=== PATIENT | male | born 1980 | race Caucasian/White ===

== ENCOUNTER 2017-08-17 10:43 | Emergency (ER) | payer MEDICARE, MEDICAID, SELFPAY ==
[2017-08-17 10:44] VITALS: BP 132/92; PULSE 76; RESP 17; TEMP 36.2; O2SAT 100; BMI 39.3
--- NOTE | 2017-08-17 13:35 | ED.VISSUMM ---
- ER Visit Summary Date of Service: 08/17/17 Chief Complaint: Facial laceration History of Present Illness: The patient is a 37 M who fell today at his house struck his head on the ground. Who his glasses cut his forehead. He notes laceration on the right side of his forehead. No loss of consciousness no vomiting. Injury happened approximately 5 hours prior to evaluation. His tetanus is not up-to-date Physical Examination: Afebrile vital signs are stable There is a 4 cm curvilinear laceration starting in the medial aspect of the right eyebrow extending cephalad. It is gaping. There is no active bleeding. Extraocular motions are intact. There is no palpable depression. Emergency Department Course and Treatment: Wound was locally anesthetized using 1% lidocaine. Is washed with Shur-Clens and explored. It was closed using a total of #8 5-0 double interrupted Ethilon sutures. Wound care discussed with patient. Stitches will need to be removed 5-7 days. Tetanus was updated with Adacel Impression: 1. 4 cm facial laceration with 2. Tetanus update This note was generated with [employer] dictation software. It may contain incorrect words, spelling, and punctuation that were not noted in review of the chart prior to signing ED Disposition - Plan for ED Patient: Disposition: Home or Assisted Living Chief Complaint: Fall Instructions: ED Laceration Facial Sutr Tape Referrals: Ezra Duggan MD [Primary Care Provider] - (in 5-7 days for suture removal)
[2017-08-17] MEDS: Diphth,Pertuss(Acell),Tet Vac 0.5 ML Vial IM (14:10)
[2017-08-17 14:30] VITALS: PULSE 70; RESP 16
== END 2017-08-17 14:32 | disposition home or self-care (01) ==
LOC: ED 13:45
PROVIDERS: Emergency Provider Emergency Medicine; Family Provider Family Medicine; PCP Family Medicine
DX: S01.81XA Laceration without foreign body of other part of head, initial encounter (principal); W18.00XA Striking against unspecified object with subsequent fall, initial encounter; Y93.9 Activity, unspecified; Y92.89 Other specified places as the place of occurrence of the external cause; Y99.9 Unspecified external cause status; Z23 Encounter for immunization; I10 Essential (primary) hypertension; E78.00 Pure hypercholesterolemia, unspecified; J45.909 Unspecified asthma, uncomplicated
CPT/HCPCS: 12013; 90715; 99283

== ENCOUNTER 2017-10-16 14:37 | Inpatient (IN) | payer MEDICARE, MEDICAID, SELFPAY ==
[2017-10-16 14:40] VITALS: BP 136/88; PULSE 101; RESP 18; TEMP 37.4; O2SAT 93; BMI 25.4
[2017-10-16 15:44] VITALS: BP 123/90
--- NOTE | 2017-10-16 15:50 | ED.VISSUMM ---
- ER Visit Summary Date of Service: 10/16/17 Chief Complaint: Left foot pain and swelling History of Present Illness: The patient is a 37 M who presents for 2 weeks of left foot swelling, now with 2 days of severe pain. Patient noted swelling to the left foot that began 2 weeks ago and is not significantly changed in the interval. However for the last 2 days he has been having pain with weightbearing, and today was unable to stand up due to severe pain in the foot. He required EMS to get him out of his chair and onto a stretcher. Patient sometimes uses a walker for assistance and has had surgery on both feet. He is also complaining of swelling in the left hand and wrist. He states he had similar swelling in the right hand but received a chiropractic adjustment in the right upper extremity from his father and had resolution of those symptoms. He states he has a history of arthritis. Denies fever, chest pain, shortness of breath, URI symptoms, abdominal pain, nausea or vomiting, or other complaints. He did notice abrasions to the left lower leg and does not know how they happened. Physical Examination: Vital signs: afebrile, hemodynamically stable, no hypoxia on room air General: well nourished, well developed, in no distress Skin: warm, dry, scabbed over excoriated papules on the left inner ankle proximal to the medial malleolus, no fluctuance or induration, dried blood noted, no pallor HEENT: normocephalic and atraumatic; PERRL, EOMI, moist mucous membranes Cardiovascular: regular rate and rhythm without murmurs, no peripheral edema, 2+ pulses all distal extremities Respiratory: No increased work of breathing, lungs are clear to auscultation bilaterally, no rales, rhonchi or wheezing Abdominal: Abdomen is soft, nontender with normoactive bowel sounds, no guarding or rebound, no masses MSK: Moves all extremities, mild pedal symmetric edema bilaterally, DP pulses are 2+ and symmetric, tenderness to diffuse palpation of the left foot, no obvious erythema or induration, left hand and wrist have nonpitting edema with erythema over the MCP and PIP joints, also ordered for the dorsum of the wrist, point tenderness to palpation of the joints Neuro: Awake and alert, oriented ?4. No facial droop, sensation and motor function intact and symmetric Test Results: Abnormal Lab Results 10/16/17 10/16/17 10/16/17 16:10 16:10 16:10 WBC 15.8 H RBC 3.96 L Hgb 10.8 L Hct 32.9 L MCV 83.1 MCH 27.3 MCHC 32.8 RDW 13.2 RDW Differential 39.3 Plt Count 382 MPV 9.1 Immature Gran % (Auto) 0.300 Neut % (Auto) 79.8 H Lymph % (Auto) 7.7 L Dickinson % (Auto) 11.8 H Eos % (Auto) 0.3 Baso % (Auto) 0.1 Absolute Neuts (auto) 12.6 H Absolute Lymphs (auto) 1.22 Total Counted Not Reportable Differential Comment SCANNED ESR 87 H PT 16.0 H INR 1.3 APTT 46.4 H Sodium 138 Potassium 4.0 Chloride 100 Carbon Dioxide 26.0 Anion Gap 12 BUN 16 Creatinine 1.17 Estim Creat Clear Calc 62.71 Est GFR (MDRD) Af Amer 89 Est GFR (MDRD) Non-Af 74 BUN/Creatinine Ratio 13.7 Glucose 120 H Lactic Acid Uric Acid Calcium 9.2 Total Bilirubin 1.80 H AST 14 L ALT 23 Alkaline Phosphatase 117 Total Creatine Kinase 40 C-React Prot Ext Range 319.00 H Total Protein 8.7 H Albumin 2.8 L Globulin 5.9 H Albumin/Globulin Ratio 0.5 L Rheumatoid Factor 10/16/17 10/16/17 10/16/17 16:10 16:10 18:55 WBC RBC Hgb Hct MCV MCH MCHC RDW RDW Differential Plt Count MPV Immature Gran % (Auto) Neut % (Auto) Lymph % (Auto) Dickinson % (Auto) Eos % (Auto) Baso % (Auto) Absolute Neuts (auto) Absolute Lymphs (auto) Total Counted Differential Comment ESR PT INR APTT Sodium Potassium Chloride Carbon Dioxide Anion Gap BUN Creatinine Estim Creat Clear Calc Est GFR (MDRD) Af Amer Est GFR (MDRD) Non-Af BUN/Creatinine Ratio Glucose Lactic Acid 1.1 Uric Acid 11.0 H Calcium Total Bilirubin AST ALT Alkaline Phosphatase Total Creatine Kinase C-React Prot Ext Range Total Protein Albumin Globulin Albumin/Globulin Ratio Rheumatoid Factor Clinical Impression(s) from Imaging Studies Foot X-Ray 10/16/17 15:49 IMPRESSION: 1. Diffuse soft tissue swelling. There is no visualized fracture or dislocation. 2. Diffuse degenerative changes of the foot. 3. Evidence of fusion of the ankle and hindfoot with internal fixation. Electronically Signed: Anderson Monterroso DO at 17:43 EDT Tel [phone], Service support , Hand X-Ray 10/16/17 15:49 IMPRESSION: 1. Soft tissue swelling without acute fracture or dislocation. 2. Degenerative changes of the wrist and hand. 3. 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 Electronically Signed: Anderson Monterroso DO at 17:46 EDT Tel [phone], Service support , Chest X-Ray 10/16/17 16:50 IMPRESSION: No acute cardiopulmonary disease. Electronically Signed: Anderson Monterroso DO at 17:44 EDT Tel [phone], Service support , Emergency Department Course and Treatment: Patient presents because of severe left foot pain, however the more concerning exam is of his left hand, which is edematous, tender and erythematous. Workup was performed showing a leukocytosis of 15.8 with a neutrophil predominance. ESR and CRP were both elevated. Patient states he has a history of osteoarthritis, but these lab findings are more concerning for an infectious or acute inflammatory process rather than osteoarthritis. Patient has no history of rheumatoid arthritis. No electrolyte or renal de rangements. Lactate normal. X-ray of the hand and foot showed chronic changes but no acute process other than soft tissue swelling. Patient has multiple joints involved in the hand, thus a septic joint is less likely although not impossible. Because of the concern for possible infectious source of patient's hand swelling, he was started on vancomycin and cefepime. On reevaluation he was febrile and tachycardic and stated he did not feel well. He was admitted for further workup of the underlying cause of his hand and foot swelling, with presumptive treatment of infectious etiology. Patient had no joints that were amenable to arthrocentesis in the emergency department given that it was finger joints or the wrist. Patient was discussed with Dr. Kotsonis for admission. Treatment Plan: [] Disposition: [] Impression: Sepsis, left hand cellulitis, left foot pain This note was generated with [employer] dictation software. It may contain incorrect words, spelling, and punctuation that were not noted in review of the chart prior to signing ED Disposition - Plan for ED Patient: Disposition: Acute Care Hospital [facility] Chief Complaint: Edema
--- NOTE | 2017-10-16 15:53 | ED.DCSUM_ITS ---
- ER Visit Summary Date of Service: 10/16/17 Chief Complaint: Left foot pain and swelling History of Present Illness: The patient is a 37 M who presents for 2 weeks of left foot swelling, now with 2 days of severe pain. Patient noted swelling to the left foot that began 2 weeks ago and is not significantly changed in the interval. However for the last 2 days he has been having pain with weightbearing, and today was unable to stand up due to severe pain in the foot. He required EMS to get him out of his chair and onto a stretcher. Patient sometimes uses a walker for assistance and has had surgery on both feet. He is also complaining of swelling in the left hand and wrist. He states he had similar swelling in the right hand but received a chiropractic adjustment in the right upper extremity from his father and had resolution of those symptoms. He states he has a history of arthritis. Denies fever, chest pain, shortness of breath, URI symptoms, abdominal pain, nausea or vomiting, or other complaints. He did notice abrasions to the left lower leg and does not know how they happened. Physical Examination: Vital signs: afebrile, hemodynamically stable, no hypoxia on room air General: well nourished, well developed, in no distress Skin: warm, dry, scabbed over excoriated papules on the left inner ankle proximal to the medial malleolus, no fluctuance or induration, dried blood noted , no pallor HEENT: normocephalic and atraumatic; PERRL, EOMI, moist mucous membranes Cardiovascular: regular rate and rhythm without murmurs, no peripheral edema, 2 + pulses all distal extremities Respiratory: No increased work of breathing, lungs are clear to auscultation bilaterally, no rales, rhonchi or wheezing Abdominal: Abdomen is soft, nontender with normoactive bowel sounds, no guarding or rebound, no masses MSK: Moves all extremities, mild pedal symmetric edema bilaterally, DP pulses are 2+ and symmetric, tenderness to diffuse palpation of the left foot, no obvious erythema or induration, left hand and wrist have nonpitting edema with erythema over the MCP and PIP joints, also ordered for the dorsum of the wrist, point tenderness to palpation of the joints Neuro: Awake and alert, oriented ?4. No facial droop, sensation and motor function intact and symmetric Test Results: Abnormal Lab Results 10/16/17 10/16/17 10/16/17 16:10 16:10 16:10 WBC 15.8 H RBC 3.96 L Hgb 10.8 L Hct 32.9 L MCV 83.1 MCH 27.3 MCHC 32.8 RDW 13.2 RDW Differential 39.3 Plt Count 382 MPV 9.1 Immature Gran % (Auto) 0.300 Neut % (Auto) 79.8 H Lymph % (Auto) 7.7 L Mathews % (Auto) 11.8 H Eos % (Auto) 0.3 Baso % (Auto) 0.1 Absolute Neuts (auto) 12.6 H Absolute Lymphs (auto) 1.22 Total Counted Not Reportable Differential Comment SCANNED ESR 87 H PT 16.0 H INR 1.3 APTT 46.4 H Sodium 138 Potassium 4.0 Chloride 100 Carbon Dioxide 26.0 Anion Gap 12 BUN 16 Creatinine 1.17 Estim Creat Clear Calc 62.71 Est GFR (MDRD) Af Amer 89 Est GFR (MDRD) Non-Af 74 BUN/Creatinine Ratio 13.7 Glucose 120 H Lactic Acid Uric Acid Calcium 9.2 Total Bilirubin 1.80 H AST 14 L ALT 23 Alkaline Phosphatase 117 Total Creatine Kinase 40 C-React Prot Ext Range 319.00 H Total Protein 8.7 H Albumin 2.8 L Globulin 5.9 H Albumin/Globulin Ratio 0.5 L Rheumatoid Factor 10/16/17 10/16/17 10/16/17 16:10 16:10 18:55 WBC RBC Hgb Hct MCV MCH MCHC RDW RDW Differential Plt Count MPV Immature Gran % (Auto) Neut % (Auto) Lymph % (Auto) Mathews % (Auto) Eos % (Auto) Baso % (Auto) Absolute Neuts (auto) Absolute Lymphs (auto) Total Counted Differential Comment ESR PT INR APTT Sodium Potassium Chloride Carbon Dioxide Anion Gap BUN Creatinine Estim Creat Clear Calc Est GFR (MDRD) Af Amer Est GFR (MDRD) Non-Af BUN/Creatinine Ratio Glucose Lactic Acid 1.1 Uric Acid 11.0 H Calcium Total Bilirubin AST ALT Alkaline Phosphatase Total Creatine Kinase C-React Prot Ext Range Total Protein Albumin Globulin Albumin/Globulin Ratio Rheumatoid Factor Clinical Impression(s) from Imaging Studies Foot X-Ray 10/16/17 15:49 IMPRESSION: 1. Diffuse soft tissue swelling. There is no visualized fracture or dislocation. 2. Diffuse degenerative changes of the foot. 3. Evidence of fusion of the ankle and hindfoot with internal fixation. Electronically Signed: Anderson Monterroso DO at 17:43 EDT Tel [phone], Service support , Hand X-Ray 10/16/17 15:49 IMPRESSION: 1. Soft tissue swelling without acute fracture or dislocation. 2. Degenerative changes of the wrist and hand. 3. 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 Electronically Signed: Anderson Monterroso DO at 17:46 EDT Tel [phone], Service support , Chest X-Ray 10/16/17 16:50 IMPRESSION: No acute cardiopulmonary disease. Electronically Signed: Anderson Monterroso DO at 17:44 EDT Tel [phone], Service support , Emergency Department Course and Treatment: Patient presents because of severe left foot pain, however the more concerning exam is of his left hand, which is edematous, tender and erythematous. Workup was performed showing a leukocytosis of 15.8 with a neutrophil predominance. ESR and CRP were both elevated. Patient states he has a history of osteoarthritis, but these lab findings are more concerning for an infectious or acute inflammatory process rather than osteoarthritis. Patient has no history of rheumatoid arthritis. No electrolyte or renal de rangements. Lactate normal. X-ray of the hand and foot showed chronic changes but no acute process other than soft tissue swelling. Patient has multiple joints involved in the hand, thus a septic joint is less likely although not impossible. Because of the concern for possible infectious source of patient's hand swelling, he was started on vancomycin and cefepime. On reevaluation he was febrile and tachycardic and stated he did not feel well. He was admitted for further workup of the underlying cause of his hand and foot swelling, with presumptive treatment of infectious etiology. Patient had no joints that were amenable to arthrocentesis in the emergency department given that it was finger joints or the wrist. Patient was discussed with Dr. Kotsonis for admission. Treatment Plan: [] Disposition: [] Impression: Sepsis, left hand cellulitis, left foot pain This note was generated with [employer] dictation software. It may contain incorrect words, spelling, and punctuation that were not noted in review of the chart prior to signing ED Disposition - Plan for ED Patient: Disposition: Acute Care Hospital [facility] Chief Complaint: Edema
[2017-10-16 16:28] LABS: Erythrocyte Sedimentation Rate 87 mm/hr (0-15)
[2017-10-16 16:32] LABS: Absolute Lymphocyte Count 1.22 X10^3/ul (0.83-4.51); Absolute Neutrophil Count 12.6 X10^3/uL (2.0-7.7); Basophil# 0.02 X10^3/uL; Basophil% 0.1 % (0-1); Eosinophil# 0.04 X10^3/uL; Eosinophils% 0.3 % (0-5); Hematocrit 32.9 % (40-54); Hemoglobin 10.8 g/dl (13.0-16.5); Lymphocyte # 1.22 X10^3/ul (4.0); Lymphocyte % 7.7 % (19-41); Mean Corp Hgb Conc 32.8 g/gl (32-36); Mean Corpuscular Hgb 27.3 pg (27.0-32.0); Mean Corpuscular Volume 83.1 fL (80-94); Mean Platelet Vol. 9.1 fl (6.2-12.0); Monocyte# 1.86 X10^3/uL; Monocyte% 11.8 % (0-10); Neutrophil # 12.58 X10^3/uL (2.7-7.7); Neutrophil % 79.8 % (47-70); Platelet Count 382 K/mm3 (150-450); RBC Distribution Width CV 13.2 % (11.6-14.6); RBC Distribution Width SD 39.3 fl (35.1-43.9); Red Blood Count 3.96 M/mm3 (4.6-6.2); White Blood Count 15.8 K/mm3 (4.4-11.0)
[2017-10-16] MEDS: Ketorolac 15 MG/ML Vial IV (16:32)
[2017-10-16] MEDS: 0.9% Normal Saline 1,000 ML 250 ML IV (16:32)
[2017-10-16 16:34] LABS: International Normalized Ratio 1.3
[2017-10-16 16:35] LABS: Partial Thromboplast Time 46.4 Seconds (24.1-36.2)
[2017-10-16 16:36] LABS: Differential Indicated SCAN CRITERIA MET; POSITIVE COUNT NO; POSITIVE DIFFERENTIAL YES; POSITIVE MORPHOLOGY YES
[2017-10-16 16:52] LABS: ALB/GLOB Ratio 0.5 RATIO (0.9-2.4); AST(SGOT) 14 U/L (15-37); Alanine Aminotransfer ALT/SGPT 23 U/L (16-61); Albumin, Serum 2.8 g/dL (3.2-5.0); Alkaline Phosphatase 117 U/L (45-117); Anion Gap 12 (5-15); BUN 16 mg/dL (7-18); BUN/Creat Ratio 13.7 RATIO (10-20); CPK Total, Creatine Kinase 40 U/L (39-308); Calcium,Total 9.2 mg/dL (8.5-10.1); Chloride 100 mmol/L (98-107); Creatinine, Serum 1.17 mg/dL (0.70-1.30); EST Glomerular Filtration Rate 74 mL/min (>60); Est Glom Filt Rate - Afr Amer 89 mL/min (>60); Estimated Creatinine Clearance 62.71 ml/min; Globulin 5.9 g/dL (2.2-4.2); Glucose 120 mg/dL (74-106); Lactic Acid 1.1 mmol/L (0.4-2.0); Protein, Total 8.7 g/dL (6.4-8.2); Sodium Level 138 mmol/L (136-145)
[2017-10-16 16:54] LABS: Differential Comment SCANNED
--- NOTE | 2017-10-16 16:55 | ED.RN ---
IV documented in error in left forearm. IV was placed successfully in right forearm.
[2017-10-16 17:30] VITALS: BP 127/76; PULSE 90; RESP 18; TEMP 38.4; O2SAT 95
--- NOTE | 2017-10-16 17:59 | PCM.HP.STD ---
<Zaira Carmona - Last Filed: 10/16/17 18:38> Problem List (1) HLD (hyperlipidemia) Status: Chronic (2) GERD (gastroesophageal reflux disease) Status: Chronic (3) Depression Status: Chronic History of Present Illness Date of Admission: 10/16/17 Chief Complaint: Left foot pain, swelling, erythema The patient is a 37 year old M who presents to the emergency room due to left foot pain, swelling and erythema which began approximately 2 weeks ago. Patient states he came to the emergency room today due to significant pain and unable to ambulate on left lower extremity. He also has significant swelling, erythema and pain in the left hand. He denies fever, chills. Denies injury to left lower or left upper extremity. Denies history of this occurring. Denies history of gout or rheumatoid arthritis. He has a past medical history of hypertension, hyperlipidemia, depression, GERD, genetic syndrome, chronic iron deficiency anemia. Past Medical History Past Medical History (Chronic Problems): Chronic Problems HLD (hyperlipidemia) (Chronic) GERD (gastroesophageal reflux disease) (Chronic) Depression (Chronic) Allergies codeine Allergy (Verified 10/16/17 14:40) Other lisinopril Allergy (Verified 10/16/17 14:40) Rash Home Medications: Ambulatory Orders Medication Instructions Recorded Sertraline HCl [Zoloft] 50 mg PO DAILY 02/22/14 Atorvastatin Calcium 20 mg PO DAILY 07/10/16 Amlodipine [Norvasc] 10 mg PO DAILY 10/16/17 Ferrous Sulfate 324 mg PO BID 10/16/17 Omeprazole [Omeprazole] 40 mg PO DAILY 10/16/17 Surgical History: tonsillectomy, - - 16 ear surgeries, bilateral ankle surgery, IVC filter placement, laminectomy Lives: Spouse/ Significant Other Smoking Status: Never smoker Alcohol: None Drugs: None - *Family History Paternal History Items: Diabetes Maternal History Items: Cancer - Ovarian Review of Systems Constitutional: Denies: Chills, Fever, Weight Change HEENT: Denies: Head Aches, Sinus Congestion, Sinus Drainage Cardiovascular: Denies: Chest Pain, Palpitations Respiratory: Denies: Cough, Shortness of breath at rest, Sputum production Gastrointestinal: Denies: Abdominal Pain, Nausea, Vomiting Genitourinary: Denies: Dysuria Musculoskeletal: Reports: Joint Pain - Left foot, Left hand Skin: Reports: - - Left hand and foot erythema. No open wounds or abscess. Neurological: Denies: Numbness, Tingling, Focal weakness Psychiatric: Reports: Depression. Denies: Anxiety, Homicidal Ideations, Suicidal Ideations Hematologic/ Lymphatic: Denies: Easy Bruising, Easy Bleeding VTE Information - Inpt Only VTE Present on Admission: No VTE Mechan Device Prophylaxis: None VTE Pharm Prophylaxis ordered?: Yes - Physical Exam General: Alert, Oriented x3, Cooperative, No apparent distress HEENT: Atraumatic, PERRLA, EOMI, Normocephalic Neck: Supple, No JVD, Negative Carotid Bruits Lungs: Clear to auscultation, Normal air movement Cardiovascular: Regular rate, Regular Rhythm, Normal S1, Normal S2, No murmurs Abdomen: Bowel Sounds Present, Soft, Non Tender, Non-Distended, Obese Extremities: Edema - Left foot, left hand Skin: - - Left foot and hand erythema, no open wound or abscess. Musculoskeletal: Tenderness - Left foot and hand. Neurological: Cranial nerves II-XII grossly intact Psych/Mental Status: Normal Affect, Appropriate Vital Signs Temp Pulse Resp BP Pulse Ox 101.1 F H 90 18 127/76 H 95 10/16/17 17:30 10/16/17 17:30 10/16/17 17:30 10/16/17 17:30 10/16/17 17:30 Oxygen Delivery Method Room Air Weight: 135 lb Body Mass Index (BMI) 25.4 Laboratory Tests Past 24 Hrs 10/16/17 10/16/17 10/16/17 16:10 16:10 16:10 WBC 15.8 H RBC 3.96 L Hgb 10.8 L Hct 32.9 L MCV 83.1 MCH 27.3 MCHC 32.8 RDW 13.2 RDW Differential 39.3 Plt Count 382 MPV 9.1 Immature Gran % (Auto) 0.300 Neut % (Auto) 79.8 H Lymph % (Auto) 7.7 L [place] % (Auto) 11.8 H Eos % (Auto) 0.3 Baso % (Auto) 0.1 Absolute Neuts (auto) 12.6 H Absolute Lymphs (auto) 1.22 Total Counted Not Reportable Differential Comment SCANNED ESR 87 H PT 16.0 H INR 1.3 APTT 46.4 H Sodium 138 Potassium 4.0 Chloride 100 Carbon Dioxide 26.0 Anion Gap 12 BUN 16 Creatinine 1.17 Estim Creat Clear Calc 62.71 Est GFR (MDRD) Af Amer 89 Est GFR (MDRD) Non-Af 74 BUN/Creatinine Ratio 13.7 Glucose 120 H Lactic Acid Calcium 9.2 Total Bilirubin 1.80 H AST 14 L ALT 23 Alkaline Phosphatase 117 Total Creatine Kinase 40 C-React Prot Ext Range 319.00 H Total Protein 8.7 H Albumin 2.8 L Globulin 5.9 H Albumin/Globulin Ratio 0.5 L 10/16/17 16:10 WBC RBC Hgb Hct MCV MCH MCHC RDW RDW Differential Plt Count MPV Immature Gran % (Auto) Neut % (Auto) Lymph % (Auto) [place] % (Auto) Eos % (Auto) Baso % (Auto) Absolute Neuts (auto) Absolute Lymphs (auto) Total Counted Differential Comment ESR PT INR APTT Sodium Potassium Chloride Carbon Dioxide Anion Gap BUN Creatinine Estim Creat Clear Calc Est GFR (MDRD) Af Amer Est GFR (MDRD) Non-Af BUN/Creatinine Ratio Glucose Lactic Acid 1.1 Calcium Total Bilirubin AST ALT Alkaline Phosphatase Total Creatine Kinase C-React Prot Ext Range Total Protein Albumin Globulin Albumin/Globulin Ratio Assessment/Plan 1. Left foot/hand swelling and erythema- Cellulitis vs inflammatory process. Left foot x-ray shows soft tissue swelling, no fracture or dislocation. Diffuse degenerative changes. Evidence of fusion of the ankle and hindfoot with internal fixation. Left hand x-ray with soft tissue swelling, no acute fracture or dislocation. Degenerative changes of the wrist and hands. 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 WBC 15.8. ESR and CRP elevated. Patient started on cefepime and vancomycin in ER, continue. PRN pain regimen. If no improvement with antibiotics, consider trial of steroids. HAROLDO, RF, CCP ordered. 2. Hyperlipidemia-continue statin. 3. Hypertension-previously on amlodipine. Unclear if patient is still taking. Continue to monitor. 4. Obesity-encourage diet and lifestyle modifications. Nutrition consult. 5. Genetic syndrome (undiagnosed)- refused outpatient referral to supervisor type photography. 6. 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 7. Chronic iron deficiency anemia-hemoglobin stable. 8. GERD-continue PPI. 9. Depression-continue home sertraline regimen. DVT prophylaxis-Lovenox subcu. This patient was seen by LALITO Joe under the supervision of Dr. Cardozo. <Avery Cardozo F - Last Filed: 10/16/17 19:09> History of Present Illness The patient is a 37 year old M [] Past Medical History Allergies codeine Allergy (Verified 10/16/17 14:40) Other lisinopril Allergy (Verified 10/16/17 14:40) Rash - Physical Exam Vital Signs Temp Pulse Resp BP Pulse Ox 101.1 F H 90 18 127/76 H 95 10/16/17 18:04 18 18:04 10/16/17 18:04 10/16/17 18:04 10/16/17 18:04 Weight: 195 lb 5.273 oz Body Mass Index (BMI) 36.8 Assessment/Plan Addendum: Dr. Cardozo I personally examined the patient and reviewed the chart. I agree with the above. 37-year-old male with a past medical history including hyperlipidemia, hypertension, and a history of DVT who presents with a couple week history of left foot and left hand swelling. He presented because he says that it has not improved over the last 2 weeks. It has not worsened. He was told in the [facility] that he should follow-up with a supervisor type photography given his multiple bony abnormalities however he never did. General: Alert, Oriented x3, Cooperative, No apparent distress HEENT: Atraumatic, = EOMI, Normocephalic Oral: Moist Mucosa Neck: Supple, No JVD Lungs: Clear to auscultation, Normal air movement, No rhonchi, No wheeze, No rales Cardiovascular: Regular rate, Regular Rhythm, Normal S1, Normal S2, No murmurs Abdomen: Soft, Non Tender, Non-Distended, No Hepato-splenomegaly Extremities: No edema, Capillary Refill Less than 3 Seconds, genu valgum in both knee, incisions in both ankles from fusion Skin: areas of redness and warmth on the left hand and left foot Musculoskeletal: No Tenderness to Palpation of Joints or Extremities Psych/Mental Status: Normal Affect, Appropriate 1. 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
[2017-10-16 18:04] VITALS: BP 127/76; PULSE 90; RESP 18; TEMP 38.4; O2SAT 95
[2017-10-16 18:43] VITALS: BMI 36.8
[2017-10-16 18:52] VITALS: BP 125/95; PULSE 89; RESP 16; TEMP 36.3; O2SAT 95
[2017-10-16 19:34] LABS: Rheumatoid Factor < 10.0 IU/mL (<15)
[2017-10-16 20:31] VITALS: BP 123/77; PULSE 58; RESP 16; TEMP 37; O2SAT 94
[2017-10-17 01:27] LABS: Bacteria 0 SEEN /hpf (None Seen); Red Blood Cells-Urine 0 SEEN /hpf (0-5)
[2017-10-17 01:32] LABS: Color, Urine Amber (Yellow); Glucose, Dipstick Normal (Normal); Ketone-Dipstick 5 mg/dl (Negative); Leukocyte Esterase-Dipstick 25 /ul (Negative); Nitrite-Dipstick Negative (Negative); Occult Blood-Urine Negative /ul (Negative); Protein-Dipstick 30 mg/dl (Negative); Urine Clarity Sl. Cloudy (Clear); Urine Urobilinogen 1 mg/dl (Normal)
[2017-10-17 01:38] LABS: Urine Bilirubin Dipstick 1 mg/dL (Negative)
[2017-10-17 01:42] LABS: Hyaline Cast 25-50 SEEN /lpf (0-5); Mucous, Urine 1+ /hpf (<or=2+); Squamous Epithelial Cells - UA 0-5 SEEN /hpf (0-5); White Blood Cells 0-5 SEEN /hpf (0-5)
[2017-10-17 03:51] VITALS: BP 142/81; PULSE 81; RESP 16; TEMP 37.2; O2SAT 94
[2017-10-17] MEDS: Ketorolac 15 MG/ML Vial IV ×2 (04:26→20:30)
[2017-10-17] MEDS: 0.9% NaCl Peripheral Flush Adult/Peds IV ×2 (04:27→13:56)
[2017-10-17 06:53] LABS: Absolute Lymphocyte Count 1.31 X10^3/ul (0.83-4.51); Absolute Neutrophil Count 8.7 X10^3/uL (2.0-7.7); Basophil# 0.02 X10^3/uL; Basophil% 0.2 % (0-1); Eosinophil# 0.17 X10^3/uL; Eosinophils% 1.5 % (0-5); Hematocrit 29.5 % (40-54); Hemoglobin 9.5 g/dl (13.0-16.5); Lymphocyte # 1.31 X10^3/ul (4.0); Lymphocyte % 11.6 % (19-41); Mean Corp Hgb Conc 32.2 g/gl (32-36); Mean Corpuscular Hgb 27.3 pg (27.0-32.0); Mean Corpuscular Volume 84.8 fL (80-94); Mean Platelet Vol. 9.3 fl (6.2-12.0); Monocyte# 1.05 X10^3/uL; Monocyte% 9.3 % (0-10); Neutrophil # 8.71 X10^3/uL (2.7-7.7); Platelet Count 320 K/mm3 (150-450); RBC Distribution Width CV 13.3 % (11.6-14.6); Red Blood Count 3.48 M/mm3 (4.6-6.2); White Blood Count 11.3 K/mm3 (4.4-11.0)
[2017-10-17 07:03] LABS: POSITIVE COUNT NO; POSITIVE DIFFERENTIAL NO; POSITIVE MORPHOLOGY NO
[2017-10-17 07:13] LABS: Anion Gap 10 (5-15); BUN 17 mg/dL (7-18); BUN/Creat Ratio 17.4 RATIO (10-20); Calcium,Total 8.8 mg/dL (8.5-10.1); Chloride 105 mmol/L (98-107); Creatinine, Serum 0.98 mg/dL (0.70-1.30); EST Glomerular Filtration Rate 91 mL/min (>60); Est Glom Filt Rate - Afr Amer 110 mL/min (>60); Estimated Creatinine Clearance 74.86 ml/min; Glucose 100 mg/dL (74-106); Potassium 3.9 mmol/L (3.5-5.1); Sodium Level 140 mmol/L (136-145)
[2017-10-17 09:51] VITALS: BP 125/81; PULSE 86; RESP 16; TEMP 37.3; O2SAT 97
[2017-10-17] MEDS: Pantoprazole Sodium 40 MG Tablet PO (11:11)
[2017-10-17] MEDS: Sertraline 50 MG Tablet PO (11:11)
[2017-10-17] MEDS: Atorvastatin Calcium 20 MG Tablet PO (11:11)
[2017-10-17] MEDS: Enoxaparin 40 MG/0.4 ML Syringe SC (11:11)
--- NOTE | 2017-10-17 13:10 | PCM.PROGNOTE ---
<Zaira Carmona - Last Filed: 10/17/17 13:15> Subjective: Patient seen and examined. Notes improvement in left foot and left wrist redness and swelling. Continues to have pain in the left foot, although improved. Denies fever, chills. Has not yet bear weight on left lower extremity. - Physical Exam General: Alert, Oriented x3, Cooperative, No apparent distress HEENT: Atraumatic, PERRLA, EOMI, Normocephalic Neck: Supple, No JVD, Negative Carotid Bruits Lungs: Clear to auscultation, Normal air movement Cardiovascular: Regular rate, Regular Rhythm, Normal S1, Normal S2, No murmurs Abdomen: Bowel Sounds Present, Soft, Non Tender, Non-Distended Extremities: No clubbing, No cyanosis, Edema - Left foot and left hand swelling improved. Skin: No rashes, No breakdown, - - Left foot and hand erythema and swelling improved, no open wound or abscess. Musculoskeletal: Tenderness - Left foot Neurological: Cranial nerves II-XII grossly intact, Neuro grossly intact Psych/Mental Status: Normal Affect, Appropriate Vital Signs Temp Pulse Resp BP Pulse Ox 99.1 F 86 16 125/81 H 97 10/17/17 09:51 10/17/17 09:51 10/17/17 09:51 10/17/17 09:51 10/17/17 09:51 Oxygen Delivery Method Room Air Weight: 195 lb 5.273 oz Body Mass Index (BMI) 36.8 Intake and Output for Last 24 Hours 10/15/17 10/16/17 10/17/17 23:59 23:59 23:59 Intake Total 885 / 885 Output Total 200 / 200 Balance 685 / 685 Laboratory Tests Past 24 Hrs 10/16/17 10/16/17 10/16/17 18:55 18:55 18:55 WBC RBC Hgb Hct MCV MCH MCHC RDW RDW Differential Plt Count MPV Immature Gran % (Auto) Neut % (Auto) Lymph % (Auto) Bent % (Auto) Eos % (Auto) Baso % (Auto) Absolute Neuts (auto) Absolute Lymphs (auto) Total Counted Sodium Potassium Chloride Carbon Dioxide Anion Gap BUN Creatinine Estim Creat Clear Calc Est GFR (MDRD) Af Amer Est GFR (MDRD) Non-Af BUN/Creatinine Ratio Glucose Calcium Urine Color Urine Clarity Urine pH Ur Specific [place] Urine Protein Urine Glucose (UA) Urine Ketones Urine Occult Blood Urine Nitrite Urine Bilirubin Urine Urobilinogen Ur Leukocyte Esterase Urine RBC Urine WBC Ur Squamous Epith Cells Urine Bacteria Hyaline Casts Urine Mucus Rheumatoid Factor < 10.0 Cycl Citrul Peptide IgG Pending HAROLDO Screen Pending MICHELLE-1 Antibody Pending SS-A/Ro IgG Antibody Pending SS-B/La IgG Antibody Pending Sm (Berry) Antibody Pending STORES DESPATCH HAND Antibody Pending Scl-70 Scleroderma Ab Pending Double Strand DNA Ab Pending Centromere B Antibody Pending 10/17/17 10/17/17 10/17/17 01:20 06:00 06:00 WBC 11.3 H RBC 3.48 L Hgb 9.5 L Hct 29.5 L MCV 84.8 MCH 27.3 MCHC 32.2 RDW 13.3 RDW Differential 40.0 Plt Count 320 MPV 9.3 Immature Gran % (Auto) 0.400 Neut % (Auto) 77.0 H Lymph % (Auto) 11.6 L Bent % (Auto) 9.3 Eos % (Auto) 1.5 Baso % (Auto) 0.2 Absolute Neuts (auto) 8.7 H Absolute Lymphs (auto) 1.31 Total Counted Not Reportable Sodium 140 Potassium 3.9 Chloride 105 Carbon Dioxide 25.0 Anion Gap 10 BUN 17 Creatinine 0.98 Estim Creat Clear Calc 74.86 Est GFR (MDRD) Af Amer 110 Est GFR (MDRD) Non-Af 91 BUN/Creatinine Ratio 17.4 Glucose 100 Calcium 8.8 Urine Color Mona Urine Clarity Sl. Cloudy Urine pH 6.0 Ur Specific [place] 1.020 Urine Protein 30 H Urine Glucose (UA) Normal Urine Ketones 5 H Urine Occult Blood Negative Urine Nitrite Negative Urine Bilirubin 1 H Urine Urobilinogen 1 H Ur Leukocyte Esterase 25 H Urine RBC 0 SEEN Urine WBC 0-5 SEEN Ur Squamous Epith Cells 0-5 SEEN Urine Bacteria 0 SEEN Hyaline Casts 25-50 SEEN Urine Mucus 1+ Rheumatoid Factor Cycl Citrul Peptide IgG HAROLDO Screen MICHELLE-1 Antibody SS-A/Ro IgG Antibody SS-B/La IgG Antibody Sm (Berry) Antibody STORES DESPATCH HAND Antibody Scl-70 Scleroderma Ab Double Strand DNA Ab Centromere B Antibody Medical Necessity - Tobacco Use Smoking Status: Never smoker Assessment/Plan 1. Left foot/hand swelling and erythema- Cellulitis vs inflammatory process. Left foot x-ray shows soft tissue swelling, no fracture or dislocation. Diffuse degenerative changes. Evidence of fusion of the ankle and hindfoot with internal fixation. Left hand x-ray with soft tissue swelling, no acute fracture or dislocation. Degenerative changes of the wrist and hands. 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 WBC 15.8 on admission. ESR and CRP elevated. Continue cefepime and vancomycin. PRN pain regimen. HAROLDO, RF, CCP pending. Left lower extremity MRI ordered to rule out osteomyelitis, pending. 2. Hyperlipidemia-continue statin. 3. Hypertension-continue home amlodipine regimen. 4. Obesity-encourage diet and lifestyle modifications. Nutrition consult. 5. Genetic syndrome (undiagnosed)- refused outpatient referral to network consultant. 6. 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 7. Chronic iron deficiency anemia-hemoglobin stable. Continue iron supplementation. 8. GERD-continue PPI. 9. Depression-continue home sertraline regimen. DVT prophylaxis-Lovenox subcu. This patient was seen by LALITO Joe under the supervision of Dr. Del Valle. <David Del Valle E - Last Filed: 10/17/17 13:22> - Physical Exam Vital Signs Temp Pulse Resp BP Pulse Ox 99.1 F 86 16 125/81 H 97 10/17/17 09:51 10/17/17 09:51 10/17/17 09:51 10/17/17 09:51 10/17/17 09:51 Oxygen Delivery Method Room Air Weight: 195 lb 5.273 oz Body Mass Index (BMI) 36.8 Intake and Output for Last 24 Hours 10/15/17 10/16/17 10/17/17 23:59 23:59 23:59 Intake Total 885 / 885 Output Total 200 / 200 Balance 685 / 685 Laboratory Tests Past 24 Hrs 10/16/17 10/16/17 10/16/17 18:55 18:55 18:55 WBC RBC Hgb Hct MCV MCH MCHC RDW RDW Differential Plt Count MPV Immature Gran % (Auto) Neut % (Auto) Lymph % (Auto) Bent % (Auto) Eos % (Auto) Baso % (Auto) Absolute Neuts (auto) Absolute Lymphs (auto) Total Counted Sodium Potassium Chloride Carbon Dioxide Anion Gap BUN Creatinine Estim Creat Clear Calc Est GFR (MDRD) Af Amer Est GFR (MDRD) Non-Af BUN/Creatinine Ratio Glucose Calcium Urine Color Urine Clarity Urine pH Ur Specific [place] Urine Protein Urine Glucose (UA) Urine Ketones Urine Occult Blood Urine Nitrite Urine Bilirubin Urine Urobilinogen Ur Leukocyte Esterase Urine RBC Urine WBC Ur Squamous Epith Cells Urine Bacteria Hyaline Casts Urine Mucus Rheumatoid Factor < 10.0 Cycl Citrul Peptide IgG Pending HAROLDO Screen Pending MICHELLE-1 Antibody Pending SS-A/Ro IgG Antibody Pending SS-B/La IgG Antibody Pending Sm (Berry) Antibody Pending STORES DESPATCH HAND Antibody Pending Scl-70 Scleroderma Ab Pending Double Strand DNA Ab Pending Centromere B Antibody Pending 10/17/17 10/17/17 10/17/17 01:20 06:00 06:00 WBC 11.3 H RBC 3.48 L Hgb 9.5 L Hct 29.5 L MCV 84.8 MCH 27.3 MCHC 32.2 RDW 13.3 RDW Differential 40.0 Plt Count 320 MPV 9.3 Immature Gran % (Auto) 0.400 Neut % (Auto) 77.0 H Lymph % (Auto) 11.6 L Bent % (Auto) 9.3 Eos % (Auto) 1.5 Baso % (Auto) 0.2 Absolute Neuts (auto) 8.7 H Absolute Lymphs (auto) 1.31 Total Counted Not Reportable Sodium 140 Potassium 3.9 Chloride 105 Carbon Dioxide 25.0 Anion Gap 10 BUN 17 Creatinine 0.98 Estim Creat Clear Calc 74.86 Est GFR (MDRD) Af Amer 110 Est GFR (MDRD) Non-Af 91 BUN/Creatinine Ratio 17.4 Glucose 100 Calcium 8.8 Urine Color Mona Urine Clarity Sl. Cloudy Urine pH 6.0 Ur Specific [place] 1.020 Urine Protein 30 H Urine Glucose (UA) Normal Urine Ketones 5 H Urine Occult Blood Negative Urine Nitrite Negative Urine Bilirubin 1 H Urine Urobilinogen 1 H Ur Leukocyte Esterase 25 H Urine RBC 0 SEEN Urine WBC 0-5 SEEN Ur Squamous Epith Cells 0-5 SEEN Urine Bacteria 0 SEEN Hyaline Casts 25-50 SEEN Urine Mucus 1+ Rheumatoid Factor Cycl Citrul Peptide IgG HAROLDO Screen MICHELLE-1 Antibody SS-A/Ro IgG Antibody SS-B/La IgG Antibody Sm (Berry) Antibody STORES DESPATCH HAND Antibody Scl-70 Scleroderma Ab Double Strand DNA Ab Centromere B Antibody Assessment/Plan Hospitalist note: I am seeing this patient in conjunction with Zaira Carmona. I independently seen and examined the patient. Progress note above, laboratory data and imaging studies reviewed and I concur with the above treatment plan. Patient was admitted for left foot pain and swelling as well as left hand foot and swelling. He was found to have findings consistent with sepsis based on fever and leukocytosis. Today, he mentioned that the swelling and redness of both left foot and left hand significantly improved. He has been afebrile overnight. His ESR and C-reactive protein was highly elevated. His blood pressure stable, heart rate stable, pulse ox is maintained on room air. - Physical Exam General: Alert, Oriented x3, Cooperative, No apparent distress. HEENT: Atraumatic, PERRLA, EOMI. Neck: Supple, No JVD, Negative Carotid Bruits, Trachea Midline, Thyroid Normal. Lungs: Diminished breath sounds bilateral, otherwise clear, No rhonchi, No wheeze, No rales. Cardiovascular: Regular rate, Regular Rhythm, Normal S1, Normal S2, PMI Normal. Abdomen: Bowel Sounds Present, Soft, Non Tender, Non-Distended, No Hepato-splenomegaly. Extremities: No clubbing, No cyanosis, No edema Skin: No rashes, No breakdown. Swelling and erythema of the left foot and left hand improved Neurological: Neuro grossly intact Vital Signs are stable. Assessment and plan: #1 sepsis/left foot and left hand probable cellulitis: Patient does have evidence of infection, has been febrile, has leukocytosis and significantly improved. His lactic acid was normal. ESR and C-reactive protein are highly elevated. Left foot x-ray revealed soft tissue swelling, no fractures. Left hand x-ray also revealed soft tissue swelling. The patient had multiple surgeries for congenital anomalies for both feet. He is on IV cefepime and vancomycin. His vital signs are stable. Blood and urine cultures are pending. Plan to potassium treatment, MRI left foot. #2 other chronic medical problems: Stable, continue current medications as above. This note was generated with Entrecation software. It may contain incorrect words, spelling, and punctuation that were not noted in checking the note before signing. Code Visit Inpatient E&M: 74640 Subs Hosp L2
--- NOTE | 2017-10-17 13:39 | CASEMGMT ---
RN CM assessment complete. See Link. -Intro role of CM to patient and his girlfriend. Pt was being taken to MRI-awaiting results to r/o osteomylitis -Pt uses DME @ home but is independent in ADL's. Difficulty ambulating now due to pain. -PT/OT results reviewed: PT recommending home, OT recommended further therapy. Will need to discuss w/pt prior to dc. Robert SMITHN RN ACM
[2017-10-17] MEDS: Cefazolin 2 GM in 0.9% Normal Saline 100 ML IV ×2 (13:56→21:27)
[2017-10-17 15:51] VITALS: BP 130/80; PULSE 84; RESP 16; TEMP 37.1; O2SAT 96
[2017-10-17] MEDS: Ferrous Sulfate 325 MG Tablet PO (16:54)
[2017-10-17 21:45] VITALS: BP 148/83; PULSE 81; RESP 16; TEMP 37.4; O2SAT 98
[2017-10-18] MEDS: Cefazolin 2 GM in 0.9% Normal Saline 100 ML IV ×3 (05:53→21:49)
[2017-10-18 05:57] VITALS: BP 157/91; PULSE 77; RESP 16; TEMP 37.2; O2SAT 97
[2017-10-18] MEDS: Ketorolac 15 MG/ML Vial IV ×3 (06:06→21:49)
[2017-10-18 07:11] LABS: Hematocrit 29.2 % (40-54); Hemoglobin 9.2 g/dl (13.0-16.5); Mean Corp Hgb Conc 31.5 g/gl (32-36); Mean Corpuscular Hgb 26.4 pg (27.0-32.0); Mean Corpuscular Volume 83.9 fL (80-94); Platelet Count 311 K/mm3 (150-450); RBC Distribution Width CV 13.3 % (11.6-14.6); RBC Distribution Width SD 40.8 fl (35.1-43.9); Red Blood Count 3.48 M/mm3 (4.6-6.2); Scan Indicated on CBC? Y/N NO; White Blood Count 9.5 K/mm3 (4.4-11.0)
[2017-10-18] MEDS: Enoxaparin 40 MG/0.4 ML Syringe SC (08:35)
[2017-10-18] MEDS: Ferrous Sulfate 325 MG Tablet PO ×2 (08:35→14:45)
[2017-10-18] MEDS: Atorvastatin Calcium 20 MG Tablet PO (08:35)
[2017-10-18] MEDS: Pantoprazole Sodium 40 MG Tablet PO (08:36)
[2017-10-18] MEDS: amLODIPine 10 MG Tablet PO (08:36)
[2017-10-18] MEDS: Sertraline 50 MG Tablet PO (08:36)
[2017-10-18 08:57] VITALS: PULSE 80
[2017-10-18 09:54] VITALS: BP 144/80; PULSE 71; RESP 18; TEMP 37.1; O2SAT 97
--- NOTE | 2017-10-18 10:32 | PCM.PN.HOSP ---
Subjective: Patient seen and examined. He complains of inability to flex his fingers and make a fist. Denies fever or chills. His cellulitis is getting better. Objective: Physical Exam General: Alert, Oriented x3, Cooperative, No apparent distress HEENT: Atraumatic, PERRLA, EOMI, Normocephalic Neck: Supple, No JVD, Negative Carotid Bruits Lungs: Clear to auscultation, Normal air movement Cardiovascular: Regular rate, Regular Rhythm, Normal S1, Normal S2, No murmurs Abdomen: Bowel Sounds Present, Soft, Non Tender, Non-Distended Extremities: No clubbing, No cyanosis, Edema - Left foot and left hand swelling persists. His Left interphalangeal joint is swollen as well as left ankle. Skin: No rashes, No breakdown, - - Left foot and hand erythema and swelling improved, no open wound or abscess. No cellulitis seen except at left interphalangeal joints. Musculoskeletal: Tenderness - Left foot Neurological: Cranial nerves II-XII grossly intact, Neuro grossly intact Psych/Mental Status: Normal Affect, Appropriate Vitals/I&O's: Vital Signs Temp Pulse Resp BP Pulse Ox 98.7 F 71 18 144/80 H 97 10/18/17 09:54 10/18/17 09:54 10/18/17 09:54 10/18/17 09:54 10/18/17 09:54 Oxygen Delivery Method Room Air Intake and Output for Last 24 Hours 10/16/17 10/17/17 10/18/17 23:59 23:59 23:59 Intake Total 200 / 200 Output Total 450 / 450 Balance -250 / -250 Laboratory Results 10/18/17 06:28: WBC 9.5, RBC 3.48 L, Hgb 9.2 L, Hct 29.2 L, MCV 83.9, MCH 26.4 L, MCHC 31.5 L, RDW 13.3, RDW Differential 40.8, Plt Count 311, MPV 9.0 Current Medications Amlodipine Besylate (Norvasc) 10 mg PO DAILY [facility] Last Admin: 10/18/17 08:36 Dose: 10 mg Atorvastatin Calcium (Lipitor) 20 mg PO DAILY [facility] Last Admin: 10/18/17 08:35 Dose: 20 mg Enoxaparin Sodium (Lovenox) 40 mg SC DAILY@1000 [facility] Last Admin: 10/18/17 08:35 Dose: 40 mg Ferrous Sulfate (Ferrous Sulfate) 325 mg PO BIDCM [facility] Last Admin: 10/18/17 08:35 Dose: 325 mg Cefazolin Sodium 2 gm/ Sodium (Chloride) 110 mls @ 150 mls/hr IV Q8 [facility] Last Admin: 10/18/17 05:53 Dose: 150 mls/hr Ketorolac Tromethamine (Toradol) 15 mg IV Q6H PRN PRN PRN Reason: PAIN Stop: 10/22/17 20:12 Last Admin: 10/18/17 06:06 Dose: 15 mg Magnesium Hydroxide (Milk Of Magnesia) 30 ml PO DAILY PRN PRN PRN Reason: Constipation Pantoprazole Sodium (Protonix) 40 mg PO DAILY [facility] Last Admin: 10/18/17 08:36 Dose: 40 mg Sertraline HCl (Zoloft) 50 mg PO DAILY [facility] Last Admin: 10/18/17 08:36 Dose: 50 mg Sodium Chloride () 5 - 30 ml IV UD PRN PRN Reason: SALINE FLUSH Last Admin: 10/17/17 13:56 Dose: 10 ml Medical Necessity - Tobacco Use Smoking Status: Never smoker Assessment/Plan 37-year-old male with past medical history of GERD, hyperlipidemia, depression, with 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 1. Left foot and hand cellulitis, improved, on cefazolin IV, will continue for today and switch to Keflex tomorrow to complete 7 day total antibiotic course. 2. Left hand/interphalangeal joint swelling secondary to acute gout, started on prednisone and allopurinol. 3. Hyperlipidemia, on statin. 4. Hypertension, on home blood pressure regimen. 5. Obesity, diet and exercise is recommended. 6. History of DVT status post IVC filter and removal. 7. Iron deficiency anemia, chronic, on chronic iron supplementation. 8. GERD, on PPI 9. Depression on home sertraline regimen 10. Suspected genetic syndrome, needs to follow-up with cupola operator. 11. DVT Prophylaxis with Lovenox subcu 12. Disposition: Possible discharge to [facility]p facility as patient is unable to perform his Basic and IADLs on account of swelling of the hand. Would need to be reevaluated again tomorrow by physical and Occupational Therapy. Code Visit Inpatient E&M: 02605 Subs Hosp L2
[2017-10-18 11:29] LABS: Uric Acid 9.3 mg/dL (3.5-7.2)
[2017-10-18] MEDS: predniSONE 20 MG Tablet 40 MG PO (14:44)
[2017-10-18] MEDS: Allopurinol 100 MG Tablet PO (14:45)
--- NOTE | 2017-10-18 14:45 | CASEMGMT ---
IESHA PONCE in to discuss discharge plans with patient. Patient states that he does not feel comfortable going home and feels he needs to go to SNF for additional therapy. Patient states that he would like [facility] IESHA PONCE updated KALPESH Davis regarding SNF referral.
[2017-10-18 15:00] VITALS: PULSE 88
[2017-10-18 15:10] LABS: ANTINUCLEAR ANTIBODIES DIRECT Negative (Negative)
[2017-10-18 15:25] VITALS: BP 136/89; PULSE 88; RESP 16; TEMP 36.7; O2SAT 98
--- NOTE | 2017-10-18 16:22 | CASEMGMT ---
Social Work Note RN ROSARIO Mcdermott updated this worker that pt feels he is unable to go home at this time and would like placement at [facility] or [facility]. SW reviewed pt's insurance ([place] [employer]) and [facility] aren't in network with pt's insurance. KALPESH faxed referral to Maryellen at [facility]. Plan: [facility] pending acceptance and pre-cert Sarah Davis CAUSTIC MIXER, BROWNELL OPERATOR
[2017-10-18 20:39] VITALS: BP 148/88; PULSE 76; RESP 18; TEMP 37.4; O2SAT 96
[2017-10-19 02:40] VITALS: BP 139/82; PULSE 52; RESP 16; TEMP 36.8; O2SAT 97
[2017-10-19] MEDS: Cefazolin 2 GM in 0.9% Normal Saline 100 ML IV ×2 (05:27→13:06)
[2017-10-19 08:05] VITALS: BP 133/83; PULSE 63; RESP 18; TEMP 36.9; O2SAT 96
[2017-10-19] MEDS: Ferrous Sulfate 325 MG Tablet PO ×2 (08:08→17:02)
[2017-10-19] MEDS: amLODIPine 10 MG Tablet PO (08:08)
[2017-10-19] MEDS: Enoxaparin 40 MG/0.4 ML Syringe SC (08:09)
[2017-10-19] MEDS: predniSONE 20 MG Tablet 40 MG PO (08:09)
[2017-10-19] MEDS: Atorvastatin Calcium 20 MG Tablet PO (08:09)
[2017-10-19] MEDS: Sertraline 50 MG Tablet PO (08:10)
[2017-10-19] MEDS: Pantoprazole Sodium 40 MG Tablet PO (08:10)
[2017-10-19] MEDS: Ketorolac 15 MG/ML Vial IV ×3 (08:14→22:17)
[2017-10-19 11:50] LABS: CCP IgG Antibodies 12 units (0-19)
[2017-10-19 14:29] VITALS: BP 121/74; PULSE 72; RESP 18; TEMP 36.6; O2SAT 98
--- NOTE | 2017-10-19 15:43 | PCM.PN.HOSP ---
Subjective: Patient was seen and examined. The swelling on his left interphalangeal joints is much better. Still remains swollen, but movement with flexion of the hand and wrist is better. Denies any fever or chills. Plan is for discharge to senior care facility, waiting on insurance precertification. Objective: Physical Exam General: Alert, Oriented x3, Cooperative, No apparent distress HEENT: Atraumatic, PERRLA, EOMI, Normocephalic Neck: Supple, No JVD, Negative Carotid Bruits Lungs: Clear to auscultation, Normal air movement Cardiovascular: Regular rate, Regular Rhythm, Normal S1, Normal S2, No murmurs Abdomen: Bowel Sounds Present, Soft, Non Tender, Non-Distended Extremities: No clubbing, No cyanosis, Edema - Left foot and left hand swelling persists. His Left interphalangeal joint is swollen as well as left ankle. Skin: No rashes, No breakdown, - - Left foot and hand erythema and swelling improved, no open wound or abscess. No cellulitis seen except at left interphalangeal joints. Musculoskeletal: Tenderness - Left foot Neurological: Cranial nerves II-XII grossly intact, Neuro grossly intact Psych/Mental Status: Normal Affect, Appropriate Vitals/I&O's: Vital Signs Temp Pulse Resp BP Pulse Ox 97.8 F 72 18 121/74 H 98 10/19/17 14:29 10/19/17 14:29 10/19/17 14:29 10/19/17 14:29 10/19/17 14:29 Oxygen Delivery Method Room Air Intake and Output for Last 24 Hours 10/17/17 10/18/17 10/19/17 23:59 23:59 23:59 Intake Total 1000 / 1000 548 / 548 Output Total 950 / 950 400 / 400 Balance 50 / 50 148 / 148 Current [facility] Last Admin: 10/18/17 14:45 Dose: 100 mg Amlodipine Besylate (Norvasc) 10 mg PO DAILY [facility] Last Admin: 10/19/17 08:08 Dose: 10 mg Atorvastatin Calcium (Lipitor) 20 mg PO DAILY [facility] Last Admin: 10/19/17 08:09 Dose: 20 mg Enoxaparin Sodium (Lovenox) 40 mg SC DAILY@1000 [facility] Last Admin: 10/19/17 08:09 Dose: 40 mg Ferrous Sulfate (Ferrous Sulfate) 325 mg PO BIDCM [facility] Last Admin: 10/19/17 08:08 Dose: 325 mg Cefazolin Sodium 2 gm/ Sodium (Chloride) 110 mls @ 150 mls/hr IV Q8 [facility] Last Admin: 10/19/17 13:06 Dose: 150 mls/hr Ketorolac Tromethamine (Toradol) 15 mg IV Q6H PRN PRN PRN Reason: PAIN Stop: 10/22/17 20:12 Last Admin: 10/19/17 14:24 Dose: 15 mg Magnesium Hydroxide (Milk Of Magnesia) 30 ml PO DAILY PRN PRN PRN Reason: Constipation Pantoprazole Sodium (Protonix) 40 mg PO DAILY [facility] Last Admin: 10/19/17 08:10 Dose: 40 mg Prednisone () 40 mg PO DAILY@0800 [facility] Last Admin: 10/19/17 08:09 Dose: 40 mg Sertraline HCl (Zoloft) 50 mg PO DAILY [facility] Last Admin: 10/19/17 08:10 Dose: 50 mg Sodium Chloride () 5 - 30 ml IV UD PRN PRN Reason: SALINE FLUSH Last Admin: 10/17/17 13:56 Dose: 10 ml Medical Necessity - Tobacco Use Smoking Status: Never smoker Assessment/Plan 37-year-old male with past medical history of GERD, hyperlipidemia, depression, with 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 1. Left foot and hand cellulitis, improved, on cefazolin IV, switched to Keflex to complete 7 days of antibiotics 2. Left hand/interphalangeal joint swelling secondary to acute gout, improving, started on prednisone and allopurinol. 3. Hyperlipidemia, on statin. 4. Hypertension, on home blood pressure regimen. 5. Obesity, diet and exercise is recommended. 6. History of DVT status post IVC filter and removal. 7. Iron deficiency anemia, chronic, on chronic iron supplementation. 8. GERD, on PPI 9. Depression on home sertraline regimen 10. Suspected genetic syndrome, needs to follow-up with pricing supervisor. 11. DVT Prophylaxis with Lovenox subcu 12. Disposition: Pending insurance precertification to senior care facility as patient is unable to perform his Basic and IADLs on account of swelling of the hand. Code Visit Inpatient E&M: 11983 Subs Hosp L2
--- NOTE | 2017-10-19 16:41 | CASEMGMT ---
Social Work Note SW received message from Maryellen at [facility] stating that their minimum age for pt's is 50 years old so she is unable to accept pt. Dr. Woo informed this worker that she thinks pt could be a good fit for [facility]. SW explained that pt has to have a diagnosis that meets criteria for [facility] and that this worker will make [facility] referral. KALPESH placed a call to Elizabeth with [facility] with referral. Elizabeth states that she has review pt and she is unable to accept pt as their is no diagnosis meeting criteria for [facility]. SW in to update pt of this. Pt states that he would like [facility], [facility], [facility], or [facility]. SW explained that [facility] is closest to [place] and that this worker will make referral to [facility] and then can determine the next closest facility. Pt asked about [facility] [place]. SW explained that they aren't in network with his insurance and that this worker can have [facility] [place] check out of network benefits for pt's insurance. KALPESH placed a call to Trish at [facility] [place]. Trish checked pt's insurance and pt doesn't have out of network benefits. Pt could go under his Medicaid but pt would not get therapy and that is what pt needs. KALPESH faxed referral to admissions at [facility]. Plan: [facility] pending acceptance and pre-cert Sarah Davis CRISIS MENTAL HEALTH THERAPIST, DIRECTOR NURSING SERVICE
[2017-10-19] MEDS: Cephalexin 500 MG Capsule PO ×2 (17:02→23:08)
[2017-10-19 22:17] VITALS: BP 153/98; PULSE 68; RESP 16; TEMP 36.8; O2SAT 94
[2017-10-19] MEDS: 0.9% NaCl Peripheral Flush Adult/Peds IV (22:17)
[2017-10-20 03:25] VITALS: BP 137/78; PULSE 66; RESP 18; TEMP 36.5; O2SAT 97
[2017-10-20] MEDS: 0.9% NaCl Peripheral Flush Adult/Peds IV (05:36)
[2017-10-20] MEDS: Cephalexin 500 MG Capsule PO ×4 (05:37→23:29)
[2017-10-20] MEDS: Ketorolac 15 MG/ML Vial IV (05:37)
[2017-10-20 09:25] VITALS: BP 131/77; PULSE 61; RESP 16; TEMP 36.3; O2SAT 97
[2017-10-20] MEDS: predniSONE 20 MG Tablet 40 MG PO (10:14)
[2017-10-20] MEDS: Ferrous Sulfate 325 MG Tablet PO ×2 (10:14→17:44)
[2017-10-20] MEDS: Allopurinol 100 MG Tablet PO (10:14)
[2017-10-20] MEDS: Sertraline 50 MG Tablet PO (10:15)
[2017-10-20] MEDS: Pantoprazole Sodium 40 MG Tablet PO (10:15)
[2017-10-20] MEDS: Atorvastatin Calcium 20 MG Tablet PO (10:15)
[2017-10-20] MEDS: Enoxaparin 40 MG/0.4 ML Syringe SC (10:15)
[2017-10-20] MEDS: amLODIPine 10 MG Tablet PO (10:15)
[2017-10-20 13:30] VITALS: BP 127/78; PULSE 61; RESP 16; TEMP 36.4; O2SAT 97
--- NOTE | 2017-10-20 15:24 | CASEMGMT ---
Social Work Note SW has not heard back yet from [facility]. Elsa ENRIQUE called PT and PT is stating that pt should be fine to go home with home health therapy. SW in to update pt of this. Pt states that he wishes to discharge still to SNF. SW explained that this worker hasn't heard back yet from [facility] and that pt will need accepting facility before pre-cert with insurance can be submitted. SW informed pt that he did well with PT/OT today and if he continues to get better then his insurance may deny him. Pt states understanding and wishes to still have this worker send referrals. Pt states that he was at [facility] before and asked why he can't go there again. SW explained that pt has to have qualifying criteria for [facility] and at this time pt doesn't meet criteria for [facility]. SW explained [facility] but that this worker will have to check on bed availability. Pt states understanding. SW placed a call to referral line and per Lori she won't have a bed till next week. Elsa ENRIQUE updated this worker that she called [facility] and they no longer accept pt's insurance and that pt would like a referral sent to [facility]. KALPESH faxed referral to [facility]. SW received message from Courtney POSEY at [facility] that she is able to accept pt and will submit for pre-cert. Plan: [facility] pending pre-cert Sarah Davis MANAGER OF LOSS PREVENTION OPERATIONS, HIDES AND SKINS COLORER
[2017-10-20 16:55] VITALS: BP 127/80; PULSE 61; RESP 18; TEMP 36.2; O2SAT 98
--- NOTE | 2017-10-20 16:59 | PCM.PN.HOSP ---
Subjective: Patient was seen and examined. Denies any chest pain, or dizziness or SOB. Feels improved. Objective: Physical Exam General: Alert, Oriented x3, Cooperative, No apparent distress HEENT: Atraumatic, PERRLA, EOMI, Normocephalic Neck: Supple, No JVD, Negative Carotid Bruits Lungs: Clear to auscultation, Normal air movement Cardiovascular: Regular rate, Regular Rhythm, Normal S1, Normal S2, No murmurs Abdomen: Bowel Sounds Present, Soft, Non Tender, Non-Distended Extremities: No clubbing, No cyanosis, Edema - Left foot and left hand swelling persists. His Left interphalangeal joint is swollen as well as left ankle. Skin: No rashes, No breakdown, - - Left foot and hand erythema and swelling improved, no open wound or abscess. No cellulitis seen except at left interphalangeal joints. Musculoskeletal: Tenderness - Left foot Neurological: Cranial nerves II-XII grossly intact, Neuro grossly intact Psych/Mental Status: Normal Affect, Appropriate Vitals/I&O's: Vital Signs Temp Pulse Resp BP Pulse Ox 97.2 F L 61 18 127/80 H 98 10/20/17 16:55 10/20/17 16:55 10/20/17 16:55 10/20/17 16:55 10/20/17 16:55 Oxygen Delivery Method Room Air Intake and Output for Last 24 Hours 10/18/17 10/19/17 10/20/17 23:59 23:59 23:59 Intake Total 1000 / 1000 1084 / 1084 1230 / 1230 Output Total 950 / 950 400 / 400 600 / 600 Balance 50 / 50 684 / 684 630 / 630 [facility] Admin[facility] 10/20/17 10:14 Dose: 100 mg Amlodipine Besylate (Norvasc) 10 mg PO DAILY [facility] Last Admin: 10/20/17 10:15 Dose: 10 mg Atorvastatin Calcium (Lipitor) 20 mg PO DAILY [facility] Last Admin: 10/20/17 10:15 Dose: 20 mg Cephalexin (Keflex) 500 mg PO Q6 [facility] Stop: 10/23/17 12:01 Last Admin: 10/20/17 12:31 Dose: 500 mg Enoxaparin Sodium (Lovenox) 40 mg SC DAILY@1000 [facility] Last Admin: 10/20/17 10:15 Dose: 40 mg Ferrous Sulfate (Ferrous Sulfate) 325 mg PO BIDCM [facility] Last Admin: 10/20/17 10:14 Dose: 325 mg Ketorolac Tromethamine (Toradol) 15 mg IV Q6H PRN PRN PRN Reason: PAIN Stop: 10/22/17 20:12 Last Admin: 10/20/17 05:37 Dose: 15 mg Magnesium Hydroxide (Milk Of Magnesia) 30 ml PO DAILY PRN PRN PRN Reason: Constipation Pantoprazole Sodium (Protonix) 40 mg PO DAILY [facility] Last Admin: 10/20/17 10:15 Dose: 40 mg Prednisone () 40 mg PO DAILY@0800 [facility] Last Admin: 10/20/17 10:14 Dose: 40 mg Sertraline HCl (Zoloft) 50 mg PO DAILY [facility] Last Admin: 10/20/17 10:15 Dose: 50 mg Sodium Chloride () 5 - 30 ml IV UD PRN PRN Reason: SALINE FLUSH Last Admin: 10/20/17 05:36 Dose: 10 ml Medical Necessity - Tobacco Use Smoking Status: Never smoker Assessment/Plan 37-year-old male with past medical history of GERD, hyperlipidemia, depression, with 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 1. Left foot and hand cellulitis, improved,on Keflex, will aim to complete 7 days of antibiotics 2. Left hand/interphalangeal joint swelling secondary to acute gout, improving, started on prednisone and allopurinol. 3. Hyperlipidemia, on statin. 4. Hypertension, on home blood pressure regimen. 5. Obesity, diet and exercise is recommended. 6. History of DVT status post IVC filter and removal. 7. Iron deficiency anemia, chronic, on chronic iron supplementation. 8. GERD, on PPI 9. Depression on home sertraline regimen 10. 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 11. DVT Prophylaxis with Lovenox subcu 12. Disposition: Pending [facility] precertification to [facility] facility as patient is unable to perform his Basic and IADLs on account of swelling of the hand. Code Visit Inpatient E&M: 86500 Subs Hosp L2
[2017-10-20 21:53] VITALS: BP 128/83; PULSE 55; RESP 18; TEMP 36.9; O2SAT 98
[2017-10-20] MEDS: Acetaminophen 325 MG Tablet 650 MG PO (23:29)
[2017-10-21] MEDS: Acetaminophen 325 MG Tablet 650 MG PO ×3 (05:45→23:37)
[2017-10-21] MEDS: Cephalexin 500 MG Capsule PO ×4 (05:45→23:37)
[2017-10-21 05:47] VITALS: BP 153/92; PULSE 62; RESP 18; TEMP 36.6; O2SAT 99
[2017-10-21 09:13] VITALS: BP 137/89; PULSE 57; RESP 18; TEMP 36.5; O2SAT 97
[2017-10-21] MEDS: Ferrous Sulfate 325 MG Tablet PO ×2 (09:20→17:29)
[2017-10-21] MEDS: Pantoprazole Sodium 40 MG Tablet PO (09:20)
[2017-10-21] MEDS: predniSONE 20 MG Tablet 40 MG PO (09:20)
[2017-10-21] MEDS: Atorvastatin Calcium 20 MG Tablet PO (09:20)
[2017-10-21] MEDS: Sertraline 50 MG Tablet PO (09:20)
[2017-10-21] MEDS: amLODIPine 10 MG Tablet PO (09:20)
[2017-10-21] MEDS: Enoxaparin 40 MG/0.4 ML Syringe SC (09:20)
[2017-10-21] MEDS: Allopurinol 100 MG Tablet PO (09:20)
--- NOTE | 2017-10-21 13:14 | NURSING ---
CIRCLE CUTTING SAW OPERATOR reports to RN that pt had large BM and after BM, water was red and large amount red wiped from buttocks. Undersigned talked to pt, pt denies this ever happening before. No sign of outer damage to rectum per visual exam. Pt states he has been worked up for anemia before with colonoscopy with no abnormalities. Pt denies complaints or discomfort at this time.
[2017-10-21 13:45] VITALS: BP 122/90; BP 124/74; BP 145/94; PULSE 66; PULSE 71; PULSE 87
[2017-10-21 14:00] VITALS: BP 122/90; PULSE 71; RESP 18; TEMP 36.7; O2SAT 99
--- NOTE | 2017-10-21 14:38 | PCM.PN.HOSP ---
Subjective: Patient was seen and examined. He had an episode of large bowel movement, followed by bloody stools. Denies any abdominal cramps or dizziness or chest pain or shortness of breath. History of GI bleeds, last colonoscopy was 3 months ago reportedly normal. Admits to constipation Otherwise waiting on insurance precertification for discharge to nursing home facility Objective: Physical Exam General: Alert, Oriented x3, Cooperative, No apparent distress HEENT: Atraumatic, PERRLA, EOMI, Normocephalic Neck: Supple, No JVD, Negative Carotid Bruits Lungs: Clear to auscultation, Normal air movement Cardiovascular: Regular rate, Regular Rhythm, Normal S1, Normal S2, No murmurs Abdomen: Bowel Sounds Present, Soft, Non Tender, Non-Distended Extremities: No clubbing, No cyanosis, Edema - Left foot and left hand swelling persists. His Left interphalangeal joint is swollen as well as left ankle. Skin: No rashes, No breakdown, - - Left foot and hand erythema and swelling improved, no open wound or abscess. No cellulitis seen except at left interphalangeal joints. Musculoskeletal: Tenderness - Left foot Neurological: Cranial nerves II-XII grossly intact, Neuro grossly intact Psych/Mental Status: Normal Affect, Appropriate Vitals/I&O's: Vital Signs Temp Pulse Resp BP Pulse Ox 97.7 F L 57 L 18 137/89 H 97 10/21/17 09:13 10/21/17 09:13 10/21/17 09:13 10/21/17 09:13 10/21/17 09:13 Oxygen Delivery Method Room Air Intake and Output for Last 24 Hours 10/19/17 10/20/17 10/21/17 23:59 23:59 23:59 Intake Total 1084 / 1084 2030 / 2030 540 / 540 Output Total 400 / 400 1275 / 1275 1700 / 1700 Balance 684 / 684 755 / 755 -1160 / -1160 Current Medications Acetaminophen (Tylenol) 650 mg PO Q6H PRN PRN PRN Reason: PAIN Last Admin: 10/21/17 05:45 Dose: 650 mg [facility] Admin: 10/21/17 09:20 Dose: 100 mg Amlodipine Besylate (Norvasc) 10 mg PO DAILY [facility] Last Admin: 10/21/17 09:20 Dose: 10 mg Atorvastatin Calcium (Lipitor) 20 mg PO DAILY [facility] Last Admin: 10/21/17 09:20 Dose: 20 mg Bisacodyl (Dulcolax) 5 mg PO DAILY [facility] Cephalexin (Keflex) 500 mg PO Q6 [facility] Stop: 10/23/17 12:01 Last Admin: 10/21/17 11:20 Dose: 500 mg Docusate Sodium (Colace) 100 mg PO BID PRN PRN PRN Reason: Constipation Enoxaparin Sodium (Lovenox) 40 mg SC DAILY@1000 [facility] Last Admin: 10/21/17 09:20 Dose: 40 mg Ferrous Sulfate ([facility] Sulfate) [facility] Last Admin: 10/21/17 09:20 Dose: 325 mg Ketorolac Tromethamine (Toradol) 15 mg IV Q6H PRN PRN PRN Reason: PAIN Stop: 10/22/17 20:12 Last Admin: 10/20/17 05:37 Dose: 15 mg Magnesium Hydroxide (Milk Of Magnesia) 30 ml PO DAILY PRN PRN PRN Reason: Constipation Pantoprazole Sodium (Protonix) 40 mg PO DAILY [facility] Last Admin: 10/21/17 09:20 Dose: 40 mg Prednisone () 40 mg PO DAILY@0800 [facility] Last Admin: 10/21/17 09:20 Dose: 40 mg Sertraline HCl (Zoloft) 50 mg PO DAILY [facility] Last Admin: 10/21/17 09:20 Dose: 50 mg Sodium Chloride () 5 - 30 ml IV UD PRN PRN Reason: SALINE FLUSH Last Admin: 10/20/17 05:36 Dose: 10 ml Medical Necessity - Tobacco Use Smoking Status: Never smoker Assessment/Plan 37-year-old male with past medical history of GERD, hyperlipidemia, depression, with 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 1. Episode of GI bleed, likely hemorrhoidal with constipation, will start on stool softeners, monitor H&H ?2, labs in the morning 2. Left foot and hand cellulitis, resolved, on Keflex day 6, would aim for 7 days total 3. Left hand/interphalangeal joint swelling secondary to acute gout, improving, started on prednisone and allopurinol. 4. Hyperlipidemia, on statin. 5. Hypertension, on home blood pressure regimen. 6. Obesity, diet and exercise is recommended. 7. History of DVT status post IVC filter and removal. 8. Iron deficiency anemia, chronic, on chronic iron supplementation. 9. GERD, on PPI 10. Depression on home sertraline regimen 11. 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 12. DVT Prophylaxis with Lovenox subcu 13. Disposition: Pending insurance precertification to nursing home facility as patient is unable to perform his Basic and IADLs on account of swelling of the hand. Code Visit Inpatient E&M: 68747 Subs Hosp L2
[2017-10-21 15:07] LABS: Hematocrit 33.5 % (40-54); Hemoglobin 10.6 g/dl (13.0-16.5)
[2017-10-21] MEDS: Docusate Sodium 100 MG Capsule PO (17:30)
[2017-10-21 20:30] VITALS: BP 136/91; PULSE 66; RESP 16; TEMP 36.6; O2SAT 98
[2017-10-21 21:47] LABS: Hematocrit 33.4 % (40-54); Hemoglobin 10.5 g/dl (13.0-16.5)
[2017-10-22 01:16] VITALS: BP 163/87; PULSE 49; RESP 14; TEMP 36.6; O2SAT 98
[2017-10-22] MEDS: Cephalexin 500 MG Capsule PO ×3 (05:50→18:36)
[2017-10-22] MEDS: Ketorolac 15 MG/ML Vial IV ×2 (05:50→13:14)
[2017-10-22 08:44] VITALS: BP 132/82; PULSE 68; RESP 16; TEMP 36.8; O2SAT 99
[2017-10-22 09:58] LABS: Absolute Neutrophil Count 6.6 X10^3/uL (2.0-7.7); Basophil% 0.2 % (0-1); Differential Indicated SCAN CRITERIA MET; Eosinophils% 1.6 % (0-5); Hematocrit 34.8 % (40-54); Hemoglobin 11.1 g/dl (13.0-16.5); Lymphocyte # 3.91 X10^3/ul (4.0); Lymphocyte % 33.7 % (19-41); Mean Corp Hgb Conc 31.9 g/gl (32-36); Mean Corpuscular Hgb 26.6 pg (27.0-32.0); Mean Corpuscular Volume 83.3 fL (80-94); Mean Platelet Vol. 8.9 fl (6.2-12.0); Monocyte% 6.6 % (0-10); POSITIVE COUNT NO; POSITIVE DIFFERENTIAL NO; POSITIVE MORPHOLOGY YES; Platelet Count 375 K/mm3 (150-450); RBC Distribution Width SD 39.6 fl (35.1-43.9); Red Blood Count 4.18 M/mm3 (4.6-6.2); White Blood Count 11.6 K/mm3 (4.4-11.0)
[2017-10-22 09:59] LABS: Absolute Lymphocyte Count 3.91 X10^3/ul (0.83-4.51); Basophil# 0.02 X10^3/uL; Eosinophil# 0.18 X10^3/uL; Monocyte# 0.77 X10^3/uL
[2017-10-22 10:05] LABS: Anion Gap 10 (5-15); BUN 18 mg/dL (7-18); Calcium,Total 8.7 mg/dL (8.5-10.1); Chloride 104 mmol/L (98-107); Creatinine, Serum 0.86 mg/dL (0.70-1.30); EST Glomerular Filtration Rate 105 mL/min (>60); Est Glom Filt Rate - Afr Amer 127 mL/min (>60); Estimated Creatinine Clearance 85.31 ml/min; Glucose 108 mg/dL (74-106); Potassium 4.2 mmol/L (3.5-5.1); Sodium Level 145 mmol/L (136-145)
[2017-10-22] MEDS: amLODIPine 10 MG Tablet PO (10:23)
[2017-10-22] MEDS: Atorvastatin Calcium 20 MG Tablet PO (10:23)
[2017-10-22] MEDS: Sertraline 50 MG Tablet PO (10:23)
[2017-10-22] MEDS: Pantoprazole Sodium 40 MG Tablet PO (10:23)
[2017-10-22] MEDS: Allopurinol 100 MG Tablet PO (10:23)
[2017-10-22] MEDS: predniSONE 10 MG Tablet 30 MG PO (10:24)
[2017-10-22] MEDS: Ferrous Sulfate 325 MG Tablet PO ×2 (10:24→18:36)
[2017-10-22] MEDS: Enoxaparin 40 MG/0.4 ML Syringe SC (10:25)
[2017-10-22] MEDS: Bisacodyl 5 MG Tablet PO (10:25)
[2017-10-22] MEDS: Acetaminophen 325 MG Tablet 650 MG PO ×2 (10:30→22:03)
[2017-10-22 10:39] LABS: Atypical Lymphocyte 1+ %
[2017-10-22] MEDS: 0.9% NaCl Peripheral Flush Adult/Peds IV (13:14)
[2017-10-22 14:45] VITALS: BP 116/73; PULSE 51; RESP 16; TEMP 36.3; O2SAT 97
--- NOTE | 2017-10-22 15:50 | PCM.PN.HOSP ---
Subjective: Patient seen and examined. No new complains. No more bleeding per rectum. Denies chest pain, dizziness or palpitations. Objective: Physical Exam General: Alert, Oriented x3, Cooperative, No apparent distress HEENT: Atraumatic, PERRLA, EOMI, Normocephalic Neck: Supple, No JVD, Negative Carotid Bruits Lungs: Clear to auscultation, Normal air movement Cardiovascular: Regular rate, Regular Rhythm, Normal S1, Normal S2, No murmurs Abdomen: Bowel Sounds Present, Soft, Non Tender, Non-Distended Extremities: No clubbing, No cyanosis, Edema - Left foot and left hand swelling persists. His Left interphalangeal joint is swollen as well as left ankle. Skin: No rashes, No breakdown, - - Left foot and hand erythema and swelling improved, no open wound or abscess. No cellulitis seen except at left interphalangeal joints. Musculoskeletal: Tenderness - Left foot Neurological: Cranial nerves II-XII grossly intact, Neuro grossly intact Psych/Mental Status: Normal Affect, Appropriate Vitals/I&O's: Vital Signs Temp Pulse Resp BP Pulse Ox 97.4 F L 51 L 16 116/73 97 10/22/17 14:45 10/22/17 14:45 10/22/17 14:45 10/22/17 14:45 10/22/17 14:45 Oxygen Delivery Method Room Air Orthostatic Vital Signs Start: 10/21/17 14:43 Freq: Status: Active Protocol: Activity Type Activity Date Activity User E-Sign Co-Sign Detail Recorded Client Recorded Date Recorded By Document 10/21/17 13:45 AA [id number] 10/21/17 14:44 AA 10/21/17 13:45 Orthostatic Vitals Standing -Blood Pressure (90/60-120/80) 145/94 H -Extremity Use Right Arm -Pulse Rate (60-100) 87 Sitting -Blood Pressure (90/60-120/80) 122/90 H -Extremity Use Right Arm -Pulse Rate (60-100) 71 Lying -Blood Pressure (90/60-120/80) 124/74 H -Extremity Use Right Arm -Pulse Rate (60-100) 66 Intake and Output for Last 24 Hours 10/20/17 10/21/17 10/22/17 23:59 23:59 23:59 Intake Total 2029 2029 840 / 840 1500 / 1500 Output Total 1275 / 1275 2049 770 / 770 Balance 755 / 755 -1210 / -1210 730 / 730 Laboratory Results 10/21/17 20:52: Hgb 10.5 L, Hct 33.4 L 10/22/17 09:42: WBC 11.6 H, RBC 4.18 L, Hgb 11.1 L, Hct 34.8 L, MCV 83.3, MCH 26.6 L, MCHC 31.9 L, RDW 13.0, RDW Differential 39.6, Plt Count 375, MPV 8.9, Immature Gran % (Auto) 0.900, Neut % (Auto) 57.0, Lymph % (Auto) 33.7, Young % (Auto) 6.6, Eos % (Auto) 1.6, Baso % (Auto) 0.2, Absolute Neuts (auto) 6.6, Absolute Lymphs (auto) 3.91, Total Counted Not Reportable, Atypical Lymphocytes 1+ 10/22/17 09:42: Sodium 145, Potassium 4.2, Chloride 104, Carbon Dioxide 31.0, Anion Gap 10, BUN 18, Creatinine 0.86, Estim Creat Clear Calc 85.31, Est GFR (MDRD) Af Amer 127, Est GFR (MDRD) Non-Af 105, BUN/Creatinine Ratio 21.0 H, Glucose 108 H, Calcium 8.7 Current Medications Acetaminophen (Tylenol) 650 mg PO Q6H PRN PRN PRN Reason: PAIN Last Admin: 10/22/17 10:30 Dose: 650 mg [facility] Last Admin: 10/22/17 10:23 Dose: 100 mg Amlodipine Besylate (Norvasc) 10 mg PO DAILY [facility] Last Admin: 10/22/17 10:23 Dose: 10 mg Atorvastatin Calcium (Lipitor) 20 mg PO DAILY [facility] Last Admin: 10/22/17 10:23 Dose: 20 mg Bisacodyl (Dulcolax) 5 mg PO DAILY [facility] Last Admin: 10/22/17 10:25 Dose: 5 mg Cephalexin (Keflex) 500 mg PO Q6 [facility] Stop: 10/23/17 12:01 Last Admin: 10/22/17 13:11 Dose: 500 mg Docusate Sodium (Colace) 100 mg PO BID PRN PRN PRN Reason: Constipation Last Admin: 10/21/17 17:30 Dose: 100 mg Enoxaparin Sodium (Lovenox) 40 mg SC DAILY@1000 [facility] Last Admin: 10/22/17 10:25 Dose: 40 mg Ferrous Sulfate (Ferrous Sulfate) 325 mg PO BIDCM [facility] Last Admin: 10/22/17 10:24 Dose: 325 mg Ketorolac Tromethamine (Toradol) 15 mg IV Q6H PRN PRN PRN Reason: PAIN Stop: 10/22/17 20:12 Last Admin: 10/22/17 13:14 Dose: 15 mg Magnesium Hydroxide (Milk Of Magnesia) 30 ml PO DAILY PRN PRN PRN Reason: Constipation Pantoprazole Sodium (Protonix) 40 mg PO DAILY [facility] Last Admin: 10/22/17 10:23 Dose: 40 mg Prednisone () 30 mg PO DAILY@0800 [facility] PRN Reason: Taper Stop: 10/31/17 07:59 Last Admin: 10/22/17 10:24 Dose: 30 mg Sertraline HCl (Zoloft) 50 mg PO DAILY [facility] Last Admin: 10/22/17 10:23 Dose: 50 mg Sodium Chloride () 5 - 30 ml IV UD PRN PRN Reason: SALINE FLUSH Last Admin: 10/22/17 13:14 Dose: 10 ml Medical Necessity - Tobacco Use Smoking Status: Never smoker Assessment/Plan 37-year-old male with past medical history of GERD, hyperlipidemia, depression, with 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 1. Episode of GI bleed, likely hemorrhoidal with constipation, resolved, started on stool softeners, HH has been stable 2. Left foot and hand cellulitis, resolved, on Keflex day 7, would stop after today. 3. Left hand/interphalangeal joint swelling secondary to acute gout, improving, on allopurinol, will start prednisone taper. 4. Hyperlipidemia, on statin. 5. Hypertension, on home blood pressure regimen. 6. Obesity - diet and exercise recommended. 7. History of DVT status post IVC filter and removal. 8. Iron deficiency anemia, chronic, on chronic iron supplementation. 9. GERD, on PPI 10. Depression on home sertraline regimen 11. 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 12. DVT Prophylaxis with Lovenox subcu 13. Disposition: Pending insurance precertification to retirement facility as patient is unable to perform his Basic and IADLs on account of swelling of the hand. Code Visit Inpatient E&M: 63795 Subs Hosp L2
--- NOTE | 2017-10-22 15:57 | PN_ITS ---
Subjective: Patient seen and examined. No new complains. No more bleeding per rectum. Denies chest pain, dizziness or palpitations. Objective: Physical Exam General: Alert, Oriented x3, Cooperative, No apparent distress HEENT: Atraumatic, PERRLA, EOMI, Normocephalic Neck: Supple, No JVD, Negative Carotid Bruits Lungs: Clear to auscultation, Normal air movement Cardiovascular: Regular rate, Regular Rhythm, Normal S1, Normal S2, No murmurs Abdomen: Bowel Sounds Present, Soft, Non Tender, Non-Distended Extremities: No clubbing, No cyanosis, Edema - Left foot and left hand swelling persists. His Left interphalangeal joint is swollen as well as left ankle. Skin: No rashes, No breakdown, - - Left foot and hand erythema and swelling improved, no open wound or abscess. No cellulitis seen except at left interphalangeal joints. Musculoskeletal: Tenderness - Left foot Neurological: Cranial nerves II-XII grossly intact, Neuro grossly intact Psych/Mental Status: Normal Affect, Appropriate Vitals/I&O's: Vital Signs Temp Pulse Resp BP Pulse Ox 97.4 F L 51 L 16 116/73 97 10/22/17 14:45 10/22/17 14:45 10/22/17 14:45 10/22/17 14:45 10/22/17 14:45 Oxygen Delivery Method Room Air Orthostatic Vital Signs Start: 10/21/17 14:43 Freq: Status: Active Protocol: Activity Type Activity Date Activity User E-Sign Co-Sign Detail Recorded Client Recorded Date Recorded By Document 10/21/17 13:45 AA [id number] 10/21/17 14:44 AA 10/21/17 13:45 Orthostatic Vitals Standing -Blood Pressure (90/60-120/80) 145/94 H -Extremity Use Right Arm -Pulse Rate (60-100) 87 Sitting -Blood Pressure (90/60-120/80) 122/90 H -Extremity Use Right Arm -Pulse Rate (60-100) 71 Lying -Blood Pressure (90/60-120/80) 124/74 H -Extremity Use Right Arm -Pulse Rate (60-100) 66 Intake and Output for Last 24 Hours 10/20/17 10/21/17 10/22/17 23:59 23:59 23:59 Intake Total 2029 2029 840 / 840 1500 / 1500 Output Total 1275 / 1275 2049 770 / 770 Balance 755 / 755 -1210 / -1210 730 / 730 Laboratory Results 10/21/17 20:52: Hgb 10.5 L, Hct 33.4 L 10/22/17 09:42: WBC 11.6 H, RBC 4.18 L, Hgb 11.1 L, Hct 34.8 L, MCV 83.3, MCH 26.6 L, MCHC 31.9 L, RDW 13.0, RDW Differential 39.6, Plt Count 375, MPV 8.9, Immature Gran % (Auto) 0.900, Neut % (Auto) 57.0, Lymph % (Auto) 33.7, [place] % ( Auto) 6.6, Eos % (Auto) 1.6, Baso % (Auto) 0.2, Absolute Neuts (auto) 6.6, Absolute Lymphs (auto) 3.91, Total Counted Not Reportable, Atypical Lymphocytes 1+ 10/22/17 09:42: Sodium 145, Potassium 4.2, Chloride 104, Carbon Dioxide 31.0, Anion Gap 10, BUN 18, Creatinine 0.86, Estim Creat Clear Calc 85.31, Est GFR ( MDRD) Af Amer 127, Est GFR (MDRD) Non-Af 105, BUN/Creatinine Ratio 21.0 H, Glucose 108 H, Calcium 8.7 Current Medications Acetaminophen (Tylenol) 650 mg PO Q6H PRN PRN PRN Reason: PAIN Last Admin: 10/22/17 10:30 Dose: 650 mg [facility] Last Admin: 10/22/17 10:23 Dose: 100 mg Amlodipine Besylate (Norvasc) 10 mg PO DAILY [facility] Last Admin: 10/22/17 10:23 Dose: 10 mg Atorvastatin Calcium (Lipitor) 20 mg PO DAILY [facility] Last Admin: 10/22/17 10:23 Dose: 20 mg Bisacodyl (Dulcolax) 5 mg PO DAILY [facility] Last Admin: 10/22/17 10:25 Dose: 5 mg Cephalexin (Keflex) 500 mg PO Q6 [facility] Stop: 10/23/17 12:01 Last Admin: 10/22/17 13:11 Dose: 500 mg Docusate Sodium (Colace) 100 mg PO BID PRN PRN PRN Reason: Constipation Last Admin: 10/21/17 17:30 Dose: 100 mg Enoxaparin Sodium (Lovenox) 40 mg SC DAILY@1000 [facility] Last Admin: 10/22/17 10:25 Dose: 40 mg Ferrous Sulfate (Ferrous Sulfate) 325 mg PO BIDCM [facility] Last Admin: 10/22/17 10:24 Dose: 325 mg Ketorolac Tromethamine (Toradol) 15 mg IV Q6H PRN PRN PRN Reason: PAIN Stop: 10/22/17 20:12 Last Admin: 10/22/17 13:14 Dose: 15 mg Magnesium Hydroxide (Milk Of Magnesia) 30 ml PO DAILY PRN PRN PRN Reason: Constipation Pantoprazole Sodium (Protonix) 40 mg PO DAILY [facility] Last Admin: 10/22/17 10:23 Dose: 40 mg Prednisone () 30 mg PO DAILY@0800 [facility] PRN Reason: Taper Stop: 10/31/17 07:59 Last Admin: 10/22/17 10:24 Dose: 30 mg Sertraline HCl (Zoloft) 50 mg PO DAILY [facility] Last Admin: 10/22/17 10:23 Dose: 50 mg Sodium Chloride () 5 - 30 ml IV UD PRN PRN Reason: SALINE FLUSH Last Admin: 10/22/17 13:14 Dose: 10 ml Medical Necessity - Tobacco Use Smoking Status: Never smoker Assessment/Plan 37-year-old male with past medical history of GERD, hyperlipidemia, depression, with 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 1. Episode of GI bleed, likely hemorrhoidal with constipation, resolved, started on stool softeners, HH has been stable 2. Left foot and hand cellulitis, resolved, on Keflex day 7, would stop after today. 3. Left hand/interphalangeal joint swelling secondary to acute gout, improving , on allopurinol, will start prednisone taper. 4. Hyperlipidemia, on statin. 5. Hypertension, on home blood pressure regimen. 6. Obesity - diet and exercise recommended. 7. History of DVT status post IVC filter and removal. 8. Iron deficiency anemia, chronic, on chronic iron supplementation. 9. GERD, on PPI 10. Depression on home sertraline regimen 11. Suspected genetic syndrome, needs to follow-up with pyrotechnist. 12. DVT Prophylaxis with Lovenox subcu 13. Disposition: Pending insurance precertification to assisted facility as patient is unable to perform his Basic and IADLs on account of swelling of the hand. Code Visit Inpatient E&M: 60674 Subs Hosp L2
[2017-10-22 21:52] VITALS: BP 132/84; PULSE 55; RESP 15; TEMP 36.9; O2SAT 97
[2017-10-22 22:00] VITALS: RESP 15; O2SAT 97
[2017-10-23] MEDS: Cephalexin 500 MG Capsule PO ×3 (01:25→12:50)
[2017-10-23 04:20] VITALS: BP 139/72; PULSE 56; RESP 15; TEMP 36.6; O2SAT 98
[2017-10-23] MEDS: Acetaminophen 325 MG Tablet 650 MG PO (04:22)
[2017-10-23 07:47] VITALS: BP 142/86; PULSE 63; RESP 16; TEMP 36.6; O2SAT 100
[2017-10-23] MEDS: Allopurinol 100 MG Tablet PO (08:04)
[2017-10-23] MEDS: predniSONE 10 MG Tablet 30 MG PO (08:04)
[2017-10-23] MEDS: Ferrous Sulfate 325 MG Tablet PO (08:04)
--- NOTE | 2017-10-23 09:28 | CASEMGMT ---
Social Work Note SW received message from Courtney POSEY at [facility] stating that they are able to accept pt and will submit for pre-cert. Plan: [facility] - is now [facility] pending pre-cert Sarah Davis MSW, COIN DEALER
--- NOTE | 2017-10-23 09:47 | CASEMGMT ---
Social Work Note SW faxed updated clinicals to Bridget at [facility]. Plan: [facility] pending pre-cert Sarah Davis WIRE STOCKKEEPER, PSYCHIATRIST
[2017-10-23] MEDS: Atorvastatin Calcium 20 MG Tablet PO (10:03)
[2017-10-23] MEDS: amLODIPine 10 MG Tablet PO (10:03)
[2017-10-23] MEDS: Sertraline 50 MG Tablet PO (10:03)
[2017-10-23] MEDS: Pantoprazole Sodium 40 MG Tablet PO (10:03)
[2017-10-23] MEDS: Enoxaparin 40 MG/0.4 ML Syringe SC (10:03)
[2017-10-23] MEDS: Bisacodyl 5 MG Tablet PO (10:04)
--- NOTE | 2017-10-23 11:27 | PCM.DC ---
- Discharge Diagnoses Current Active Problems: Current Active and Chronic Problems HLD (hyperlipidemia) (Chronic) GERD (gastroesophageal reflux disease) (Chronic) Depression (Chronic) You will use the following diet at home:: Clear liquid Your food should be the consistency of: Regular Your liquids should be the consistency of: Regular/Thin Discharge Activity: Return to Normal Activity Instructions: Eating to Prevent Gout Allergies/Adverse Reactions: Allergies codeine Allergy (Verified 10/16/17 14:40) Other lisinopril Allergy (Verified 10/16/17 14:40) Rash Medications to take at Discharge Sertraline HCl [Zoloft] 50 mg PO DAILY 02/22/14 Atorvastatin Calcium 20 mg PO DAILY 07/10/16 Amlodipine [Norvasc] 10 mg PO DAILY 10/16/17 Ferrous Sulfate 324 mg PO BID 10/16/17 Omeprazole 40 mg PO DAILY 10/16/17 Acetaminophen [Tylenol Tablet] 650 mg PO Q6H PRN PRN tablet 10/23/17 Allopurinol [Zyloprim] 100 mg PO DAILYCM #28 tab 10/23/17 Bisacodyl [Dulcolax] 5 mg PO DAILY #30 tab 10/23/17 Magnesium Hydroxide [Milk Of Magnesia] 30 ml PO DAILY PRN PRN #1 bottle 10/23/17 Prednisone 10 mg PO UD #12 tab 10/23/17 The following prescriptions were given: Allopurinol [Zyloprim] 100 mg PO DAILYCM #28 tab Bisacodyl [Dulcolax] 5 mg PO DAILY #30 tab Magnesium Hydroxide [Milk Of Magnesia] 30 ml PO DAILY PRN PRN #1 bottle PRN Reason: Constipation Prednisone 10 mg PO UD #12 tab Primary Care Physician: Ezra Duggan MD [Primary Care Provider] - Please follow up with your Primary Care Physician in: 1-2 weeks Test Results: Test results from this visit will be discussed in further detail at your follow-up appointment, if applicable. Please Follow Up With: Simulation Analyst When: Keep prior appointment Proposed Discharge Date: 10/23/17
--- NOTE | 2017-10-23 11:29 | CASEMGMT ---
Addendum entered by Sarah Davis 10/23/17 12:18: SW placed a call to Bridget at [facility] and left her a message informing her that pt has decided to go home with HHC. Original Note: Social Work Note SW spent much time with pt discussing with pt that he walked 115ft contact guard with PT and there is the possibility that insurance may deny pt. SW explained to pt that medically the doctor is ready to discharge pt. SW educated pt to other options including home with HHC vs. Home with outpatient therapy. Pt states that he wishes to discharge home with HHC and asked this worker about hospital bed as he has unable to get his head high enough with the bed he has now. SW explained that this worker will update RN ROSARIO who can talk to pt about HHC and Hospital Bed. Pt states understanding. Pt states that he will have to call his grandmother to come get him. SW updated RN ROSARIO Mcdermott on referral for HHC and Hospital Bed. SW updated Dr. Salgado of this. Plan: Pt to discharge home with HHC. Sarah Davis INFORMATION DEVELOPER, SALES MARKET LEADER
[2017-10-23 14:43] VITALS: BP 124/81; PULSE 71; RESP 16; TEMP 36.7; O2SAT 98
--- NOTE | 2017-10-23 15:23 | PCM.DC.SUM ---
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 - Secondary Discharge Diagnosis Chronic Problems HLD (hyperlipidemia) (Chronic) GERD (gastroesophageal reflux disease) (Chronic) Depression (Chronic) Hospital Course and Treatment Imaging Results: RAD/Foot min 3 Views IMPRESSION: 1. Diffuse soft tissue swelling. There is no visualized fracture or dislocation. 2. Diffuse degenerative changes of the foot. 3. Evidence of fusion of the ankle and hindfoot with internal fixation. RAD/Hand Min 3 Views IMPRESSION: 1. Soft tissue swelling without acute fracture or dislocation. 2. Degenerative changes of the wrist and hand. 3. 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 RAD/Chest PA and Lateral IMPRESSION: No acute cardiopulmonary disease. MRI/Lower Ext Joint Only (Routine) IMPRESSION: Osseous fusion of the tibiotalar and posterior subtalar articulations as well as the distal tibia and fibula without demonstrated osteomyelitis. Lateral dislocation of the peroneal tendons. Atrophy of the abductor digiti minimi muscle. MRI/Lower Ext/No Jt/w/o IMPRESSION: Arthrosis of the midfoot, Lisfranc articulation and first metatarsophalangeal joint. Atrophy of the abductor digiti minimi muscle. No demonstrated osteomyelitis. RAD/Knee 1 or 2 Views IMPRESSION: Tricompartmental arthrosis as described. Consultations 10/21/17 14:42 Consult: Onc/Wound/medical technologist hematology Routine Comment: Reason for Consult:: pressure injury left buttocks Operations: None Procedures: None Summary of Care Provided: Physical exam on day of discharge: General: Resting comfortably NAD Psych: A/Ox3 normal affect HEENT: PEARRLA AT NC Neck: Supple NT CV: RRR no m/t/r/g/h Resp: CTA Abd: [id number] Soft NT no guarding or rigidity, obesity Ext: DP2+= no edema, left hand 3rd PIP erythema, swelling, tenderness Skin: W/D normal turgor Lymph/Heme: No active bleeding or adenopathy Neuro: CN2-12 intact Hospital course: The patient is a 37 year old M with a history of upper lipidemia, GERD, depression, iron deficiency anemia, unspecified genetic syndrome, prior DVT s/p IVC placement and removal, who presented to the emergency room with swelling and pain of the left foot. He was having difficulty ambulation secondary to his pain, erythema,. He was also found to have some swelling, erythema, pain in his left hand as well. He was felt to have cellulitis of the foot and hand. He did not appear septic at the time of admission. White blood cell count, ESR, CRP were elevated. He is placed on Cefipime and Vanco in the ER. The hand appeared suspicious consistent with gout of the third PIP joint. Uric acid was elevated. He was placed on prednisone and allopurinol. Antibiotics were transitioned to Keflex. His inflammatory and infectious processes appeared to resolve. Antibiotics were discontinued as he completed 7 days here. He will continue allopurinol and prednisone taper. He did initially have some difficulty with ADLs and ambulation however he did well with PT and OT. Home health was recommended. He was discharged home with home health in stable condition. Is advised follow-up with PCP and photovoltaic fabrication technician. This patient was seen by Calvin Han PA-C under the supervision of Doctor Naomi. [] Discharge Diet: - - gout diet Discharge Activity: Return to Normal Activity Home Medications: Medications to take at Discharge Sertraline HCl [Zoloft] 50 mg PO DAILY 02/22/14 Atorvastatin Calcium 20 mg PO DAILY 07/10/16 Amlodipine [Norvasc] 10 mg PO DAILY 10/16/17 Ferrous Sulfate 324 mg PO BID 10/16/17 Omeprazole 40 mg PO DAILY 10/16/17 Acetaminophen [Tylenol Tablet] 650 mg PO Q6H PRN PRN tablet 10/23/17 Allopurinol [Zyloprim] 100 mg PO DAILYCM #28 tab 10/23/17 Bisacodyl [Dulcolax] 5 mg PO DAILY #30 tab 10/23/17 Magnesium Hydroxide [Milk Of Magnesia] 30 ml PO DAILY PRN PRN #1 bottle 10/23/17 Prednisone 10 mg PO UD #12 tab 10/23/17 Following Prescrptions Were Given to Patient: Allopurinol [Zyloprim] 100 mg PO DAILYCM #28 tab Bisacodyl [Dulcolax] 5 mg PO DAILY #30 tab Magnesium Hydroxide [Milk Of Magnesia] 30 ml PO DAILY PRN PRN #1 bottle PRN Reason: Constipation Prednisone 10 mg PO UD #12 tab Primary Care Physician: Ezra Duggan MD [Primary Care Provider] - Please follow up with your Primary Care Physician in: 1-2 weeks Please Follow Up With: Obgyn Hospitalist Physician When: Keep prior appointment Patient Instructions: Eating to Prevent Gout Disposition: Home with Home Health Minutes spent on discharge:: 35 Patient Condition:: Stable Medical Necessity - Tobacco Use Smoking Status: Never smoker Meaningful Use Info Meaningful Use Diagnoses (Choose all that apply): None applicable <Rosalind Salgado - Last Filed: 10/23/17 15:58> Discharge Date and Diagnosis - Secondary Discharge Diagnosis Chronic Problems HLD (hyperlipidemia) (Chronic) GERD (gastroesophageal reflux disease) (Chronic) Depression (Chronic) Hospital Course and Treatment Consultations 10/21/17 14:42 Consult: Onc/Wound/medical technologist hematology Routine Comment: Reason for Consult:: pressure injury left buttocks Summary of Care Provided: Patient seen by Calvin Han PA-C under my supervision. The patient is a 37 year old M with history of hyperlipidemia, GERD and depression. He was admitted by the ED with a complaint of left foot pain and swelling as well as erythema which started 2 weeks prior to presentation. He also had significant swelling, erythema and pain in his left hand and denied any fever or chills or trauma. He denied any history of gout or rheumatoid arthritis. White cell count was elevated at 15.8 and ESR and CRP was also elevated. He was started on IV cefepime and vancomycin in the ED for cellulitis. Per Admitting note, patient was noted to have a possible bony genetic abnormality and he had been told to follow-up with the photovoltaic fabrication technician at [facility] but had deferred. He was counseled to follow-up. He was managed for sepsis due to left foot and hand cellulitis which resolved with antibiotics and he was switched from IV vancomycin and cefepime to p.o. Keflex which he completed a 7 day course. Was ordered so noted to have left third proximal interphalangeal joint swelling which was thought to be due to gout and he was started on allopurinol and prednisone taper. Patient remained stable and was discharged home with home physical therapy on 10/23/2017. He is to follow-up with his primary care doctor and with the photovoltaic fabrication technician is recommended at [facility]. Patient seen and examined prior to discharge, he complained of mild left knee pain and said was rated at 3 out of 10. He denied any fever or chills, any cough or chest pain, any shortness of breath, abdominal pain, any diarrhea vomiting. 12 point review of systems was otherwise negative. Labs and vitals reviewed. o/e: Vital Signs Height 5 ft 1 in Weight: 195 lb 5.273 oz Weight in Pounds 195.3 lbs Pulse Ox 98 Temperature 98.0 F Pulse Rate [Standing] 87 Pulse Rate [Sitting] 71 Pulse Rate [Lying] 66 Pulse Rate 71 Respiratory Rate 16 Blood Pressure [Standing] 145/94 Blood Pressure [Sitting] 122/90 Blood Pressure [Lying] 124/74 Blood Pressure 124/81 Blood Pressure Position Sitting []General: Alert, Oriented x3, Cooperative, No apparent distress HEENT: Atraumatic, PERRLA, EOMI, Normocephalic Neck: Supple, No JVD, Negative Carotid Bruits Lungs: Clear to auscultation, Normal air movement Cardiovascular: Regular rate, Regular Rhythm, Normal S1, Normal S2, No murmurs Abdomen: Bowel Sounds Present, Soft, Non Tender, Non-Distended Extremities: No clubbing, No cyanosis, Edema - mild swelling of left third PIP joint; not tender or erythematous; able to flex and extend joint. has no left knee pain on palpation, but had mild pain with flexion and extension of left knee. Skin: No rashes, No breakdown, Musculoskeletal: Tenderness - Left foot Neurological: Cranial nerves II-XII grossly intact, Neuro grossly intact Psych/Mental Status: Normal Affect, Appropriate Plan as stated above. Xrays done of the knee showed moderate arthrosis of the medial, lateral and patellofemoral compartments with superior patellar spur. He is to follow up with his PCP and photovoltaic fabrication technician at [facility]. He is to have home physical and occupational therapy. Agree with rest of Calvin Carbajal note, assessment and plan. Weight Bearing Status: Weight bearing as tolerated Call your doctor if you observe: Fever of 101 or Higher, Uncontrolled pain Code Visit Inpatient E&M: 95551 Disch Hosp
--- NOTE | 2017-10-23 15:28 | DS.PCM_ITS ---
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 - Secondary Discharge Diagnosis Chronic Problems HLD (hyperlipidemia) (Chronic) GERD (gastroesophageal reflux disease) (Chronic) Depression (Chronic) Hospital Course and Treatment Imaging Results: RAD/Foot min 3 Views IMPRESSION: 1. Diffuse soft tissue swelling. There is no visualized fracture or dislocation. 2. Diffuse degenerative changes of the foot. 3. Evidence of fusion of the ankle and hindfoot with internal fixation. RAD/Hand Min 3 Views IMPRESSION: 1. Soft tissue swelling without acute fracture or dislocation. 2. Degenerative changes of the wrist and hand. 3. 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 RAD/Chest PA and Lateral IMPRESSION: No acute cardiopulmonary disease. MRI/Lower Ext Joint Only (Routine) IMPRESSION: Osseous fusion of the tibiotalar and posterior subtalar articulations as well as the distal tibia and fibula without demonstrated osteomyelitis. Lateral dislocation of the peroneal tendons. Atrophy of the abductor digiti minimi muscle. MRI/Lower Ext/No Jt/w/o IMPRESSION: Arthrosis of the midfoot, Lisfranc articulation and first metatarsophalangeal joint. Atrophy of the abductor digiti minimi muscle. No demonstrated osteomyelitis. RAD/Knee 1 or 2 Views IMPRESSION: Tricompartmental arthrosis as described. Consultations 10/21/17 14:42 Consult: Onc/Wound/aluminizer Routine Comment: Reason for Consult:: pressure injury left buttocks Operations: None Procedures: None Summary of Care Provided: Physical exam on day of discharge: General: Resting comfortably NAD Psych: A/Ox3 normal affect HEENT: PEARRLA AT NC Neck: Supple NT CV: RRR no m/t/r/g/h Resp: CTA Abd: [id number] Soft NT no guarding or rigidity, obesity Ext: DP2+= no edema, left hand 3rd PIP erythema, swelling, tenderness Skin: W/D normal turgor Lymph/Heme: No active bleeding or adenopathy Neuro: CN2-12 intact Hospital course: The patient is a 37 year old M with a history of upper lipidemia, GERD, depression, iron deficiency anemia, unspecified genetic syndrome, prior DVT s/p IVC placement and removal, who presented to the emergency room with swelling and pain of the left foot. He was having difficulty ambulation secondary to his pain, erythema,. He was also found to have some swelling, erythema, pain in his left hand as well. He was felt to have cellulitis of the foot and hand. He did not appear septic at the time of admission. White blood cell count, ESR, CRP were elevated. He is placed on Cefipime and Vanco in the ER. The hand appeared suspicious consistent with gout of the third PIP joint. Uric acid was elevated. He was placed on prednisone and allopurinol. Antibiotics were transitioned to Keflex. His inflammatory and infectious processes appeared to resolve. Antibiotics were discontinued as he completed 7 days here. He will continue allopurinol and prednisone taper. He did initially have some difficulty with ADLs and ambulation however he did well with PT and OT. Home health was recommended. He was discharged home with home health in stable condition. Is advised follow-up with PCP and field sales agent. This patient was seen by Calvin Han PA-C under the supervision of Doctor Naomi. [] Discharge Diet: - - gout diet Discharge Activity: Return to Normal Activity Home Medications: Medications to take at Discharge Sertraline HCl [Zoloft] 50 mg PO DAILY 02/22/14 Atorvastatin Calcium 20 mg PO DAILY 07/10/16 Amlodipine [Norvasc] 10 mg PO DAILY 10/16/17 Ferrous Sulfate 324 mg PO BID 10/16/17 Omeprazole 40 mg PO DAILY 10/16/17 Acetaminophen [Tylenol Tablet] 650 mg PO Q6H PRN PRN tablet 10/23/17 Allopurinol [Zyloprim] 100 mg PO DAILYCM #28 tab 10/23/17 Bisacodyl [Dulcolax] 5 mg PO DAILY #30 tab 10/23/17 Magnesium Hydroxide [Milk Of Magnesia] 30 ml PO DAILY PRN PRN #1 bottle Prednisone 10 mg PO UD #12 tab 10/23/17 Following Prescrptions Were Given to Patient: Allopurinol [Zyloprim] 100 mg PO DAILYCM #28 tab Bisacodyl [Dulcolax] 5 mg PO DAILY #30 tab Magnesium Hydroxide [Milk Of Magnesia] 30 ml PO DAILY PRN PRN #1 bottle PRN Reason: Constipation Prednisone 10 mg PO UD #12 tab Primary Care Physician: Ezra Duggan MD [Primary Care Provider] - Please follow up with your Primary Care Physician in: 1-2 weeks Please Follow Up With: Certified Ski Patroller When: Keep prior appointment Patient Instructions: Eating to Prevent Gout Disposition: Home with Home Health Minutes spent on discharge:: 35 Patient Condition:: Stable Medical Necessity - Tobacco Use Smoking Status: Never smoker Meaningful Use Info Meaningful Use Diagnoses (Choose all that apply): None applicable <Rosalind Salgado - Last Filed: 10/23/17 15:58> Discharge Date and Diagnosis - Secondary Discharge Diagnosis Chronic Problems HLD (hyperlipidemia) (Chronic) GERD (gastroesophageal reflux disease) (Chronic) Depression (Chronic) Hospital Course and Treatment Consultations 10/21/17 14:42 Consult: Onc/Wound/aluminizer Routine Comment: Reason for Consult:: pressure injury left buttocks Summary of Care Provided: Patient seen by Calvin Han PA-C under my supervision. The patient is a 37 year old M with history of hyperlipidemia, GERD and depression. He was admitted by the ED with a complaint of left foot pain and swelling as well as erythema which started 2 weeks prior to presentation. He also had significant swelling, erythema and pain in his left hand and denied any fever or chills or trauma. He denied any history of gout or rheumatoid arthritis. White cell count was elevated at 15.8 and ESR and CRP was also elevated. He was started on IV cefepime and vancomycin in the ED for cellulitis. Per Admitting note, patient was noted to have a possible bony genetic abnormality and he had been told to follow-up with the field sales agent at [facility] but had deferred. He was counseled to follow-up. He was managed for sepsis due to left foot and hand cellulitis which resolved with antibiotics and he was switched from IV vancomycin and cefepime to p.o. Keflex which he completed a 7 day course. Was ordered so noted to have left third proximal interphalangeal joint swelling which was thought to be due to gout and he was started on allopurinol and prednisone taper. Patient remained stable and was discharged home with home physical therapy on 10/23/2017. He is to follow-up with his primary care doctor and with the field sales agent is recommended at [facility]. Patient seen and examined prior to discharge, he complained of mild left knee pain and said was rated at 3 out of 10. He denied any fever or chills, any cough or chest pain, any shortness of breath, abdominal pain, any diarrhea vomiting. 12 point review of systems was otherwise negative. Labs and vitals reviewed. o/e: Vital Signs Height 5 ft 1 in Weight: 195 lb 5.273 oz Weight in Pounds 195.3 lbs Pulse Ox 98 Temperature 98.0 F Pulse Rate [Standing] 87 Pulse Rate [Sitting] 71 Pulse Rate [Lying] 66 Pulse Rate 71 Respiratory Rate 16 Blood Pressure [Standing] 145/94 Blood Pressure [Sitting] 122/90 Blood Pressure [Lying] 124/74 Blood Pressure 124/81 Blood Pressure Position Sitting []General: Alert, Oriented x3, Cooperative, No apparent distress HEENT: Atraumatic, PERRLA, EOMI, Normocephalic Neck: Supple, No JVD, Negative Carotid Bruits Lungs: Clear to auscultation, Normal air movement Cardiovascular: Regular rate, Regular Rhythm, Normal S1, Normal S2, No murmurs Abdomen: Bowel Sounds Present, Soft, Non Tender, Non-Distended Extremities: No clubbing, No cyanosis, Edema - mild swelling of left third PIP joint; not tender or erythematous; able to flex and extend joint. has no left knee pain on palpation, but had mild pain with flexion and extension of left knee. Skin: No rashes, No breakdown, Musculoskeletal: Tenderness - Left foot Neurological: Cranial nerves II-XII grossly intact, Neuro grossly intact Psych/Mental Status: Normal Affect, Appropriate Plan as stated above. Xrays done of the knee showed moderate arthrosis of the medial, lateral and patellofemoral compartments with superior patellar spur. He is to follow up with his PCP and field sales agent at [facility]. He is to have home physical and occupational therapy. Agree with rest of Calvin Carbajal note, assessment and plan. Weight Bearing Status: Weight bearing as tolerated Call your doctor if you observe: Fever of 101 or Higher, Uncontrolled pain Code Visit Inpatient E&M: [id number] Disch Hosp
--- NOTE | 2017-10-24 16:14 | CASEMGMT ---
IESHA PONCE Discharge Follow-up Phone Call: RIDDHI: Mahesh Strata: 3 Call Date: 10/24/17 Discharge Date: 10/23/17 Time of Call: 1610 Duration: 5 min Admitting Diagnosis: Cellulitis IESHA PONCE completed follow-up phone call after recent hospitalization. Patient states that he is in some pain and was going to take some Tylenol. Patient had no questions regarding discharge instructions. Patient states that he was able to fill all prescriptions without any issues. Patient states that [facility] has not been in touch with patient. RN CM providing patient with [facility] number if he does not hear from them. RN ROSARIO provided direct number should patient have any more concerns or issues with [facility].
== END 2017-10-23 15:07 | disposition home or self-care (01) | DRG 603 ==
LOC: ED 16:11 → MS3 18:32
PROVIDERS: Internal Medicine; Nurse Practitioner Family; Admitting Provider Family Medicine; Emergency Provider Emergency Medicine; Family Provider Family Medicine; PCP Family Medicine; Visit Provider Student in an Organized Health Care Education/Training Program
DX: L03.116 Cellulitis of left lower limb (principal); L03.114 Cellulitis of left upper limb; E66.9 Obesity, unspecified; B95.5 Unspecified streptococcus as the cause of diseases classified elsewhere; F32.9 Major depressive disorder, single episode, unspecified; D50.9 Iron deficiency anemia, unspecified; I10 Essential (primary) hypertension; E78.5 Hyperlipidemia, unspecified; Z68.36 Body mass index [BMI] 36.0-36.9, adult; M10.9 Gout, unspecified; Z86.718 Personal history of other venous thrombosis and embolism; K21.9 Gastro-esophageal reflux disease without esophagitis; Q74.0 Other congenital malformations of upper limb(s), including shoulder girdle
CPT/HCPCS: 36415; 71046; 73130; 73560; 73630; 73718; 73721; 80048; 80053; 81001; 82550; 83605; 84550; 85014; 85018; 85025; 85027; 85610; 85652; 85730; 86038; 86140; 86200; 86225; 86235; 86431; 87040; 87086; 97110; 97116; 97162; 97166; 97530; 97535; 97802; 99285; J7030; J7050; A4216

== ENCOUNTER 2017-10-31 15:13 | Inpatient (IN) | payer MEDICARE, MEDICAID, SELFPAY ==
[2017-10-31 15:15] VITALS: BP 128/94; PULSE 110; RESP 18; TEMP 37.7; O2SAT 95; BMI 35.3
[2017-10-31] MEDS: Morphine 4 MG/ML Syringe IV (16:19)
[2017-10-31] MEDS: Ondansetron 4 MG/2 ML Vial IV (16:19)
[2017-10-31 16:20] VITALS: BP 140/103; PULSE 99; RESP 18; O2SAT 95
[2017-10-31] MEDS: 0.9% Normal Saline 1,000 ML 150 ML IV (16:20)
[2017-10-31] MEDS: Ketorolac 30 MG/ML Syringe IV (16:20)
[2017-10-31 16:36] VITALS: TEMP 38.8
--- NOTE | 2017-10-31 16:46 | ED.VISSUMM ---
- ER Visit Summary Date of Service: 10/31/17 Chief Complaint: [Left knee pain] History of Present Illness: The patient is a 37 M [presents the emergency department complaint of pain in his left knee that he has had for several days. Patient denies any trauma. Patient states that he was admitted a couple weeks ago for pain and infection in his left leg. Patient was diagnosed apparently with gout. Patient denies any fevers at home. He denies any sweats. Patient believes all the pain is originating from his knee in a 7 hard time bending it secondary to pain.] Patient presents via EMS as he was unable to get out of bed or ambulate. Physical Examination: [HEENT-PERRLA, EOMI. Cranial nerves II through XII grossly intact. TMs clear. Mucous membranes moist. No adenopathy. Cardiovascular-regular rate and rhythm without murmur or ectopy Lungs-clear to auscultation, chest wall stable without crepitus or subcu emphysema Abdomen-normoactive bowel sounds, soft, nontender, no rebound or rigidity, no peritoneal signs. Extremities-intact ?4, normal range of motion, normal pulses, atraumatic]. Left knee-patient has small joint effusion noted. Slightly warm to the touch but no erythema. Patient has severe pain with attempted flexion of the knee. Neurovascularly intact distally with normal pulses and normal sensation. No cellulitis noted. Test Results: [CBC with differential and chemistries pending. Sed rate pending. CRP pending and blood cultures pending.] Emergency Department Course and Treatment: [Patient was started on normal saline was medicated with morphine and Zofran as well as Toradol.] Treatment Plan: [Care of patient turned over to evening physician awaiting lab results. Plan will be to admit patient and I did discuss with hospitalist. At this point etiology of his knee pain is unclear in the differential would be gout versus septic joint.] Disposition: [Admit] Impression: [Left knee pain-etiology uncertain] This note was generated with [employer] dictation software. It may contain incorrect words, spelling, and punctuation that were not noted in review of the chart prior to signing ED Disposition - Plan for ED Patient: Chief Complaint: Lower Extremity Injury Referrals: Ezra Duggan MD [Primary Care Provider] -
[2017-10-31 16:58] LABS: Absolute Lymphocyte Count 1.52 X10^3/ul (0.83-4.51); Absolute Neutrophil Count 18.2 X10^3/uL (2.0-7.7); Basophil# 0.04 X10^3/uL; Basophil% 0.2 % (0-1); Eosinophil# 0.03 X10^3/uL; Eosinophils% 0.1 % (0-5); Hematocrit 39.1 % (40-54); Hemoglobin 12.8 g/dl (13.0-16.5); Lymphocyte # 1.52 X10^3/ul (4.0); Lymphocyte % 6.8 % (19-41); Mean Corp Hgb Conc 32.7 g/gl (32-36); Mean Corpuscular Hgb 26.9 pg (27.0-32.0); Mean Corpuscular Volume 82.3 fL (80-94); Mean Platelet Vol. 9.7 fl (6.2-12.0); Monocyte# 2.57 X10^3/uL; Monocyte% 11.5 % (0-10); Neutrophil # 18.17 X10^3/uL (2.7-7.7); Neutrophil % 80.9 % (47-70); Platelet Count 470 K/mm3 (150-450); RBC Distribution Width CV 13.5 % (11.6-14.6); Red Blood Count 4.75 M/mm3 (4.6-6.2); White Blood Count 22.4 K/mm3 (4.4-11.0)
[2017-10-31 17:00] LABS: Differential Indicated SCAN CRITERIA MET; POSITIVE COUNT NO; POSITIVE DIFFERENTIAL YES; POSITIVE MORPHOLOGY YES
[2017-10-31 17:05] LABS: Anion Gap 12 (5-15); BUN 20 mg/dL (7-18); BUN/Creat Ratio 14.5 RATIO (10-20); Calcium,Total 9.7 mg/dL (8.5-10.1); Chloride 93 mmol/L (98-107); Creatinine, Serum 1.38 mg/dL (0.70-1.30); EST Glomerular Filtration Rate 61 mL/min (>60); Est Glom Filt Rate - Afr Amer 74 mL/min (>60); Estimated Creatinine Clearance 53.16 ml/min; Glucose 146 mg/dL (74-106); Potassium 4.9 mmol/L (3.5-5.1); Sodium Level 131 mmol/L (136-145)
--- NOTE | 2017-10-31 17:37 | NURSING ---
DR SUSANA LANCASTER
--- NOTE | 2017-10-31 17:53 | NURSING ---
MED SURG LT KNEE PAIN SUSANA
[2017-10-31 17:54] VITALS: BMI 35.3
--- NOTE | 2017-10-31 18:04 | HP.PCM_ITS ---
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 Patient states a few nights ago he was sitting in chair watching TV when he had a spasm of the left leg in which he states his leg contracted for short period of time. Patient states he has had increased pain since that time. Patient states his pain has become so severe that he is now unable to bear weight on the left lower extremity and has intractable pain with any movement. Pain fairly well controlled at rest. Patient had recent admission 10/16 through 10/23/17 where he was treated for presumed left hand and foot cellulitis and acute gout of the left hand joints. He was discharged on allopurinol and prednisone at that time. Patient states he did not have further pain following discharge until this new episode of left knee pain. He denies fever, chills. Denies injury to left knee. Patient notes minimal swelling of the left knee compared to right. Patient's past medical history includes hyperlipidemia, GERD, depression, iron deficiency anemia, recent diagnosis of gout, obesity, suspected genetic syndrome, history of DVT status post placement and removal IVC filter. 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 Hx of deep venous thrombosis (Chronic) S/P placement and removal IVC filter Allergies codeine Allergy (Verified 10/31/17 15:19) Other lisinopril Allergy (Verified 10/31/17 15:19) Rash Home Medications: Ambulatory Orders Medication Instructions Recorded Sertraline HCl [Zoloft] 50 mg PO DAILY 02/22/14 Atorvastatin Calcium 20 mg PO QHS 07/10/16 Amlodipine [Norvasc] 10 mg PO DAILY 10/16/17 Ferrous Sulfate 324 mg PO BID 10/16/17 Omeprazole 40 mg PO DAILY 10/16/17 Acetaminophen [Tylenol Tablet] 650 mg PO Q6H PRN PRN tablet 10/23/17 Magnesium Hydroxide [Milk Of 30 ml PO DAILY PRN PRN #1 bottle 10/23/17 Magnesia] Allopurinol [Zyloprim] 100 mg PO DAILYCM 10/31/17 Bisacodyl [Dulcolax] 5 mg PO DAILY PRN PRN 10/31/17 Surgical History: tonsillectomy, - - 16 ear surgeries, bilateral ankle surgery, IVC filter placement, laminectomy Psychiatric History: Depression Lives: Spouse/ Significant Other Smoking Status: Never smoker Alcohol: None Drugs: None - *Family History Paternal History Items: Diabetes Maternal History Items: Cancer - Ovarian Review of Systems Constitutional: Denies: Chills, Fever, Weight Change HEENT: Denies: Head Aches, Sinus Congestion, Sinus Drainage Cardiovascular: Denies: Chest Pain, Palpitations Respiratory: Denies: Cough, Shortness of breath at rest, Sputum production Gastrointestinal: Denies: Abdominal Pain, Nausea, Vomiting Genitourinary: Denies: Dysuria Musculoskeletal: Reports: Joint Pain - Left Knee Skin: Denies: Rash, Wounds Neurological: Denies: Numbness, Tingling, Focal weakness Psychiatric: Reports: Depression Hematologic/ Lymphatic: Denies: Easy Bruising, Easy Bleeding VTE Information - Inpt Only VTE Present on Admission: No VTE Mechan Device Prophylaxis: None VTE Pharm Prophylaxis ordered?: Yes - Physical Exam General: Alert, Oriented x3, Cooperative, No apparent distress HEENT: Atraumatic, PERRLA, EOMI, Normocephalic Neck: Supple, No JVD, Negative Carotid Bruits Lungs: Clear to auscultation, Normal air movement Cardiovascular: Regular rate, Regular Rhythm, Normal S1, Normal S2, No murmurs Abdomen: Bowel Sounds Present, Soft, Non Tender, Non-Distended, Obese Extremities: No clubbing, No cyanosis, No edema Skin: No rashes, No breakdown Musculoskeletal: Tenderness - Left knee, - - Mild increase in size left knee joint compared to right. No erythema. Neurological: Cranial nerves II-XII grossly intact, Neuro grossly intact Psych/Mental Status: Normal Affect, Appropriate Vital Signs Temp Pulse Resp BP Pulse Ox 101.8 F H 99 18 140/103 H 95 10/31/17 16:36 10/31/17 16:20 10/31/17 16:20 10/31/17 16:20 10/31/17 16:20 Oxygen Delivery Method Room Air Weight: 186 lb 15.232 oz Body Mass Index (BMI) 35.3 Laboratory Tests Past 24 Hrs 10/31/17 10/31/17 16:20 16:20 WBC 22.4 H RBC 4.75 Hgb 12.8 L Hct 39.1 L MCV 82.3 MCH 26.9 L MCHC 32.7 RDW 13.5 RDW Differential 40.0 Plt Count 470 H MPV 9.7 Immature Gran % (Auto) 0.500 Neut % (Auto) 80.9 H Lymph % (Auto) 6.8 L Dukes % (Auto) 11.5 H Eos % (Auto) 0.1 Baso % (Auto) 0.2 Absolute Neuts (auto) 18.2 H Absolute Lymphs (auto) 1.52 Total Counted Pending ESR Pending Sodium 131 L Potassium 4.9 Chloride 93 L Carbon Dioxide 26.0 Anion Gap 12 BUN 20 H Creatinine 1.38 H Estim Creat Clear Calc 53.16 Est GFR (MDRD) Af Amer 74 Est GFR (MDRD) Non-Af 61 BUN/Creatinine Ratio 14.5 Glucose 146 H Calcium 9.7 C-React Prot Ext Range 251.00 H Assessment/Plan 1. Intractable left knee pain with associated debility-Etiology unclear. Gout VS osteoarthritis? Elevated inflammatory marker, CRP 251 which is lower than recent admission. ESR >130. Recent admission with diagnosis gout involving left hand and foot. Suspect elevated WBC secondary to inflammatory process. Patient denies fever, chills. Attempted aspiration of left knee joint ?2 in ER with no return. Left knee x-ray 9017 showed moderate arthrosis of the medial, lateral and patellofemoral compartments. Superior patellar spur. Soft tissue structures unremarkable. Continue home allopurinol regimen. Begin prednisone 40 mg daily. Obtain ultrasound left lower extremity given history of DVT. Consult orthopedics. As needed Toradol for pain. Patient started on IV Zosyn and vancomycin in ER. Hold off on further antibiotics at this time. Blood cultures drawn in ER. PT/OT. CM consult. Patient discharged home with home health last admission. He states he wishes to go to detention facility which was attempted last admission but reported that insurance did not approve. 2. Acute kidney injury-suspect secondary to mild dehydration. IV fluids. Trend BMP. 3. Elevated glucose-check hemoglobin A1c. 4. Hyperlipidemia-continue statin. 5. Hypertension-stable, continue home amlodipine regimen. 6. Genetic syndrome (undiagnosed)-refused outpatient referral to specialty molder. 7. History of DVT status post IVC filter placement and removal 8. Chronic iron deficiency anemia-stable. 9. Depression-continue home sertraline regimen. 10. GERD-continue PPI. 11. Obesity-encourage diet and lifestyle modifications. Nutrition consult. DVT prophylaxis-Lovenox subcu. This patient was seen by LALITO Joe under the supervision of Dr. Gibbons. <Ameya Gibbons - Last Filed: 10/31/17 19:45> History of Present Illness Seen and examined. Patient was admitted on 10/16/2017 for left foot and hand cellulitis presumed Streptococcus along with acute gouty exacerbation of left hand third PIP joint. Patient is short in stature and has bilateral ankle joint fusion in the past. This time, He came with severe bilateral knee joint pain but worse in left knee. Patient is not able to stand up on his legs. It seems he might have some congenital orthopedic/bone disease. [] Past Medical History Allergies codeine Allergy (Verified 10/31/17 15:19) Other lisinopril Allergy (Verified 10/31/17 15:19) Rash - Physical Exam General: Alert, Oriented x3, Cooperative HEENT: Atraumatic, PERRLA, EOMI, Normocephalic Neck: Supple, No JVD, Negative Carotid Bruits Lungs: Clear to auscultation, Normal air movement Cardiovascular: Regular rate, No murmurs Abdomen: Bowel Sounds Present, Soft, Non Tender, Obese Extremities: No edema, Capillary Refill Less than 3 Seconds Skin: No rashes, No breakdown Musculoskeletal: Tenderness - Left knee. Severe tenderness of left knee along with joint swelling. Patient did not allow even to touch and range of motion is not possible due to pain Neurological: Cranial nerves II-XII grossly intact, Neuro grossly intact Psych/Mental Status: Normal Affect, Appropriate Vital Signs Temp Pulse Resp BP Pulse Ox 98.7 F 101 H 16 127/93 H 93 10/31/17 18:24 10/31/17 18:24 10/31/17 18:24 10/31/17 18:24 10/31/17 18:24 Oxygen Delivery Method Room Air Weight: 183 lb Body Mass Index (BMI) 34.5 Assessment/Plan This patient was seen in conjunction with Zaira CUEOT. I have independently interviewed and examined the patient and reviewed pertinent history, examination findings, laboratory and plan of management. I have reviewed the note and agree with the documented findings with the few additional points. In brief, patient is admitted for bilateral knee joint pain, worse on left knee. X-ray of knee joints reviewed on 10/22/2017 and suggestive of left knee tricompartmental arthritis. ER physician Dr. Haji attempted left knee arthrocentesis twice but was unsuccessful. Orthopedic surgeon Dr. Napier consulted and he wants Solu-Medrol and does not want antibiotic. Prednisone discontinued. Antibiotic was given by ER physician. We did not give any antibiotic and I agree that patient does not need antibiotic. His pain is most likely secondary to severe osteoarthritis. I have discussed my assessment with Zaira CUETO and orders have been reviewed. Code Visit Inpatient E&M: 32045 Init Hosp L2
[2017-10-31 18:05] LABS: Differential Comment SCANNED; Erythrocyte Sedimentation Rate > 130 mm/hr (0-15)
[2017-10-31 18:23] VITALS: BMI 34.5
[2017-10-31 18:24] VITALS: BP 127/93; PULSE 101; RESP 16; TEMP 37.1; O2SAT 93
--- NOTE | 2017-10-31 18:55 | RAD_ITS ---
STUDY: X-RAY - LEFT KNEE REASON FOR EXAM: Male, 37 years old. Pain. TECHNIQUE: 2 view(s) of the knee. COMPARISON: None. FINDINGS: There is a small degenerative spur of the anterior aspect of the distal femur. There is prominence of the anterior tibial tuberosity. There is mild demineralization of the osseous structures. Normal proximal tibiofibular articulation. There is no demonstrated fracture. There is mild degenerative arthrosis of the medial femorotibial compartment. There is mild degenerative arthrosis of the lateral femorotibial compartment. There is moderate degenerative arthrosis of the patellofemoral articulation. There is no demonstrated joint effusion. The soft tissue structures are unremarkable. RAD/Knee 1 or 2 Views IMPRESSION: Degenerative arthrosis. No demonstrated acute osseous injury. Electronically Signed: Ramón Strauss MD at 1:27 EDT Tel , Service support ,
[2017-10-31 19:51] LABS: Hemoglobin A1c 6.7 % (4.2-6.3)
--- NOTE | 2017-10-31 20:02 | PCM.CONS.GEN ---
Reason for Consult Date of Consultation: 10/31/17 Reason for Consultation: left knee pain. requested by dr sotomayor History of Present Illness: The patient is a 37 year old M With history of unknown skeletal dysplasia. Patient demonstrates short fourth digits bilaterally, hearing loss and short stature. Patient presents with acute increase in left knee pain. He does report chronic left knee pain in the past. However he states that 3 days ago he had sudden increase in pain and was noted to have difficulty with range of motion. Today he states he cannot move his knee at all. He is unable to do a straight leg raise secondary to the pain. Patient states that he has had some chronic pain in that knee. He was recently admitted to the hospital and treated for cellulitis and gout. Patient received 7 days of antibiotics but was really discharged on allopurinol and a prednisone dose taper. Patient states that overall he was doing well until the last 3 days when his knee pain increased. Denies any fevers chills or night sweats. He denies any significant swelling of the knee. Denies any redness of the knee. Patient denies any IV drugs of abuse. 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 Hx of deep venous thrombosis (Chronic) S/P placement and removal IVC filter Allergies codeine Allergy (Verified 10/31/17 15:19) Other lisinopril Allergy (Verified 10/31/17 15:19) Rash Home Medications: Ambulatory Orders Medication Instructions Recorded Sertraline HCl [Zoloft] 50 mg PO DAILY 02/22/14 Atorvastatin Calcium 20 mg PO QHS 07/10/16 Amlodipine [Norvasc] 10 mg PO DAILY 10/16/17 Ferrous Sulfate 324 mg PO BID 10/16/17 Omeprazole 40 mg PO DAILY 10/16/17 Acetaminophen [Tylenol Tablet] 650 mg PO Q6H PRN PRN tablet 10/23/17 Magnesium Hydroxide [Milk Of 30 ml PO DAILY PRN PRN #1 bottle 10/23/17 Magnesia] Allopurinol [Zyloprim] 100 mg PO DAILYCM 10/31/17 Bisacodyl [Dulcolax] 5 mg PO DAILY PRN PRN 10/31/17 Surgical History: tonsillectomy, - - 16 ear surgeries, bilateral ankle surgery, IVC filter placement, laminectomy Psychiatric History: Depression Lives: Spouse/ Significant Other Smoking Status: Never smoker Tobacco Use: Non-smoker Alcohol: None Drugs: None - *Family History Paternal History Items: Diabetes Maternal History Items: Cancer - Ovarian Review of Systems Constitutional: Denies: Chills, Fever, Weight Change HEENT: Denies: Head Aches, Sinus Congestion, Sinus Drainage Cardiovascular: Denies: Chest Pain, Palpitations Respiratory: Denies: Cough, Shortness of breath at rest, Sputum production Gastrointestinal: Denies: Abdominal Pain, Nausea, Vomiting Genitourinary: Denies: Dysuria Musculoskeletal: Reports: Joint Pain - See HPI Skin: Denies: Rash, Wounds Neurological: Denies: Numbness, Tingling, Focal weakness Psychiatric: Denies: Anxiety, Depression, Homicidal Ideations, Suicidal Ideations Hematologic/ Lymphatic: Denies: Easy Bruising, Easy Bleeding Objective: X-rays of the left knee show severe osteoarthritis with bony erosions in the medial lateral compartments. He has some patella baja with patellofemoral arthrosis noted on the lateral view. - Physical Exam General: Alert, Oriented x3, Cooperative Extremities: - - Left knee shows mild effusion. No significant redness is appreciated. Sensations intact light touch saphenous, sural, superficial peroneal, deep peroneal, tibial nerve distributions. Motor is intact R/[place] plantar flexion. Patient has difficulty with straight leg raise secondary to knee pain. Patient did not tolerate short arc range of motion. Crepitus with knee motion. Vital Signs Temp Pulse Resp BP Pulse Ox 98.7 F 101 H 16 127/93 H 93 10/31/17 18:24 10/31/17 18:24 10/31/17 18:24 10/31/17 18:24 10/31/17 18:24 Oxygen Delivery Method Room Air Weight: 183 lb Body Mass Index (BMI) 34.5 Assessment/Plan Severe left knee pain with acute increase. At this time patient has an elevated ESR and CRP. Patient's ESR is elevated significantly from his discharge from 87 to over 130. His CRP is improved since his previous stay from 319-251. X-rays show severe arthrosis of the knee joint. Physical examination overall is minimal concern for infection however patient does not tolerate short arc range of motion. He does have a history of gout with elevated uric acid and did respond corticosteroids last time. At this time I recommended an aspiration of the knee. 4 cc of cloudy fluid with crystal appearing flecks were aspirated. Based on the nature of this fluid will make the patient n.p.o. overnight and follow the results. We will also follow cultures. Based on the patient's overall knee health and osteoarthritis of the knee I did not think it benefits the patient to acutely proceed to the operating room in the middle the night. We will monitor his results overnight if he does need an acute irrigation debridement of the knee will do a tomorrow. Currently I recommended Solu-Medrol to help with the likely gout. Patient is also on Toradol. Obviously we should be mindful of any acute kidney injury. Procedure: The lateral suprapatellar pouch was palpated. An 18-gauge needle and 30 cc syringe were selected. Chlorhexidine and Betadine were used to sterilize the area. After the area was sterilized 18-gauge needle was advanced in the knee joint and 4 cc of cloudy fluid with crystalline flex was aspirated from the joint. These were placed in red and purple top tubes and sent down for culture and cell count as well as crystal examination. [facility] Office:
[2017-10-31] MEDS: 0.9% Normal Saline 1,000 ML 100 ML IV (20:17)
[2017-10-31 22:02] LABS: Pathologist Comment May follow
[2017-10-31 22:04] LABS: RBC /Synovial Fluid 0.184 10^6/uL (0); Synovial Fld Mononuclear WBC % 14.4 %; Synovial Fld Polynuclear WBC # 15.561 10^3/ul; Synovial Fld Polynuclear WBC % 85.6 %
[2017-10-31] MEDS: Ketorolac 15 MG/ML Vial IV (22:56)
[2017-10-31] MEDS: Heparin Injection (Vial) 5,000 UNIT/ML VIAL 5000 UNIT SC (22:58)
[2017-10-31] MEDS: Atorvastatin Calcium 20 MG Tablet PO (22:58)
[2017-10-31 23:10] LABS: AUTO B FLUID DILUENT BKGD CT WBC <0.1 RBC <0.01 (W<.1,R<.01); Appearance /Synovial Fluid Cloudy (CLEAR); Body Fluid QC Type(s) BF1Q,BF2Q; Color / Synovial Fluid Red (Pale Yellow); Source / Synovial Fluid LEFT KNEE; Source- Body Fluid SYNOVIAL; Synovial Fld Mononuclear WBC # 2.626 10^3/ul
[2017-10-31 23:23] LABS: Monocyte /Synovial Fluid 2 %; Neutrophil 98 % (0-25)
[2017-11-01 00:20] VITALS: BP 117/78; PULSE 80; RESP 16; TEMP 36.4; O2SAT 94
[2017-11-01] MEDS: 0.9% Normal Saline 1,000 ML 100 ML IV ×3 (03:23→22:55)
[2017-11-01 06:30] VITALS: BP 113/75; PULSE 72; RESP 16; TEMP 36.4; O2SAT 95
[2017-11-01 06:51] LABS: Absolute Lymphocyte Count 0.98 X10^3/ul (0.83-4.51); Absolute Neutrophil Count 12.1 X10^3/uL (2.0-7.7); Basophil# 0.01 X10^3/uL; Basophil% 0.1 % (0-1); Eosinophil# 0.01 X10^3/uL; Eosinophils% 0.1 % (0-5); Hematocrit 34.1 % (40-54); Hemoglobin 11.3 g/dl (13.0-16.5); Lymphocyte # 0.98 X10^3/ul (4.0); Lymphocyte % 7.1 % (19-41); Mean Corp Hgb Conc 33.1 g/gl (32-36); Mean Corpuscular Hgb 27.6 pg (27.0-32.0); Mean Corpuscular Volume 83.2 fL (80-94); Mean Platelet Vol. 9.7 fl (6.2-12.0); Monocyte# 0.61 X10^3/uL; Monocyte% 4.4 % (0-10); Neutrophil # 12.12 X10^3/uL (2.7-7.7); Neutrophil % 88.1 % (47-70); Platelet Count 370 K/mm3 (150-450); RBC Distribution Width CV 13.1 % (11.6-14.6); RBC Distribution Width SD 39.2 fl (35.1-43.9); White Blood Count 13.8 K/mm3 (4.4-11.0)
[2017-11-01 07:09] LABS: POSITIVE COUNT NO; POSITIVE DIFFERENTIAL NO; POSITIVE MORPHOLOGY NO
[2017-11-01 07:14] LABS: Anion Gap 11 (5-15); BUN 30 mg/dL (7-18); BUN/Creat Ratio 18.3 RATIO (10-20); Calcium,Total 9.3 mg/dL (8.5-10.1); Chloride 96 mmol/L (98-107); Creatinine, Serum 1.64 mg/dL (0.70-1.30); EST Glomerular Filtration Rate 50 mL/min (>60); Est Glom Filt Rate - Afr Amer 60 mL/min (>60); Estimated Creatinine Clearance 44.73 ml/min; Glucose 178 mg/dL (74-106); Potassium 4.8 mmol/L (3.5-5.1); Sodium Level 136 mmol/L (136-145)
--- NOTE | 2017-11-01 08:09 | VDLE_ITS ---
Reason For Study: Pain Procedure LEFT Exam performed portable in patient room. GSV is normal. A preliminary report was called and/or faxed CFV is compressible, spontaneous, phasic, to MS3. competent, and demonstrates normal augmentation. FV is compressible, spontaneous, phasic, competent and demonstrates normal augmentation. POP V is compressible, spontaneous, phasic, competent and demonstrates normal augmentation. T/P Trunk is compressible. PTV is compressible. LT PerV is compressible. GSV was not well visualized at diastal. Technically difficult exam. Interpretation Summary Deep veins of the left lower extremity are patent and compressible segmentally. There is no evidence of left lower extremity deep vein thrombosis. Valvular competence appears intact within the proximal deep venous system on the left . The left greater saphenous vein appears patent and compressible segmentally. The left greater saphenous vein was not well visualized distally. Ordering Physician: LALITO Joe Referring Physician: Ezra Duggan Performed By: Marcella MORSE, Katlin OCHOA and Student
[2017-11-01 08:56] VITALS: BP 108/83; PULSE 76; RESP 18; TEMP 36.5; O2SAT 93
--- NOTE | 2017-11-01 09:25 | CASEMGMT ---
Addendum entered by Sarah Davis 11/01/17 10:39: SW provided pt with letter of insurance approval on pt's table. Original Note: Social Work Note SW in to meet with pt to discuss discharge planning. SW received letter from Charge Nurse Ann from pt that he received in the mail from his insurance stating that they approved for him to go to [facility] the last time pt was admitted into [facility]. SW explained that at that time, the physician felt pt was well enough to return home and the referral to [facility] was cancelled. Pt states understanding. Pt states that he would like to go to SNF again. Pt states that he would like [facility] first and then [facility]. SW explained again that this worker will check on bed availability with TCU and if not beds are available a referral will be made to [facility]. Pt states understanding. KALPESH placed a call to referral line and spoke with Lori who states she has beds available and will review pt. Plan: SNF pending acceptance and pre-cert Sarah Davis SUBSTATION WIREMAN, KID CLUB ATTENDANT
--- NOTE | 2017-11-01 10:04 | PN_ITS ---
Subjective: Patient seen and examined. Notes mild improvement in left knee pain. Denies fever, chills. Denies new complaints. - Physical Exam General: Alert, Oriented x3, Cooperative HEENT: Atraumatic, PERRLA, EOMI, Normocephalic Neck: Supple, No JVD, Negative Carotid Bruits Lungs: Clear to auscultation, Normal air movement Cardiovascular: Regular rate, Regular Rhythm, Normal S1, Normal S2, No murmurs Abdomen: Bowel Sounds Present, Soft, Non Tender, Non-Distended, Obese Extremities: No clubbing, No cyanosis, No edema, Capillary Refill Less than 3 Seconds Skin: No rashes, No breakdown Musculoskeletal: Tenderness - Left knee Neurological: Cranial nerves II-XII grossly intact, Neuro grossly intact Psych/Mental Status: Normal Affect, Appropriate Vital Signs Temp Pulse Resp BP Pulse Ox 97.7 F L 76 18 108/83 H 93 11/01/17 08:56 11/01/17 08:56 11/01/17 08:56 11/01/17 08:56 11/01/17 08:56 Oxygen Delivery Method Room Air Weight: 183 lb Body Mass Index (BMI) 34.5 Intake and Output for Last 24 Hours 10/30/17 10/31/17 11/01/17 23:59 23:59 23:59 Intake Total 1276 / 1276 Balance 1276 / 1276 Microbiology Past 72 Hours 10/31/17 19:55 Gram Stain - Preliminary Fluid - Synovial (joint) Laboratory Tests Past 24 Hrs 10/31/17 11/01/17 11/01/17 19:55 05:45 05:45 WBC 13.8 H RBC 4.10 L Hgb 11.3 L Hct 34.1 L MCV 83.2 MCH 27.6 MCHC 33.1 RDW 13.1 RDW Differential 39.2 Plt Count 370 MPV 9.7 Immature Gran % (Auto) 0.200 Neut % (Auto) 88.1 H Lymph % (Auto) 7.1 L Runnels % (Auto) 4.4 Eos % (Auto) 0.1 Baso % (Auto) 0.1 Absolute Neuts (auto) 12.1 H Absolute Lymphs (auto) 0.98 Total Counted Not Reportable Sodium 136 Potassium 4.8 Chloride 96 L Carbon Dioxide 29.0 Anion Gap 11 BUN 30 H Creatinine 1.64 H Estim Creat Clear Calc 44.73 Est GFR (MDRD) Af Amer 60 Est GFR (MDRD) Non-Af 50 L BUN/Creatinine Ratio 18.3 Glucose 178 H Calcium 9.3 Fluid Crystals SEE PATH REV Fluid Crystal Source SYNOVIAL Fl Crystal Path Review Will follow Synovial Source LEFT KNEE Synovial Color Red Synovial Appearance Cloudy Synovial WBC 19.7310 H Synovial RBC 0.[address] H Synovial Tot Cell Ct 19.7340 H Synov Polynuclear WBCs 15.561 Synov Mononuclear WBCs 2.626 Synovial Neutrophils 98 H Synovial Monocytes 2 Synovial Polynuclear % 85.6 Synovial Mononuclear % 14.[address] Comment May follow Medical Necessity - Tobacco Use Smoking Status: Never smoker Tobacco Use: Non-smoker Assessment/Plan 1. Intractable left knee pain with associated debility-Etiology unclear. Gout VS osteoarthritis? Elevated inflammatory marker, CRP 251 which is lower than recent admission. ESR >130. Recent admission with diagnosis gout involving left hand and foot. Suspect elevated WBC secondary to inflammatory process. Patient denies fever, chills. Attempted aspiration of left knee joint ?2 in ER with no return. Left knee x-ray 10/22/17 showed moderate arthrosis of the medial, lateral and patellofemoral compartments. Superior patellar spur. Soft tissue structures unremarkable. Orthopedic on consult. Repeat x-ray of the left knee show degenerative arthrosis, no acute osseous injury. Dr. Napier aspirated left knee, cultured pending. Continue home allopurinol regimen. Patient started on IV Solu-Medrol per ortho. Obtain ultrasound left lower extremity given history of DVT. Patient started on IV Zosyn and vancomycin in ER. Hold off on further antibiotics at this time. Blood cultures drawn in ER. PT/OT. CM consult. Patient discharged home with home health last admission. He states he wishes to go to shelter facility which was attempted last admission but reported that insurance did not approve. 2. Acute kidney injury-suspect secondary to mild dehydration. IV fluids. DC Toradol. Trend BMP. 3. Elevated glucose-hemoglobin A1c 6.7%. 4. Hyperlipidemia-continue statin. 5. Hypertension-stable, continue home amlodipine regimen. 6. Genetic syndrome (undiagnosed)-refused outpatient referral to rubber compounder mixer. 7. History of DVT status post IVC filter placement and removal 8. Chronic iron deficiency anemia-stable. 9. Depression-continue home sertraline regimen. 10. GERD-continue PPI. 11. Obesity-encourage diet and lifestyle modifications. Nutrition consult. DVT prophylaxis-Heparin subcu. This patient was seen by LALITO Joe under the supervision of Dr. Mejia.
[2017-11-01] MEDS: Ferrous Sulfate 325 MG Tablet PO ×2 (10:31→17:54)
[2017-11-01] MEDS: amLODIPine 10 MG Tablet PO (10:32)
[2017-11-01] MEDS: Sertraline 50 MG Tablet PO (10:32)
[2017-11-01] MEDS: Pantoprazole Sodium 40 MG Tablet PO (10:32)
[2017-11-01] MEDS: Allopurinol 100 MG Tablet PO (10:32)
[2017-11-01 10:34] VITALS: BP 110/69; PULSE 68
[2017-11-01] MEDS: Acetaminophen 500 MG Tablet PO ×2 (10:44→14:40)
--- NOTE | 2017-11-01 12:05 | CASEMGMT ---
Social Work Note KALPESH received call from Lori in TCU stating that she is able to accept pt. KALPESH informed Lori that it is still unclear if pt will have surgery with Dr. Napier and this KALPESH will update Lori of this when it is known. Lori states understanding. Per Lori she will submit for pre-cert once it is known if pt will have surgery or not. Plan: TCU pending pre-cert Sarah Davis FAMILY [employer] REGISTRAR, HEALTH PROFESSIONAL
[2017-11-01 13:48] LABS: Pathologist Review Reviewed
[2017-11-01 13:49] LABS: Pathologist Review Reviewed
[2017-11-01] MEDS: Heparin Injection (Vial) 5,000 UNIT/ML VIAL 5000 UNIT SC ×2 (14:04→22:55)
[2017-11-01 14:43] VITALS: BP 117/71; PULSE 64; RESP 16; TEMP 36.6; O2SAT 93
[2017-11-01 16:15] LABS: Bedside Glucose 203 mg/dL (70-110)
--- NOTE | 2017-11-01 16:16 | PN.ORTHO_ITS ---
Subjective: Patient does feel improved today with the Toradol and IV steroids. Patient states that the pain is improved today. He still has limited range of motion of his knee however he can do a straight leg raise today and can also perform active short arc range of motion without severe pain. - Physical Exam General: Alert, Oriented x3, Cooperative Extremities: - - Right lower extremity: No erythema. Minimal effusion of the knee. Patient has active short arc range of motion. Does have limited range of motion of the knee. Crepitus with range of motion. Sensations intact light touch distally saphenous, sural, superior peroneal, deep peroneal and tibial nerve distributions. Motor is intact R/and EHL and plantar flexion. Patient able to perform straight leg raise today. Vital Signs Temp Pulse Resp BP Pulse Ox 97.8 F 64 16 117/71 93 11/01/17 14:43 11/01/17 14:43 11/01/17 14:43 11/01/17 14:43 11/01/17 14:43 Oxygen Delivery Method Room Air Weight: 182 lb 15.739 oz Body Mass Index (BMI) 34.5 Intake and Output for Last 24 Hours 10/30/17 10/31/17 11/01/17 23:59 23:59 23:59 Intake Total 2506 / 2506 Output Total 375 / 375 Balance 2131 / 2131 Microbiology Past 72 Hours 10/31/17 19:55 Gram Stain - Final Fluid - Synovial (joint) Body Fluid Culture - Preliminary No growth-Final to follow Laboratory Tests Past 24 Hrs 10/31/17 11/01/17 11/01/17 19:55 05:45 05:45 WBC 13.8 H RBC 4.10 L Hgb 11.3 L Hct 34.1 L MCV 83.2 MCH 27.6 MCHC 33.1 RDW 13.1 RDW Differential 39.2 Plt Count 370 MPV 9.7 Immature Gran % (Auto) 0.200 Neut % (Auto) 88.1 H Lymph % (Auto) 7.1 L [place] % (Auto) 4.4 Eos % (Auto) 0.1 Baso % (Auto) 0.1 Absolute Neuts (auto) 12.1 H Absolute Lymphs (auto) 0.98 Total Counted Not Reportable Sodium 136 Potassium 4.8 Chloride 96 L Carbon Dioxide 29.0 Anion Gap 11 BUN 30 H Creatinine 1.64 H Estim Creat Clear Calc 44.73 Est GFR (MDRD) Af Amer 60 Est GFR (MDRD) Non-Af 50 L BUN/Creatinine Ratio 18.3 Glucose 178 H Calcium 9.3 Fluid Crystals SEE PATH REV Fluid Crystal Source SYNOVIAL Fl Crystal Path Review Reviewed Synovial Source LEFT KNEE Synovial Color Red Synovial Appearance Cloudy Synovial WBC 19.7310 H Synovial RBC 0.184 H Synovial Tot Cell Ct 19.7340 H Synov Polynuclear WBCs 15.561 Synov Mononuclear WBCs 2.626 Synovial Neutrophils 98 H Synovial Monocytes 2 Synovial Polynuclear % 85.6 Synovial Mononuclear % 14.[address]ovial [address] Comment May follow Medical Necessity - Tobacco Use Smoking Status: Never smoker Tobacco Use: Non-smoker Assessment/Plan Severe left knee pain with acute increase. Cultures were not consistent with infection, aspiration was not consistent with infection. Patient demonstrates an acute inflammatory process in the knee gout versus arthritic flare. Overall patient can be activity as tolerated with range of motion as tolerated. He should continue to work with physical therapy. Upon discharge from the hospital patient should have follow-up for medical management of his gout. He should also come to the office in orthopedics for evaluation of long-term treatment of his knee pain. 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 [facility] Office:
[2017-11-01] MEDS: Insulin Lispro 100 UNIT/ML INSULN.PEN SC ×2 (17:51→22:55)
[2017-11-01] MEDS: oxyCODONE 5 MG Tablet PO ×2 (17:55→22:55)
[2017-11-01 22:30] VITALS: BP 111/68; PULSE 74; RESP 16; TEMP 36.6; O2SAT 95
[2017-11-01] MEDS: Atorvastatin Calcium 20 MG Tablet PO (22:56)
[2017-11-01 23:05] LABS: Bedside Glucose 249 mg/dL (70-110)
[2017-11-02 04:30] VITALS: BP 121/66; PULSE 54; RESP 16; TEMP 36.6; O2SAT 96
[2017-11-02] MEDS: Heparin Injection (Vial) 5,000 UNIT/ML VIAL 5000 UNIT SC ×2 (05:26→14:28)
[2017-11-02 06:26] LABS: Hematocrit 33.2 % (40-54); Hemoglobin 10.3 g/dl (13.0-16.5); Mean Corpuscular Hgb 26.6 pg (27.0-32.0); Mean Corpuscular Volume 85.8 fL (80-94); Mean Platelet Vol. 9.4 fl (6.2-12.0); Platelet Count 315 K/mm3 (150-450); RBC Distribution Width CV 13.5 % (11.6-14.6); RBC Distribution Width SD 42.2 fl (35.1-43.9); Red Blood Count 3.87 M/mm3 (4.6-6.2); White Blood Count 14.9 K/mm3 (4.4-11.0)
[2017-11-02 06:30] LABS: Scan Indicated on CBC? Y/N NO
[2017-11-02 06:46] LABS: Anion Gap 7 (5-15); BUN 24 mg/dL (7-18); BUN/Creat Ratio 22.9 RATIO (10-20); Chloride 107 mmol/L (98-107); Creatinine, Serum 1.05 mg/dL (0.70-1.30); EST Glomerular Filtration Rate 83 mL/min (>60); Est Glom Filt Rate - Afr Amer 101 mL/min (>60); Estimated Creatinine Clearance 69.87 ml/min; Glucose 211 mg/dL (74-106); Potassium 4.4 mmol/L (3.5-5.1); Sodium Level 139 mmol/L (136-145)
[2017-11-02] MEDS: Insulin Lispro 100 UNIT/ML INSULN.PEN SC ×2 (06:49→11:52)
[2017-11-02 06:56] LABS: Bedside Glucose 231 mg/dL (70-110)
[2017-11-02] MEDS: 0.9% Normal Saline 1,000 ML 100 ML IV (08:33)
[2017-11-02] MEDS: Ferrous Sulfate 325 MG Tablet PO (08:33)
[2017-11-02] MEDS: Allopurinol 100 MG Tablet PO (08:33)
--- NOTE | 2017-11-02 09:03 | CASEMGMT ---
Addendum entered by Sarah Davis 11/02/17 12:34: KALPESH updated pt on acceptance into TCU and needing pre-cert from insurance. Pt states understanding. Original Note: Social Work Note Per progress notes, pt is not having surgery with Dr. Napier. KALPESH placed a call to Lori in TCU to update her of this. Lori states that she will submit for pre-cert today. Plan: TCU pending pre-cert Sarah Davis VARNISH MAKER HELPER, CLOTH WEIGHER
[2017-11-02 09:50] VITALS: BP 117/72; PULSE 73; RESP 18; TEMP 36.6; O2SAT 100
[2017-11-02] MEDS: Acetaminophen 500 MG Tablet PO (09:58)
[2017-11-02] MEDS: Sertraline 50 MG Tablet PO (09:59)
[2017-11-02] MEDS: Pantoprazole Sodium 40 MG Tablet PO (10:00)
[2017-11-02] MEDS: amLODIPine 10 MG Tablet PO (10:00)
--- NOTE | 2017-11-02 11:41 | PCM.PROGNOTE ---
Subjective: Pt resting comfortably in chair at bedside. left knee pain present, but improved. No fever or chills. ROM improved slightly, still somewhat limited 2/2 pain especially with flexion. Pt ambulates with walker, only to bathroom. Desires SNF placement. - Physical Exam General: Alert, Oriented x3, Cooperative HEENT: Atraumatic, PERRLA, EOMI, Normocephalic Neck: Supple, No JVD, Negative Carotid Bruits Lungs: Clear to auscultation, Normal air movement Cardiovascular: Regular rate, No murmurs Abdomen: Bowel Sounds Present, Soft, Non Tender Extremities: No edema, Capillary Refill Less than 3 Seconds Skin: No rashes, No breakdown Musculoskeletal: No Tenderness to Palpation of Joints or Extremities, - - ROM limited 2/2 pain Neurological: Cranial nerves II-XII grossly intact Psych/Mental Status: Normal Affect, Appropriate, Alert and oriented to time, place, person, mood and affect Vital Signs Temp Pulse Resp BP Pulse Ox 97.8 F 73 18 117/72 100 11/02/17 09:50 11/02/17 09:50 11/02/17 09:50 11/02/17 09:50 11/02/17 09:50 Oxygen Delivery Method Room Air Weight: 182 lb 15.739 oz Body Mass Index (BMI) 34.5 Intake and Output for Last 24 Hours 10/31/17 11/01/17 11/02/17 23:59 23:59 23:59 Intake Total 3136 / 3136 1737 / 1737 Output Total 975 / 975 400 / 400 Balance 2161 / 2161 1337 / 1337 Microbiology Past 72 Hours 10/31/17 19:55 Gram Stain - Final Fluid - Synovial (joint) Body Fluid Culture - Preliminary Laboratory Tests Past 24 Hrs 10/31/17 11/02/17 11/02/17 19:55 05:30 05:30 WBC 14.9 H RBC 3.87 L Hgb 10.3 L Hct 33.2 L MCV 85.8 MCH 26.6 L MCHC 31.0 L RDW 13.5 RDW Differential 42.2 Plt Count 315 MPV 9.4 Sodium 139 Potassium 4.4 Chloride 107 Carbon Dioxide 25.0 Anion Gap 7 BUN 24 H Creatinine 1.05 Estim Creat Clear Calc 69.87 Est GFR (MDRD) Af Amer 101 Est GFR (MDRD) Non-Af 83 BUN/Creatinine Ratio 22.9 H Glucose 211 H Calcium 9.0 Fl Crystal Path Review Reviewed POC Glucose 11/02/17 11/01/17 11/01/17 06:48 22:54 16:12 POC Glucose 231 H 249 H 203 H Medical Necessity - Tobacco Use Smoking Status: Never smoker Tobacco Use: Non-smoker Assessment/Plan 1. Left knee pain - acute gout vs osteoarthritis. Tapped, unremarkable fluid. Karthikeyan following. outpatient follow. Pain improved. Steroid taper. PTOT, SNF placement. Ambulate with walker 2. SVETA - no nsaids. Resolved. 3. T2DM - a1c 6.7. start metformin as o/p. hold for recent sveta 4. HTN - stable 5. 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 DVT hx, prior IVC/removal 7. Iron deficiency anemia 8. GERD - ppt 9. Obesity - dietary evals DVT ppx: heparin DC planning: SNF if approved. denies last admission. This patient was seen by Calvin Han PA-C under the supervision of Doctor Mejia.
[2017-11-02 12:01] LABS: Bedside Glucose 206 mg/dL (70-110)
[2017-11-02 14:29] VITALS: BP 125/71; PULSE 69; RESP 18; TEMP 36.3; O2SAT 100
--- NOTE | 2017-11-02 15:19 | CHAPLAIN ---
Type of Pastoral Visit _x__ Initial Visit ___ Follow-up Visit ___ On-call Visit ___ General Patient Visit ___ Spiritual Assessment ___ Family Conference ___ Bereavement ___ Rapid Response ___ Code Blue ___ Other (describe below) Pastoral Care Referral From _x__ Patient ___ Family ___ Nurse ___ Physician ___ Manager Qa ___ Key Ringer ___ Other (describe below) Sacrament/Intervention _x__ Active listening ___ Anointing ___ Mormon ___ Bereavement ___ Communion _x__ Lara exploration ___ ___ Life review _x__ Prayer ___ Reconciliation ___ Sacrament of Sick _x__ Supportive presence ___ Wedding ___ Other (describe below) Pastoral Comments
--- NOTE | 2017-11-02 15:24 | TREXTCAR_ITS ---
- Diet 11/01/17 10:30 Diet: Diabetic 1800 christelle/day - Routine Orders/Code Status Suppository Type: Dulcolax 10mg Suppository Frequency: Daily PRN Routine Lab Work: BMP - 3 days Code Status: Full Code - Wound(s) Left Knee Wound Type: Puncture - Therapies Physical Therapy: Eval and Treat Occupational Therapy: Eval and Treat - Problem/Diagnosis (1) Gout Status: Acute Current Visit: Yes (2) Diabetes Status: Chronic Current Visit: Yes (3) HLD (hyperlipidemia) Status: Chronic Current Visit: No (4) GERD (gastroesophageal reflux disease) Status: Chronic Current Visit: No (5) Depression Status: Chronic Current Visit: No (6) Iron deficiency anemia Status: Chronic Current Visit: Yes (7) Obesity (BMI 30-39.9) Status: Chronic Current Visit: Yes (8) Genetic syndrome Status: Chronic Comment: Suspected, not formally diagnosed Current Visit: Yes (9) Hx of deep venous thrombosis Status: Chronic Comment: S/P placement and removal IVC filter Current Visit : Yes - Allergies/Procedures Done in Hospital Allergies/Adverse Reactions: Allergies codeine Allergy (Verified 10/31/17 15:19) Other lisinopril Allergy (Verified 10/31/17 15:19) Rash Procedures: - - arhthrocentesis - Type of Care/Length of Stay Estimated LOS: Convalescent Care Less Than 30 days Type of Care Needed: Skilled Rehab Potential: Fair Prognosis: Fair - Additional Orders/Day of Discharge Day of Discharge: 11/02/17 - Dietary and Speech Recommendations Dietitian Recommendations/Changes: Suggest diet change to 1800 calorie/cardiac. - Follow Up Care Primary Care Physician: Ezra Duggan MD [Primary Care Provider] - Please follow up with your Primary Care Physician in: 1-2 weeks Please Follow Up With: Bull Napier MD When: 1-2 weeks
--- NOTE | 2017-11-02 15:24 | PCM.DC.SUM ---
Discharge Date and Diagnosis - Problem List Patient Problems: Active and Suspected Problems Gout (Acute) Date of Admission: 10/31/17 Date of Discharge: 11/02/17 - Primary Discharge Diagnosis Active and Suspected Problems Gout (Acute) osteoarthritis SVETA 2/2 nsaids DMt2 new dx iron def anemia GERD obestiy HTN genetic syndrome unspecified obesity - Secondary Discharge Diagnosis Chronic Problems HLD (hyperlipidemia) (Chronic) GERD (gastroesophageal reflux disease) (Chronic) Depression (Chronic) Iron deficiency anemia (Chronic) Obesity (BMI 30-39.9) (Chronic) Genetic syndrome (Chronic) Suspected, not formally diagnosed Hx of deep venous thrombosis (Chronic) S/P placement and removal IVC filter Diabetes (Chronic) Hospital Course and Treatment Imaging Results: RAD/Knee 1 or 2 Views IMPRESSION: Degenerative arthrosis. No demonstrated acute osseous injury. Consults: Karthikeyan [place] Operations: None Procedures: - - arthrocentesis Summary of Care Provided: Physical exam on day of discharge: See daily progress note Hospital course: The patient is a 37 year old M with a history of gout, recent admission with gout, who presented to the emergency room with chief complaint of left knee pain and difficulty ambulating. X-ray of the knee demonstrated arthrosis. Orthopedics was consulted. Aspiration of the knee was performed with no organisms seen. Ortho felt that this was consistent with gout. He was placed on methylprednisolone. He was initially treated with NSAIDs however he had SVETA so NSAIDs were discontinued. He was also found to have elevated A1c at 6.7. He is placed on sliding scale insulin. He was seen by physical therapy and as he had ongoing debility and difficulty ambulating with desire for detention placement. Qualified for detention and he was accepted at the TCU. He was transitioned to a prednisone taper. He was advised to follow-up with Ortho in the office in 1-2 weeks as he also has significant osteoarthritis. He will need to continue PT OT. He was discharged to TCU in stable condition. As he is a new diagnosis of diabetes he will need to start metformin therapy. Advised to start metformin in 3 days with a BMP check in 3 days as he had recent acute kidney injury. Begin calorie controlled diet. This patient was seen by Calvin Han PA-C under the supervision of Doctor Mejia. [] Discharge Diet: 1800 Calorie Control Diet Discharge Activity: Return to Normal Activity Home Medications: Medications to take at Discharge Sertraline HCl [Zoloft] 50 mg PO DAILY 02/22/14 Atorvastatin Calcium 20 mg PO QHS 07/10/16 Amlodipine [Norvasc] 10 mg PO DAILY 10/16/17 Ferrous Sulfate 324 mg PO BID 10/16/17 Omeprazole 40 mg PO DAILY 10/16/17 Acetaminophen [Tylenol Tablet] 650 mg PO Q6H PRN PRN tablet 10/23/17 Magnesium Hydroxide [Milk Of Magnesia] 30 ml PO DAILY PRN PRN #1 bottle 10/23/17 Allopurinol [Zyloprim] 100 mg PO DAILYCM 10/31/17 Bisacodyl [Dulcolax] 5 mg PO DAILY PRN PRN 10/31/17 Acetaminophen [Tylenol] 500 mg PO Q4H PRN PRN tablet 11/02/17 Metformin HCl 500 mg PO BID #60 tablet 11/02/17 Oxycodone [Oxyir] 5 mg PO Q4H PRN PRN 2 Days #12 tab 11/02/17 Prednisone 10 mg PO UD #30 tablet 11/02/17 Following Prescrptions Were Given to Patient: Metformin HCl 500 mg PO BID #60 tablet Oxycodone [Oxyir] 5 mg PO Q4H PRN PRN 2 Days #12 tab PRN Reason: Severe Pain (-11/22) Prednisone 10 mg PO UD #30 tablet Primary Care Physician: Ezra Duggan MD [Primary Care Provider] - Please follow up with your Primary Care Physician in: 1-2 weeks Please Follow Up With: Bull Napier MD When: 1-2 weeks Disposition: [facility] facility Minutes spent on discharge:: 35 Patient Condition:: Stable Medical Necessity - Tobacco Use Smoking Status: Never smoker Tobacco Use: Non-smoker Meaningful Use Info Meaningful Use Diagnoses (Choose all that apply): None applicable
--- NOTE | 2017-11-02 15:24 | CASEMGMT ---
Social Work Note KALPESH received message from Lori in TCU stating that pre-cert has been obtained. SW updated Calvin MUIR. SW updated pt of this as well. KALPESH placed a call to Lori in TCU and updated her that pt will be discharged today. Plan: Discharge to TCU today Sarah Davis PONY RIDE OPERATOR, OPERATIONS ACCOUNTANT
== END 2017-11-02 16:59 | disposition skilled nursing facility (03) | DRG 554 ==
LOC: ED 16:11 → MS3 17:53
PROVIDERS: Nurse Practitioner Family; Specialist; Admitting Provider Internal Medicine; Emergency Provider Emergency Medicine; Family Provider Family Medicine; PCP Family Medicine; Visit Provider Internal Medicine
DX: M10.9 Gout, unspecified (principal); N17.9 Acute kidney failure, unspecified; E66.9 Obesity, unspecified; Z86.718 Personal history of other venous thrombosis and embolism; I10 Essential (primary) hypertension; E78.5 Hyperlipidemia, unspecified; D50.9 Iron deficiency anemia, unspecified; F32.9 Major depressive disorder, single episode, unspecified; K21.9 Gastro-esophageal reflux disease without esophagitis; Z68.34 Body mass index [BMI] 34.0-34.9, adult; E11.9 Type 2 diabetes mellitus without complications; M17.12 Unilateral primary osteoarthritis, left knee
CPT/HCPCS: 36415; 73560; 80048; 82962; 83036; 85025; 85027; 85652; 86140; 87040; 87070; 87075; 87205; 89050; 89051; 89060; 93971; 97162; 97166; 97530; 97802; 99284; J7030; J7050; A4216; J2405

== ENCOUNTER 2017-11-02 17:16 | Inpatient (IN) | payer MEDICARE, MEDICAID, SELFPAY ==
[2017-11-02 17:23] VITALS: BP 143/75; PULSE 70; RESP 18; TEMP 36.7; O2SAT 98
--- NOTE | 2017-11-02 17:25 | NURSING ---
ARRIVED FROM [facility]
[2017-11-02 17:30] LABS: Bedside Glucose 236 mg/dL (70-110)
--- NOTE | 2017-11-02 20:53 | PCM.HP.STD ---
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 The patient is a 37 year old Male with below past medical history presented to [facility] Emergency Department 10/31/2017 with left knee pain. 10/31/2017 X-ray left knee showed mild, moderate arthritis. Left knee pain x 5 days. Recent admission for cellulitis, gout. Unable to walk. Morphine, Zofran, Toradol, IV Fluids given. WBC 22.4, Hemoglobin 12.8, Platelets 470. Sodium 131, Chloride 93, BUN 20, Cr 1.38. Glucose 146, CRP 251. Arthrocentesis attempted, no fluid aspirated. Blood cultures sent, Zosyn, Vancomycin IV given. 10/31/2017 Admit to Hospital. Hold Zosyn, Vancomycin, does not appear to be septic knee. Prednisone, Toradol for possible gout. IV fluids for acute kidney injury. Dr. Napier recommended stopping prednisone. 10/31/2017 Dr. Napier aspirated 4cc cloudy fluid with crystalline flecks in it. 11/01/2017 Cultures not consistent with infection. Symptoms consistent with gout. New onset Diabetes Mellitus with HbA1c 6.7 treated with Metformin, sliding scale insulin. Admit to TCU with debility, here for rehabilitation, strengthening, prior to discharge home with significant other. 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, not formally diagnosed Hx of deep venous thrombosis (Chronic) S/P placement and removal IVC filter Diabetes (Chronic) Osteoarthritis of left knee (Chronic) DVT (deep venous thrombosis) (Chronic) HTN (hypertension) (Chronic) Allergies codeine Allergy (Verified 10/31/17 15:19) Other lisinopril Allergy (Verified 10/31/17 15:19) Rash Home Medications: Ambulatory Orders Medication Instructions Recorded Sertraline HCl [Zoloft] 50 mg PO DAILY 02/22/14 Atorvastatin Calcium 20 mg PO QHS 07/10/16 Amlodipine [Norvasc] 10 mg PO DAILY 10/16/17 Ferrous Sulfate 324 mg PO BID 10/16/17 Omeprazole 40 mg PO DAILY 10/16/17 Acetaminophen [Tylenol Tablet] 650 mg PO Q6H PRN PRN tablet 10/23/17 Magnesium Hydroxide [Milk Of 30 ml PO DAILY PRN PRN #1 bottle 10/23/17 Magnesia] Allopurinol [Zyloprim] 100 mg PO DAILYCM 10/31/17 Bisacodyl [Dulcolax] 5 mg PO DAILY PRN PRN 10/31/17 Metformin HCl 500 mg PO BID 11/02/17 Oxycodone [Oxyir] 5 mg PO Q4H PRN PRN 2 Days #12 tab 11/02/17 Prednisone See Taper PO UD 11/02/17 Surgical History: tonsillectomy, - - 16 ear surgeries, bilateral ankle surgery, IVC filter placement, laminectomy Psychiatric History: Depression Lives: Spouse/ Significant Other - Girlfriend. Smoking Status: Never smoker Tobacco Use: Non-smoker Alcohol: None Drugs: None - *Family History Paternal History Items: Diabetes Maternal History Items: Cancer - Ovarian Review of Systems Constitutional: Denies: Chills, Fever, Weight Change HEENT: Denies: Head Aches, Sinus Congestion, Sinus Drainage Cardiovascular: Denies: Chest Pain, Palpitations Respiratory: Denies: Cough, Shortness of breath at rest, Sputum production Gastrointestinal: Denies: Abdominal Pain, Nausea, Vomiting Genitourinary: Denies: Dysuria Musculoskeletal: Reports: Joint Pain - Left knee., Joint Tenderness - Left knee. Skin: Denies: Rash, Wounds Neurological: Denies: Numbness, Tingling, Focal weakness Psychiatric: Denies: Anxiety, Depression, Homicidal Ideations, Suicidal Ideations Hematologic/ Lymphatic: Denies: Easy Bruising, Easy Bleeding VTE Information - Inpt Only VTE Present on Admission: No VTE Mechan Device Prophylaxis: Knee High JIM Hose VTE Pharm Prophylaxis ordered?: Yes Patient Problems: Active and Suspected Problems Left knee pain (Acute) New onset type 2 diabetes mellitus (Acute) - Physical Exam General: Alert, Oriented x3, Cooperative HEENT: Atraumatic, PERRLA, EOMI, Normocephalic Neck: Supple, No JVD, Negative Carotid Bruits Lungs: Clear to auscultation, Normal air movement Cardiovascular: Regular rate, No murmurs Abdomen: Bowel Sounds Present, Soft, Non Tender Extremities: No edema, Capillary Refill Less than 3 Seconds Skin: No rashes, No breakdown Musculoskeletal: No Tenderness to Palpation of Joints or Extremities, Tenderness - Left lateral knee. Neurological: Cranial nerves II-XII grossly intact Psych/Mental Status: Normal Affect, Appropriate Vital Signs Temp Pulse Resp BP Pulse Ox 98.1 F 70 18 143/75 H 98 11/02/17 17:23 11/02/17 17:23 11/02/17 17:23 11/02/17 17:23 11/02/17 17:23 Oxygen Delivery Method Room Air Intake and Output for Last 24 Hours 10/31/17 11/01/17 11/02/17 23:59 23:59 23:59 Intake Total 180 / 180 Balance 180 / 180 POC Glucose 11/02/17 17:28 POC Glucose 236 H Assessment/Plan All Active Problems Gout (Acute) Left knee pain (Acute) New onset type 2 diabetes mellitus (Acute) 37 year old male with below past medical history hospitalized for intractable left knee pain, septic knee ruled out, treated for gout, complicated by acute kidney injury, new onset Type 2 Diabetes Mellitus II, admitted to TCU with debility, here for rehabilitation, strengthening, prior to discharge home with significant other. Debility - PT/OT. Pain - Tylenol 1000MG Q8H PRN mild pain, Oxycodone 5MG Q4H PRN severe pain. Bowel - Miralax 17GM daily, Senna/colace 2 tablets BID, Dulcolax 10MG OK daily PRN. Pneumonia vaccination - Administer Prevnar 13 and/or Pneumovax 23 as necessary. DVT prophylaxis - Lovenox 40MG SC daily. Gout - Allopurinol 300MG daily, Prednisone taper, Rx Diclofenac 50MG BID with food, Rx Colchicine 0.6MG daily. Hypertension - Amlodipine 10MG daily. Hyperlipidemia - Atorvastatin 20MG QHS. Iron Deficiency Anemia - Ferrex 150MG BID. Diabetes Mellitus II - Metformin 500MG BID. GERD - Pantoprazole 40MG daily. Depression - Sertraline 50MG daily.
--- NOTE | 2017-11-02 21:02 | HP.PCM_ITS ---
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 The patient is a 37 year old Male with below past medical history presented to [facility] Emergency Department 10/31/2017 with left knee pain. 10/31/2017 X-ray left knee showed mild, moderate arthritis. Left knee pain x 5 days. Recent admission for cellulitis, gout. Unable to walk. Morphine, Zofran, Toradol, IV Fluids given. WBC 22.4, Hemoglobin 12.8, Platelets 470. Sodium 131, Chloride 93, BUN 20, Cr 1.38. Glucose 146, CRP 251. Arthrocentesis attempted, no fluid aspirated. Blood cultures sent, Zosyn, Vancomycin IV given. 10/31/2017 Admit to Hospital. Hold Zosyn, Vancomycin, does not appear to be septic knee. Prednisone, Toradol for possible gout. IV fluids for acute kidney injury. Dr. Napier recommended stopping prednisone. 10/31/2017 Dr. Napier aspirated 4cc cloudy fluid with crystalline flecks in it. 11/01/2017 Cultures not consistent with infection. Symptoms consistent with gout. New onset Diabetes Mellitus with HbA1c 6.7 treated with Metformin, sliding scale insulin. Admit to TCU with debility, here for rehabilitation, strengthening, prior to discharge home with significant other. 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, not formally diagnosed Hx of deep venous thrombosis (Chronic) S/P placement and removal IVC filter Diabetes (Chronic) Osteoarthritis of left knee (Chronic) DVT (deep venous thrombosis) (Chronic) HTN (hypertension) (Chronic) Allergies codeine Allergy (Verified 10/31/17 15:19) Other lisinopril Allergy (Verified 10/31/17 15:19) Rash Home Medications: Ambulatory Orders Medication Instructions Recorded Sertraline HCl [Zoloft] 50 mg PO DAILY 02/22/14 Atorvastatin Calcium 20 mg PO QHS 07/10/16 Amlodipine [Norvasc] 10 mg PO DAILY 10/16/17 Ferrous Sulfate 324 mg PO BID 10/16/17 Omeprazole 40 mg PO DAILY 10/16/17 Acetaminophen [Tylenol Tablet] 650 mg PO Q6H PRN PRN tablet 10/23/17 Magnesium Hydroxide [Milk Of 30 ml PO DAILY PRN PRN #1 bottle 10/23/17 Magnesia] Allopurinol [Zyloprim] 100 mg PO DAILYCM 10/31/17 Bisacodyl [Dulcolax] 5 mg PO DAILY PRN PRN 10/31/17 Metformin HCl 500 mg PO BID 11/02/17 Oxycodone [Oxyir] 5 mg PO Q4H PRN PRN 2 Days #12 tab 11/02/17 Prednisone See Taper PO UD 11/02/17 Surgical History: tonsillectomy, - - 16 ear surgeries, bilateral ankle surgery, IVC filter placement, laminectomy Psychiatric History: Depression Lives: Spouse/ Significant Other - Girlfriend. Smoking Status: Never smoker Tobacco Use: Non-smoker Alcohol: None Drugs: None - *Family History Paternal History Items: Diabetes Maternal History Items: Cancer - Ovarian Review of Systems Constitutional: Denies: Chills, Fever, Weight Change HEENT: Denies: Head Aches, Sinus Congestion, Sinus Drainage Cardiovascular: Denies: Chest Pain, Palpitations Respiratory: Denies: Cough, Shortness of breath at rest, Sputum production Gastrointestinal: Denies: Abdominal Pain, Nausea, Vomiting Genitourinary: Denies: Dysuria Musculoskeletal: Reports: Joint Pain - Left knee., Joint Tenderness - Left knee. Skin: Denies: Rash, Wounds Neurological: Denies: Numbness, Tingling, Focal weakness Psychiatric: Denies: Anxiety, Depression, Homicidal Ideations, Suicidal Ideations Hematologic/ Lymphatic: Denies: Easy Bruising, Easy Bleeding VTE Information - Inpt Only VTE Present on Admission: No VTE Mechan Device Prophylaxis: Knee High JIM Hose VTE Pharm Prophylaxis ordered?: Yes Patient Problems: Active and Suspected Problems Left knee pain (Acute) New onset type 2 diabetes mellitus (Acute) - Physical Exam General: Alert, Oriented x3, Cooperative HEENT: Atraumatic, PERRLA, EOMI, Normocephalic Neck: Supple, No JVD, Negative Carotid Bruits Lungs: Clear to auscultation, Normal air movement Cardiovascular: Regular rate, No murmurs Abdomen: Bowel Sounds Present, Soft, Non Tender Extremities: No edema, Capillary Refill Less than 3 Seconds Skin: No rashes, No breakdown Musculoskeletal: No Tenderness to Palpation of Joints or Extremities, Tenderness - Left lateral knee. Neurological: Cranial nerves II-XII grossly intact Psych/Mental Status: Normal Affect, Appropriate Vital Signs Temp Pulse Resp BP Pulse Ox 98.1 F 70 18 143/75 H 98 11/02/17 17:23 11/02/17 17:23 11/02/17 17:23 11/02/17 17:23 11/02/17 17:23 Oxygen Delivery Method Room Air Intake and Output for Last 24 Hours 10/31/17 11/01/17 11/02/17 23:59 23:59 23:59 Intake Total 180 / 180 Balance 180 / 180 POC Glucose 11/02/17 17:28 POC Glucose 236 H Assessment/Plan All Active Problems Gout (Acute) Left knee pain (Acute) New onset type 2 diabetes mellitus (Acute) 37 year old male with below past medical history hospitalized for intractable left knee pain, septic knee ruled out, treated for gout, complicated by acute kidney injury, new onset Type 2 Diabetes Mellitus II, admitted to TCU with debility, here for rehabilitation, strengthening, prior to discharge home with significant other. * Debility - PT/OT. * Pain - Tylenol 1000MG Q8H PRN mild pain, Oxycodone 5MG Q4H PRN severe pain. * Bowel - Miralax 17GM daily, Senna/colace 2 tablets BID, Dulcolax 10MG ID daily PRN. * Pneumonia vaccination - Administer Prevnar 13 and/or Pneumovax 23 as necessary. * DVT prophylaxis - Lovenox 40MG SC daily. * Gout - Allopurinol 300MG daily, Prednisone taper, Rx Diclofenac 50MG BID with food, Rx Colchicine 0.6MG daily. * Hypertension - Amlodipine 10MG daily. * Hyperlipidemia - Atorvastatin 20MG QHS. * Iron Deficiency Anemia - Ferrex 150MG BID. * Diabetes Mellitus II - Metformin 500MG BID. * GERD - Pantoprazole 40MG daily. * Depression - Sertraline 50MG daily.
[2017-11-02 21:30] LABS: Bedside Glucose 236 mg/dL (70-110)
[2017-11-02] MEDS: Atorvastatin Calcium 20 MG Tablet PO (22:11)
[2017-11-02] MEDS: predniSONE 10 MG Tablet 20 MG PO (22:11)
[2017-11-02 22:12] VITALS: BMI 35.8
[2017-11-02 22:20] VITALS: BMI 35.8
[2017-11-03 05:45] LABS: Absolute Lymphocyte Count 1.28 X10^3/ul (0.83-4.51); Absolute Neutrophil Count 10.5 X10^3/uL (2.0-7.7); Hematocrit 29.7 % (40-54); Hemoglobin 9.3 g/dl (13.0-16.5); Lymphocyte # 1.28 X10^3/ul (4.0); Lymphocyte % 10.4 % (19-41); Mean Corp Hgb Conc 31.3 g/gl (32-36); Mean Corpuscular Volume 86.1 fL (80-94); Mean Platelet Vol. 9.8 fl (6.2-12.0); Monocyte# 0.43 X10^3/uL; Monocyte% 3.5 % (0-10); Neutrophil # 10.52 X10^3/uL (2.7-7.7); Neutrophil % 85.7 % (47-70); Platelet Count 344 K/mm3 (150-450); RBC Distribution Width CV 13.4 % (11.6-14.6); RBC Distribution Width SD 40.7 fl (35.1-43.9); Red Blood Count 3.45 M/mm3 (4.6-6.2); White Blood Count 12.3 K/mm3 (4.4-11.0)
[2017-11-03] MEDS: Sertraline 50 MG Tablet PO (05:50)
[2017-11-03] MEDS: amLODIPine 10 MG Tablet PO (05:50)
[2017-11-03] MEDS: Enoxaparin 40 MG/0.4 ML Syringe SC (05:50)
[2017-11-03] MEDS: Pantoprazole Sodium 40 MG Tablet PO (05:50)
[2017-11-03 05:52] LABS: Anion Gap 9 (5-15); BUN 24 mg/dL (7-18); BUN/Creat Ratio 27.2 RATIO (10-20); Calcium,Total 8.7 mg/dL (8.5-10.1); Chloride 108 mmol/L (98-107); Creatinine, Serum 0.88 mg/dL (0.70-1.30); EST Glomerular Filtration Rate 102 mL/min (>60); Est Glom Filt Rate - Afr Amer 123 mL/min (>60); Estimated Creatinine Clearance 83.37 ml/min; Glucose 199 mg/dL (74-106); Potassium 5.1 mmol/L (3.5-5.1); Sodium Level 143 mmol/L (136-145)
[2017-11-03 05:53] LABS: POSITIVE COUNT NO; POSITIVE DIFFERENTIAL NO; POSITIVE MORPHOLOGY NO
[2017-11-03 07:10] LABS: Bedside Glucose 196 mg/dL (70-110)
[2017-11-03] MEDS: Allopurinol 300 MG Tablet PO (09:21)
[2017-11-03] MEDS: predniSONE 10 MG Tablet 20 MG PO (09:21)
[2017-11-03] MEDS: Iron Polysaccharide Complex 150 MG CAPSULE PO ×2 (09:22→17:43)
[2017-11-03 11:55] LABS: Bedside Glucose 256 mg/dL (70-110)
[2017-11-03] MEDS: Tuberculin,Purif.prot.deriv. 50 TU/ML Vial 5 ML ID (14:34)
--- NOTE | 2017-11-03 14:58 | PCM.PN.RX ---
<Bebeto Waddellip D - Last Filed: 11/03/17 14:58> Progress Note - Pharmacy Subjective: TCU Admission Objective: Allergies codeine Allergy (Verified 10/31/17 15:19) Other lisinopril Allergy (Verified 10/31/17 15:19) Rash Current Medications Generic Name Dose Route Start Last Admin Trade Name Freq PRN Reason Stop Dose Admin Acetaminophen 1,000 mg 11/02/17 21:15 Tylenol PO Q8H PRN PRN MILD PAIN (1-3/10) Allopurinol 300 mg 11/03/17 08:00 11/03/17 09:21 Zyloprim PO 300 mg DAILYCM [facility] Administration Amlodipine Besylate 10 mg 11/03/17 06:00 11/03/17 05:50 Norvasc PO 10 mg DAILY [facility] Administration Atorvastatin Calcium 20 mg 11/02/17 22:00 11/02/17 22:11 Lipitor PO 20 mg QHS [facility] Administration Bisacodyl 10 mg 11/02/17 17:32 Dulcolax RECTAL DAILY PRN Constipation Colchicine 0.6 mg 11/03/17 06:00 11/03/17 05:50 Colchicine PO 0.6 mg DAILY [facility] Administration Diclofenac Sodium 50 mg 11/03/17 08:00 11/03/17 09:21 Voltaren PO 50 mg BIDCM [facility] Administration Emollient Ointment 1 applic 11/03/17 22:00 Eucerin Intensive Repair TOPICAL 2200 [facility] Protocol Enoxaparin Sodium 40 mg 11/03/17 06:00 11/03/17 05:50 Lovenox SC 40 mg DAILY@0600 [facility] Administration Metformin HCl 500 mg 11/05/17 08:00 Glucophage PO BIDCM [facility] Nystatin 1 applic 11/03/17 22:00 Mycostatin Powder TOPICAL 0600,2200 [facility] Protocol Oxycodone HCl 5 mg 11/02/17 17:29 Oxyir PO Q4H PRN PRN SEVERE PAIN (6-10/10) Pantoprazole Sodium 40 mg 11/03/17 06:00 11/03/17 05:50 Protonix PO 40 mg DAILY [facility] Administration Polyethylene Glycol 17 gm 11/03/17 06:00 11/03/17 05:50 Miralax PO Not Given DAILY [facility] Polysaccharide Iron Complex 150 mg 11/03/17 08:00 11/03/17 09:22 Ferrex 150 PO 150 mg BIDCM [facility] Administration Prednisone 40 mg 11/02/17 17:30 11/03/17 09:21 PO 11/14/17 17:29 40 mg DAILY@0800 [facility] Administration Taper Senna/Docusate Sodium 2 tablet 11/03/17 06:00 11/03/17 05:50 Senokot-S, [place]-Colace PO Not Given BID [facility] Sertraline HCl 50 mg 11/03/17 06:00 11/03/17 05:50 Zoloft PO 50 mg DAILY [facility] Administration Tuberculin PPD 5 tu 11/10/17 10:00 Tubersol, Aplisol, Ppd ID 11/10/17 10:01 X1 ONE Problem List Left knee pain (Acute) Osteoarthritis of left knee (Chronic) New onset type 2 diabetes mellitus (Acute) DVT (deep venous thrombosis) (Chronic) HTN (hypertension) (Chronic) Vital Signs Temp Pulse Resp BP Pulse Ox 98.1 F 70 18 143/75 H 98 11/02/17 17:23 11/02/17 17:23 11/02/17 17:23 11/02/17 17:23 11/02/17 17:23 Oxygen Delivery Method Room Air Weight: 85.984 kg Body Mass Index (BMI) 35.8 Sodium 143 mmol/L (136-145) 11/03/17 05:10 Potassium 5.1 mmol/L (3.5-5.1) 11/03/17 05:10 Chloride 108 mmol/L (98-107) H 11/03/17 05:10 Carbon Dioxide 26.0 mmol/L (21.0-32.0) 11/03/17 05:10 Anion Gap 9 (5-15) 11/03/17 05:10 BUN 24 mg/dL (7-18) H 11/03/17 05:10 Creatinine 0.88 mg/dL (0.70-1.30) 11/03/17 05:10 Est GFR (MDRD) Af Amer 123 mL/min (>60) 11/03/17 05:10 Est GFR (MDRD) Non-Af 102 mL/min (>60) 11/03/17 05:10 BUN/Creatinine Ratio 27.2 RATIO (10-20) H 11/03/17 05:10 Glucose 199 mg/dL (74-106) H 11/03/17 05:10 Assessment/Plan: 1) Pain APAP for mild pain, oxycodone for severe pain, diclofenac. Continue to monitor prn medication use, daily pain scores. 2) HTN Amlodipine daily. Continue to monitor BP/HR. 3) Gout Colchicine, allopurinol, prednisone taper. Continue to monitor s/s gout. 4) DM2 Metformin twice daily, atorvastatin. Continue to monitor BGT, renal function, lipids. 5) DVT PPx Enoxaparin daily. Continue to monitor s/s bleeding/clot. 6) GI Pantoprazole daily. Continue to monitor s/s GI distress. Psychotropic Medications: 7) Depression Sertraline daily. Continue to monitor s/s depression/anxiety. Unnecessary Medications: None Bowel Regimen: 8) Senna/s, PEG, prn bisacodyl. Continue to monitor prn medication use, daily pain scores. Date of Note:: 11/03/17 - Provider Comments Provider responsibility: Provider responsible to enter orders to implement recommendations <Tomas Daniels Chi - Last Filed: 11/03/17 16:07> Progress Note - Pharmacy Subjective: [] Objective: Allergies codeine Allergy (Verified 10/31/17 15:19) Other lisinopril Allergy (Verified 10/31/17 15:19) Rash Current Medications Generic Name Dose Route Start Last Admin Trade Name Freq PRN Reason Stop Dose Admin Acetaminophen 1,000 mg 11/02/17 21:15 Tylenol PO Q8H PRN PRN MILD PAIN (1-3/10) Allopurinol 300 mg 11/03/17 08:00 11/03/17 09:21 Zyloprim PO 300 mg DAILYCM [facility] Administration Amlodipine Besylate 10 mg 11/03/17 06:00 11/03/17 05:50 Norvasc PO 10 mg DAILY [facility] Administration Atorvastatin Calcium 20 mg 11/02/17 22:00 11/02/17 22:11 Lipitor PO 20 mg QHS [facility] Administration Bisacodyl 10 mg 11/02/17 17:32 Dulcolax RECTAL DAILY PRN Constipation Colchicine 0.6 mg 11/03/17 06:00 11/03/17 05:50 Colchicine PO 0.6 mg DAILY [facility] Administration Diclofenac Sodium 50 mg 11/03/17 08:00 11/03/17 09:21 Voltaren PO 50 mg BIDCM [facility] Administration Emollient Ointment 1 applic 11/03/17 22:00 Eucerin Intensive Repair TOPICAL 2199 [facility] Protocol Enoxaparin Sodium 40 mg 11/03/17 06:00 11/03/17 05:50 Lovenox SC 40 mg DAILY@0600 [facility] Administration Metformin HCl 500 mg 11/05/17 08:00 Glucophage PO BIDCM [facility] Nystatin 1 applic 11/03/17 22:00 Mycostatin Powder TOPICAL 0600,2199 [facility] Protocol Oxycodone HCl 5 mg 11/02/17 17:29 Oxyir PO Q4H PRN PRN SEVERE PAIN (6-11/22) Pantoprazole Sodium 40 mg 11/03/17 06:00 11/03/17 05:50 Protonix PO 40 mg DAILY [facility] Administration Polyethylene Glycol 17 gm 11/03/17 06:00 11/03/17 05:50 Miralax PO Not Given DAILY [facility] Polysaccharide Iron Complex 150 mg 11/03/17 08:00 11/03/17 09:22 Ferrex 150 PO 150 mg BIDCM [facility] Administration Prednisone 40 mg 11/02/17 17:30 11/03/17 09:21 PO 11/14/17 17:29 40 mg DAILY@0800 [facility] Administration Taper Senna/Docusate Sodium 2 tablet 11/03/17 06:00 11/03/17 05:50 Senokot-S, [place]-Colace PO Not Given BID [facility] Sertraline HCl 50 mg 11/03/17 06:00 11/03/17 05:50 Zoloft PO 50 mg DAILY [facility] Administration Tuberculin PPD 5 tu 11/10/17 10:00 Tubersol, Aplisol, Ppd ID 11/10/17 10:01 X1 ONE Problem List Left knee pain (Acute) Osteoarthritis of left knee (Chronic) New onset type 2 diabetes mellitus (Acute) DVT (deep venous thrombosis) (Chronic) HTN (hypertension) (Chronic) Vital Signs Temp Pulse Resp BP Pulse Ox 98.3 F 64 16 121/69 H 98 11/03/17 15:14 11/03/17 15:14 11/03/17 15:14 11/03/17 15:14 11/03/17 15:14 Oxygen Delivery Method Room Air Weight: 85.984 kg Body Mass Index (BMI) 35.8 Sodium 143 mmol/L (136-145) 11/03/17 05:10 Potassium 5.1 mmol/L (3.5-5.1) 11/03/17 05:10 Chloride 108 mmol/L (98-107) H 11/03/17 05:10 Carbon Dioxide 26.0 mmol/L (21.0-32.0) 11/03/17 05:10 Anion Gap 9 (5-15) 11/03/17 05:10 BUN 24 mg/dL (7-18) H 11/03/17 05:10 Creatinine 0.88 mg/dL (0.70-1.30) 11/03/17 05:10 Est GFR (MDRD) Af Amer 123 mL/min (>60) 11/03/17 05:10 Est GFR (MDRD) Non-Af 102 mL/min (>60) 11/03/17 05:10 BUN/Creatinine Ratio 27.2 RATIO (10-20) H 11/03/17 05:10 Glucose 199 mg/dL (74-106) H 11/03/17 05:10 Assessment/Plan: Psychotropic Medications: Unnecessary Medications: Bowel Regimen: - Provider Comments Provider responsibility: Provider responsible to enter orders to implement recommendations Provider Comments to Recommendations by Pharmacy: Agree
--- NOTE | 2017-11-03 15:03 | PHA.CONS_ITS ---
<Bebeto Waddellip D - Last Filed: 11/03/17 14:58> Progress Note - Pharmacy Subjective: TCU Admission Objective: Allergies codeine Allergy (Verified 10/31/17 15:19) Other lisinopril Allergy (Verified 10/31/17 15:19) Rash Current Medications Generic Name Dose Route Start Last Admin Trade Name Freq PRN Reason Stop Dose Admin Acetaminophen 1,000 mg 11/02/17 21:15 Tylenol PO Q8H PRN PRN MILD PAIN (1-3/10) Allopurinol 300 mg 11/03/17 08:00 11/03/17 09:21 Zyloprim PO 300 mg DAILYCM [facility] Administration Amlodipine Besylate 10 mg 11/03/17 06:00 11/03/17 05:50 Norvasc PO 10 mg DAILY [facility] Administration Atorvastatin Calcium 20 mg 11/02/17 22:00 11/02/17 22:11 Lipitor PO 20 mg QHS [facility] Administration Bisacodyl 10 mg 11/02/17 17:32 Dulcolax RECTAL DAILY PRN Constipation Colchicine 0.6 mg 11/03/17 06:00 11/03/17 05:50 Colchicine PO 0.6 mg DAILY [facility] Administration Diclofenac Sodium 50 mg 11/03/17 08:00 11/03/17 09:21 Voltaren PO 50 mg BIDCM [facility] Administration Emollient Ointment 1 applic 11/03/17 22:00 Eucerin Intensive Repair TOPICAL 2200 [facility] Protocol Enoxaparin Sodium 40 mg 11/03/17 06:00 11/03/17 05:50 Lovenox SC 40 mg DAILY@0600 [facility] Administration Metformin HCl 500 mg 11/05/17 08:00 Glucophage PO BIDCM [facility] Nystatin 1 applic 11/03/17 22:00 Mycostatin Powder TOPICAL 0600,2200 [facility] Protocol Oxycodone HCl 5 mg 11/02/17 17:29 Oxyir PO Q4H PRN PRN SEVERE PAIN (6-10/10) Pantoprazole Sodium 40 mg 11/03/17 06:00 11/03/17 05:50 Protonix PO 40 mg DAILY [facility] Administration Polyethylene Glycol 17 gm 11/03/17 06:00 11/03/17 05:50 Miralax PO Not Given DAILY [facility] Polysaccharide Iron Complex 150 mg 11/03/17 08:00 11/03/17 09:22 Ferrex 150 PO 150 mg BIDCM [facility] Administration Prednisone 40 mg 11/02/17 17:30 11/03/17 09:21 PO 11/14/17 17:29 40 mg DAILY@0800 [facility] Administration Taper Senna/Docusate Sodium 2 tablet 11/03/17 06:00 11/03/17 05:50 Senokot-S, [place]-Colace PO Not Given BID [facility] Sertraline HCl 50 mg 11/03/17 06:00 11/03/17 05:50 Zoloft PO 50 mg DAILY [facility] Administration Tuberculin PPD 5 tu 11/10/17 10:00 Tubersol, Aplisol, Ppd ID 11/10/17 10:01 X1 ONE Problem List Left knee pain (Acute) Osteoarthritis of left knee (Chronic) New onset type 2 diabetes mellitus (Acute) DVT (deep venous thrombosis) (Chronic) HTN (hypertension) (Chronic) Vital Signs Temp Pulse Resp BP Pulse Ox 98.1 F 70 18 143/75 H 98 11/02/17 17:23 11/02/17 17:23 11/02/17 17:23 11/02/17 17:23 11/02/17 17:23 Oxygen Delivery Method Room Air Weight: 85.984 kg Body Mass Index (BMI) 35.8 Sodium 143 mmol/L (136-145) 11/03/17 05:10 Potassium 5.1 mmol/L (3.5-5.1) 11/03/17 05:10 Chloride 108 mmol/L (98-107) H 11/03/17 05:10 Carbon Dioxide 26.0 mmol/L (21.0-32.0) 11/03/17 05:10 Anion Gap 9 (5-15) 11/03/17 05:10 BUN 24 mg/dL (7-18) H 11/03/17 05:10 Creatinine 0.88 mg/dL (0.70-1.30) 11/03/17 05:10 Est GFR (MDRD) Af Amer 123 mL/min (>60) 11/03/17 05:10 Est GFR (MDRD) Non-Af 102 mL/min (>60) 11/03/17 05:10 BUN/Creatinine Ratio 27.2 RATIO (10-20) H 11/03/17 05:10 Glucose 199 mg/dL (74-106) H 11/03/17 05:10 Assessment/Plan: 1) Pain APAP for mild pain, oxycodone for severe pain, diclofenac. Continue to monitor prn medication use, daily pain scores. 2) HTN Amlodipine daily. Continue to monitor BP/HR. 3) Gout Colchicine, allopurinol, prednisone taper. Continue to monitor s/s gout. 4) DM2 Metformin twice daily, atorvastatin. Continue to monitor BGT, renal function , lipids. 5) DVT PPx Enoxaparin daily. Continue to monitor s/s bleeding/clot. 6) GI Pantoprazole daily. Continue to monitor s/s GI distress. Psychotropic Medications: 7) Depression Sertraline daily. Continue to monitor s/s depression/anxiety. Unnecessary Medications: None Bowel Regimen: 8) Senna/s, PEG, prn bisacodyl. Continue to monitor prn medication use, daily pain scores. Date of Note:: 11/03/17 - Provider Comments Provider responsibility: Provider responsible to enter orders to implement recommendations <Tomas Daniels Chi - Last Filed: 11/03/17 16:07> Progress Note - Pharmacy Subjective: [] Objective: Allergies codeine Allergy (Verified 10/31/17 15:19) Other lisinopril Allergy (Verified 10/31/17 15:19) Rash Current Medications Generic Name Dose Route Start Last Admin Trade Name Freq PRN Reason Stop Dose Admin Acetaminophen 1,000 mg 11/02/17 21:15 Tylenol PO Q8H PRN PRN MILD PAIN (1-3/10) Allopurinol 300 mg 11/03/17 08:00 11/03/17 09:21 Zyloprim PO 300 mg DAILYCM [facility] Administration Amlodipine Besylate 10 mg 11/03/17 06:00 11/03/17 05:50 Norvasc PO 10 mg DAILY [facility] Administration Atorvastatin Calcium 20 mg 11/02/17 22:00 11/02/17 22:11 Lipitor PO 20 mg QHS [facility] Administration Bisacodyl 10 mg 11/02/17 17:32 Dulcolax RECTAL DAILY PRN Constipation Colchicine 0.6 mg 11/03/17 06:00 11/03/17 05:50 Colchicine PO 0.6 mg DAILY [facility] Administration Diclofenac Sodium 50 mg 11/03/17 08:00 11/03/17 09:21 Voltaren PO 50 mg BIDCM [facility] Administration Emollient Ointment 1 applic 11/03/17 22:00 Eucerin Intensive Repair TOPICAL 2199 [facility] Protocol Enoxaparin Sodium 40 mg 11/03/17 06:00 11/03/17 05:50 Lovenox SC 40 mg DAILY@0600 [facility] Administration Metformin HCl 500 mg 11/05/17 08:00 Glucophage PO BIDCM [facility] Nystatin 1 applic 11/03/17 22:00 Mycostatin Powder TOPICAL 0600,2199 [facility] Protocol Oxycodone HCl 5 mg 11/02/17 17:29 Oxyir PO Q4H PRN PRN SEVERE PAIN (6-11/22) Pantoprazole Sodium 40 mg 11/03/17 06:00 11/03/17 05:50 Protonix PO 40 mg DAILY [facility] Administration Polyethylene Glycol 17 gm 11/03/17 06:00 11/03/17 05:50 Miralax PO Not Given DAILY [facility] Polysaccharide Iron Complex 150 mg 11/03/17 08:00 11/03/17 09:22 Ferrex 150 PO 150 mg BIDCM [facility] Administration Prednisone 40 mg 11/02/17 17:30 11/03/17 09:21 PO 11/14/17 17:29 40 mg DAILY@0800 [facility] Administration Taper Senna/Docusate Sodium 2 tablet 11/03/17 06:00 11/03/17 05:50 Senokot-S, [place]-Colace PO Not Given BID [facility] Sertraline HCl 50 mg 11/03/17 06:00 11/03/17 05:50 Zoloft PO 50 mg DAILY [facility] Administration Tuberculin PPD 5 tu 11/10/17 10:00 Tubersol, Aplisol, Ppd ID 11/10/17 10:01 X1 ONE Problem List Left knee pain (Acute) Osteoarthritis of left knee (Chronic) New onset type 2 diabetes mellitus (Acute) DVT (deep venous thrombosis) (Chronic) HTN (hypertension) (Chronic) Vital Signs Temp Pulse Resp BP Pulse Ox 98.3 F 64 16 121/69 H 98 11/03/17 15:14 11/03/17 15:14 11/03/17 15:14 11/03/17 15:14 11/03/17 15:14 Oxygen Delivery Method Room Air Weight: 85.984 kg Body Mass Index (BMI) 35.8 Sodium 143 mmol/L (136-145) 11/03/17 05:10 Potassium 5.1 mmol/L (3.5-5.1) 11/03/17 05:10 Chloride 108 mmol/L (98-107) H 11/03/17 05:10 Carbon Dioxide 26.0 mmol/L (21.0-32.0) 11/03/17 05:10 Anion Gap 9 (5-15) 11/03/17 05:10 BUN 24 mg/dL (7-18) H 11/03/17 05:10 Creatinine 0.88 mg/dL (0.70-1.30) 11/03/17 05:10 Est GFR (MDRD) Af Amer 123 mL/min (>60) 11/03/17 05:10 Est GFR (MDRD) Non-Af 102 mL/min (>60) 11/03/17 05:10 BUN/Creatinine Ratio 27.2 RATIO (10-20) H 11/03/17 05:10 Glucose 199 mg/dL (74-106) H 11/03/17 05:10 Assessment/Plan: Psychotropic Medications: Unnecessary Medications: Bowel Regimen: - Provider Comments Provider responsibility: Provider responsible to enter orders to implement recommendations Provider Comments to Recommendations by Pharmacy: Agree
[2017-11-03 15:14] VITALS: BP 121/69; PULSE 64; RESP 16; TEMP 36.8; O2SAT 98
[2017-11-03 16:56] LABS: Bedside Glucose 209 mg/dL (70-110)
[2017-11-03] MEDS: Atorvastatin Calcium 20 MG Tablet PO (19:56)
[2017-11-03] MEDS: Nystatin Powder 15gm Bottle 1 APPLIC TOPICAL (19:57)
[2017-11-03 21:31] LABS: Bedside Glucose 177 mg/dL (70-110)
[2017-11-04] MEDS: Nystatin Powder 15gm Bottle 1 APPLIC TOPICAL ×2 (05:21→20:15)
[2017-11-04] MEDS: Enoxaparin 40 MG/0.4 ML Syringe SC (05:21)
[2017-11-04] MEDS: amLODIPine 10 MG Tablet PO (05:22)
[2017-11-04] MEDS: Sertraline 50 MG Tablet PO (05:22)
[2017-11-04] MEDS: Pantoprazole Sodium 40 MG Tablet PO (05:22)
[2017-11-04 06:46] LABS: Bedside Glucose 147 mg/dL (70-110)
[2017-11-04] MEDS: predniSONE 10 MG Tablet 20 MG PO (08:26)
[2017-11-04] MEDS: Iron Polysaccharide Complex 150 MG CAPSULE PO ×2 (08:26→16:46)
[2017-11-04] MEDS: Allopurinol 300 MG Tablet PO (08:27)
[2017-11-04 10:30] VITALS: PULSE 58; RESP 18; O2SAT 99
--- NOTE | 2017-11-04 10:31 | NURSING ---
PT REFUSED TEDHOSE, BUT AGREED TO SLOANE WRAPS. REPORTED TO IESHA HOUSTON
[2017-11-04 11:51] LABS: Bedside Glucose 195 mg/dL (70-110)
[2017-11-04 15:36] VITALS: BP 138/78; PULSE 59; RESP 22; TEMP 36.8; O2SAT 99
[2017-11-04 17:25] LABS: Bedside Glucose 207 mg/dL (70-110)
[2017-11-04] MEDS: Atorvastatin Calcium 20 MG Tablet PO (20:10)
[2017-11-04 21:30] LABS: Bedside Glucose 208 mg/dL (70-110)
[2017-11-05] MEDS: amLODIPine 10 MG Tablet PO (05:05)
[2017-11-05] MEDS: Pantoprazole Sodium 40 MG Tablet PO (05:05)
[2017-11-05] MEDS: Sertraline 50 MG Tablet PO (05:05)
[2017-11-05] MEDS: Enoxaparin 40 MG/0.4 ML Syringe SC (05:05)
[2017-11-05] MEDS: Nystatin Powder 15gm Bottle 1 APPLIC TOPICAL ×2 (05:07→20:33)
[2017-11-05 08:05] LABS: Bedside Glucose 96 mg/dL (70-110)
[2017-11-05] MEDS: predniSONE 10 MG Tablet 20 MG PO (08:08)
[2017-11-05] MEDS: Iron Polysaccharide Complex 150 MG CAPSULE PO ×2 (08:08→18:20)
[2017-11-05] MEDS: Allopurinol 300 MG Tablet PO (08:09)
[2017-11-05 11:42] LABS: Bedside Glucose 202 mg/dL (70-110)
[2017-11-05 15:33] VITALS: BP 120/72; PULSE 61; RESP 16; TEMP 36.7; O2SAT 97
[2017-11-05 17:11] LABS: Bedside Glucose 253 mg/dL (70-110)
[2017-11-05] MEDS: Atorvastatin Calcium 20 MG Tablet PO (20:33)
[2017-11-05 20:56] LABS: Bedside Glucose 237 mg/dL (70-110)
[2017-11-06] MEDS: Nystatin Powder 15gm Bottle 1 APPLIC TOPICAL ×2 (05:21→19:36)
[2017-11-06] MEDS: Enoxaparin 40 MG/0.4 ML Syringe SC (05:22)
[2017-11-06] MEDS: Pantoprazole Sodium 40 MG Tablet PO (05:23)
[2017-11-06] MEDS: amLODIPine 10 MG Tablet PO (05:23)
[2017-11-06] MEDS: Sertraline 50 MG Tablet PO (05:23)
[2017-11-06 06:26] LABS: Bedside Glucose 106 mg/dL (70-110)
[2017-11-06] MEDS: Allopurinol 300 MG Tablet PO (08:17)
[2017-11-06] MEDS: Iron Polysaccharide Complex 150 MG CAPSULE PO ×2 (08:18→17:03)
[2017-11-06] MEDS: predniSONE 10 MG Tablet 20 MG PO (08:18)
--- NOTE | 2017-11-06 10:46 | NURSING ---
pt refused AM care x2. Offered by this nurse multiple times with ill effect. Pt states he will call when he is ready.
[2017-11-06 11:40] LABS: Bedside Glucose 133 mg/dL (70-110)
[2017-11-06 15:37] VITALS: BP 134/62; PULSE 60; RESP 18; TEMP 36.5; O2SAT 95
--- NOTE | 2017-11-06 15:46 | NURSING ---
PT REFUSES TO WASH UP AND CHANGE CLOTHES. REPORTED TO IESHA BUCKLEY
[2017-11-06 15:47] VITALS: PULSE 66; RESP 18; O2SAT 96
[2017-11-06 17:11] LABS: Bedside Glucose 262 mg/dL (70-110)
[2017-11-06] MEDS: Atorvastatin Calcium 20 MG Tablet PO (19:30)
[2017-11-06 21:41] LABS: Bedside Glucose 108 mg/dL (70-110)
[2017-11-07] MEDS: Nystatin Powder 15gm Bottle 1 APPLIC TOPICAL ×2 (06:31→20:49)
[2017-11-07] MEDS: Enoxaparin 40 MG/0.4 ML Syringe SC (06:31)
[2017-11-07] MEDS: Sertraline 50 MG Tablet PO (06:31)
[2017-11-07] MEDS: amLODIPine 10 MG Tablet PO (06:31)
[2017-11-07] MEDS: Pantoprazole Sodium 40 MG Tablet PO (06:31)
[2017-11-07 07:05] LABS: Bedside Glucose 98 mg/dL (70-110)
[2017-11-07] MEDS: predniSONE 10 MG Tablet 20 MG PO (08:47)
[2017-11-07] MEDS: Iron Polysaccharide Complex 150 MG CAPSULE PO ×2 (08:47→17:07)
[2017-11-07] MEDS: Allopurinol 300 MG Tablet PO (08:47)
[2017-11-07 11:16] LABS: Bedside Glucose 140 mg/dL (70-110)
--- NOTE | 2017-11-07 11:57 | CASEMGMT ---
Insurance Clinical information sent, pending continued stay approval at this time. Auth#[id number] Gladys HODGE, POLICE MATRON
[2017-11-07 16:00] VITALS: BP 116/65; PULSE 77; RESP 20; TEMP 36.5; O2SAT 98
[2017-11-07 17:05] LABS: Bedside Glucose 172 mg/dL (70-110)
[2017-11-07] MEDS: Atorvastatin Calcium 20 MG Tablet PO (20:48)
[2017-11-07 21:16] LABS: Bedside Glucose 133 mg/dL (70-110)
[2017-11-08 06:55] LABS: Bedside Glucose 93 mg/dL (70-110)
[2017-11-08] MEDS: Sertraline 50 MG Tablet PO (07:08)
[2017-11-08] MEDS: amLODIPine 10 MG Tablet PO (07:08)
[2017-11-08] MEDS: Pantoprazole Sodium 40 MG Tablet PO (07:08)
[2017-11-08] MEDS: Enoxaparin 40 MG/0.4 ML Syringe SC (07:08)
[2017-11-08] MEDS: Nystatin Powder 15gm Bottle 1 APPLIC TOPICAL ×2 (07:10→20:02)
[2017-11-08] MEDS: Allopurinol 300 MG Tablet PO (08:25)
[2017-11-08] MEDS: predniSONE 10 MG Tablet 20 MG PO (08:25)
[2017-11-08] MEDS: Iron Polysaccharide Complex 150 MG CAPSULE PO ×2 (08:25→17:26)
[2017-11-08 11:35] LABS: Bedside Glucose 112 mg/dL (70-110)
--- NOTE | 2017-11-08 13:09 | NURSING ---
Per junior technical writer decrease calorie control diet to 1600, cardiac, carb control. Fluid restricted diet. Kaleb BID.
--- NOTE | 2017-11-08 13:14 | CASEMGMT ---
Plan of care meeting held. Resident present as well as resident family. No discharge date set at this time. Resident insurance currently pending continued stay approval at this time. Resident aware that continued stay approval by insurance is not guaranteed. Resident plans to discharge to home with girlfriend at time of discharge. Resident plans to continue with further care and treatment on the Transitional Care Unit at this time. Support given. Will continue to follow. Gladys HODGE, CHECKING CLERK
--- NOTE | 2017-11-08 14:16 | CASEMGMT ---
Insurance Continued stay denied with last cover day being 11/10/17 with resident to discharge or financial responsibility to begin on 11/11/17. Auth#[id number] Gladys HODGE, MEDIA LIAISON OFFICER
--- NOTE | 2017-11-08 15:55 | CASEMGMT ---
Brief interview for mental status (BIMS) and resident mood interview (PHQ-9) completed on this day. BIMS score 15/15. PHQ-9 score
[2017-11-08 16:00] VITALS: BP 117/72; PULSE 67; RESP 18; TEMP 36.1; O2SAT 95
--- NOTE | 2017-11-08 16:14 | CASEMGMT ---
Social Work Spoke with resident in room. This social science manager communicating that continued stay has been denied by insurance with a last cover day of 11/10/17 and resident to discharge or financial responsibility to begin on 11/11/17. Resident is requesting to discharge on 11/09/17, team is agreeable to discharge date. Resident plans to discharge to home with girlfriend. Resident to have outpatient physical therapy through [facility] per therapy recommendation and resident request. Resident aware that order will be faxed to [facility] and then [facility] will contact resident to set up appointment. Resident girlfriend plans to provide transportation home for resident at time of discharge. Resident reporting no further discharge needs at this time and to have all needed durable medical equipment already set up within the home. Support given. Will fax order to [facility] when obtained. Proposed discharge date: 11/09/17 PLAN: Discharge to home with girlfriend and outpatient physical therapy. Gladys HODGE, PROPRIETARY TRADER
[2017-11-08] MEDS: Atorvastatin Calcium 20 MG Tablet PO (20:06)
--- NOTE | 2017-11-08 20:56 | DCINST_ITS ---
- Discharge Diagnoses Current Active Problems: Current Active and Chronic Problems Left knee pain (Acute) Osteoarthritis of left knee (Chronic) New onset type 2 diabetes mellitus (Acute) DVT (deep venous thrombosis) (Chronic) HTN (hypertension) (Chronic) You will use the following diet at home:: No restrictions, Regular Your food should be the consistency of: Regular Your liquids should be the consistency of: Regular/Thin Discharge Activity: Return to Normal Activity, May Shower, Use Walker May resume sexual activity in: No Restrictions Weight Bearing Status: Weight bearing as tolerated Call your doctor if you observe: Fever of 101 or Higher, Inability to urinate, Inability to have a bowel movement, Shortness of breath, Chest pain, Uncontrolled pain Allergies/Adverse Reactions: Allergies codeine Allergy (Verified 10/31/17 15:19) Other lisinopril Allergy (Verified 10/31/17 15:19) Rash Medications to take at Discharge Sertraline HCl [Zoloft] 50 mg PO DAILY 02/22/14 Atorvastatin Calcium 20 mg PO QHS 07/10/16 Amlodipine [Norvasc] 10 mg PO DAILY 10/16/17 Omeprazole 40 mg PO DAILY 10/16/17 Acetaminophen [Tylenol] 1,000 mg PO Q8H PRN PRN tablet 11/08/17 Allopurinol [Zyloprim] 300 mg PO DAILYCM #30 tablet 11/08/17 Colchicine 0.6 mg PO DAILY #30 tablet 11/08/17 Diclofenac [Voltaren] 50 mg PO BIDCM #14 tablet 11/08/17 Iron Polysaccharide Complex [Ferrex 150] 150 mg PO BIDCM #30 capsule 11/08/17 Metformin HCl 500 mg PO BID #60 tablet 11/08/17 Nutritional Supplement [Kaleb - ORANGE FLAVOR] 1 packet PO BIDCM #60 packet 11/08/17 Nystatin Powder [Mycostatin Powder] 1 applic TOPICAL 0600,2200 bottle 11/08/17 The following prescriptions were given: Allopurinol [Zyloprim] 300 mg PO DAILYCM #30 tablet Colchicine 0.6 mg PO DAILY #30 tablet Diclofenac [Voltaren] 50 mg PO BIDCM #14 tablet Iron Polysaccharide Complex [Ferrex 150] 150 mg PO BIDCM #30 capsule Metformin HCl 500 mg PO BID #60 tablet Nutritional Supplement [Kaleb - ORANGE FLAVOR] 1 packet PO BIDCM #60 packet Primary Care Physician: Ezra Duggan MD [Primary Care Provider] - Please follow up with your Primary Care Physician in: 1 week. Test Results: Test results from this visit will be discussed in further detail at your follow- up appointment, if applicable. Please Follow Up With: Bull Napier MD When: 2 weeks. Proposed Discharge Date: 11/09/17
--- NOTE | 2017-11-08 20:56 | PCM.DC.SUM ---
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 Hx of deep venous thrombosis (Chronic) S/P placement and removal IVC filter Diabetes (Chronic) Osteoarthritis of left knee (Chronic) DVT (deep venous thrombosis) (Chronic) HTN (hypertension) (Chronic) Hospital Course and Treatment Imaging Results: 11/02/17 17:24 Diabetic [Diet: Calorie Controlled] Dietary Modifications:: Fluid Restricted Diet Is pt able to select menu?: Yes Diet Comments: cardiac, diabetic, PHUONG, 2000mL FR How many daily calories?: 1600 calorie Labs (Last 48 Hours) 11/06/17 11/07/17 11/07/17 21:30 06:38 11:12 POC Glucose 108 98 140 H 11/07/17 11/07/17 11/08/17 17:03 21:13 06:28 POC Glucose 172 H 133 H 93 11/08/17 11:29 POC Glucose 112 H Consultations 11/03/17 01:33 Consult: Onc/Wound/coroner technician Routine Comment: Reason for Consult:: Injury to bilateral buttocks Operations: None Procedures: None Summary of Care Provided: The patient is a 37 year old Male with below past medical history hospitalized for intractable left knee pain, septic knee ruled out, treated for gout, complicated by acute kidney injury, new onset Type 2 Diabetes Mellitus II, admitted to TCU with debility, here for rehabilitation, strengthening, prior to discharge home with significant other. Discharge home with girlfriend, and outpatient physical therapy. Discharge Diet: No Restrictions Discharge Activity: Return to Normal Activity, May Shower, Use Walker May resume sexual activity in: No Restrictions Weight Bearing Status: Weight bearing as tolerated Call your doctor if you observe: Fever of 101 or Higher, Inability to urinate, Inability to have a bowel movement, Shortness of breath, Chest pain, Uncontrolled pain Home Medications: Medications to take at Discharge Sertraline HCl [Zoloft] 50 mg PO DAILY 02/22/14 Atorvastatin Calcium 20 mg PO QHS 07/10/16 Amlodipine [Norvasc] 10 mg PO DAILY 10/16/17 Omeprazole 40 mg PO DAILY 10/16/17 Acetaminophen [Tylenol] 1,000 mg PO Q8H PRN PRN tablet 11/08/17 Allopurinol [Zyloprim] 300 mg PO DAILYCM #30 tablet 11/08/17 Colchicine 0.6 mg PO DAILY #30 tablet 11/08/17 Diclofenac [Voltaren] 50 mg PO BIDCM #14 tablet 11/08/17 Iron Polysaccharide Complex [Ferrex 150] 150 mg PO BIDCM #30 capsule 11/08/17 Metformin HCl 500 mg PO BID #60 tablet 11/08/17 Nutritional Supplement [Kaleb - ORANGE FLAVOR] 1 packet PO BIDCM #60 packet 11/08/17 Nystatin Powder [Mycostatin Powder] 1 applic TOPICAL 0600,2200 bottle 11/08/17 Following Prescrptions Were Given to Patient: Allopurinol [Zyloprim] 300 mg PO DAILYCM #30 tablet Colchicine 0.6 mg PO DAILY #30 tablet Diclofenac [Voltaren] 50 mg PO BIDCM #14 tablet Iron Polysaccharide Complex [Ferrex 150] 150 mg PO BIDCM #30 capsule Metformin HCl 500 mg PO BID #60 tablet Nutritional Supplement [Kaleb - ORANGE FLAVOR] 1 packet PO BIDCM #60 packet Primary Care Physician: Ezra Duggan MD [Primary Care Provider] - Please follow up with your Primary Care Physician in: 1 week. Please Follow Up With: Bull Napier MD When: 2 weeks. Disposition: Home Minutes spent on discharge:: 30 Patient Condition:: Good Medical Necessity - Tobacco Use Smoking Status: Never smoker Tobacco Use: Non-smoker Meaningful Use Info Meaningful Use Diagnoses (Choose all that apply): None applicable
[2017-11-09] MEDS: Pantoprazole Sodium 40 MG Tablet PO (06:45)
[2017-11-09] MEDS: Enoxaparin 40 MG/0.4 ML Syringe SC (06:45)
[2017-11-09] MEDS: Sertraline 50 MG Tablet PO (06:45)
[2017-11-09] MEDS: amLODIPine 10 MG Tablet PO (06:45)
[2017-11-09] MEDS: Nystatin Powder 15gm Bottle 1 APPLIC TOPICAL (06:46)
[2017-11-09 06:51] LABS: Bedside Glucose 99 mg/dL (70-110)
[2017-11-09] MEDS: Allopurinol 300 MG Tablet PO (09:19)
[2017-11-09] MEDS: Iron Polysaccharide Complex 150 MG CAPSULE PO ×2 (09:20→16:29)
[2017-11-09] MEDS: predniSONE 10 MG Tablet 20 MG PO (09:20)
--- NOTE | 2017-11-09 11:26 | CASEMGMT ---
Social Work Noted that resident does have a wound. An appointment is to be made for the wound care center to follow with resident. Proposed discharge date: 11/09/17 PLAN: Discharge to home with outpatient physical therapy and follow up with wound care center. Gladys HODGE, TONGUE TRIMMER
--- NOTE | 2017-11-09 15:19 | CASEMGMT ---
Reviewed and approved public health social worker student MDS documentation. Gladys HODGE, WAGON DRILLER
[2017-11-09 15:37] VITALS: BP 109/87; PULSE 79; RESP 16; TEMP 35.9; O2SAT 100
[2017-11-09 16:20] VITALS: BP 104/87; PULSE 79; RESP 18; TEMP 35.9; O2SAT 100
--- NOTE | 2017-11-10 16:33 | CASEMGMT ---
Insurance Notified insurance of resident discharge on 11/09/17 to home with significant other. Auth#[id number] Gladys HODGE, YOUTH PROGRAM DIRECTOR
== END 2017-11-09 04:40 | disposition home or self-care (01) | DRG 948 ==
PROVIDERS: Admitting Provider Family Medicine Geriatric Medicine; Family Provider Family Medicine; PCP Family Medicine; Visit Provider Family Medicine Geriatric Medicine
DX: R53.81 Other malaise (principal); E11.9 Type 2 diabetes mellitus without complications; K21.9 Gastro-esophageal reflux disease without esophagitis; F32.9 Major depressive disorder, single episode, unspecified; D50.9 Iron deficiency anemia, unspecified; E78.5 Hyperlipidemia, unspecified; I10 Essential (primary) hypertension; M10.9 Gout, unspecified; Z86.718 Personal history of other venous thrombosis and embolism; M17.12 Unilateral primary osteoarthritis, left knee
CPT/HCPCS: 36415; 80048; 82962; 85025; 97110; 97116; 97162; 97166; 97530; 97535; 97802; 90670; 90686

== ENCOUNTER 2017-11-23 10:00 | Outpatient (RCR) | payer MEDICARE, MEDICAID, SELFPAY ==
[2017-11-16 08:59] VITALS: BP 135/80; PULSE 83; RESP 16; TEMP 36.5; BMI 35.8
--- NOTE | 2017-11-16 10:23 | PCM.WC.HP ---
(1) Decubitus ulcer of left buttock, stage 1 Status: Chronic Current Visit: Yes Code(s): L89.321 - Pressure ulcer of left buttock, stage 1 (2) New onset type 2 diabetes mellitus Status: Acute Current Visit: No Code(s): E11.9 - Type 2 diabetes mellitus without complications History of Present Illness Chief Complaint: Left Buttock Ulcer. History of Wound: Mr. Vanegas is a 37yo who was referred to the wound center for management of his buttock wound which was discovered during his recent hospital stay. He denies any known precipitating factor. [facility]at the [facility], he had barrier dressing done daily. He typically sits in an electric chair and sleeps in a recliner due to chronic back pain. He does not have gel cushions. He feels well otherwise and denies chills, fever, nausea, vomitting or any change in his bowel habit. 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 Hx of deep venous thrombosis (Chronic) S/P placement and removal IVC filter Diabetes (Chronic) Osteoarthritis of left knee (Chronic) DVT (deep venous thrombosis) (Chronic) HTN (hypertension) (Chronic) Decubitus ulcer of left buttock, stage 1 (Chronic) Surgical History: tonsillectomy, - - 16 ear surgeries, bilateral ankle surgery, IVC filter placement, laminectomy Allergies/Adverse Reactions: Allergies codeine Allergy (Verified 10/31/17 15:19) Other lisinopril Allergy (Verified 10/31/17 15:19) Rash Home Medications: Ambulatory Orders Medication Instructions Recorded Sertraline HCl [Zoloft] 50 mg PO DAILY 02/22/14 Atorvastatin Calcium 20 mg PO QHS 07/10/16 Amlodipine [Norvasc] 10 mg PO DAILY 10/16/17 Omeprazole 40 mg PO DAILY 10/16/17 Acetaminophen [Tylenol] 1,000 mg PO Q8H PRN PRN tablet 11/08/17 Allopurinol [Zyloprim] 300 mg PO DAILYCM #30 tablet 11/08/17 Colchicine 0.6 mg PO DAILY #30 tablet 11/08/17 Diclofenac [Voltaren] 50 mg PO BIDCM #14 tablet 11/08/17 Iron Polysaccharide Complex 150 mg PO BIDCM #30 capsule 11/08/17 [Ferrex 150] Metformin HCl 500 mg PO BID #60 tablet 11/08/17 Nutritional Supplement [Kaleb - 1 packet PO BIDCM #60 packet 11/08/17 ORANGE FLAVOR] Nystatin Powder [Mycostatin Powder] 1 applic TOPICAL 0600,2200 bottle 11/08/17 - Family History Paternal Diabetes Maternal Cancer - Ovarian Smoking Status: Never smoker Review of Systems Constitutional: Denies: Anorexia, Chills, Fever Eyes: Denies: Pain, Redness HEENT: Denies: Difficulty Swallowing Cardiovascular: Denies: Chest Pain, Chest Tightness Respiratory: Denies: Hemoptysis Gastrointestinal: Denies: Abdominal Pain, Hematemesis, Vomiting Skin: Denies: Jaundice - Physical Exam Vital Signs Temp Pulse Resp BP 97.7 F L 83 16 135/80 H 11/16/17 08:59 11/16/17 08:59 11/16/17 08:59 11/16/17 08:59 General: Alert, Oriented x3, Cooperative, No apparent distress HEENT: Atraumatic Oral: Moist Mucosa Neck: Supple Lungs: Normal air movement Cardiovascular: Regular rate, Regular Rhythm Abdomen: Soft, Non Tender, Obese Extremities: No cyanosis Skin: Ulcer/ Wound Wound Measurements and Assessment WC - Nurse 1 - General Ulcer Measurement Start: 11/16/17 08:58 Freq: Status: Active Protocol: Activity Type Activity Date Activity User E-Sign Co-Sign Detail Recorded Client Recorded Date Recorded By Document 11/16/17 08:59 ME [id number] 11/16/17 09:19 ME 11/16/17 08:59 Wound Center Nurse 1 [Ulcer Assessment] #1 Left Buttock -Combined with other wound No -Current Size (cm) - Length 0.1 -Current Size (cm) - Width 0.1 -Current Size (cm) - Depth 0.1 -Total Square Cm 0.01 -Date of Last Picture (Recall this 11/16/17 field) -Photo Taken Yes -Epithelialization Large 67-100% -Tunneling No -Undermining/Tunneling No -Circular Undermining No -Exudate Amt Small (1-33%) -Exudate Type Serosanguineous -Wound Margin Flat & Intact -Granulation Amt Large (67-100%) -Granulation Quality Pale [place] Red -Slough/Fibrin No -Texture ([place]-wound Skin Appearance) Assessed -Moisture ([place]-wound Skin Appearance Assessed ) Maceration -Color ([place]-wound Skin Appearance) Assessed -Temperature ([place]-wound Skin No Abnormality Appearance) (Pt Warm) -Tenderness on Palpation ([place]-wound No Skin Appearance) -Ulcer Cleansing Wound Cleanser -Foul Odor after Cleansing No WC - Nurse 2 - General Ulcer CM Notes Start: 11/16/17 08:58 Freq: Status: Active Protocol: Activity Type Activity Date Activity User E-Sign Co-Sign Detail Recorded Client Recorded Date Recorded By Document 11/16/17 09:42 MW [id number] 11/16/17 09:46 MW 11/16/17 09:42 Wound Center Nurse 2 [Procedure/Treatment] -Time 09:43 -Correct Patient Yes -Correct Side, Site, Position Yes -Correct Procedure Yes -Procedure Performed No -Post Debridement Size (cm) - Length 0.1 -Post Debridement Size (cm) - Width 0.1 -Post Debridement Size (cm) - Depth 0.1 -Total Square Cm 0.01 -Wound/Ulcer Outcome Not Healed -Ulcer Cleansing Not Cleansed -Foul Odor after Cleansing No -Bioengineered Tissue No -Bleeding Controlled with NA -Treatment Response Procedure Tolerated Well [See Physician Procedure note for Specifics] Pain Scale: 0-10 Numeric [Pain] -Is Patient Pain Free? Yes Musculoskeletal: No Muscle Wasting Neurological: Cranial nerves II-XII grossly intact Psych/Mental Status: Normal Affect Debridement Note Post-Debridement Measurements/Treatment WC - Nurse 2 - General Ulcer CM Notes Start: 11/16/17 08:58 Freq: Status: Active Protocol: Activity Type Activity Date Activity User E-Sign Co-Sign Detail Recorded Client Recorded Date Recorded By Document 11/16/17 09:42 MW [id number] 11/16/17 09:46 MW 11/16/17 09:42 Wound Center Nurse 2 #1 Left Buttock -Time 09:43 -Correct Patient Yes -Correct Side, Site, Position Yes -Correct Procedure Yes -Procedure Performed No -Post Debridement Size (cm) - Length 0.1 -Post Debridement Size (cm) - Width 0.1 -Post Debridement Size (cm) - Depth 0.1 -Total Square Cm 0.01 -Wound/Ulcer Outcome Not Healed -Ulcer Cleansing Not Cleansed -Foul Odor after Cleansing No -Bioengineered Tissue No -Bleeding Controlled with NA -Treatment Response Procedure Tolerated Well Pain Scale: 0-10 Numeric Is Patient Pain Free? Yes No debridement was completed today Assessment/Plan Active Problems Decubitus ulcer of left buttock, stage 1 (Chronic) Assessment: Same as above. Plan: No debridement was done today. Stage 1 pressure ulcer. Zinc Oxide cream and Optifoam for barrier dressing. Gel Cushions for chair and recliner. Reposition often. Increased protein intake. Advised to call with any questions or concerns. Follow up in 1 week.
--- NOTE | 2017-11-16 10:31 | HP.PCM_ITS ---
(1) Decubitus ulcer of left buttock, stage 1 Status: Chronic Current Visit: Yes Code(s): L89.321 - Pressure ulcer of left buttock, stage 1 (2) New onset type 2 diabetes mellitus Status: Acute Current Visit: No Code(s): E11.9 - Type 2 diabetes mellitus without complications History of Present Illness Chief Complaint: Left Buttock Ulcer. History of Wound: Mr. Vanegas is a 37yo who was referred to the wound center for management of his buttock wound which was discovered during his recent hospital stay. He denies any known precipitating factor. While iat the [facility], he had barrier dressing done daily. He typically sits in an electric chair and sleeps in a recliner due to chronic back pain. He does not have gel cushions. He feels well otherwise and denies chills, fever, nausea, vomitting or any change in his bowel habit. 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 Hx of deep venous thrombosis (Chronic) S/P placement and removal IVC filter Diabetes (Chronic) Osteoarthritis of left knee (Chronic) DVT (deep venous thrombosis) (Chronic) HTN (hypertension) (Chronic) Decubitus ulcer of left buttock, stage 1 (Chronic) Surgical History: tonsillectomy, - - 16 ear surgeries, bilateral ankle surgery, IVC filter placement, laminectomy Allergies/Adverse Reactions: Allergies codeine Allergy (Verified 10/31/17 15:19) Other lisinopril Allergy (Verified 10/31/17 15:19) Rash Home Medications: Ambulatory Orders Medication Instructions Recorded Sertraline HCl [Zoloft] 50 mg PO DAILY 02/22/14 Atorvastatin Calcium 20 mg PO QHS 07/10/16 Amlodipine [Norvasc] 10 mg PO DAILY 10/16/17 Omeprazole 40 mg PO DAILY 10/16/17 Acetaminophen [Tylenol] 1,000 mg PO Q8H PRN PRN tablet 11/08/17 Allopurinol [Zyloprim] 300 mg PO DAILYCM #30 tablet 11/08/17 Colchicine 0.6 mg PO DAILY #30 tablet 11/08/17 Diclofenac [Voltaren] 50 mg PO BIDCM #14 tablet 11/08/17 Iron Polysaccharide Complex 150 mg PO BIDCM #30 capsule 11/08/17 [Ferrex 150] Metformin HCl 500 mg PO BID #60 tablet 11/08/17 Nutritional Supplement [Kaleb - 1 packet PO BIDCM #60 packet 11/08/17 ORANGE FLAVOR] Nystatin Powder [Mycostatin Powder] 1 applic TOPICAL 0600,2200 bottle 11/08/17 - Family History Paternal Diabetes Maternal Cancer - Ovarian Smoking Status: Never smoker Review of Systems Constitutional: Denies: Anorexia, Chills, Fever Eyes: Denies: Pain, Redness HEENT: Denies: Difficulty Swallowing Cardiovascular: Denies: Chest Pain, Chest Tightness Respiratory: Denies: Hemoptysis Gastrointestinal: Denies: Abdominal Pain, Hematemesis, Vomiting Skin: Denies: Jaundice - Physical Exam Vital Signs Temp Pulse Resp BP 97.7 F L 83 16 135/80 H 11/16/17 08:59 11/16/17 08:59 11/16/17 08:59 11/16/17 08:59 General: Alert, Oriented x3, Cooperative, No apparent distress HEENT: Atraumatic Oral: Moist Mucosa Neck: Supple Lungs: Normal air movement Cardiovascular: Regular rate, Regular Rhythm Abdomen: Soft, Non Tender, Obese Extremities: No cyanosis Skin: Ulcer/ Wound Wound Measurements and Assessment WC - Nurse 1 - General Ulcer Measurement Start: 11/16/17 08:58 Freq: Status: Active Protocol: Activity Type Activity Date Activity User E-Sign Co-Sign Detail Recorded Client Recorded Date Recorded By Document 11/16/17 08:59 PR [id number] 11/16/17 09:19 PR 11/16/17 08:59 Wound Center Nurse 1 [Ulcer Assessment] #1 Left Buttock -Combined with other wound No -Current Size (cm) - Length 0.1 -Current Size (cm) - Width 0.1 -Current Size (cm) - Depth 0.1 -Total Square Cm 0.01 -Date of Last Picture (Recall this 11/16/17 field) -Photo Taken Yes -Epithelialization Large 67-100% -Tunneling No -Undermining/Tunneling No -Circular Undermining No -Exudate Amt Small (1-33%) -Exudate Type Serosanguineous -Wound Margin Flat & Intact -Granulation Amt Large (67-100%) -Granulation Quality Pale [place] Red -Slough/Fibrin No -Texture ([place]-wound Skin Appearance) Assessed -Moisture ([place]-wound Skin Appearance Assessed ) Maceration -Color ([place]-wound Skin Appearance) Assessed -Temperature ([place]-wound Skin No Abnormality Appearance) (Pt Warm) -Tenderness on Palpation ([place]-wound No Skin Appearance) -Ulcer Cleansing Wound Cleanser -Foul Odor after Cleansing No WC - Nurse 2 - General Ulcer CM Notes Start: 11/16/17 08:58 Freq: Status: Active Protocol: Activity Type Activity Date Activity User E-Sign Co-Sign Detail Recorded Client Recorded Date Recorded By Document 11/16/17 09:42 MW [id number] 11/16/17 09:46 MW 11/16/17 09:42 Wound Center Nurse 2 [Procedure/Treatment] -Time 09:43 -Correct Patient Yes -Correct Side, Site, Position Yes -Correct Procedure Yes -Procedure Performed No -Post Debridement Size (cm) - Length 0.1 -Post Debridement Size (cm) - Width 0.1 -Post Debridement Size (cm) - Depth 0.1 -Total Square Cm 0.01 -Wound/Ulcer Outcome Not Healed -Ulcer Cleansing Not Cleansed -Foul Odor after Cleansing No -Bioengineered Tissue No -Bleeding Controlled with NA -Treatment Response Procedure Tolerated Well [See Physician Procedure note for Specifics] Pain Scale: 0-10 Numeric [Pain] -Is Patient Pain Free? Yes Musculoskeletal: No Muscle Wasting Neurological: Cranial nerves II-XII grossly intact Psych/Mental Status: Normal Affect Debridement Note Post-Debridement Measurements/Treatment WC - Nurse 2 - General Ulcer CM Notes Start: 11/16/17 08:58 Freq: Status: Active Protocol: Activity Type Activity Date Activity User E-Sign Co-Sign Detail Recorded Client Recorded Date Recorded By Document 11/16/17 09:42 MW [id number] 11/16/17 09:46 MW 11/16/17 09:42 Wound Center Nurse 2 #1 Left Buttock -Time 09:43 -Correct Patient Yes -Correct Side, Site, Position Yes -Correct Procedure Yes -Procedure Performed No -Post Debridement Size (cm) - Length 0.1 -Post Debridement Size (cm) - Width 0.1 -Post Debridement Size (cm) - Depth 0.1 -Total Square Cm 0.01 -Wound/Ulcer Outcome Not Healed -Ulcer Cleansing Not Cleansed -Foul Odor after Cleansing No -Bioengineered Tissue No -Bleeding Controlled with NA -Treatment Response Procedure Tolerated Well Pain Scale: 0-10 Numeric Is Patient Pain Free? Yes No debridement was completed today Assessment/Plan Active Problems Decubitus ulcer of left buttock, stage 1 (Chronic) Assessment: Same as above. Plan: No debridement was done today. Stage 1 pressure ulcer. Zinc Oxide cream and Optifoam for barrier dressing. Gel Cushions for chair and recliner. Reposition often. Increased protein intake. Advised to call with any questions or concerns. Follow up in 1 week.
[2017-11-23 10:24] VITALS: BP 120/75; PULSE 80; RESP 16; TEMP 36.6; BMI 35.8
--- NOTE | 2017-11-23 10:58 | PCM.WC.PN ---
(1) Decubitus ulcer of left buttock, stage 1 Status: Chronic Current Visit: Yes Code(s): L89.321 - Pressure ulcer of left buttock, stage 1 (2) New onset type 2 diabetes mellitus Status: Acute Current Visit: No Code(s): E11.9 - Type 2 diabetes mellitus without complications Type of Wound Chief Complaint: Left Buttock Ulcer. History of Wound: Mr. Vanegas is a 37yo who was referred to the wound center for management of his buttock wound which was discovered during his recent hospital stay. He denies any known precipitating factor. [facility], he had barrier dressing done daily. He typically sits in an electric chair and sleeps in a recliner due to chronic back pain. He does not have gel cushions. He feels well otherwise and denies chills, fever, nausea, vomitting or any change in his bowel habit. Progress of Wound: No new complaints at this time. Appears better today. However had significant escalation from possibly an allergic reaction to the tape. - Physical Exam Vital Signs Temp Pulse Resp BP 97.8 F 80 16 120/75 11/23/17 10:24 11/23/17 10:24 11/23/17 10:24 11/23/17 10:24 General: Alert, Oriented x3, Cooperative, No apparent distress HEENT: Atraumatic Oral: Moist Mucosa Neck: Supple Lungs: Normal air movement Extremities: No cyanosis Wound Measurements and Assessment WC - Nurse 1 - General Ulcer Measurement Start: 11/16/17 08:58 Freq: Status: Active Protocol: Activity Type Activity Date Activity User E-Sign Co-Sign Detail Recorded Client Recorded Date Recorded By Document 11/23/17 10:24 [facility] [id number] 11/23/17 10:32 [facility] 11/23/17 10:24 Wound Center Nurse 1 [Ulcer Assessment] #1 Left Buttock -Combined with other wound No -Current Size (cm) - Length 0.1 -Current Size (cm) - Width 0.1 -Current Size (cm) - Depth 0.1 -Total Square Cm 0.01 -Epithelialization Large 67-100% -Tunneling No -Undermining/Tunneling No -Circular Undermining No -Structure Exposed N/A -Texture ([place]-wound Skin Appearance) Scarring -Moisture ([place]-wound Skin Appearance Dry/Scaly ) -Color ([place]-wound Skin Appearance) Erythema -Temperature ([place]-wound Skin No Abnormality Appearance) (Pt Warm) -Tenderness on Palpation ([place]-wound No Skin Appearance) -Ulcer Cleansing Wound Cleanser -Foul Odor after Cleansing No -Anesthetic Used 5% Lidocaine Gel WC - Nurse 2 - General Ulcer CM Notes Start: 11/16/17 08:58 Freq: Status: Active Protocol: Activity Type Activity Date Activity User E-Sign Co-Sign Detail Recorded Client Recorded Date Recorded By Document 11/23/17 10:46 MW [id number] 11/23/17 10:48 MW 11/23/17 10:46 Wound Center Nurse 2 [Procedure/Treatment] -Time 10:46 -Correct Patient Yes -Correct Side, Site, Position Yes -Correct Procedure Yes -Procedure Performed No -Post Debridement Size (cm) - Length 0 -Post Debridement Size (cm) - Width 0 -Post Debridement Size (cm) - Depth 0 -Total Square Cm 0 -Wound/Ulcer Outcome Healed- Epithelialized -Ulcer Cleansing Rinsed/ Irrigated with Saline -Foul Odor after Cleansing No -Bioengineered Tissue No -Bleeding Controlled with Pressure -Treatment Response Procedure Tolerated Well [See Physician Procedure note for Specifics] Pain Scale: 0-10 Numeric [Pain] -Is Patient Pain Free? Yes Psych/Mental Status: Normal Affect Debridement Note Post-Debridement Measurements/Treatment WC - Nurse 2 - General Ulcer CM Notes Start: 11/16/17 08:58 Freq: Status: Active Protocol: Activity Type Activity Date Activity User E-Sign Co-Sign Detail Recorded Client Recorded Date Recorded By Document 11/16/17 09:42 MW [id number] 11/16/17 09:46 MW Document 11/23/17 10:46 MW [id number] 11/23/17 10:48 MW 11/16/17 11/23/17 09:42 10:46 Wound Center Nurse 2 #1 Left Buttock -Time 09:43 10:46 -Correct Patient Yes Yes -Correct Side, Site, Position Yes Yes -Correct Procedure Yes Yes -Procedure Performed No No -Post Debridement Size (cm) - Length 0.1 0 -Post Debridement Size (cm) - Width 0.1 0 -Post Debridement Size (cm) - Depth 0.1 0 -Total Square Cm 0.01 0 -Wound/Ulcer Outcome Not Healed Healed- Epithelialized -Ulcer Cleansing Not Cleansed Rinsed/ Irrigated with Saline -Foul Odor after Cleansing No No -Bioengineered Tissue No No -Bleeding Controlled with NA Pressure -Treatment Response Procedure Procedure Tolerated Well Tolerated Well Pain Scale: 0-10 Numeric Is Patient Pain Free? Yes Yes No debridement was completed today Assessment/Plan Active Problems Decubitus ulcer of left buttock, stage 1 (Chronic) Assessment: Same as above. Plan: No debridement was done today. Stage 1 pressure ulcer is improved. Continue zinc Oxide cream and Optifoam for barrier dressing for 3 more weeks. Gel Cushions for chair and recliner. Reposition often. Increased protein intake. Advised to call with any questions or concerns. Discharge from the wound center. This note was generated with [employer] dictation software. It may contain incorrect words, spelling, and punctuation that were not noted in checking the note before signing.
--- NOTE | 2017-11-23 11:03 | PN.PCM_ITS ---
(1) Decubitus ulcer of left buttock, stage 1 Status: Chronic Current Visit: Yes Code(s): L89.321 - Pressure ulcer of left buttock, stage 1 (2) New onset type 2 diabetes mellitus Status: Acute Current Visit: No Code(s): E11.9 - Type 2 diabetes mellitus without complications Type of Wound Chief Complaint: Left Buttock Ulcer. History of Wound: Mr. Vanegas is a 37yo who was referred to the wound center for management of his buttock wound which was discovered during his recent hospital stay. He denies any known precipitating factor. While iat the retirement, he had barrier dressing done daily. He typically sits in an electric chair and sleeps in a recliner due to chronic back pain. He does not have gel cushions. He feels well otherwise and denies chills, fever, nausea, vomitting or any change in his bowel habit. Progress of Wound: No new complaints at this time. Appears better today. However had significant escalation from possibly an allergic reaction to the tape. - Physical Exam Vital Signs Temp Pulse Resp BP 97.8 F 80 16 120/75 11/23/17 10:24 11/23/17 10:24 11/23/17 10:24 11/23/17 10:24 General: Alert, Oriented x3, Cooperative, No apparent distress HEENT: Atraumatic Oral: Moist Mucosa Neck: Supple Lungs: Normal air movement Extremities: No cyanosis Wound Measurements and Assessment WC - Nurse 1 - General Ulcer Measurement Start: 11/16/17 08:58 Freq: Status: Active Protocol: Activity Type Activity Date Activity User E-Sign Co-Sign Detail Recorded Client Recorded Date Recorded By Document 11/23/17 10:24 [facility] [id number] 11/23/17 10:32 [facility] 11/23/17 10:24 Wound Center Nurse 1 [Ulcer Assessment] #1 Left Buttock -Combined with other wound No -Current Size (cm) - Length 0.1 -Current Size (cm) - Width 0.1 -Current Size (cm) - Depth 0.1 -Total Square Cm 0.01 -Epithelialization Large 67-100% -Tunneling No -Undermining/Tunneling No -Circular Undermining No -Structure Exposed N/A -Texture ([place]-wound Skin Appearance) Scarring -Moisture ([place]-wound Skin Appearance Dry/Scaly ) -Color ([place]-wound Skin Appearance) Erythema -Temperature ([place]-wound Skin No Abnormality Appearance) (Pt Warm) -Tenderness on Palpation ([place]-wound No Skin Appearance) -Ulcer Cleansing Wound Cleanser -Foul Odor after Cleansing No -Anesthetic Used 5% Lidocaine Gel WC - Nurse 2 - General Ulcer CM Notes Start: 11/16/17 08:58 Freq: Status: Active Protocol: Activity Type Activity Date Activity User E-Sign Co-Sign Detail Recorded Client Recorded Date Recorded By Document 11/23/17 10:46 MW [id number] 11/23/17 10:48 MW 11/23/17 10:46 Wound Center Nurse 2 [Procedure/Treatment] -Time 10:46 -Correct Patient Yes -Correct Side, Site, Position Yes -Correct Procedure Yes -Procedure Performed No -Post Debridement Size (cm) - Length 0 -Post Debridement Size (cm) - Width 0 -Post Debridement Size (cm) - Depth 0 -Total Square Cm 0 -Wound/Ulcer Outcome Healed- Epithelialized -Ulcer Cleansing Rinsed/ Irrigated with Saline -Foul Odor after Cleansing No -Bioengineered Tissue No -Bleeding Controlled with Pressure -Treatment Response Procedure Tolerated Well [See Physician Procedure note for Specifics] Pain Scale: 0-10 Numeric [Pain] -Is Patient Pain Free? Yes Psych/Mental Status: Normal Affect Debridement Note Post-Debridement Measurements/Treatment WC - Nurse 2 - General Ulcer CM Notes Start: 11/16/17 08:58 Freq: Status: Active Protocol: Activity Type Activity Date Activity User E-Sign Co-Sign Detail Recorded Client Recorded Date Recorded By Document 11/16/17 09:42 MW [id number] 11/16/17 09:46 MW Document 11/23/17 10:46 MW [id number] 11/23/17 10:48 MW 11/16/17 11/23/17 09:42 10:46 Wound Center Nurse 2 #1 Left Buttock -Time 09:43 10:46 -Correct Patient Yes Yes -Correct Side, Site, Position Yes Yes -Correct Procedure Yes Yes -Procedure Performed No No -Post Debridement Size (cm) - Length 0.1 0 -Post Debridement Size (cm) - Width 0.1 0 -Post Debridement Size (cm) - Depth 0.1 0 -Total Square Cm 0.01 0 -Wound/Ulcer Outcome Not Healed Healed- Epithelialized -Ulcer Cleansing Not Cleansed Rinsed/ Irrigated with Saline -Foul Odor after Cleansing No No -Bioengineered Tissue No No -Bleeding Controlled with NA Pressure -Treatment Response Procedure Procedure Tolerated Well Tolerated Well Pain Scale: 0-10 Numeric Is Patient Pain Free? Yes Yes No debridement was completed today Assessment/Plan Active Problems Decubitus ulcer of left buttock, stage 1 (Chronic) Assessment: Same as above. Plan: No debridement was done today. Stage 1 pressure ulcer is improved. Continue zinc Oxide cream and Optifoam for barrier dressing for 3 more weeks. Gel Cushions for chair and recliner. Reposition often. Increased protein intake. Advised to call with any questions or concerns. Discharge from the wound center. This note was generated with [employer] dictation software. It may contain incorrect words, spelling, and punctuation that were not noted in checking the note before signing.
== END 2017-12-13 23:59 ==
LOC: WC 10:00
PROVIDERS: Family Provider Family Medicine; PCP Family Medicine; Visit Provider Internal Medicine
DX: E11.622 Type 2 diabetes mellitus with other skin ulcer (principal); L89.321 Pressure ulcer of left buttock, stage 1; E78.5 Hyperlipidemia, unspecified; K21.9 Gastro-esophageal reflux disease without esophagitis; I10 Essential (primary) hypertension; Z86.718 Personal history of other venous thrombosis and embolism; M19.90 Unspecified osteoarthritis, unspecified site; E66.9 Obesity, unspecified; Z68.35 Body mass index [BMI] 35.0-35.9, adult; Z71.3 Dietary counseling and surveillance; D50.9 Iron deficiency anemia, unspecified; F32.9 Major depressive disorder, single episode, unspecified; Z79.899 Other long term (current) drug therapy
CPT/HCPCS: 99213; G0463

== ENCOUNTER 2017-12-18 09:30 | Outpatient (RCR) | payer MEDICARE, MEDICAID, SELFPAY ==
--- NOTE | 2017-11-21 07:49 | HP.PTEVAL_ITS ---
Patient's Visit Information BRODIE STACY is a 37 year old M referred to Physical Therapy by Tomas Daniels with a diagnosis of L knee pain. Date of Evaluation: 11/20/17 Physical Therapist: Flor Ro - Visit Plan Plan: Focus on pain free hip and knee ROM and strength bilat, gait with correct form using LRD. - Subjective Subjective: Pt. getting ready to see orthopedic Dr. Jain on the thinking about total knee replacement. Took fluid out and looked at radiograph said once out of hospital to see him for appointment. EMS came to home after pt. could not rise from chair. At hospital, found gout in hands, radiographs showing bone on bone contact in L knee and suspected cause of inability to stand up. D/c from hospital 2 weeks ago. Was there -. Pt. then taken to TCU and was walking. After walk ', insurance said to d/c home. No home health- go to [facility]. Walks to bathroom, prefers not to walk any further than have too, fearful of knee buckling; therefore using w/c at home for most part. 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 No current knee pain. Within last week had some pain just lateral to joint lines of L knee after walking more than usual, worst 5/10, with elevation relieves pn. Pain described as nagging. Ice helped a little Bottom of feet feel stiff all the time, foot surgery in past. Standing does not bother knee. In public use w/c if going somewhere too far to walk with walker. No numbness/tingling. Sleeps well at night, sleeps in all positions. Shower, dresses I. Little help with cook, clean. Always someone at home. No stairs at house, have elevator. Have not done stairs since hospital-afraid of putting weight on knee. Negotiate stairs without issue before hospital. Used to W sit as child, worked on [employer] in past and pt. thinks may contribute to current issue. L posterior hip pain after standing or walking long distance. No hip pain currently. No previous injury to L knee. Bilat. ankle fusions. Goals to walk normal without walker- depending on surgery. Tripped in kitchen 2-3 monhts ago, stithces on head. Ear surgery, foot, back, surgery. List of medications see chart- pt. cannot remember, also added medication when in hospital. - Objective Gait: ambulates 50' with 4 wheel walker gait belt and contact guard. Decreased gregorio, shuffled gait and ER bilat; pt. leaning forward and putting significant amount of weight through walker. Posture: leans L in chair but corrects self. Dermatomes: LE intact bilat. Reflexes: patellar 1+ bilat. AROM: R hip and knee WFL; bilat. ankle approx 5 deg every direction due to fusions. L hip ER approx 10 deg and IR approx 25 deg with slight L hip pain. L hip flex. ext. WFL, L knee ext. and flex.WFL. PROM: bilat. hip flex approx 100 deg with hard end feel, knee flex hard at approx 120 deg. Bilat. hip IR approx 30 deg, ER approx 10 deg. Strength: bilat. hip flex., ext. 4/5, abd., add. 5/5, R IR/ER 4/5, L IR 3+/5 with pain, L ER 3+/5, R knee flex. and ext. 4+/5, L knee flex. and ext. 4/5. Ankle isometric hold due to lack of ROM 5/5. Functional: unable to heel/toe raise due to ankle fusions. Balance: SL 10 seconds bilat with mod A UE support on table. Palpation: no abnormalities. No areas of tenderness along gastroc, joint line, patella, or quad. Flexibility: hamstring mild restriction. Special Tests: McMurrays (-) Ant. Drawer (-) - Goals Goal 1:: Pt. will be independent with HEP and progressions. Goal Time Frame: 4-6 Weeks Goal 2:: Patient will demonstrate increased LE ROM to WFL. Goal Time Frame: 4-6 Weeks Goal 3:: Patient will demonstrate increased LE strength to at least 4+/5 where deficits. Goal Time Frame: 4-6 Weeks Goal 4:: Patient will ambulate 200' with good form and LRD. Goal Time Frame: 4-6 Weeks - Rehabilitation Potential Physical Therapy Diagnosis: Patient presents with hypomobility. Decreased hip and knee range of motion and strength along with arthritic L knee limiting patient from full pain free mobility with LRD. Rehabilitation Potential: Good - Anticipated Interventions Patient/Client Instruction: Educate patient on: Condition For the Purpose of:: To increase ROM, To improve muscle performance and motor function, To improve ability of physical actions for home/community/work/leisure, To improve gait and locomotor functions, To increase flexibility/ROM, To improve endurance, To improve balance Therapeutic Exercise to Include: Strength training, Power training, Endurance training, Balance training, Coordination, Postural training, Flexibilty training, Gait and locomotor training, Passive ROM, Active ROM For the Purpose of:: To increase ROM, To improve muscle performance and motor function, To improve performance and independence with ADL's, To improve ability of physical actions for home/community/work/leisure, To improve gait and locomotor functions, To improve endurance, To improve balance, To improve safety with gait TENS: Yes Cryotherapy (ice pack, ice massage): Yes Thermo therapy (hot pack): Yes For the Purpose of:: To decrease pain Thank you for the opportunity to evaluate your patient. For Medicare and Medicare HMO plans, please review the plan of care and approve it. It will need to be FAXED BACK to us at [phone] for Medicare purposes. Please let me know if there are questions or concerns regarding this plan of care. Physician Signature: Date:
--- NOTE | 2018-02-09 09:51 | HP.PT.NRP ---
HP - Discharge Summary (1) - Patient Information BRODIE STACY was seen in my office for initial evaluation on 11/20/17. The following Plan of Care was established for this patient: - Anticipated Interventions Patient/Client Instruction: Educate patient on: Condition For the Purpose of:: To increase ROM, To improve muscle performance and motor function, To improve ability of physical actions for home/community/work/leisure, To improve gait and locomotor functions, To increase flexibility/ROM, To improve endurance, To improve balance Therapeutic Exercise to Include: Strength training, Power training, Endurance training, Balance training, Coordination, Postural training, Flexibilty training, Gait and locomotor training, Passive ROM, Active ROM For the Purpose of:: To increase ROM, To improve muscle performance and motor function, To improve performance and independence with ADL's, To improve ability of physical actions for home/community/work/leisure, To improve gait and locomotor functions, To improve endurance, To improve balance, To improve safety with gait TENS: Yes Cryotherapy (ice pack, ice massage): Yes Thermo therapy (hot pack): Yes For the Purpose of:: To decrease pain This patient was last seen in our office . Pertinent comments regarding their Physical therapy will appear below: Patient to have TKR- d/c at this time. At this point I will be discontinuing this patient from physical therapy. I would be happy to see this patient again in the future if found appropriate by the physician. Thank you! Flor Ro DPT
== END 2017-12-18 19:00 | disposition home or self-care (01) ==
LOC: PT 09:30
PROVIDERS: Family Provider Family Medicine; PCP Family Medicine; Referring Provider Family Medicine Geriatric Medicine; Visit Provider Family Medicine Geriatric Medicine
DX: M25.562 Pain in left knee (principal)
CPT/HCPCS: 97110; 97161

== ENCOUNTER 2018-01-06 17:09 | Emergency (ER) | payer BC, MEDICAID, SELFPAY ==
[2018-01-06 17:09] VITALS: BP 128/78; PULSE 83; RESP 16; TEMP 36.4; O2SAT 98; BMI 37.4
--- NOTE | 2018-01-06 18:14 | ED.VISSUMM ---
- ER Visit Summary Date of Service: 01/06/18 Chief Complaint: Left knee pain History of Present Illness: The patient is a 37 M who is scheduled for left knee replacement on January [address] Napier. He is complaining of increased pain to the left knee over the past couple of days. He states pain started when he was at the hospital doing some preadmission testing and he stepped up onto the scale funny. He has not had significant swelling or warmth. He is taking Tylenol at home for pain. Patient states he was told his knee is essentially [id number] and will require replacement.. Physical Examination: Vital signs unremarkable. Patient sitting upright in bed no acute distress. Lower external examination reveals mild tenderness to the posterior left knee. Arthritic changes are noted with decreased range of motion overall. There is no significant erythema or warmth. No focal tenderness along the joint line or patellar tendon. He has no calf tenderness or significant edema. He has strong distal pulses and normal sensation. Test Results: [] Emergency Department Course and Treatment: I did do an oars report. Patient's last prescription was written 2014. I do not see evidence of acute infection in his left knee. He will be given a prescription for Percocet, first dose given here. Ludin wrap was applied to the left knee. He already uses a walker to help him ambulate. He is to follow-up with Dr. Napier as planned. Treatment Plan: [] Disposition: Discharge Impression: Osteoarthritis left knee This note was generated with [employer] dictation software. It may contain incorrect words, spelling, and punctuation that were not noted in review of the chart prior to signing ED Disposition - Plan for ED Patient: Disposition: Home or Assisted Living Chief Complaint: Lower Extremity Injury Instructions: ED Degenerative Joint Disease Prescriptions: Oxycodone HCl/Acetaminophen [Percocet 5/325] 1 tablet PO Q6H PRN PRN 5 Days #20 tablet PRN Reason: Pain Referrals: Bull Napier MD [STAFF PHYSICIAN] - Keep [place] appointment
[2018-01-06] MEDS: oxyCODONE 5 MG Tablet PO (19:15)
[2018-01-06 19:16] VITALS: BP 120/80; PULSE 85; RESP 14; O2SAT 97
== END 2018-01-06 19:20 | disposition home or self-care (01) ==
PROVIDERS: Emergency Provider Emergency Medicine; Family Provider Family Medicine; PCP Family Medicine
DX: M17.12 Unilateral primary osteoarthritis, left knee (principal); E11.9 Type 2 diabetes mellitus without complications; I10 Essential (primary) hypertension; E78.00 Pure hypercholesterolemia, unspecified; K21.9 Gastro-esophageal reflux disease without esophagitis; Z86.718 Personal history of other venous thrombosis and embolism
CPT/HCPCS: 99283

== ENCOUNTER 2018-01-16 09:46 | Inpatient (IN) | payer MEDICARE, MEDICAID, SELFPAY ==
[2018-01-02 14:28] VITALS: BP 120/80; PULSE 95; RESP 16; TEMP 36.8; O2SAT 98; BMI 38.9
--- NOTE | 2018-01-02 14:35 | RAD_ITS ---
STUDY: X-RAY CHEST REASON FOR EXAM: Male, 37 years old. Preoperative assessment, shortness of breath TECHNIQUE: Frontal and lateral views of the chest were obtained. COMPARISON: October 16, 2017 FINDINGS: The lungs are underaerated. There are no focal airspace opacities. There is no demonstrated pleural abnormality. The cardiac silhouette is normal in size. The mediastinum and hilar regions are unremarkable. Normal visualized pulmonary arteries. Normal visualized aortic arch and descending thoracic aorta. There are surgical changes in upper lumbar spine. The visualized ribs, clavicles, and shoulders are unremarkable. There is no demonstrated abnormality of the visualized upper abdomen. RAD/Chest PA and Lateral IMPRESSION: No significant cardiopulmonary abnormalities. Electronically Signed: Marcelle Marley MD at 0:11 EST Tel Direct: [phone], Service support ,
--- NOTE | 2018-01-02 14:35 | SDCEKG_ITS ---
Test Reason : Blood Pressure : / mmHG Vent. Rate : 087 BPM Atrial Rate : 087 BPM P-R Int : 174 ms QRS Dur : 100 ms QT Int : 368 ms P-R-T Axes : 037 -26 021 degrees QTc Int : 442 ms Normal sinus rhythm Normal ECG Confirmed by SHANNAN LUBIN, VON ([id number]), movie editor DUSTIN RIVERA ([id number]) on 01/05/2018 1:45:13 PM Referred By: Bull Napier Confirmed By:VON CAMPBELL MD
[2018-01-02 15:36] LABS: Absolute Neutrophil Count 6.8 X10^3/uL (2.0-7.7); Basophil# 0.02 X10^3/uL; Basophil% 0.2 % (0-1); Eosinophil# 0.22 X10^3/uL; Eosinophils% 2.3 % (0-5); Hematocrit 35.1 % (40-54); Hemoglobin 11.3 g/dl (13.0-16.5); Mean Corp Hgb Conc 32.2 g/gl (32-36); Mean Corpuscular Hgb 27.5 pg (27.0-32.0); Mean Corpuscular Volume 85.4 fL (80-94); Mean Platelet Vol. 9.4 fl (6.2-12.0); Monocyte# 0.59 X10^3/uL; Monocyte% 6.2 % (0-10); Neutrophil # 6.79 X10^3/uL (2.7-7.7); POSITIVE COUNT NO; POSITIVE DIFFERENTIAL NO; POSITIVE MORPHOLOGY NO; Platelet Count 227 K/mm3 (150-450); RBC Distribution Width CV 15.4 % (11.6-14.6); RBC Distribution Width SD 48.1 fl (35.1-43.9); Red Blood Count 4.11 M/mm3 (4.6-6.2); White Blood Count 9.5 K/mm3 (4.4-11.0)
[2018-01-02 15:39] LABS: Partial Thromboplast Time 38.1 Seconds (24.1-36.2)
[2018-01-02 15:46] LABS: Hemoglobin A1c 5.4 % (4.2-6.3)
[2018-01-02 15:56] LABS: Anion Gap 11 (5-15); BUN 12 mg/dL (7-18); Chloride 107 mmol/L (98-107); Creatinine, Serum 0.92 mg/dL (0.70-1.30); EST Glomerular Filtration Rate 97 mL/min (>60); Est Glom Filt Rate - Afr Amer 117 mL/min (>60); Estimated Creatinine Clearance 133.57 ml/min; Glucose 88 mg/dL (74-106); Potassium 3.7 mmol/L (3.5-5.1); Sodium Level 142 mmol/L (136-145)
[2018-01-16] VITALS (11 sets, daily range): BP systolic 111–136; BP diastolic 66–87; PULSE 72–99; RESP 16–18; TEMP 36.3–37.3; O2SAT 93–99; BMI 38.9
[2018-01-16] MEDS: Celecoxib 200 MG Capsule 400 MG PO (10:25)
[2018-01-16] MEDS: oxyCODONE HCl Cr 10 MG Tablet PO (10:25)
[2018-01-16] MEDS: Acetaminophen 500 MG Tablet 1000 MG PO ×2 (10:25→22:02)
[2018-01-16 10:56] LABS: Bedside Glucose 112 mg/dL (70-110)
--- NOTE | 2018-01-16 12:00 | KNEE_PTH ---
PATIENT: BRODIE STACY LOC: [facility] U#:[id number] AGE/SX: 37/M ROOM: NH310 RE01/16/[address]: Dr. Bull Napier MD : 1980 BED: 1 DIS: 01/19/2018 SPEC #: [id number] RECD: 01/17/18 08:42 STATUS: VEDA REQ #: [id number] CALLIE: 01/16/18 12:[address]: Bull Napier DEPT: SURGICAL PATHOLOGY RECD BY: Real Disla ENTERED: 01/17/18 09:25 SP TYPE: TOTAL KNEE OTHR DR: MD Dr. Ezra Ritter MD Tissues: Knee, NOS Procedures: Decalcification bone/plaque Surgery Specimen Level IV HEADER OPERATION: Total knee replacement with navigation PRE-OP DIAGNOSIS: Left knee primary osteoarthritis TISSUE SUBMITTED: Left knee bone and soft tissue MICROSCOPIC DIAGNOSIS Bone and soft tissue of left knee, total knee resection: Consistent with degenerative joint disease. AM:jenn 01/24/18 MICROSCOPIC DESCRIPTION Slides are reviewed. GROSS DESCRIPTION Received is one container designated bone and soft tissue left knee. The specimen consists of multiple fragments of macias-yellow bone measuring in aggregate 11 x 11 x 3.5 cm. Also in the specimen container are multiple fragments of yellow-white soft tissue predominantly consisting of fibrocartilaginous tissue measuring in aggregate 6 x 1.5 x 0.5 cm. A number of bony fragments contain articular surfaces consistent with tibial plateau and femoral condyle and displaying prominent osteophyte formation and bone erosion. Spinning Frame Fixer sections are submitted in two cassettes as follows: 1 - soft tissue, 2 - bone after decalcification. / SJ:jenn 01/17/18 TC:5 CPT: 06212, 09285
[2018-01-16] MEDS: Cefazolin 2 GM in 0.9% Normal Saline 100 ML IV (12:12)
--- NOTE | 2018-01-16 14:10 | PCM.OPRPT ---
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 Patient was able to obtain 105 degrees flexion which was his preop motion for impingement of the patella. We did discuss patella baja preoperatively and elected not to proceed with an osteotomy at this time. Patella tracked well. Knee was stable. manager environmental health and safety: Jose L Snyder Type of Anesthesia:: General Anesthesiologist: Roni Bravo Special Medications: 2 g Ancef, 1 g TXA at incision, 1 g TXA closure, 10 mg Decadron, joint cocktail (5 mg Duramorph, 30 mL of 0.5% Ropivicaine, 1000 units of epinephrine, 30 mg of Toradol) Specimen's removed: Bony cuts, sent to pathology Estimated Blood Loss (mL): 50 Fluids Replaced: 1100 L crystalloid Description of Procedure: Implants used: 1. Zee size 3 triathlon placed distal femoral component 2. [place] size 3 universal tibial baseplate 3. [place] X3 9 mm CS polyethylene 4. [place] X3 32 mm asymmetric patella Brief history operative indications: 37-year-old m with history of left knee osteoarthritis with radiographic findings with loss of joint space, osteophyte formation and subchondral sclerosis. Failed conservative measures as mentioned in the H&P. Discussion of total knee arthroplasty as well as risk and benefits were discussed the patient including but not limited to blood loss, DVTs, PEs, neurovascular damage, general risk of anesthesia including loss of life, and stiffness or instability were discussed with patient. Patient demonstrated understanding and was able to sign informed consent. Procedure: On the date of procedure patient's left lower extremity was marked in the preoperative area. The patient was then taken back to the operating room where the patient was placed on the table in the supine position. All bony prominences were identified a well-padded. Anesthesia assumed control of the C-spine and airway and remained controlled throughout the remainder of the procedure. A tourniquet was placed on the left upper thigh and the leg was prepped in a sterile fashion. The surgeon then scrubbed at this time .Upon reentering the room left lower extremity was draped in a standard orthopedic fashion. A timeout was then called and everyone agreed upon the side, the site, the procedure to be performed, patient's identity and antibiotics given. Esmarch bandage was used to exsanguinate the extremity and the tourniquet was placed up to 250 mmHg with the knee in flexion. A midline skin incision was made and sharp dissection was taken down through skin subcutaneous tissue and fat. The standard medial parapatellar incision was made and the patella was subluxed laterally. The standard deep MCL release was done and the fat pad was resected. Next our attention was directed to the femur. Navigation pins were placed, navigation was registered. The distal femoral cutting block was pinned into place and 10 mm of distal femur resection was completed. The distal femoral cut was verified with navigation. The knee was then placed in deep flexion in the standard [employer] sizing guide was used to place the femoral component in 3? external rotation based on the posterior condyles. A size 3 4-in-1 cutting block was selected and pinned into place. The anterior cut was then made and checked for notching. The subsequent anterior chamfer cuts, posterior condylar cuts and posterior chamfer cuts were made while ensuring the MCL and LCL were protected. Our attention was then turned to the tibia where the navigation pins were placed, navigation was registered. [employer] tibial cutting guide was used to make the appropriate tibial cut 90 degrees from the mechanical axis. Navigation was then used to verify the cut. A size 3 tibial base plate was selected. the knee was flexed to 90 degrees and the soft tissues and posterior osteophytes were removed from the joint. 40 cc of the periarticular injection was injected into the posterior medial corner of the joint. He was flexed up and box cut was made. The appropriate trials were then placed on the femur and tibia. A trial polyethylene was trialed to ensure proper balancing and stability of the knee. Patella tracking, was then verified and corrected appropriately as needed. The appropriate tibial internal rotation was then marked with a bovie. Our attention was then directed to the patella. The patella was everted and a flat resection was made. The lug holes were drilled and the patella trial was placed. Patellar tracking was checked and deemed appropriate. Once we were happy lug holes were drilled for the femur and trial components were removed. the tibia was subluxed and pinned into place and the keel was punched and the canal was reamed. Final components were verified and opened, and cement was mixed in a vacuum. [place] Simplex cement was used. The wound was copiously irrigated with normal saline. When the cement was ready the components were cemented into place starting with the tibia, femur and finally the patella. The trial poly component was placed and the knee was placed in full extension. All excess cement was removed in the process. Once the cement had cured the tracking, alignment and balance were verified and a size 11 mm polyethylene component was placed. Use a CS polyethylene to minimize impingement. Knee was stable with implants. Once the final components were placed the wound was copiously irrigated with normal saline solution and the periarticular injection was given. The wound was closed in a layer green fashion using #1 vicryl interrupted sutures for the arthrotomy, 2-0 interrupted Vicryl suture for the subcuticular layer and herve for final skin closure. A sterile compressive dressing was then placed. The patient was then awakened from anesthesia, transferred to the rbay port and transferred to the PACU for recovery. Post op plan DVT ppx: ASA 81mg, thigh high compression stockings Follow up: in office in 2 weeks for wound check PT: to start POD #0 at hospital, outpatient PT should be arranged. My physician speech correction assistant was a vital part of this case. He was important in appropriate retraction during the case, and protection of soft tissues during bony cuts. His intimate knowledge of the case and my steps aided in safe and expedient completion of the procedure as well as appropriate position of the leg during the case. He was also vital in assisting with closure under my direct supervision. Grafts/Implants Used: [place] triathlon cemented total knee - Complications None - Admit VTE Documentation VTE Present on Admission: No VTE Mechan Device Prophylaxis: SCD's, Thigh High JIM Hose VTE Pharm Prophylaxis ordered?: Yes
--- NOTE | 2018-01-16 14:15 | OP.PCM_ITS ---
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 Patient was able to obtain 105 degrees flexion which was his preop motion for impingement of the patella. We did discuss patella baja preoperatively and elected not to proceed with an osteotomy at this time. Patella tracked well. Knee was stable. medical claims manager: Jose L Snyder Type of Anesthesia:: General Anesthesiologist: Roni Bravo Special Medications: 2 g Ancef, 1 g TXA at incision, 1 g TXA closure, 10 mg Decadron, joint cocktail (5 mg Duramorph, 30 mL of 0.5% Ropivicaine, 1000 units of epinephrine, 30 mg of Toradol) Specimen's removed: Bony cuts, sent to pathology Estimated Blood Loss (mL): 50 Fluids Replaced: 1100 L crystalloid Description of Procedure: Implants used: 1. Graff size 3 triathlon placed distal femoral component 2. Zee size 3 universal tibial baseplate 3. Zee X3 9 mm CS polyethylene 4. Zee X3 32 mm asymmetric patella Brief history operative indications: 37-year-old m with history of left knee osteoarthritis with radiographic findings with loss of joint space, osteophyte formation and subchondral sclerosis. Failed conservative measures as mentioned in the H&P. Discussion of total knee arthroplasty as well as risk and benefits were discussed the patient including but not limited to blood loss, DVTs, PEs, neurovascular damage, general risk of anesthesia including loss of life, and stiffness or instability were discussed with patient. Patient demonstrated understanding and was able to sign informed consent. Procedure: On the date of procedure patient's left lower extremity was marked in the preoperative area. The patient was then taken back to the operating room where the patient was placed on the table in the supine position. All bony prominences were identified a well-padded. Anesthesia assumed control of the C-spine and airway and remained controlled throughout the remainder of the procedure. A tourniquet was placed on the left upper thigh and the leg was prepped in a sterile fashion. The surgeon then scrubbed at this time .Upon reentering the room left lower extremity was draped in a standard orthopedic fashion. A timeout was then called and everyone agreed upon the side, the site, the procedure to be performed, patient's identity and antibiotics given. Esmarch bandage was used to exsanguinate the extremity and the tourniquet was placed up to 250 mmHg with the knee in flexion. A midline skin incision was made and sharp dissection was taken down through skin subcutaneous tissue and fat. The standard medial parapatellar incision was made and the patella was subluxed laterally. The standard deep MCL release was done and the fat pad was resected. Next our attention was directed to the femur. Navigation pins were placed, navigation was registered. The distal femoral cutting block was pinned into place and 10 mm of distal femur resection was completed. The distal femoral cut was verified with navigation. The knee was then placed in deep flexion in the standard [employer] sizing guide was used to place the femoral component in 3? external rotation based on the posterior condyles. A size 3 4-in-1 cutting block was selected and pinned into place. The anterior cut was then made and checked for notching. The subsequent anterior chamfer cuts, posterior condylar cuts and posterior chamfer cuts were made while ensuring the MCL and LCL were protected. Our attention was then turned to the tibia where the navigation pins were placed, navigation was registered. [employer] tibial cutting guide was used to make the appropriate tibial cut 90 degrees from the mechanical axis. Navigation was then used to verify the cut. A size 3 tibial base plate was selected. the knee was flexed to 90 degrees and the soft tissues and posterior osteophytes were removed from the joint. 40 cc of the periarticular injection was injected into the posterior medial corner of the joint. He was flexed up and box cut was made. The appropriate trials were then placed on the femur and tibia. A trial polyethylene was trialed to ensure proper balancing and stability of the knee. Patella tracking, was then verified and corrected appropriately as needed. The appropriate tibial internal rotation was then marked with a bovie. Our attention was then directed to the patella. The patella was everted and a flat resection was made. The lug holes were drilled and the patella trial was placed. Patellar tracking was checked and deemed appropriate. Once we were happy lug holes were drilled for the femur and trial components were removed. the tibia was subluxed and pinned into place and the keel was punched and the canal was reamed. Final components were verified and opened, and cement was mixed in a vacuum. [employer] Simplex cement was used. The wound was copiously irrigated with normal saline. When the cement was ready the components were cemented into place starting with the tibia, femur and finally the patella. The trial poly component was placed and the knee was placed in full extension. All excess cement was removed in the process. Once the cement had cured the tracking, alignment and balance were verified and a size 11 mm polyethylene component was placed. Use a CS polyethylene to minimize impingement. Knee was stable with implants. Once the final components were placed the wound was copiously irrigated with normal saline solution and the periarticular injection was given. The wound was closed in a layer green fashion using #1 vicryl interrupted sutures for the arthrotomy, 2-0 interrupted Vicryl suture for the subcuticular layer and herve for final skin closure. A sterile compressive dressing was then placed. The patient was then awakened from anesthesia, transferred to the [place] and transferred to the PACU for recovery. Post op plan DVT ppx: ASA 81mg, thigh high compression stockings Follow up: in office in 2 weeks for wound check PT: to start POD #0 at hospital, outpatient PT should be arranged. My physician administrative assistant data entry was a vital part of this case. He was important in appropriate retraction during the case, and protection of soft tissues during bony cuts. His intimate knowledge of the case and my steps aided in safe and expedient completion of the procedure as well as appropriate position of the leg during the case. He was also vital in assisting with closure under my direct supervision. Grafts/Implants Used: Zee triathlon cemented total knee - Complications None - Admit VTE Documentation VTE Present on Admission: No VTE Mechan Device Prophylaxis: SCD's, Thigh High JIM Hose VTE Pharm Prophylaxis ordered?: Yes
--- NOTE | 2018-01-16 15:00 | RAD_ITS ---
STUDY: X-RAY - LEFT KNEE REASON FOR EXAM: Male, 37 years old. Status post left knee arthroplasty. TECHNIQUE: 2 view(s) of the knee. COMPARISON: 10/31/2017.. Findings: There is a recent total knee arthroplasty. The femoral and tibial components appear in satisfactory position. There has been patellar resurfacing. The visualized femoral, tibial, and fibular shafts are unremarkable. RAD/Knee 1 or 2 Views IMPRESSION: Satisfactory appearance of a total knee arthroplasty. Electronically Signed: Lopez Orosco MD at 23:21 EST , Service support ,
[2018-01-16 15:26] LABS: Bedside Glucose 202 mg/dL (70-110)
[2018-01-16] MEDS: Lactated Ringers 1,000 ML 125 ML IV (16:42)
[2018-01-16 16:46] LABS: Bedside Glucose 190 mg/dL (70-110)
[2018-01-16] MEDS: Insulin Lispro 100 UNIT/ML INSULN.PEN SC ×2 (17:04→22:03)
[2018-01-16] MEDS: Aspirin 81 MG TAB.CHEW PO (17:05)
[2018-01-16] MEDS: Glucerna Shake 120 ML LIQUID PO (17:08)
--- NOTE | 2018-01-16 17:16 | PCM.PROGNOTE ---
<Calvin Han - Last Filed: 01/16/18 17:16> Subjective: This is a 37 year old male with pmhx of a skeletal genetic disorder, HTN, prior hx gout and cellulitis of the hand, DMt2, DVT with prior IVC filter placement and removal, HLD, decubitus ulcer of the left buttock, obesity, who underwent a left total knee replacement for osteoarthritis per Dr. Napier today. He is currently resting comfortably in bed. He was admitted here in october with a knee arthritic flare up, at that time it was aspirated and found to be aseptic and without crystals. He was treated with steroids and nsaids. Of note he has a hx of developing SVETA post op with nsaids so this will need to be monitored. He also has had a rheumatoid panel recently and it was negative. He is currently resting in bed post op with 5/10 pain. He has no SOB/cough/fever/chills/abdominal pain. He is drinking clears without issues, has not eaten yet. - Physical Exam General: Alert, Oriented x3, Cooperative HEENT: Atraumatic, PERRLA, EOMI, Normocephalic Neck: Supple, No JVD, Negative Carotid Bruits Lungs: Clear to auscultation, Normal air movement Cardiovascular: Regular rate, No murmurs Abdomen: Bowel Sounds Present, Soft, Non Tender Extremities: No edema, Capillary Refill Less than 3 Seconds Skin: No rashes, No breakdown Musculoskeletal: - - post op left knee Neurological: Cranial nerves II-XII grossly intact Psych/Mental Status: Normal Affect, Appropriate Vital Signs Temp Pulse Resp BP Pulse Ox 97.4 F L 93 16 122/67 H 97 01/16/18 16:29 01/16/18 16:29 01/16/18 16:29 01/16/18 16:29 01/16/18 16:29 Oxygen Flow Rate (L/min) 2 Oxygen Delivery Method Room Air Weight: 193 lb 1.999 oz Body Mass Index (BMI) 38.9 Finger Stick Blood Glucose 202 Intake and Output for Last 24 Hours 01/14/18 01/15/18 01/16/18 23:59 23:59 23:59 Intake Total 2700 / 2700 Balance 2700 / 2700 POC Glucose 01/16/18 01/16/18 01/16/18 16:42 15:21 10:22 POC Glucose 190 H 202 H 112 H Medical Necessity - Tobacco Use Smoking Status: Never smoker Tobacco Use: Non-smoker Assessment/Plan All Active Problems Gout (Acute) Left knee pain (Acute) New onset type 2 diabetes mellitus (Acute) 1. Osteoarthritis s/p left total knee - POD#0 Dr. Napier. Has previously had knee aspiration without crystals or infection, prior rheumatoid panel was negative. Care per Dr. Napier. MRSA screen neg, received periop cefazolin. Received tranexamic acid x 2. 2. Hx SVETA post op - carefully monitor renal function given toradol and meloxicam use, will hold metformin for now and stick with SSI to reduce renal stress, and patient receiving IV fluids with LR @ 125 cc/hr. 3. hx gout - with recent flair - continue allopurinol 4. DMt2 with obesity - SSI, resume metformin if renal function stays stable. A1C has improved from 6.7 to 5.4 since beginning metformin in October of this year. 5. GERD - continue PPI 6. Hx DVT s/p prior IVC placement and removal - DVT ppx as per ortho, should begin tomorrow. 7. HLD - on statin 8. HTN - stable 9. Depression - ssri 10. Hx iron deficiency anemia - resume iron at nd. 11. Unspeficied genetic syndrome - has previously refused genetic testing as an outpatient. DVT ppx: as per ortho, hx DVTs, SCDs are ordered. Thank you for the opportunity to participate in the care of this patient. This patient was seen by Calvin Han PA-C under the supervision of Dr. Salgado. <Rosalind Salgado - Last Filed: 01/16/18 19:27> - Physical Exam Vital Signs Temp Pulse Resp BP Pulse Ox 97.3 F L 99 16 111/69 97 01/16/18 18:19 01/16/18 18:19 01/16/18 18:19 01/16/18 18:19 01/16/18 18:19 Oxygen Flow Rate (L/min) 2 Oxygen Delivery Method Nasal Cannula Weight: 193 lb 1.999 oz Body Mass Index (BMI) 38.9 Finger Stick Blood Glucose 202 Intake and Output for Last 24 Hours 01/14/18 01/15/18 01/16/18 23:59 23:59 23:59 Intake Total 2900 / 2900 Balance 2900 / 2900 POC Glucose 01/16/18 01/16/18 01/16/18 16:42 15:21 10:22 POC Glucose 190 H 202 H 112 H Assessment/Plan Patient seen by Calvin Han PA-C under my supervision Patient admitted by orthopedic surgery for left knee replacemement due to osteoarthritis. Hospitalist service was consulted for medical management. Graciela seen and examined. He had no complaints and felt well. He denied any fever, chills, cough, chest pain, SOB, abdominal pain, diarrhea or vomiting. Rview of systems is otherwise negative. LAbs and vitals reviewed. o/e: Vital Signs Height 4 ft 11 in Weight: 193 lb 1.999 oz Weight in Pounds 193.1 lbs Pulse Ox 97 Temperature 97.3 F Pulse Rate 99 Respiratory Rate 16 Blood Pressure 111/69 Blood Pressure Position Semi-Fowlers General: Alert, Oriented x3, Cooperative HEENT: Atraumatic, PERRLA, EOMI, Normocephalic Neck: Supple, No JVD, Negative Carotid Bruits Lungs: Clear to auscultation, Normal air movement Cardiovascular: Regular rate, No murmurs Abdomen: Bowel Sounds Present, Soft, Non Tender Extremities: No edema, Capillary Refill Less than 3 Seconds Skin: No rashes, No breakdown Musculoskeletal: - - left knee bandaged. Neurological: Cranial nerves II-XII grossly intact Psych/Mental Status: Normal Affect, Appropriate Plan is to continue IV cefazolin post op per orthopedics. Metformin on hold pre-op. To resume tomorrow. Insulin sliding scale. Currently on SCDs for DVT prophylaxis. DVT prophylaxis as per orthopedics. Continue IV fluid hydration at 125 cc/h. Rest of management as per above note, assessment and plan by Calvin Han PA-C. Code Visit Inpatient E&M: 31653 Subs Hosp L2
[2018-01-16] MEDS: Cefazolin 1 GM/50 ML BAG IV (20:04)
[2018-01-16] MEDS: oxyCODONE 5 MG Tablet PO (20:04)
[2018-01-16] MEDS: Meloxicam 7.5 MG Tablet PO (22:02)
[2018-01-16] MEDS: Senna/Docusate Sodium 1 Tablet 2 TABLET PO (22:03)
[2018-01-16] MEDS: Atorvastatin Calcium 20 MG Tablet PO (22:03)
[2018-01-16 22:25] LABS: Bedside Glucose 182 mg/dL (70-110)
[2018-01-17] MEDS: oxyCODONE 5 MG Tablet PO ×3 (01:20→22:05)
[2018-01-17] MEDS: 0.9% NaCl Peripheral Flush Adult/Peds IV ×3 (01:20→06:44)
[2018-01-17 01:25] VITALS: BP 122/70; PULSE 60; RESP 16; TEMP 36.4; O2SAT 96
[2018-01-17] MEDS: Cefazolin 1 GM/50 ML BAG IV (05:49)
[2018-01-17 05:50] LABS: Hematocrit 27.3 % (40-54); Mean Corpuscular Hgb 27.8 pg (27.0-32.0); Mean Corpuscular Volume 84.3 fL (80-94); Mean Platelet Vol. 9.3 fl (6.2-12.0); Platelet Count 364 K/mm3 (150-450); RBC Distribution Width CV 14.1 % (11.6-14.6); RBC Distribution Width SD 41.6 fl (35.1-43.9); Red Blood Count 3.24 M/mm3 (4.6-6.2); White Blood Count 15.9 K/mm3 (4.4-11.0)
[2018-01-17 06:09] LABS: Anion Gap 9 (5-15); BUN 14 mg/dL (7-18); BUN/Creat Ratio 15.2 RATIO (10-20); Calcium,Total 8.1 mg/dL (8.5-10.1); Chloride 110 mmol/L (98-107); Creatinine, Serum 0.92 mg/dL (0.70-1.30); EST Glomerular Filtration Rate 97 mL/min (>60); Est Glom Filt Rate - Afr Amer 117 mL/min (>60); Estimated Creatinine Clearance 133.57 ml/min; Glucose 157 mg/dL (74-106); Potassium 5.2 mmol/L (3.5-5.1); Sodium Level 142 mmol/L (136-145)
[2018-01-17 06:10] LABS: Scan Indicated on CBC? Y/N NO
[2018-01-17] MEDS: Acetaminophen 500 MG Tablet 1000 MG PO ×3 (06:44→21:52)
[2018-01-17] MEDS: Insulin Lispro 100 UNIT/ML INSULN.PEN SC ×3 (06:45→16:39)
[2018-01-17 06:49] VITALS: BP 127/61; PULSE 70; RESP 18; TEMP 36.8; O2SAT 95
--- NOTE | 2018-01-17 06:54 | PCM.PN.ORT ---
Subjective: The patient was sitting in bedside chair upon examination. Patient denies any chest pain, shortness of breath, dizziness, lightheadedness, nausea or vomiting, or calf pain. Pain is controlled on medications. No adverse overnight events. Patient does complain of pain in his left knee. Patient does wish to try to go to [facility] upon discharge. Objective: Vital signs stable and afebrile. Patient is able to plantarflex and dorsiflex actively. Sensation is intact to light touch to saphenous, sural, superficial and deep peroneal, and tibial distribution. Dressing is clean dry and intact. Negative Homans bilaterally, negative signs and symptoms of DVT. - Physical Exam General: Alert, Oriented x3, Cooperative, No apparent distress Vital Signs Temp Pulse Resp BP Pulse Ox 98.2 F 70 18 127/61 H 95 01/17/18 06:49 01/17/18 06:49 01/17/18 06:49 01/17/18 06:49 01/17/18 06:49 Oxygen Flow Rate (L/min) 2 Oxygen Delivery Method Room Air Weight: 87.6 kg Body Mass Index (BMI) 38.9 Finger Stick Blood Glucose 202 Intake and Output for Last 24 Hours 01/15/18 01/16/18 01/17/18 23:59 23:59 23:59 Intake Total 2900 / 2900 2293 / 2293 Output Total 1050 / 1050 Balance 2900 / 2900 1243 / 1243 Laboratory Tests Past 24 Hrs 01/17/18 01/17/18 05:18 05:18 WBC 15.9 H RBC 3.24 L Hgb 9.0 L Hct 27.3 L MCV 84.3 MCH 27.8 MCHC 33.0 RDW 14.1 RDW Differential 41.6 Plt Count 364 MPV 9.3 Sodium 142 Potassium 5.2 H Chloride 110 H Carbon Dioxide 23.0 Anion Gap 9 BUN 14 Creatinine 0.92 Estim Creat Clear Calc 133.57 Est GFR (MDRD) Af Amer 117 Est GFR (MDRD) Non-Af 97 BUN/Creatinine Ratio 15.2 Glucose 157 H Calcium 8.1 L POC Glucose 01/16/18 01/16/18 01/16/18 21:59 16:42 15:21 POC Glucose 182 H 190 H 202 H 01/16/18 10:22 POC Glucose 112 H Medical Necessity - Tobacco Use Smoking Status: Never smoker Tobacco Use: Non-smoker Assessment/Plan All Active Problems Gout (Acute) Left knee pain (Acute) New onset type 2 diabetes mellitus (Acute) 1. S/P left total knee arthroplasty POD #1 2. Continue Pain Medications: Tylenol and OxyIR 3. DVT Prophylaxis: 81 mg aspirin twice daily with food for 4 weeks postoperatively 4. PT/OT: Weightbearing as tolerated 5. H & H: 9.0/27.3, asymptomatic 6. Leukocytosis: Currently 15.9, afebrile. Patient did receive Decadron intraoperatively and feel this is reactive leukocytosis. 7. Continue postoperative medical management per medicine 8. Encouraged Incentive Spirometry 9. Disposition: Case management will be involved for placement to [facility] facility.
[2018-01-17 07:10] LABS: Bedside Glucose 167 mg/dL (70-110)
--- NOTE | 2018-01-17 08:04 | PCM.PN.HOSP ---
Subjective: Patient with no acute events overnight per self and per nursing report. He is working with therapies and states that today he is far more sore than the day prior but expected to improve. Current plan for continued physical therapy evaluations and possible placement to TCU/SNF. Patient denies fevers, chills, nausea, emesis, abdominal pain, chest pain or dyspnea. Objective: Physical Examination: General: awake, alert, oriented x 3 and cooperative, lying down, no apparent distress. Skin: normal color, turgor, no icterus, cyanosis, status post left TKR with dressing in place. HEENT: AT/NC, EOMI, PERRLA, MMM. Lungs: CTA bilaterally, moderate effort, mild decrease BL bases, no rales, ronchi or wheezing. Heart: Regular rate and rhythm; no gallop, rub audible. Abdomen: soft, obese, NTTP, ND, normal BS. Extremities: no cyanosis, clubbing, s/p L TKR w/ dressing in place, mild ankle edema. Neurological: patient awake, alert, oriented x 3; cognitive function intact; pupils equally reactive to light and accomodation; cranial nerves II-XII grossly normal, moving all 4 extremities except expected limitation LLE s/p recent L TKR, no focal deficits, strength moderately globally decreased. Psychiatric: affect appears normal, no acute evidence of depressive or anxiety feelings. Vitals/I&O's: Vital Signs Temp Pulse Resp BP Pulse Ox 98.2 F 70 18 127/61 H 95 01/17/18 06:49 01/17/18 06:49 01/17/18 06:49 01/17/18 06:49 01/17/18 06:49 Oxygen Flow Rate (L/min) 2 Oxygen Delivery Method Room Air Weight: 193 lb 1.999 oz Body Mass Index (BMI) 38.9 Finger Stick Blood Glucose 202 Intake and Output for Last 24 Hours 01/15/18 01/16/18 01/17/18 23:59 23:59 23:59 Intake Total 2900 / 2900 2293 / 2293 Output Total 1050 / 1050 Balance 2900 / 2900 1243 / 1243 Laboratory Results 01/16/18 10:22: POC Glucose 112 H 01/16/18 15:21: POC Glucose 202 H 01/16/18 16:42: POC Glucose 190 H 01/16/18 21:59: POC Glucose 182 H 01/17/18 05:18: WBC 15.9 H, RBC 3.24 L, Hgb 9.0 L, Hct 27.3 L, MCV 84.3, MCH 27.8, MCHC 33.0, RDW 14.1, RDW Differential 41.6, Plt Count 364, MPV 9.3 01/17/18 05:18: Sodium 142, Potassium 5.2 H, Chloride 110 H, Carbon Dioxide 23.0, Anion Gap 9, BUN 14, Creatinine 0.92, Estim Creat Clear Calc 133.57, Est GFR (MDRD) Af Amer 117, Est GFR (MDRD) Non-Af 97, BUN/Creatinine Ratio 15.2, Glucose 157 H, Calcium 8.1 L 01/17/18 06:41: POC Glucose 167 H Current Medications Acetaminophen (Tylenol) 1,000 mg PO Q8 [facility] Last Admin: 01/17/18 06:44 Dose: 1,000 mg [facility] Amlodipine Besylate (Norvasc) 10 mg PO DAILY [facility] Aspirin (Aspirin, Baby) [facility] Last Admin: 01/16/18 17:05 Dose: 81 mg Atorvastatin Calcium (Lipitor) 20 mg PO QHS [facility] Last Admin: 01/16/18 22:03 Dose: 20 mg Famotidine (Pepcid) 20 mg PO DAILY [facility] Lactated Ringer's () 1,000 mls @ 125 mls/hr IV .Q8H [facility] Last Admin: 01/17/18 04:00 Dose: Not Given Insulin Human Lispro (Humalog Kwikpen (Bkc)) 0 unit SC [facility]; Protocol Last Admin: 01/17/18 06:45 Dose: 2 u Ketorolac Tromethamine (Toradol) 15 mg IV Q6H PRN PRN PRN Reason: MILD-MOD PAIN (1-5/10) Meloxicam (Mobic) 7.5 mg PO BID [facility] Last Admin: 01/16/18 22:02 Dose: 7.5 mg Morphine Sulfate () 2 - 4 mg IV Q2H PRN PRN PRN Reason: SEVERE PAIN (6-10/10) Morphine Sulfate () 2 - 4 mg IV Q2H PRN PRN PRN Reason: SEVERE PAIN (6-10/10) Nutritional Formula (Lactose Free) (Glucerna Shake) 120 ml PO TIDCM [facility] Last Admin: 01/16/18 17:08 Dose: 120 ml Ondansetron HCl (Zofran) 4 mg IV Q8H PRN PRN PRN Reason: NAUSEA Oxycodone HCl (Oxyir) 5 - 10 mg PO Q4H PRN PRN PRN Reason: MOD-SEVERE PAIN (4-10/10) Last Admin: 01/17/18 06:44 Dose: 5 mg Pantoprazole Sodium (Protonix) 80 mg PO DAILY [facility] Polysaccharide Iron Complex (Ferrex 150) [facility] Promethazine HCl (Phenergan) 12.5 mg IM Q6H PRN PRN; Protocol PRN Reason: NAUSEA/VOMITING Senna/Docusate Sodium (Senokot-S, [place]-Colace) 2 tablet PO BID [facility] Last Admin: 01/16/18 22:03 Dose: 2 tablet Sertraline HCl (Zoloft) 50 mg PO DAILY [facility] Sodium Chloride () 5 - 15 ml IV UD PRN PRN Reason: SALINE FLUSH Last Admin: 01/17/18 06:44 Dose: 10 ml Medical Necessity - Tobacco Use Smoking Status: Never smoker Tobacco Use: Non-smoker Assessment/Plan All Active Problems Gout (Acute) Left knee pain (Acute) New onset type 2 diabetes mellitus (Acute) The patient is a 37 y/o M w/ PMHx: HTN, HLD, Diabetes mellitus type II, Fe deficiency Anemia, History of DVT w/ prior IVCF placement and removal, History of Decubitous Ulcer to the L buttoack, Obesity, Skeletal Genetic Disorder who presents to the [facility] on 01/16/18 for planned L TKR. (1) Severe Osteoarthritis, L Knee: Failed conservative therapies and treatments, admitted per Dr. Napier for planned L TKR, post-operative pain management, bowel regimen, DVT Prophylaxis, PT/OT/CM per Orthopedic surgery discretion. Planned TCU transition once appropriate per primary service. (2) Diabetes mellitus type II: Hold oral home regimen, ADA diet, accu checks w/ ISS. (3) Hypertension: Continue home regimen including Norvasc, PRN hydralazine. (4) Hyperlipidemia: Continue home statin regimen. (5) Obesity: Weight loss and lifestyle changes encouraged. (6) Fe Deficiency Anemia: Admission Hgb 9, continue Fe supplementation. (7) Gout: Continue home allopurinol regimen. (8) Anxiety and Depression: Continue home zoloft regimen. (9) GERD: Famotidine. (10) History of DVT: Prior IVCF placement and removal, ASA 81 mg BID per Orthopedic surgery discretion for chemoprophylaxis. (11) DVT Prophylaxis: SCDs, ASA 81 mg BID. Code Visit Inpatient E&M: 56383 Subs Hosp L2
--- NOTE | 2018-01-17 08:09 | PN_ITS ---
Subjective: Patient with no acute events overnight per self and per nursing report. He is working with therapies and states that today he is far more sore than the day prior but expected to improve. Current plan for continued physical therapy evaluations and possible placement to TCU/SNF. Patient denies fevers, chills, nausea, emesis, abdominal pain, chest pain or dyspnea. Objective: Physical Examination: General: awake, alert, oriented x 3 and cooperative, lying down, no apparent distress. Skin: normal color, turgor, no icterus, cyanosis, status post left TKR with dressing in place. HEENT: AT/NC, EOMI, PERRLA, MMM. Lungs: CTA bilaterally, moderate effort, mild decrease BL bases, no rales, ronchi or wheezing. Heart: Regular rate and rhythm; no gallop, rub audible. Abdomen: soft, obese, NTTP, ND, normal BS. Extremities: no cyanosis, clubbing, s/p L TKR w/ dressing in place, mild ankle edema. Neurological: patient awake, alert, oriented x 3; cognitive function intact; pupils equally reactive to light and accomodation; cranial nerves II-XII grossly normal, moving all 4 extremities except expected limitation LLE s/p recent L TKR, no focal deficits, strength moderately globally decreased. Psychiatric: affect appears normal, no acute evidence of depressive or anxiety feelings. Vitals/I&O's: Vital Signs Temp Pulse Resp BP Pulse Ox 98.2 F 70 18 127/61 H 95 01/17/18 06:49 01/17/18 06:49 01/17/18 06:49 01/17/18 06:49 01/17/18 06:49 Oxygen Flow Rate (L/min) 2 Oxygen Delivery Method Room Air Weight: 193 lb 1.999 oz Body Mass Index (BMI) 38.9 Finger Stick Blood Glucose 202 Intake and Output for Last 24 Hours 01/15/18 01/16/18 01/17/18 23:59 23:59 23:59 Intake Total 2900 / 2900 2293 / 2293 Output Total 1050 / 1050 Balance 2900 / 2900 1243 / 1243 Laboratory Results 01/16/18 10:22: POC Glucose 112 H 01/16/18 15:21: POC Glucose 202 H 01/16/18 16:42: POC Glucose 190 H 01/16/18 21:59: POC Glucose 182 H 01/17/18 05:18: WBC 15.9 H, RBC 3.24 L, Hgb 9.0 L, Hct 27.3 L, MCV 84.3, MCH 27.8, MCHC 33.0, RDW 14.1, RDW Differential 41.6, Plt Count 364, MPV 9.3 01/17/18 05:18: Sodium 142, Potassium 5.2 H, Chloride 110 H, Carbon Dioxide 23.0, Anion Gap 9, BUN 14, Creatinine 0.92, Estim Creat Clear Calc 133.57, Est GFR (MDRD) Af Amer 117, Est GFR (MDRD) Non-Af 97, BUN/Creatinine Ratio 15.2, Glucose 157 H, Calcium 8.1 L 01/17/18 06:41: POC Glucose 167 H Current Medications Acetaminophen (Tylenol) 1,000 mg PO Q8 [facility] Last Admin: 01/17/18 06:44 Dose: 1,000 mg [facility]op[facility]oprim) [facility] Amlodipine Besylate (Norvasc) 10 mg PO DAILY [facility] Aspirin (Aspirin, Baby) [facility] Last Admin: 01/16/18 17:05 Dose: 81 mg Atorvastatin Calcium (Lipitor) 20 mg PO QHS [facility] Last Admin: 01/16/18 22:03 Dose: 20 mg Famotidine (Pepcid) 20 mg PO DAILY [facility] Lactated Ringer's () 1,000 mls @ 125 mls/hr IV .Q8H [facility] Last Admin: 01/17/18 04:00 Dose: Not Given Insulin Human Lispro (Humalog Kwikpen (Bkc)) 0 unit [place] [facility]; Protocol Last Admin: 01/17/18 06:45 Dose: 2 u Ketorolac Tromethamine (Toradol) 15 mg IV Q6H PRN PRN PRN Reason: MILD-MOD PAIN (1-5/10) Meloxicam (Mobic) 7.5 mg PO BID [facility] Last Admin: 01/16/18 22:02 Dose: 7.5 mg Morphine Sulfate () 2 - 4 mg IV Q2H PRN PRN PRN Reason: SEVERE PAIN (6-10/10) Morphine Sulfate () 2 - 4 mg IV Q2H PRN PRN PRN Reason: SEVERE PAIN (6-10/10) Nutritional Formula (Lactose Free) (Glucerna Shake) 120 ml PO TIDCM [facility] Last Admin: 01/16/18 17:08 Dose: 120 ml Ondansetron HCl (Zofran) 4 mg IV Q8H PRN PRN PRN Reason: NAUSEA Oxycodone HCl (Oxyir) 5 - 10 mg PO Q4H PRN PRN PRN Reason: MOD-SEVERE PAIN (4-10/10) Last Admin: 01/17/18 06:44 Dose: 5 mg Pantoprazole Sodium (Protonix) 80 mg PO DAILY [facility] Polysaccharide Iron Complex (Ferrex 150) [facility] Promethazine HCl (Phenergan) 12.5 mg IM Q6H PRN PRN; Protocol PRN Reason: NAUSEA/VOMITING Senna/Docusate Sodium (Senokot-S, [place]-Colace) 2 tablet PO BID [facility] Last Admin: 01/16/18 22:03 Dose: 2 tablet Sertraline HCl (Zoloft) 50 mg PO DAILY [facility] Sodium Chloride () 5 - 15 ml IV UD PRN PRN Reason: SALINE FLUSH Last Admin: 01/17/18 06:44 Dose: 10 ml Medical Necessity - Tobacco Use Smoking Status: Never smoker Tobacco Use: Non-smoker Assessment/Plan All Active Problems Gout (Acute) Left knee pain (Acute) New onset type 2 diabetes mellitus (Acute) The patient is a 37 y/o M w/ PMHx: HTN, HLD, Diabetes mellitus type II, Fe deficiency Anemia, History of DVT w/ prior IVCF placement and removal, History of Decubitous Ulcer to the L buttoack, Obesity, Skeletal Genetic Disorder who presents to the [facility] on 01/16/18 for planned L TKR. (1) Severe Osteoarthritis, L Knee: Failed conservative therapies and treatments, admitted per Dr. Napier for planned L TKR, post-operative pain management, bowel regimen, DVT Prophylaxis, PT/OT/CM per Orthopedic surgery discretion. Planned TCU transition once appropriate per primary service. (2) Diabetes mellitus type II: Hold oral home regimen, ADA diet, accu checks w/ ISS. (3) Hypertension: Continue home regimen including Norvasc, PRN hydralazine. (4) Hyperlipidemia: Continue home statin regimen. (5) Obesity: Weight loss and lifestyle changes encouraged. (6) Fe Deficiency Anemia: Admission Hgb 9, continue Fe supplementation. (7) Gout: Continue home allopurinol regimen. (8) Anxiety and Depression: Continue home zoloft regimen. (9) GERD: Famotidine. (10) History of DVT: Prior IVCF placement and removal, ASA 81 mg BID per Orthopedic surgery discretion for chemoprophylaxis. (11) DVT Prophylaxis: SCDs, ASA 81 mg BID. Code Visit Inpatient E&M: 88946 Subs Hosp L2
[2018-01-17] MEDS: Senna/Docusate Sodium 1 Tablet 2 TABLET PO ×2 (08:47→21:55)
[2018-01-17] MEDS: Famotidine 20 MG Tablet PO (08:48)
[2018-01-17] MEDS: Allopurinol 300 MG Tablet PO (08:48)
[2018-01-17] MEDS: Meloxicam 7.5 MG Tablet PO ×2 (08:48→21:55)
[2018-01-17] MEDS: Aspirin 81 MG TAB.CHEW PO ×2 (08:48→16:38)
[2018-01-17] MEDS: Sertraline 50 MG Tablet PO (08:49)
[2018-01-17] MEDS: Pantoprazole Sodium 40 MG Tablet 80 MG PO (08:49)
[2018-01-17] MEDS: amLODIPine 10 MG Tablet PO (08:50)
[2018-01-17] MEDS: Glucerna Shake 120 ML LIQUID PO ×3 (08:52→16:42)
[2018-01-17 08:59] VITALS: PULSE 70
--- NOTE | 2018-01-17 10:10 | CASEMGMT ---
IESHA PONCE Face to Face with patient for initial transition planning/care coordination assessment. IESHA PONCE introduced self and role at [facility]. Patient lying in bed, alert and oriented. Patient willing to participate in assessment and is able to answer all questions appropriately. Care providers, pharmacy, and demographics verified. Patient wishes to discharge to TCU, 2nd choice inpatient rehab, 3rd choice [facility]. Patient states he has no further needs or concerns at this time. KALPESH Davis updated to patient's wishes for placement at discharge. Disposition Plan: SNF pending precert. Sarah BUNN, RN, CM
[2018-01-17 11:36] LABS: Bedside Glucose 195 mg/dL (70-110)
--- NOTE | 2018-01-17 12:07 | CASEMGMT ---
Addendum entered by Sarah Davis 01/17/18 17:02: KALPESH spoke with Mary in TCU stating she is able to accept pt and they will submit for pre-cert tomorrow. Original Note: Social Work Note RN ROSARIO Mckay updated this worker that pt would like TCU at discharge. If TCU doesn't have beds pt would like either [facility] or [facility]. KALPESH placed a call to Mary in TCU. Per Mary she will review referral and would have a bed Monday for pt. KALPESH informed Mary that if she is able to accept, the bed on Monday would be fine for pt. Plan: TCU pending acceptance and pre-cert Sarah Davis [employer], INSTRUCTOR EXT[employer]ION WORK
[2018-01-17 14:18] VITALS: BP 116/64; PULSE 80; RESP 18; TEMP 37; O2SAT 97
[2018-01-17 16:20] LABS: Bedside Glucose 169 mg/dL (70-110)
[2018-01-17 21:45] VITALS: BP 125/88; PULSE 81; RESP 18; TEMP 36.9; O2SAT 100
[2018-01-17] MEDS: Atorvastatin Calcium 20 MG Tablet PO (21:54)
[2018-01-17 23:05] LABS: Bedside Glucose 147 mg/dL (70-110)
[2018-01-18 02:25] VITALS: BP 120/79; PULSE 65; RESP 18; TEMP 36.7; O2SAT 97
[2018-01-18] MEDS: oxyCODONE 5 MG Tablet PO ×5 (02:28→21:06)
[2018-01-18 02:30] VITALS: PULSE 65
[2018-01-18] MEDS: Acetaminophen 500 MG Tablet 1000 MG PO ×3 (06:47→21:06)
[2018-01-18 06:58] LABS: Hematocrit 25.2 % (40-54); Mean Corp Hgb Conc 31.7 g/gl (32-36); Mean Corpuscular Hgb 27.7 pg (27.0-32.0); Mean Corpuscular Volume 87.2 fL (80-94); Mean Platelet Vol. 9.4 fl (6.2-12.0); Platelet Count 332 K/mm3 (150-450); RBC Distribution Width CV 14.6 % (11.6-14.6); Red Blood Count 2.89 M/mm3 (4.6-6.2); White Blood Count 9.8 K/mm3 (4.4-11.0)
--- NOTE | 2018-01-18 07:00 | PCM.PN.ORT ---
Subjective: The patient was sitting in bed upon examination. Patient denies any chest pain, shortness of breath, dizziness, lightheadedness, nausea or vomiting, or calf pain. Pain is controlled on medications. No adverse overnight events. Patient does state he was more sore with his knee. He has been doing well in therapy. Plan is for patient to go to [facility] facility upon discharge. Transitional care unit is able to accept patient and we are waiting on pre-CERT. Objective: Vital signs stable and afebrile. Patient is able to plantarflex and dorsiflex actively. Sensation is intact to light touch to saphenous, sural, superficial and deep peroneal, and tibial distribution. Dressing is clean dry and intact. Negative Homans bilaterally, negative signs and symptoms of DVT. - Physical Exam General: Alert, Oriented x3, Cooperative, No apparent distress Vital Signs Temp Pulse Resp BP Pulse Ox 98.1 F 65 18 120/79 97 01/18/18 02:25 01/18/18 02:30 01/18/18 02:25 01/18/18 02:25 01/18/18 02:25 Oxygen Flow Rate (L/min) 2 Oxygen Delivery Method Room Air Weight: 87.6 kg Body Mass Index (BMI) 38.9 Finger Stick Blood Glucose 202 Intake and Output for Last 24 Hours 01/16/18 01/17/18 01/18/18 23:59 23:59 23:59 Intake Total 2900 / 2900 2293 / 2293 200 / 200 Output Total 1050 / 1050 575 / 575 Balance 2900 / 2900 1243 / 1243 -375 / -375 Laboratory Tests Past 24 Hrs 01/18/18 06:30 WBC Pending RBC Pending Hgb Pending Hct Pending MCV Pending MCH Pending MCHC Pending RDW Pending RDW Differential Pending Plt Count Pending POC Glucose 01/17/18 01/17/18 01/17/18 22:07 16:12 11:32 POC Glucose 147 H 169 H 195 H 01/17/18 06:41 POC Glucose 167 H Medical Necessity - Tobacco Use Smoking Status: Never smoker Tobacco Use: Non-smoker Assessment/Plan All Active Problems Gout (Acute) Left knee pain (Acute) New onset type 2 diabetes mellitus (Acute) 1. S/P left total knee arthroplasty POD #2 2. Continue Pain Medications: Tylenol and OxyIR 3. DVT Prophylaxis: 81 mg aspirin twice daily with food for 4 weeks postoperatively 4. PT/OT: Weightbearing as tolerated 5. H & H: 8.0/25.2, asymptomatic 6. Reactive leukocytosis: Resolved and currently 9.8, afebrile. Patient did receive Decadron intraoperatively. 7. Continue postoperative medical management per medicine 8. Encouraged Incentive Spirometry 9. Disposition: Plan will be for discharge to [facility] facility. Transitional care unit is able to accept the patient and we are waiting on pre-CERT. Prescriptions will be attached to the chart. Patient will follow-up per postop instructions. Plan will be for discharge tomorrow if pre-CERT has been obtained.
[2018-01-18 07:10] LABS: Bedside Glucose 99 mg/dL (70-110)
--- NOTE | 2018-01-18 07:15 | DCINST_ITS ---
Discharge Diet: No Restrictions Discharge Activity: May Not Drive May shower in (days): 1 - Turned dressing away from water Ice area for (Minutes): 20 - every hour while awake. Weight Bearing Status: Weight bearing as tolerated - With walker Elevate: Operative Extremity Additional Activity Instructions:: Wear elastic stockings for 2 weeks after your surgery. Call your doctor if your incision/area has: Continuous Slow Oozing, Sudden Increased Bleeding, Increased Pain/ Swelling, Increased Redness, Foul Smelling Discharge Call your doctor if you observe: Fever of 101 or Higher, Coldness, Increased Pain, Numbness or Tingling, Change in Color, Calf discomfort, Uncontrolled pain Remove Dressing in (days):: 3 - Okay to remove dressing on January 21, 2018 Additional Instructions: Follow [facility] orthopedic postop instructions Pain control: Patient should be taking extra strength Tylenol 500 mg 2 tablets e very 8 hours for primary pain control, will then use oxycodone 1-2 tablets 5 mg every 4 hours for breakthrough pain Allergies/Adverse Reactions: Allergies codeine Allergy (Verified 01/06/18 17:12) Other lisinopril Allergy (Verified 01/06/18 17:12) Rash Medications to take at Discharge Sertraline HCl [Zoloft] 50 mg PO DAILY 02/22/14 Atorvastatin Calcium 20 mg PO QHS 07/10/16 Amlodipine [Norvasc] 10 mg PO DAILY 10/16/17 Omeprazole 80 mg PO DAILY 10/16/17 Metformin HCl 500 mg PO BID #60 tablet 11/08/17 Allopurinol [Zyloprim] 300 mg PO DAILYCM 01/02/18 Iron Polysaccharide Complex [Ferrex 150] 324 mg PO BIDCM 01/02/18 Acetaminophen [Tylenol] 1,000 mg PO Q8H 30 Days tablet 01/18/18 Aspirin [Aspirin, Baby] 81 mg PO BIDCM 30 Days tab.chew 01/18/18 Meloxicam [Mobic] 7.5 mg PO BID 30 Days tablet 01/18/18 Oxycodone [Oxyir] 5 - 10 mg PO Q4H PRN PRN 5 Days #60 tab 01/18/18 Senna/Docusate Sodium [Senokot-S] 2 tablet PO BID tablet 01/18/18 The following prescriptions were given: Oxycodone [Oxyir] 5 - 10 mg PO Q4H PRN PRN 5 Days #60 tab PRN Reason: Mod-Severe Pain (4-11/22) Acetaminophen [Tylenol] 1,000 mg PO Q8H 30 Days tablet Primary Care Physician: Ezra Duggan MD [Primary Care Provider] - Test Results: Test results from this visit will be discussed in further detail at your follow- up appointment, if applicable. Please Follow Up With: Jose L Snyder PA-C When: 01/29/18 @ 3:00 pm
[2018-01-18 07:17] LABS: Scan Indicated on CBC? Y/N NO
--- NOTE | 2018-01-18 07:37 | PN_ITS ---
Subjective: Patient without any acute events overnight per self and RN report. Tolerating therapies well, notes still sore but less than the day prior. He is agreeable to TCU transition likely 01/19/18 AM. Patient denies fevers, chills, nausea, emesis, abdominal pain, chest pain or dyspnea. Objective: Physical Examination: General: awake, alert, oriented x 3 and cooperative, seated upright in the bedside chair, NAD, talkative. Skin: normal color, turgor, no icterus, cyanosis, status post left TKR with dressing in place. HEENT: AT/NC, EOMI, PERRLA, MMM. Lungs: CTA bilaterally, moderate effort, mild decrease BL bases, no rales, ronchi or wheezing. Heart: Regular rate and rhythm; no gallop, rub audible. Abdomen: soft, obese, NTTP, ND, normal BS. Extremities: no cyanosis, clubbing, s/p L TKR w/ dressing in place, mild ankle edema. Neurological: patient awake, alert, oriented x 3; cognitive function intact; pupils equally reactive to light and accomodation; cranial nerves II-XII grossly normal, moving all 4 extremities except expected limitation LLE s/p recent L TKR, no focal deficits, strength moderately globally decreased. Psychiatric: affect appears normal, no acute evidence of depressive or anxiety feelings. Vitals/I&O's: Vital Signs Temp Pulse Resp BP Pulse Ox 98.1 F 65 18 120/79 97 01/18/18 02:25 01/18/18 02:30 01/18/18 02:25 01/18/18 02:25 01/18/18 02:25 Oxygen Flow Rate (L/min) 2 Oxygen Delivery Method Room Air Weight: 193 lb 1.999 oz Body Mass Index (BMI) 38.9 Finger Stick Blood Glucose 202 Intake and Output for Last 24 Hours 01/16/18 01/17/18 01/18/18 23:59 23:59 23:59 Intake Total 2900 / 2900 2293 / 2293 600 / 600 Output Total 1050 / 1050 1675 / 1675 Balance 2900 / 2900 1243 / 1243 -1075 / -1075 Laboratory Results 01/17/18 11:32: POC Glucose 195 H 01/17/18 16:12: POC Glucose 169 H 01/17/18 22:07: POC Glucose 147 H 01/18/18 06:30: WBC 9.8, RBC 2.89 L, Hgb 8.0 L, Hct 25.2 L, MCV 87.2, MCH 27.7, MCHC 31.7 L, RDW 14.6, RDW Differential 44.0 H, Plt Count 332, MPV 9.4 01/18/18 06:56: POC Glucose 99 Current Medications Acetaminophen (Tylenol) 1,000 mg PO Q8 [facility] Last Admin: 01/18/18 06:47 Dose: 1,000 mg [facility]op[facility] ([facility]) [facility] Last Admin: 01/17/18 08:48 Dose: 300 mg Amlodipine Besylate (Norvasc) 10 mg PO DAILY [facility] Last Admin: 01/17/18 08:50 Dose: 10 mg Aspirin (Aspirin, Baby) [facility] Last Admin: 01/17/18 16:38 Dose: 81 mg Atorvastatin Calcium (Lipitor) 20 mg PO QHS [facility] Last Admin: 01/17/18 21:54 Dose: 20 mg Famotidine (Pepcid) 20 mg PO DAILY [facility] Last Admin: 01/17/18 08:48 Dose: 20 mg Hydralazine HCl (Apresoline Iv) 10 mg IV Q4H PRN PRN PRN Reason: SBP > 160 Insulin Human Lispro (Humalog Kwikpen (Bkc)) 0 unit [facility]; Protocol Last Admin: 01/18/18 07:00 Dose: Not Given Ketorolac Tromethamine (Toradol) 15 mg IV Q6H PRN PRN PRN Reason: MILD-MOD PAIN (1-5/10) Meloxicam (Mobic) 7.5 mg PO BID [facility] Last Admin: 01/17/18 21:55 Dose: 7.5 mg Morphine Sulfate () 2 - 4 mg IV Q2H PRN PRN PRN Reason: SEVERE PAIN (6-10/10) Morphine Sulfate () 2 - 4 mg IV Q2H PRN PRN PRN Reason: SEVERE PAIN (6-10/10) Nutritional Formula (Lactose Free) (Glucerna Shake) 120 ml PO TIDCM [facility] Last Admin: 01/17/18 16:42 Dose: 120 ml Ondansetron HCl (Zofran) 4 mg IV Q8H PRN PRN PRN Reason: NAUSEA Oxycodone HCl (Oxyir) 5 - 10 mg PO Q4H PRN PRN PRN Reason: MOD-SEVERE PAIN (4-10/10) Last Admin: 01/18/18 06:51 Dose: 5 mg Pantoprazole Sodium (Protonix) 80 mg PO DAILY [facility] Last Admin: 01/17/18 08:49 Dose: 80 mg Promethazine HCl (Phenergan) 12.5 mg IM Q6H PRN PRN; Protocol PRN Reason: NAUSEA/VOMITING Senna/Docusate Sodium (Senokot-S, [place]-Colace) 2 tablet PO BID [facility] Last Admin: 01/17/18 21:55 Dose: 2 tablet Sertraline HCl (Zoloft) 50 mg PO DAILY [facility] Last Admin: 01/17/18 08:49 Dose: 50 mg Sodium Chloride () 5 - 15 ml IV UD PRN PRN Reason: SALINE FLUSH Last Admin: 01/17/18 06:44 Dose: 10 ml Medical Necessity - Tobacco Use Smoking Status: Never smoker Tobacco Use: Non-smoker Assessment/Plan All Active Problems Gout (Acute) Left knee pain (Acute) New onset type 2 diabetes mellitus (Acute) The patient is a 37 y/o M w/ PMHx: HTN, HLD, Diabetes mellitus type II, Fe deficiency Anemia, History of DVT w/ prior IVCF placement and removal, History of Decubitous Ulcer to the L buttoack, Obesity, Skeletal Genetic Disorder who presents to the [facility] on 01/16/18 for planned L TKR. (1) Severe Osteoarthritis, L Knee: Failed conservative therapies and treatments, admitted per Dr. Napier for planned L TKR, post-operative pain management, bowel regimen, DVT Prophylaxis, PT/OT/CM per Orthopedic surgery discretion. Planned TCU transition 01/19/18 AM. Medically appropriate for transition once bed and insurance approval obtained. (2) Diabetes mellitus type II: Hold oral home regimen, ADA diet, accu checks w/ ISS. (3) Hypertension: Continue home regimen including Norvasc, PRN hydralazine. (4) Hyperlipidemia: Continue home statin regimen. (5) Obesity: Weight loss and lifestyle changes encouraged. (6) Fe Deficiency Anemia: Admission Hgb 9, post-op Hgb 8, continue to monitor, continue Fe supplementation. (7) Gout: Continue home allopurinol regimen. (8) Anxiety and Depression: Continue home zoloft regimen. (9) GERD: Famotidine. (10) History of DVT: Prior IVCF placement and removal, ASA 81 mg BID per Orthopedic surgery discretion for chemoprophylaxis. (11) DVT Prophylaxis: SCDs, ASA 81 mg BID. Code Visit Inpatient E&M: 13803 Subs Hosp L2
[2018-01-18 08:20] VITALS: BP 108/58; PULSE 86; RESP 18; TEMP 36.8; O2SAT 96
[2018-01-18] MEDS: Allopurinol 300 MG Tablet PO (08:27)
[2018-01-18] MEDS: Sertraline 50 MG Tablet PO (08:27)
[2018-01-18] MEDS: Famotidine 20 MG Tablet PO (08:27)
[2018-01-18] MEDS: Pantoprazole Sodium 40 MG Tablet 80 MG PO (08:27)
[2018-01-18] MEDS: amLODIPine 10 MG Tablet PO (08:27)
[2018-01-18] MEDS: Aspirin 81 MG TAB.CHEW PO ×2 (08:27→16:22)
[2018-01-18] MEDS: Meloxicam 7.5 MG Tablet PO ×2 (08:27→21:07)
[2018-01-18] MEDS: Glucerna Shake 120 ML LIQUID PO ×3 (08:31→16:22)
--- NOTE | 2018-01-18 10:55 | CASEMGMT ---
Addendum entered by Sarah Davis 01/18/18 10:56: Plan: TCU pending pre-cert Original Note: Social Work Note SW received call from Elizabeth stating she submitted for pre-cert today. SW updated pt that he has been accepted to TCU and he will be able to discharge there pending pre-cert. Pt states understanding. Sarah Davis [employer], SHAREPOINT ANALYST
[2018-01-18 11:30] LABS: Bedside Glucose 122 mg/dL (70-110)
[2018-01-18 14:20] VITALS: BP 136/84; PULSE 87; RESP 18; TEMP 37; O2SAT 100
[2018-01-18 16:41] LABS: Bedside Glucose 121 mg/dL (70-110)
[2018-01-18 20:20] VITALS: BP 108/69; PULSE 88; RESP 18; TEMP 37.2; O2SAT 99
[2018-01-18 20:57] VITALS: PULSE 88; RESP 18; O2SAT 99
[2018-01-18] MEDS: Atorvastatin Calcium 20 MG Tablet PO (21:07)
[2018-01-18] MEDS: Senna/Docusate Sodium 1 Tablet 2 TABLET PO (21:07)
[2018-01-18 22:10] LABS: Bedside Glucose 126 mg/dL (70-110)
[2018-01-19 02:30] VITALS: BP 138/79; PULSE 70; RESP 18; TEMP 36.7; O2SAT 97
[2018-01-19] MEDS: oxyCODONE 5 MG Tablet PO ×3 (02:48→10:56)
[2018-01-19 02:55] VITALS: PULSE 70
[2018-01-19 06:12] LABS: Hematocrit 26.5 % (40-54); Hemoglobin 8.4 g/dl (13.0-16.5); Mean Corp Hgb Conc 31.7 g/gl (32-36); Mean Corpuscular Hgb 27.6 pg (27.0-32.0); Mean Corpuscular Volume 87.2 fL (80-94); Mean Platelet Vol. 9.4 fl (6.2-12.0); Platelet Count 317 K/mm3 (150-450); RBC Distribution Width CV 14.6 % (11.6-14.6); RBC Distribution Width SD 44.8 fl (35.1-43.9); Red Blood Count 3.04 M/mm3 (4.6-6.2); White Blood Count 8.3 K/mm3 (4.4-11.0)
[2018-01-19 06:23] LABS: Scan Indicated on CBC? Y/N NO
[2018-01-19] MEDS: Acetaminophen 500 MG Tablet 1000 MG PO (06:53)
[2018-01-19 06:55] LABS: Bedside Glucose 104 mg/dL (70-110)
--- NOTE | 2018-01-19 07:18 | PCM.PN.HOSP ---
Subjective: Patient with no acute events overnight per self and per nursing report. Patient activity is continuing to improve although he does sometimes seem to be impulsive and attempting to walk very fast with therapies. Patient did obtain prior authorization and will transition to TCU this morning to which she remains amenable. Patient denies fevers, chills, nausea, emesis, abdominal pain, chest pain or dyspnea. Objective: Physical Examination: General: awake, alert, oriented x 3 and cooperative, seated upright, NAD, talkative. Skin: normal color, turgor, no icterus, cyanosis, status post left TKR with dressing in place. HEENT: AT/NC, EOMI, PERRLA, MMM. Lungs: CTA bilaterally, moderate effort, mild decrease BL bases, no rales, ronchi or wheezing. Heart: Regular rate and rhythm; no gallop, rub audible. Abdomen: soft, obese, NTTP, ND, normal BS. Extremities: no cyanosis, clubbing, s/p L TKR w/ dressing in place, mild ankle edema. Neurological: patient awake, alert, oriented x 3; cognitive function intact; pupils equally reactive to light and accomodation; cranial nerves II-XII grossly normal, moving all 4 extremities except expected limitation LLE s/p recent L TKR, no focal deficits, strength moderately globally decreased. Psychiatric: affect appears normal, no acute evidence of depressive or anxiety feelings. Vitals/I&O's: Vital Signs Temp Pulse Resp BP Pulse Ox 98.1 F 70 18 138/79 H 97 01/19/18 02:30 01/19/18 02:55 01/19/18 02:30 01/19/18 02:30 01/19/18 02:30 Oxygen Flow Rate (L/min) 2 Oxygen Delivery Method Room Air Weight: 193 lb 1.999 oz Body Mass Index (BMI) 38.9 Finger Stick Blood Glucose 202 Intake and Output for Last 24 Hours 01/17/18 01/18/18 01/19/18 23:59 23:59 23:59 Intake Total 2293 / 2293 1320 / 1320 910 / 910 Output Total 1050 / 1050 2049 / 2049 1950 / 1950 Balance 1243 / 1243 -730 / -730 -1040 / -1040 Laboratory Results 01/18/18 11:21: POC Glucose 122 H 01/18/18 16:20: POC Glucose 121 H 01/18/18 21:13: POC Glucose 126 H 01/19/18 05:24: WBC 8.3, RBC 3.04 L, Hgb 8.4 L, Hct 26.5 L, MCV 87.2, MCH 27.6, MCHC 31.7 L, RDW 14.6, RDW Differential 44.8 H, Plt Count 317, MPV 9.4 01/19/18 06:48: POC Glucose 104 Current Medications Acetaminophen (Tylenol) 1,000 mg PO Q8 [facility] Last Admin: 01/19/18 06:53 Dose: 1,000 mg [facility] Admin: 01/18/18 08:27 Dose: 300 mg Amlodipine Besylate (Norvasc) 10 mg PO DAILY [facility] Last Admin: 01/18/18 08:27 Dose: 10 mg Aspirin ([facility]in, Baby) [facility] Last Admin: 01/18/18 16:22 Dose: 81 mg Atorvastatin Calcium (Lipitor) 20 mg PO QHS [facility] Last Admin: 01/18/18 21:07 Dose: 20 mg Famotidine (Pepcid) 20 mg PO DAILY [facility] Last Admin: 01/18/18 08:27 Dose: 20 mg Hydralazine HCl (Apresoline Iv) 10 mg IV Q4H PRN PRN PRN Reason: SBP > 160 Insulin Human Lispro (Humalog Kwikpen (Bkc)) 0 unit SC [facility]; Protocol Last Admin: 01/19/18 06:49 Dose: Not Given Ketorolac Tromethamine (Toradol) 15 mg IV Q6H PRN PRN PRN Reason: MILD-MOD PAIN (1-5/10) Meloxicam (Mobic) 7.5 mg PO BID [facility] Last Admin: 01/18/18 21:07 Dose: 7.5 mg Morphine Sulfate () 2 - 4 mg IV Q2H PRN PRN PRN Reason: SEVERE PAIN (6-10/10) Morphine Sulfate () 2 - 4 mg IV Q2H PRN PRN PRN Reason: SEVERE PAIN (6-10/10) Nutritional Formula (Lactose Free) (Glucerna Shake) 120 ml PO TIDCM [facility] Last Admin: 01/18/18 16:22 Dose: 120 ml Ondansetron HCl (Zofran) 4 mg IV Q8H PRN PRN PRN Reason: NAUSEA Oxycodone HCl (Oxyir) 5 - 10 mg PO Q4H PRN PRN PRN Reason: MOD-SEVERE PAIN (4-10/10) Last Admin: 01/19/18 06:53 Dose: 5 mg Pantoprazole Sodium (Protonix) 80 mg PO DAILY [facility] Last Admin: 01/18/18 08:27 Dose: 80 mg Promethazine HCl (Phenergan) 12.5 mg IM Q6H PRN PRN; Protocol PRN Reason: NAUSEA/VOMITING Senna/Docusate Sodium (Senokot-S, [place]-Colace) 2 tablet PO BID [facility] Last Admin: 01/18/18 21:07 Dose: 2 tablet Sertraline HCl (Zoloft) 50 mg PO DAILY [facility] Last Admin: 01/18/18 08:27 Dose: 50 mg Sodium Chloride () 5 - 15 ml IV UD PRN PRN Reason: SALINE FLUSH Last Admin: 01/17/18 06:44 Dose: 10 ml Medical Necessity - Tobacco Use Smoking Status: Never smoker Tobacco Use: Non-smoker Assessment/Plan All Active Problems Gout (Acute) Left knee pain (Acute) New onset type 2 diabetes mellitus (Acute) The patient is a 37 y/o M w/ PMHx: HTN, HLD, Diabetes mellitus type II, Fe deficiency Anemia, History of DVT w/ prior IVCF placement and removal, History of Decubitous Ulcer to the L buttoack, Obesity, Skeletal Genetic Disorder who presents to the [facility] on 01/16/18 for planned L TKR. (1) Severe Osteoarthritis, L Knee: Failed conservative therapies and treatments, admitted per Dr. Napier for planned L TKR, post-operative pain management, bowel regimen, DVT Prophylaxis, PT/OT/CM per Orthopedic surgery discretion. TCU transition plan for this a.m. as per discussion with case management and social work prior authorization obtained. Discussed with orthopedic surgery and patient clinically appropriate and medically cleared for transition. (2) Diabetes mellitus type II: Hold oral home regimen, ADA diet, accu checks w/ ISS. (3) Hypertension: Continue home regimen including Norvasc, PRN hydralazine. (4) Hyperlipidemia: Continue home statin regimen. (5) Obesity: Weight loss and lifestyle changes encouraged. (6) Fe Deficiency Anemia: Admission Hgb 9, post-op Hgb 8, 01/19/18 Hgb 8.4, continue Fe supplementation. (7) Gout: Continue home allopurinol regimen. (8) Anxiety and Depression: Continue home zoloft regimen. (9) GERD: Famotidine. (10) History of DVT: Prior IVCF placement and removal, ASA 81 mg BID per Orthopedic surgery discretion for chemoprophylaxis. (11) DVT Prophylaxis: SCDs, ASA 81 mg BID. Code Visit Inpatient E&M: 46701 Subs Hosp L2
[2018-01-19 07:54] VITALS: BP 114/71; PULSE 79; RESP 16; TEMP 36.8; O2SAT 96
[2018-01-19] MEDS: Pantoprazole Sodium 40 MG Tablet 80 MG PO (08:00)
[2018-01-19] MEDS: Meloxicam 7.5 MG Tablet PO (08:00)
[2018-01-19] MEDS: Sertraline 50 MG Tablet PO (08:01)
[2018-01-19] MEDS: amLODIPine 10 MG Tablet PO (08:01)
[2018-01-19] MEDS: Allopurinol 300 MG Tablet PO (08:01)
[2018-01-19] MEDS: Famotidine 20 MG Tablet PO (08:01)
[2018-01-19] MEDS: Senna/Docusate Sodium 1 Tablet 2 TABLET PO (08:01)
[2018-01-19] MEDS: Aspirin 81 MG TAB.CHEW PO (08:01)
[2018-01-19] MEDS: Glucerna Shake 120 ML LIQUID PO ×2 (08:03→10:56)
--- NOTE | 2018-01-19 09:47 | PCA ---
therapy working with pt
--- NOTE | 2018-01-19 10:06 | CASEMGMT ---
Social Work Note SW received message from Kole in TCU stating pre-cert has been obtained and pt is able to discharge to TCU today. SW updated physician. Plan: TCU today Sarah Davis MSW, COLD ROLL INSPECTOR
[2018-01-19 11:20] LABS: Bedside Glucose 130 mg/dL (70-110)
--- NOTE | 2018-01-19 11:45 | PCM.PN.ORT ---
Subjective: Patient sitting at bedside. Patient states pain is well managed. Denies chest pain, shortness breath, calf pain, nausea vomiting. Patient states he is ready for discharge to TCU Objective: Dressings clean dry intact. Negative signs or symptoms of DVT. Patient speaking full sentences no respiratory distress. Vital sign labs within normal limits. Patient is afebrile neurovascular is otherwise intact - Physical Exam General: Alert, Oriented x3, Cooperative HEENT: PERRLA Neurological: Cranial nerves II-XII grossly intact Psych/Mental Status: Normal Affect, Alert and oriented to time, place, person, mood and affect Vital Signs Temp Pulse Resp BP Pulse Ox 98.3 F 79 16 114/71 96 01/19/18 07:54 01/19/18 07:54 01/19/18 07:54 01/19/18 07:54 01/19/18 07:54 Oxygen Flow Rate (L/min) 2 Oxygen Delivery Method Room Air Weight: 87.6 kg Body Mass Index (BMI) 38.9 Finger Stick Blood Glucose 202 Intake and Output for Last 24 Hours 01/17/18 01/18/18 01/19/18 23:59 23:59 23:59 Intake Total 2293 / 2293 1320 / 1320 1270 / 1270 Output Total 1050 / 1050 2050 / 2050 2950 / 2950 Balance 1243 / 1243 -730 / -730 -1680 / -1680 Laboratory Tests Past 24 Hrs 01/19/18 05:24 WBC 8.3 RBC 3.04 L Hgb 8.4 L Hct 26.5 L MCV 87.2 MCH 27.6 MCHC 31.7 L RDW 14.6 RDW Differential 44.8 H Plt Count 317 MPV 9.4 POC Glucose 01/19/18 01/19/18 01/18/18 10:59 06:48 21:13 POC Glucose 130 H 104 126 H 01/18/18 16:20 POC Glucose 121 H Medical Necessity - Tobacco Use Smoking Status: Never smoker Tobacco Use: Non-smoker Assessment/Plan All Active Problems Gout (Acute) Left knee pain (Acute) New onset type 2 diabetes mellitus (Acute) Status post left total knee Plan 1. Continue all pain medications as prescribed 2. Continue physical therapy at [facility] TCU 3. Aspirin as prescribed for postop DVT prophylaxis 4. Weight-bear as tolerated and ambulating with use of a walker. 5. Discharge to TCU today
[2018-01-19 12:07] VITALS: BP 120/68; PULSE 81; RESP 16; TEMP 36.2; O2SAT 97
--- NOTE | 2018-01-19 12:37 | NURSING ---
Called report to Maria M in TCU at this time.
--- NOTE | 2018-01-22 09:39 | PCM.DC.BLA ---
Discharge Summary Date of Admission: 01/16/18 Date of Discharge: 01/21/18 Summary: Patient admitted on [address] Naiper for a left total knee arthroplasty. Patient had a multiple year history of ongoing knee pain without resolve and conservative therapy. Patient did receive a perioperative antibiotic Intra-Op was uneventful for complete details please see the dictated op note patient was remained stable postoperatively was admitted was given a hospital joint center where he participated in his postop pain management, medical management, rehab. Patient did very well was then discharged to an extended care facility TCU within the hospital. Patient's labs vitals all remained stable postop x-rays were were obtained and read by Dr. Jesus. Medical management was consulted for management for complete details of their interaction please see the dictated notes. Patient will continue all of all pain medications as prescribed, and all aspirin as prescribed for postop DVT prophylaxis. She will follow-up with Dr. Jesus as scheduled - Physical Exam General: Alert, Oriented x3, Cooperative HEENT: PERRLA Oral: Moist Mucosa Cardiovascular: Regular rate Skin: No rashes Neurological: Cranial nerves II-XII grossly intact Psych/Mental Status: Normal Affect, Alert and oriented to time, place, person, mood and affect Vital Signs Temp Pulse Resp BP Pulse Ox 97.2 F L 81 16 120/68 97 01/19/18 12:07 01/19/18 12:07 01/19/18 12:01/19/18 12:01/19/18 12:07 Oxygen Flow Rate (L/min) 2 Oxygen Delivery Method Room Air Weight: 87.6 kg Body Mass Index (BMI) 38.9 Finger Stick Blood Glucose 202
== END 2018-01-19 12:50 | disposition skilled nursing facility (03) | DRG 470 ==
PROVIDERS: Anesthesiology; Admitting Provider Specialist; Family Provider Family Medicine; PCP Family Medicine; Referring Provider Specialist; Visit Provider Specialist
PROC: 0SRD0J9 Replacement of Left Knee Joint with Synthetic Substitute, Cemented, Open Approach (ICD-10-PCS; CPT 27447; principal; 2018-01-16 11:30)
DX: M17.12 Unilateral primary osteoarthritis, left knee (principal); Q68.2 Congenital deformity of knee; M22.8X2 Other disorders of patella, left knee; I10 Essential (primary) hypertension; M10.9 Gout, unspecified; E11.9 Type 2 diabetes mellitus without complications; Z79.899 Other long term (current) drug therapy; Z79.84 Long term (current) use of oral hypoglycemic drugs; E66.9 Obesity, unspecified; K21.9 Gastro-esophageal reflux disease without esophagitis; Z86.718 Personal history of other venous thrombosis and embolism; E78.5 Hyperlipidemia, unspecified; F32.9 Major depressive disorder, single episode, unspecified; Z68.38 Body mass index [BMI] 38.0-38.9, adult; D50.9 Iron deficiency anemia, unspecified
CPT/HCPCS: 36415; 71046; 73560; 80048; 82962; 83036; 85025; 85027; 85610; 85730; 87077; 87081; 88305; 88311; 93005; 97110; 97162; 97165; 97530; 99251; C1776; J7120; A4216; G0463

== ENCOUNTER 2018-01-19 13:17 | Inpatient (IN) | payer MEDICARE, MEDICAID, SELFPAY ==
[2018-01-16 16:29] VITALS: BMI 38.9
[2018-01-19 13:28] VITALS: BP 126/85; PULSE 88; RESP 18; TEMP 37.2; O2SAT 96; BMI 36.4
[2018-01-19 13:34] VITALS: BMI 36.4
--- NOTE | 2018-01-19 14:24 | NURSING ---
Pt admitted to room 8 from [facility]3 via wheelchair. Patient oriented to room and call light system explained.
--- NOTE | 2018-01-19 14:55 | PCM.HP.STD ---
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 The patient is a 37 year old Male with below past medical history here with followin01/16/2018 Dr. 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 Post-operative course unremarkable. 01/19/2018 Admit to TCU with debility, here for rehabilitation, strengthening, prior to discharge home with significant other. 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 Hx of deep venous thrombosis (Chronic) S/P placement and removal IVC filter Diabetes (Chronic) Osteoarthritis of left knee (Chronic) DVT (deep venous thrombosis) (Chronic) HTN (hypertension) (Chronic) Decubitus ulcer of left buttock, stage 1 (Chronic) Allergies codeine Allergy (Verified 01/06/18 17:12) Other lisinopril Allergy (Verified 01/06/18 17:12) Rash Home Medications: Ambulatory Orders Medication Instructions Recorded Sertraline HCl [Zoloft] 50 mg PO DAILY 02/22/14 Atorvastatin Calcium 20 mg PO QHS 07/10/16 Amlodipine [Norvasc] 10 mg PO DAILY 10/16/17 Omeprazole 80 mg PO DAILY 10/16/17 Metformin HCl 500 mg PO BID #60 tablet 11/08/17 Allopurinol [Zyloprim] 300 mg PO DAILYCM 01/02/18 Iron Polysaccharide Complex 324 mg PO BIDCM 01/02/18 [Ferrex 150] Oxycodone [Oxyir] 5 - 10 mg PO Q4H PRN PRN 5 Days 01/18/18 #60 tab Acetaminophen [Tylenol] 1,000 mg PO Q8H 01/19/18 Aspirin [Aspirin, Baby] 81 mg PO BIDCM 01/19/18 Meloxicam [Mobic] 7.5 mg PO BID 01/19/18 Senna/Docusate Sodium [Senokot-S] 2 tablet PO BID 01/19/18 Surgical History: total knee arthroplasty - Left, 01/16/2018 Dr. Napier., tonsillectomy, - - 16 ear surgeries, bilateral ankle surgery, IVC filter placement, laminectomy Psychiatric History: Depression Lives: Spouse/ Significant Other Smoking Status: Never smoker Tobacco Use: Non-smoker Alcohol: None Drugs: None - *Family History Paternal History Items: Diabetes Maternal History Items: Cancer - Ovarian Review of Systems Constitutional: Denies: Chills, Fever, Weight Change HEENT: Denies: Head Aches, Sinus Congestion, Sinus Drainage Cardiovascular: Denies: Chest Pain, Palpitations Respiratory: Denies: Cough, Shortness of breath at rest, Sputum production Gastrointestinal: Denies: Abdominal Pain, Nausea, Vomiting Genitourinary: Denies: Dysuria Musculoskeletal: Denies: Joint Pain, Joint Tenderness Skin: Denies: Rash, Wounds Neurological: Denies: Numbness, Tingling, Focal weakness Psychiatric: Denies: Anxiety, Depression, Homicidal Ideations, Suicidal Ideations Hematologic/ Lymphatic: Denies: Easy Bruising, Easy Bleeding VTE Information - Inpt Only VTE Present on Admission: No VTE Mechan Device Prophylaxis: Knee High JIM Hose VTE Pharm Prophylaxis ordered?: Yes - Physical Exam General: Alert, Oriented x3, Cooperative HEENT: Atraumatic, PERRLA, EOMI, Normocephalic Neck: Supple, No JVD, Negative Carotid Bruits Lungs: Clear to auscultation, Normal air movement Cardiovascular: Regular rate, No murmurs Abdomen: Bowel Sounds Present, Soft, Non Tender Extremities: No edema, Capillary Refill Less than 3 Seconds Skin: No rashes, No breakdown Musculoskeletal: No Tenderness to Palpation of Joints or Extremities, - - Left knee dressing intact. Neurological: Cranial nerves II-XII grossly intact Psych/Mental Status: Normal Affect, Appropriate Vital Signs Temp Pulse Resp BP Pulse Ox 99.0 F 88 18 126/85 H 96 01/19/18 13:28 01/19/18 13:28 01/19/18 13:28 01/19/18 13:28 01/19/18 13:28 Oxygen Delivery Method Room Air Weight: 87.5 kg Body Mass Index (BMI) 36.4 Finger Stick Blood Glucose 202 Assessment/Plan All Active Problems Left knee pain (Acute) New onset type 2 diabetes mellitus (Acute) 37 year old male with below past medical history hospitalized for left total knee replacement 01/16/[address] Napier, admitted to TCU with debility, here for rehabilitation, strengthening, prior to discharge home with significant other. Debility - PT/OT. Pain - Tylenol 1000MG Q8H, Oxycodone 5-10MG Q4H PRN moderate to severe pain, Meloxicam 7.5MG BID. Bowel - Miralax 17GM daily, Senna/colace 2 tablets BID, Dulcolax 10MG PO daily PRN. Pneumonia vaccination - Administer Prevnar 13 and/or Pneumovax 23 as necessary. DVT prophylaxis - Aspirin 81MG BID thru 02/16/2018. Gout - Allopurinol 300MG daily. Hypertension - Amlodipine 10MG daily. Hyperlipidemia - Atorvastatin 20MG QHS. Diabetes Mellitus II - Metformin 500MG BID. GERD - Pantoprazole 80MG daily. Depression - Sertraline 50MG daily.
--- NOTE | 2018-01-19 14:59 | HP.PCM_ITS ---
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 The patient is a 37 year old Male with below past medical history here with followin01/16/2018 Dr. 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 Post-operative course unremarkable. 01/19/2018 Admit to TCU with debility, here for rehabilitation, strengthening, prior to discharge home with significant other. 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 Hx of deep venous thrombosis (Chronic) S/P placement and removal IVC filter Diabetes (Chronic) Osteoarthritis of left knee (Chronic) DVT (deep venous thrombosis) (Chronic) HTN (hypertension) (Chronic) Decubitus ulcer of left buttock, stage 1 (Chronic) Allergies codeine Allergy (Verified 01/06/18 17:12) Other lisinopril Allergy (Verified 01/06/18 17:12) Rash Home Medications: Ambulatory Orders Medication Instructions Recorded Sertraline HCl [Zoloft] 50 mg PO DAILY 02/22/14 Atorvastatin Calcium 20 mg PO QHS 07/10/16 Amlodipine [Norvasc] 10 mg PO DAILY 10/16/17 Omeprazole 80 mg PO DAILY 10/16/17 Metformin HCl 500 mg PO BID #60 tablet 11/08/17 Allopurinol [Zyloprim] 300 mg PO DAILYCM 01/02/18 Iron Polysaccharide Complex 324 mg PO BIDCM 01/02/18 [Ferrex 150] Oxycodone [Oxyir] 5 - 10 mg PO Q4H PRN PRN 5 Days 01/18/18 #60 tab Acetaminophen [Tylenol] 1,000 mg PO Q8H 01/19/18 Aspirin [Aspirin, Baby] 81 mg PO BIDCM 01/19/18 Meloxicam [Mobic] 7.5 mg PO BID 01/19/18 Senna/Docusate Sodium [Senokot-S] 2 tablet PO BID 01/19/18 Surgical History: total knee arthroplasty - Left, 01/16/2018 Dr. Napier., tonsillectomy, - - 16 ear surgeries, bilateral ankle surgery, IVC filter placement, laminectomy Psychiatric History: Depression Lives: Spouse/ Significant Other Smoking Status: Never smoker Tobacco Use: Non-smoker Alcohol: None Drugs: None - *Family History Paternal History Items: Diabetes Maternal History Items: Cancer - Ovarian Review of Systems Constitutional: Denies: Chills, Fever, Weight Change HEENT: Denies: Head Aches, Sinus Congestion, Sinus Drainage Cardiovascular: Denies: Chest Pain, Palpitations Respiratory: Denies: Cough, Shortness of breath at rest, Sputum production Gastrointestinal: Denies: Abdominal Pain, Nausea, Vomiting Genitourinary: Denies: Dysuria Musculoskeletal: Denies: Joint Pain, Joint Tenderness Skin: Denies: Rash, Wounds Neurological: Denies: Numbness, Tingling, Focal weakness Psychiatric: Denies: Anxiety, Depression, Homicidal Ideations, Suicidal Ideations Hematologic/ Lymphatic: Denies: Easy Bruising, Easy Bleeding VTE Information - Inpt Only VTE Present on Admission: No VTE Mechan Device Prophylaxis: Knee High JIM Hose VTE Pharm Prophylaxis ordered?: Yes - Physical Exam General: Alert, Oriented x3, Cooperative HEENT: Atraumatic, PERRLA, EOMI, Normocephalic Neck: Supple, No JVD, Negative Carotid Bruits Lungs: Clear to auscultation, Normal air movement Cardiovascular: Regular rate, No murmurs Abdomen: Bowel Sounds Present, Soft, Non Tender Extremities: No edema, Capillary Refill Less than 3 Seconds Skin: No rashes, No breakdown Musculoskeletal: No Tenderness to Palpation of Joints or Extremities, - - Left knee dressing intact. Neurological: Cranial nerves II-XII grossly intact Psych/Mental Status: Normal Affect, Appropriate Vital Signs Temp Pulse Resp BP Pulse Ox 99.0 F 88 18 126/85 H 96 01/19/18 13:28 01/19/18 13:28 01/19/18 13:28 01/19/18 13:28 01/19/18 13:28 Oxygen Delivery Method Room Air Weight: 87.5 kg Body Mass Index (BMI) 36.4 Finger Stick Blood Glucose 202 Assessment/Plan All Active Problems Left knee pain (Acute) New onset type 2 diabetes mellitus (Acute) 37 year old male with below past medical history hospitalized for left total knee replacement 01/16/[address] Napier, admitted to TCU with debility, here for rehabilitation, strengthening, prior to discharge home with significant other. * Debility - PT/OT. * Pain - Tylenol 1000MG Q8H, Oxycodone 5-10MG Q4H PRN moderate to severe pain, Meloxicam 7.5MG BID. * Bowel - Miralax 17GM daily, Senna/colace 2 tablets BID, Dulcolax 10MG PO daily PRN. * Pneumonia vaccination - Administer Prevnar 13 and/or Pneumovax 23 as necessary. * DVT prophylaxis - Aspirin 81MG BID thru 02/16/2018. * Gout - Allopurinol 300MG daily. * Hypertension - Amlodipine 10MG daily. * Hyperlipidemia - Atorvastatin 20MG QHS. * Diabetes Mellitus II - Metformin 500MG BID. * GERD - Pantoprazole 80MG daily. * Depression - Sertraline 50MG daily.
[2018-01-19 16:00] VITALS: BP 115/69; PULSE 72; RESP 18; TEMP 36.9; O2SAT 98
[2018-01-19] MEDS: Acetaminophen 500 MG Tablet 1000 MG PO ×2 (16:12→21:11)
[2018-01-19] MEDS: Senna/Docusate Sodium 1 Tablet 2 TABLET PO (18:19)
[2018-01-19] MEDS: Meloxicam 7.5 MG Tablet PO (18:20)
[2018-01-19] MEDS: Aspirin 81 MG TAB.CHEW PO (18:20)
[2018-01-19] MEDS: Menthol/Lanolin/Calamine/Znox 113 GM Tube 1 APPLIC TOPICAL (21:10)
[2018-01-19] MEDS: Atorvastatin Calcium 20 MG Tablet PO (21:11)
[2018-01-20] MEDS: oxyCODONE 5 MG Tablet PO (05:02)
[2018-01-20] MEDS: Menthol/Lanolin/Calamine/Znox 113 GM Tube 1 APPLIC TOPICAL ×3 (05:03→19:39)
[2018-01-20] MEDS: Meloxicam 7.5 MG Tablet PO ×2 (05:04→16:50)
[2018-01-20] MEDS: Pantoprazole Sodium 40 MG Tablet 80 MG PO (05:04)
[2018-01-20] MEDS: Acetaminophen 500 MG Tablet 1000 MG PO ×3 (05:04→21:06)
[2018-01-20] MEDS: amLODIPine 10 MG Tablet PO (05:04)
[2018-01-20] MEDS: Sertraline 50 MG Tablet PO (05:05)
[2018-01-20 06:59] LABS: Absolute Lymphocyte Count 1.52 X10^3/ul (0.83-4.51); Absolute Neutrophil Count 5.5 X10^3/uL (2.0-7.7); Basophil# 0.02 X10^3/uL; Basophil% 0.2 % (0-1); Eosinophil# 0.42 X10^3/uL; Eosinophils% 5.1 % (0-5); Hematocrit 26.9 % (40-54); Hemoglobin 8.6 g/dl (13.0-16.5); Lymphocyte # 1.52 X10^3/ul (4.0); Lymphocyte % 18.3 % (19-41); Mean Corpuscular Volume 87.6 fL (80-94); Monocyte# 0.81 X10^3/uL; Monocyte% 9.8 % (0-10); Neutrophil # 5.47 X10^3/uL (2.7-7.7); Platelet Count 338 K/mm3 (150-450); RBC Distribution Width CV 14.4 % (11.6-14.6); Red Blood Count 3.07 M/mm3 (4.6-6.2); White Blood Count 8.3 K/mm3 (4.4-11.0)
[2018-01-20 07:01] LABS: POSITIVE COUNT NO; POSITIVE DIFFERENTIAL NO; POSITIVE MORPHOLOGY NO
[2018-01-20 07:17] LABS: Anion Gap 6 (5-15); BUN 17 mg/dL (7-18); BUN/Creat Ratio 24.3 RATIO (10-20); Calcium,Total 8.4 mg/dL (8.5-10.1); Chloride 106 mmol/L (98-107); EST Glomerular Filtration Rate 133 mL/min (>60); Est Glom Filt Rate - Afr Amer 161 mL/min (>60); Estimated Creatinine Clearance 104.81 ml/min; Glucose 116 mg/dL (74-106); Potassium 4.6 mmol/L (3.5-5.1); Sodium Level 143 mmol/L (136-145)
[2018-01-20] MEDS: Allopurinol 300 MG Tablet PO (08:52)
[2018-01-20] MEDS: Aspirin 81 MG TAB.CHEW PO ×2 (08:52→16:50)
--- NOTE | 2018-01-20 10:25 | PCM.CONS.GEN ---
Reason for Consult Date of Consultation: 01/20/18 Reason for Consultation: Long painful thick toenails History of Present Illness: The patient is a 37 year old gentleman was seen for long, thickened, painful toenails 1-5 bilateral. He relates he has been recently diagnosed with diabetes. He recently has a knee replacement. He states he cannot reach his toenails. He relates he had his toenails remove many years ago, but they have grown back, and they bother him. He has no other complaints to the foot/ankle. 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 Hx of deep venous thrombosis (Chronic) S/P placement and removal IVC filter Diabetes (Chronic) Osteoarthritis of left knee (Chronic) DVT (deep venous thrombosis) (Chronic) HTN (hypertension) (Chronic) Decubitus ulcer of left buttock, stage 1 (Chronic) Allergies codeine Allergy (Verified 01/06/18 17:12) Other lisinopril Allergy (Verified 01/06/18 17:12) Rash Home Medications: Ambulatory Orders Medication Instructions Recorded RX: Sertraline HCl [Zoloft] 50 mg PO DAILY 02/22/14 RX: Atorvastatin Calcium 20 mg PO QHS 07/10/16 RX: Amlodipine [Norvasc] 10 mg PO DAILY 10/16/17 RX: Omeprazole 80 mg PO DAILY 10/16/17 RX: Metformin HCl 500 mg PO BID #60 tablet 11/08/17 RX: Allopurinol [Zyloprim] 300 mg PO DAILYCM 01/02/18 RX: Iron Polysaccharide Complex 324 mg PO BIDCM 01/02/18 [Ferrex 150] RX: Oxycodone [Oxyir] 5 - 10 mg PO Q4H PRN PRN 5 Days 01/18/18 #60 tab RX: Acetaminophen [Tylenol] 1,000 mg PO Q8H 01/19/18 RX: Aspirin [Aspirin, Baby] 81 mg PO BIDCM 01/19/18 RX: Meloxicam [Mobic] 7.5 mg PO BID 01/19/18 RX: Senna/Docusate Sodium 2 tablet PO BID 01/19/18 [Senokot-S] Surgical History: total knee arthroplasty - Left, 01/16/2018 Dr. Napier., tonsillectomy, - - 16 ear surgeries, bilateral ankle surgery, IVC filter placement, laminectomy Psychiatric History: Depression Lives: Spouse/ Significant Other Smoking Status: Never smoker Tobacco Use: Non-smoker Alcohol: None Drugs: None - *Family History Maternal History Items: Cancer - Ovarian Paternal History Items: Diabetes Review of Systems Constitutional: Denies: Chills, Fever - Physical Exam General: Alert, Oriented x3, Cooperative, No apparent distress Extremities: Capillary Refill Less than 3 Seconds, No Calf Tenderness, Peripheral Pulses Normal, - - Toenails 1-5 bilateral are dystrophic, thickened, elongated, yellow, crumbly, painful and have subungual debris. No open lesions, no blistering, no fluctuance, no crepitus, no drainage, no erythema to the foot / ankle bilateral. Diffuse xerosis noted to the foot bilateral. CFT < 2 seconds to all toes, pedal pulses intact, no evidence of ischemia to the foot/ankle bilateral. Sensation intact to light touch bilateral foot, motor function intact to foot/ankle bilateral. Psych/Mental Status: Alert and oriented to time, place, person, mood and affect Vital Signs Temp Pulse Resp BP Pulse Ox 98.5 F 72 18 115/69 98 01/19/18 16:00 01/19/18 16:00 01/19/18 16:00 01/19/18 16:00 01/19/18 16:00 Oxygen Delivery Method Room Air Weight: 87.5 kg Body Mass Index (BMI) 36.4 Finger Stick Blood Glucose 202 Intake and Output for Last 24 Hours 01/18/18 01/19/18 01/20/18 23:59 23:59 23:59 Intake Total 240 / 240 360 / 360 Output Total 200 / 200 325 / 325 Balance 40 / 40 35 / 35 Laboratory Tests Past 24 Hrs 01/20/18 01/20/18 06:47 06:47 WBC 8.3 RBC 3.07 L Hgb 8.6 L Hct 26.9 L MCV 87.6 MCH 28.0 MCHC 32.0 RDW 14.4 RDW Differential 44.0 H Plt Count 338 MPV 9.0 Immature Gran % (Auto) 0.600 Neut % (Auto) 66.0 Lymph % (Auto) 18.3 L [place] % (Auto) 9.8 Eos % (Auto) 5.1 H Baso % (Auto) 0.2 Absolute Neuts (auto) 5.5 Absolute Lymphs (auto) 1.52 Total Counted Not Reportable Sodium 143 Potassium 4.6 Chloride 106 Carbon Dioxide 31.0 Anion Gap 6 BUN 17 Creatinine 0.70 Estim Creat Clear Calc 104.81 Est GFR (MDRD) Af Amer 161 Est GFR (MDRD) Non-Af 133 BUN/Creatinine Ratio 24.3 H Glucose 116 H Calcium 8.4 L Assessment/Plan All Active Problems Left knee pain (Acute) New onset type 2 diabetes mellitus (Acute) Onychomycosis Nail dystrophy Pain in toe right and left Xerosis bilateral foot. Reviewed nail conditions and treatment options. Debrided toenails 1-5 bilateral using a nail nipper, this was done without incident. Reviewed proper diabetic foot care. Ordered Eucerin cream to be applied to feet daily for dry skin. Patient to follow up as outpatient at [facility] for further on going foot care.
[2018-01-20] MEDS: Iron Polysaccharide Complex 150 MG CAPSULE PO (12:08)
[2018-01-20] MEDS: Tuberculin,Purif.prot.deriv. 50 TU/ML Vial 5 ML ID (12:08)
[2018-01-20 15:12] VITALS: BP 133/92; PULSE 94; RESP 20; TEMP 37.2; O2SAT 98
[2018-01-20] MEDS: Atorvastatin Calcium 20 MG Tablet PO (21:07)
[2018-01-21] MEDS: Meloxicam 7.5 MG Tablet PO ×2 (05:19→17:00)
[2018-01-21] MEDS: Menthol/Lanolin/Calamine/Znox 113 GM Tube 1 APPLIC TOPICAL ×3 (05:19→20:24)
[2018-01-21] MEDS: amLODIPine 10 MG Tablet PO (05:19)
[2018-01-21] MEDS: Pantoprazole Sodium 40 MG Tablet 80 MG PO (05:20)
[2018-01-21] MEDS: Sertraline 50 MG Tablet PO (05:20)
[2018-01-21] MEDS: Acetaminophen 500 MG Tablet 1000 MG PO ×3 (05:20→21:22)
[2018-01-21 07:00] VITALS: PULSE 74; RESP 16; O2SAT 94
[2018-01-21] MEDS: oxyCODONE 5 MG Tablet PO (08:29)
[2018-01-21] MEDS: Aspirin 81 MG TAB.CHEW PO ×2 (08:30→17:00)
[2018-01-21] MEDS: Iron Polysaccharide Complex 150 MG CAPSULE PO (08:30)
[2018-01-21] MEDS: Allopurinol 300 MG Tablet PO (08:30)
[2018-01-21 15:25] VITALS: BP 112/64; PULSE 77; RESP 20; TEMP 36.6; O2SAT 97
[2018-01-21] MEDS: Atorvastatin Calcium 20 MG Tablet PO (20:24)
[2018-01-22] MEDS: Menthol/Lanolin/Calamine/Znox 113 GM Tube 1 APPLIC TOPICAL ×3 (05:41→21:00)
[2018-01-22] MEDS: Pantoprazole Sodium 40 MG Tablet 80 MG PO (05:41)
[2018-01-22] MEDS: amLODIPine 10 MG Tablet PO (05:42)
[2018-01-22] MEDS: Acetaminophen 500 MG Tablet 1000 MG PO ×3 (05:42→20:58)
[2018-01-22] MEDS: Meloxicam 7.5 MG Tablet PO ×2 (05:42→17:17)
[2018-01-22] MEDS: Sertraline 50 MG Tablet PO (05:42)
[2018-01-22] MEDS: Allopurinol 300 MG Tablet PO (08:01)
[2018-01-22] MEDS: Iron Polysaccharide Complex 150 MG CAPSULE PO (08:01)
[2018-01-22] MEDS: Aspirin 81 MG TAB.CHEW PO ×2 (08:02→17:17)
--- NOTE | 2018-01-22 10:41 | PCM.PN.RX ---
<BaironNico D - Last Filed: 01/22/18 10:41> Progress Note - Pharmacy Subjective: TCU Admission Objective: Allergies codeine Allergy (Verified 01/06/18 17:12) Other lisinopril Allergy (Verified 01/06/18 17:12) Rash Current Medications Generic Name Dose Route Start Last Admin Trade Name Freq PRN Reason Stop Dose Admin Acetaminophen 1,000 mg 01/19/18 15:00 01/22/18 05:42 Tylenol PO 1,000 mg Q8 MAKENZIE Administration Allopurinol 300 mg 01/20/18 08:00 01/22/18 08:01 Zyloprim PO 300 mg DAILYCM [facility] Administration Amlodipine Besylate 10 mg 01/20/18 06:00 01/22/18 05:42 Norvasc PO 10 mg DAILY MAKENZIE Administration Aspirin 81 mg 01/19/18 17:00 01/22/18 08:02 Aspirin, Baby PO 02/16/18 08:00 81 mg BIDCM MAKENZIE Administration Atorvastatin Calcium 20 mg 01/19/18 22:00 01/21/18 20:24 Lipitor PO 20 mg QHS MAKENZIE Administration Bisacodyl 10 mg 01/19/18 15:19 Dulcolax PO DAILY PRN Constipation Calamine/Phenol 1 applic 01/19/18 22:00 01/22/18 05:41 Calmoseptine Ointment TOPICAL 1 applicatio TID [facility] Administration Protocol Emollient Ointment 1 applic 01/20/18 22:00 01/21/18 20:27 Eucerin Intensive Repair TOPICAL 1 applicatio DAILY@2200 [facility] Administration Protocol Meloxicam 7.5 mg 01/19/18 18:00 01/22/18 05:42 Mobic PO 7.5 mg BID MAKENZIE Administration Metformin HCl 500 mg 01/19/18 17:00 01/22/18 08:01 Glucophage PO 500 mg BIDCM [facility] Administration Oxycodone HCl 5 - 10 mg 01/19/18 14:29 01/21/18 08:29 Oxyir PO 5 mg Q4H PRN PRN Administration MOD-SEVERE PAIN (4-10/10) Pantoprazole Sodium 80 mg 01/20/18 06:00 01/22/18 05:41 Protonix PO 80 mg DAILY MAKENZIE Administration Polyethylene Glycol 17 gm 01/20/18 06:00 01/22/18 05:41 Miralax PO Not Given DAILY MAKENZIE Polysaccharide Iron Complex 150 mg 01/21/18 08:00 01/22/18 08:01 Ferrex 150 PO 150 mg DAILYCM MAKENZIE Administration Senna/Docusate Sodium 2 tablet 01/19/18 18:00 01/22/18 05:41 Senokot-S, [place]-Colace PO Not Given BID MAKENZIE Sertraline HCl 50 mg 01/20/18 06:00 01/22/18 05:42 Zoloft PO 50 mg DAILY MAKENZIE Administration Vital Signs Temp Pulse Resp BP Pulse Ox 97.9 F 77 20 H 112/64 97 01/21/18 15:25 01/21/18 15:25 01/21/18 15:25 01/21/18 15:25 01/21/18 15:25 Oxygen Delivery Method Room Air Weight: 87.5 kg Body Mass Index (BMI) 36.4 Finger Stick Blood Glucose 202 Sodium 143 mmol/L (136-145) 01/20/18 06:47 Potassium 4.6 mmol/L (3.5-5.1) 01/20/18 06:47 Chloride 106 mmol/L (98-107) 01/20/18 06:47 Carbon Dioxide 31.0 mmol/L (21.0-32.0) 01/20/18 06:47 Anion Gap 6 (5-15) 01/20/18 06:47 BUN 17 mg/dL (7-18) 01/20/18 06:47 Creatinine 0.70 mg/dL (0.70-1.30) 01/20/18 06:47 Est GFR (MDRD) Af Amer 161 mL/min (>60) 01/20/18 06:47 Est GFR (MDRD) Non-Af 133 mL/min (>60) 01/20/18 06:47 BUN/Creatinine Ratio 24.3 RATIO (10-20) H 01/20/18 06:47 Glucose 116 mg/dL (74-106) H 01/20/18 06:47 Assessment/Plan: 1) Pain APAP, meloxicam, prn oxycodone. Continue to monitor prn medication use, daily pain scores. 2) Gout Allopurinol daily. Continue to monitor gout sxs. 3) HTN Amlodipine daily. Continue to monitor BP/HR. 4) DM2 Metformin. Continue to monitor renal function, BGT. 5) GI Pantoprazole daily. Continue to monitor for GI distress. 6) DVT PPx ASA twice daily. Continue to monitor s/s clot. 7) HLD Atorvastatin daily. Continue to monitor lipids. Psychotropic Medications: 8) Depression Sertraline daily. Continue to monitor s/s depression. Unnecessary Medications: None Bowel Regimen: 9) Senna/s, PEG, prn bisacodyl. Continue to monitor prn medication use, for constipation/diarrhea. Date of Note:: 01/22/18 - Provider Comments Provider responsibility: Provider responsible to enter orders to implement recommendations <Tomas Daniels Chi - Last Filed: 01/22/18 17:37> Progress Note - Pharmacy Subjective: [] Objective: Allergies codeine Allergy (Verified 01/06/18 17:12) Other lisinopril Allergy (Verified 01/06/18 17:12) Rash Current Medications Generic Name Dose Route Start Last Admin Trade Name Freq PRN Reason Stop Dose Admin Acetaminophen 1,000 mg 01/19/18 15:00 01/22/18 13:26 Tylenol PO 1,000 mg Q8 MAKENZIE Administration Allopurinol 300 mg 01/20/18 08:00 01/22/18 08:01 Zyloprim PO 300 mg DAILYCM MAKENZIE Administration Amlodipine Besylate 10 mg 01/20/18 06:00 01/22/18 05:42 Norvasc PO 10 mg DAILY MAKENZIE Administration Aspirin 81 mg 01/19/18 17:00 01/22/18 17:17 Aspirin, Baby PO 02/16/18 08:00 81 mg BIDCM MAKENZIE Administration Atorvastatin Calcium 20 mg 01/19/18 22:00 01/21/18 20:24 Lipitor PO 20 mg QHS MAKENZIE Administration Bisacodyl 10 mg 01/19/18 15:19 Dulcolax PO DAILY PRN Constipation Calamine/Phenol 1 applic 01/19/18 22:00 01/22/18 13:27 Calmoseptine Ointment TOPICAL 1 applicatio TID MAKENZIE Administration Protocol Emollient Ointment 1 applic 01/20/18 22:00 01/21/18 20:27 Eucerin Intensive Repair TOPICAL 1 applicatio DAILY@2200 [facility] Administration Protocol Meloxicam 7.5 mg 01/19/18 18:00 01/22/18 17:17 Mobic PO 7.5 mg BID MAKENZIE Administration Metformin HCl 500 mg 01/19/18 17:00 01/22/18 17:17 Glucophage PO 500 mg BIDCM MAKENZIE Administration Oxycodone HCl 5 - 10 mg 01/19/18 14:29 01/22/18 12:11 Oxyir PO 10 mg Q4H PRN PRN Administration MOD-SEVERE PAIN (4-11/22) Pantoprazole Sodium 80 mg 01/20/18 06:00 01/22/18 05:41 Protonix PO 80 mg DAILY MAKENZIE Administration Polyethylene Glycol 17 gm 01/20/18 06:00 01/22/18 05:41 Miralax PO Not Given DAILY MAKENZIE Polysaccharide Iron Complex 150 mg 01/21/18 08:00 01/22/18 08:01 Ferrex 150 PO 150 mg DAILYCM MAKENZIE Administration Senna/Docusate Sodium 2 tablet 01/19/18 18:00 01/22/18 17:19 Senokot-S, [place]-Colace PO Not Given BID MAKENZIE Sertraline HCl 50 mg 01/20/18 06:00 01/22/18 05:42 Zoloft PO 50 mg DAILY MAKENZIE Administration Vital Signs Temp Pulse Resp BP Pulse Ox 97.9 F 77 20 H 112/64 97 01/21/18 15:25 01/21/18 15:25 01/21/18 15:25 01/21/18 15:25 01/21/18 15:25 Oxygen Delivery Method Room Air Weight: 87.5 kg Body Mass Index (BMI) 36.4 Finger Stick Blood Glucose 202 Sodium 143 mmol/L (136-145) 01/20/18 06:47 Potassium 4.6 mmol/L (3.5-5.1) 01/20/18 06:47 Chloride 106 mmol/L (98-107) 01/20/18 06:47 Carbon Dioxide 31.0 mmol/L (21.0-32.0) 01/20/18 06:47 Anion Gap 6 (5-15) 01/20/18 06:47 BUN 17 mg/dL (7-18) 01/20/18 06:47 Creatinine 0.70 mg/dL (0.70-1.30) 01/20/18 06:47 Est GFR (MDRD) Af Amer 161 mL/min (>60) 12/08/18 06:47 Est GFR (MDRD) Non-Af 133 mL/min (>60) 01/20/18 06:47 BUN/Creatinine Ratio 24.3 RATIO (10-20) H 01/20/18 06:47 Glucose 116 mg/dL (74-106) H 01/20/18 06:47 Assessment/Plan: Psychotropic Medications: Unnecessary Medications: Bowel Regimen: - Provider Comments Provider responsibility: Provider responsible to enter orders to implement recommendations Provider Comments to Recommendations by Pharmacy: Agree
--- NOTE | 2018-01-22 10:47 | PHA.CONS_ITS ---
<BaironNico D - Last Filed: 01/22/18 10:41> Progress Note - Pharmacy Subjective: TCU Admission Objective: Allergies codeine Allergy (Verified 01/06/18 17:12) Other lisinopril Allergy (Verified 01/06/18 17:12) Rash Current Medications Generic Name Dose Route Start Last Admin Trade Name Freq PRN Reason Stop Dose Admin Acetaminophen 1,000 mg 01/19/18 15:00 01/22/18 05:42 Tylenol PO 1,000 mg Q8 MAKENZIE Administration Allopurinol 300 mg 01/20/18 08:00 01/22/18 08:01 Zyloprim PO 300 mg DAILYCM [facility] Administration Amlodipine Besylate 10 mg 01/20/18 06:00 01/22/18 05:42 Norvasc PO 10 mg DAILY MAKENZIE Administration Aspirin 81 mg 01/19/18 17:00 01/22/18 08:02 Aspirin, Baby PO 02/16/18 08:00 81 mg BIDCM MAKENZIE Administration Atorvastatin Calcium 20 mg 01/19/18 22:00 01/21/18 20:24 Lipitor PO 20 mg QHS MAKENZIE Administration Bisacodyl 10 mg 01/19/18 15:19 Dulcolax PO DAILY PRN Constipation Calamine/Phenol 1 applic 01/19/18 22:00 01/22/18 05:41 Calmoseptine Ointment TOPICAL 1 applicatio TID [facility] Administration Protocol Emollient Ointment 1 applic 01/20/18 22:00 01/21/18 20:27 Eucerin Intensive Repair TOPICAL 1 applicatio DAILY@2200 [facility] Administration Protocol Meloxicam 7.5 mg 01/19/18 18:00 01/22/18 05:42 Mobic PO 7.5 mg BID MAKENZIE Administration Metformin HCl 500 mg 01/19/18 17:00 01/22/18 08:01 Glucophage PO 500 mg BIDCM [facility] Administration Oxycodone HCl 5 - 10 mg 01/19/18 14:29 01/21/18 08:29 Oxyir PO 5 mg Q4H PRN PRN Administration MOD-SEVERE PAIN (4-10/10) Pantoprazole Sodium 80 mg 01/20/18 06:00 01/22/18 05:41 Protonix PO 80 mg DAILY MAKENZIE Administration Polyethylene Glycol 17 gm 01/20/18 06:00 01/22/18 05:41 Miralax PO Not Given DAILY MAKENZIE Polysaccharide Iron Complex 150 mg 01/21/18 08:00 01/22/18 08:01 Ferrex 150 PO 150 mg DAILYCM MA[facility] Administration Senna/Docusate Sodium 2 tablet 01/19/18 18:00 01/22/18 05:41 Senokot-S, [place] PO Not Given BID AMKENZIE Sertraline HCl 50 mg 01/20/18 06:00 01/22/18 05:42 Zoloft PO 50 mg DAILY MAKENZIE Administration Vital Signs Temp Pulse Resp BP Pulse Ox 97.9 F 77 20 H 112/64 97 01/21/18 15:25 01/21/18 15:25 01/21/18 15:25 01/21/18 15:25 01/21/18 15:25 Oxygen Delivery Method Room Air Weight: 87.5 kg Body Mass Index (BMI) 36.4 Finger Stick Blood Glucose 202 Sodium 143 mmol/L (136-145) 01/20/18 06:47 Potassium 4.6 mmol/L (3.5-5.1) 01/20/18 06:47 Chloride 106 mmol/L (98-107) 01/20/18 06:47 Carbon Dioxide 31.0 mmol/L (21.0-32.0) 01/20/18 06:47 Anion Gap 6 (5-15) 01/20/18 06:47 BUN 17 mg/dL (7-18) 01/20/18 06:47 Creatinine 0.70 mg/dL (0.70-1.30) 01/20/18 06:47 Est GFR (MDRD) Af Amer 161 mL/min (>60) 01/20/18 06:47 Est GFR (MDRD) Non-Af 133 mL/min (>60) 01/20/18 06:47 BUN/Creatinine Ratio 24.3 RATIO (10-20) H 01/20/18 06:47 Glucose 116 mg/dL (74-106) H 01/20/18 06:47 Assessment/Plan: 1) Pain APAP, meloxicam, prn oxycodone. Continue to monitor prn medication use, daily pain scores. 2) Gout Allopurinol daily. Continue to monitor gout sxs. 3) HTN Amlodipine daily. Continue to monitor BP/HR. 4) DM2 Metformin. Continue to monitor renal function, BGT. 5) GI Pantoprazole daily. Continue to monitor for GI distress. 6) DVT PPx ASA twice daily. Continue to monitor s/s clot. 7) HLD Atorvastatin daily. Continue to monitor lipids. Psychotropic Medications: 8) Depression Sertraline daily. Continue to monitor s/s depression. Unnecessary Medications: None Bowel Regimen: 9) Senna/s, PEG, prn bisacodyl. Continue to monitor prn medication use, for constipation/diarrhea. Date of Note:: 01/22/18 - Provider Comments Provider responsibility: Provider responsible to enter orders to implement recommendations <Tomas Daniels Chi - Last Filed: 01/22/18 17:37> Progress Note - Pharmacy Subjective: [] Objective: Allergies codeine Allergy (Verified 01/06/18 17:12) Other lisinopril Allergy (Verified 01/06/18 17:12) Rash Current Medications Generic Name Dose Route Start Last Admin Trade Name Freq PRN Reason Stop Dose Admin Acetaminophen 1,000 mg 01/19/18 15:00 01/22/18 13:26 Tylenol PO 1,000 mg Q8 MAKENZIE Administration Allopurinol 300 mg 01/20/18 08:00 01/22/18 08:01 Zyloprim PO 300 mg DAILYCM MA[facility]IE Administration Amlodipine Besylate 10 mg 01/20/18 06:00 01/22/18 05:42 Norvasc PO 10 mg DAILY MAKENZIE Administration Aspirin 81 mg 01/19/18 17:00 01/22/18 17:17 Aspirin, Baby PO 02/16/18 08:00 81 mg BIDCM [facility] Administration Atorvastatin Calcium 20 mg 01/19/18 22:00 01/21/18 20:24 Lipitor PO 20 mg QHS MAKENZIE Administration Bisacodyl 10 mg 01/19/18 15:19 Dulcolax PO DAILY PRN Constipation Calamine/Phenol 1 applic 01/19/18 22:00 01/22/18 13:27 Calmoseptine Ointment TOPICAL 1 applicatio TID MAKENZIE Administration Protocol Emollient Ointment 1 applic 01/20/18 22:00 01/21/18 20:27 Eucerin Intensive Repair TOPICAL 1 applicatio DAILY@2200 [facility] Administration Protocol Meloxicam 7.5 mg 01/19/18 18:00 01/22/18 17:17 Mobic PO 7.5 mg BID MAKENZIE Administration Metformin HCl 500 mg 01/19/18 17:00 01/22/18 17:17 Glucophage PO 500 mg BIDCM [facility] Administration Oxycodone HCl 5 - 10 mg 01/19/18 14:29 01/22/18 12:11 Oxyir PO 10 mg Q4H PRN PRN Administration MOD-SEVERE PAIN (4-11/22) Pantoprazole Sodium 80 mg 01/20/18 06:00 01/22/18 05:41 Protonix PO 80 mg DAILY MAKENZIE Administration Polyethylene Glycol 17 gm 01/20/18 06:00 01/22/18 05:41 Miralax PO Not Given DAILY MAKENZIE Polysaccharide Iron Complex 150 mg 01/21/18 08:00 01/22/18 08:01 Ferrex 150 PO 150 mg DAILYCM [facility] Administration Senna/Docusate Sodium 2 tablet 01/19/18 18:00 01/22/18 17:19 Senokot-S, [place] PO Not Given BID MAKENZIE Sertraline HCl 50 mg 01/20/18 06:00 01/22/18 05:42 Zoloft PO 50 mg DAILY MAKENZIE Administration Vital Signs Temp Pulse Resp BP Pulse Ox 97.9 F 77 20 H 112/64 97 01/21/18 15:25 01/21/18 15:25 01/21/18 15:25 01/21/18 15:25 01/21/18 15:25 Oxygen Delivery Method Room Air Weight: 87.5 kg Body Mass Index (BMI) 36.4 Finger Stick Blood Glucose 202 Sodium 143 mmol/L (136-145) 01/20/18 06:47 Potassium 4.6 mmol/L (3.5-5.1) 01/20/18 06:47 Chloride 106 mmol/L (98-107) 01/20/18 06:47 Carbon Dioxide 31.0 mmol/L (21.0-32.0) 01/20/18 06:47 Anion Gap 6 (5-15) 01/20/18 06:47 BUN 17 mg/dL (7-18) 01/20/18 06:47 Creatinine 0.70 mg/dL (0.70-1.30) 01/20/18 06:47 Est GFR (MDRD) Af Amer 161 mL/min (>60) 12/08/18 06:47 Est GFR (MDRD) Non-Af 133 mL/min (>60) 01/20/18 06:47 BUN/Creatinine Ratio 24.3 RATIO (10-20) H 01/20/18 06:47 Glucose 116 mg/dL (74-106) H 01/20/18 06:47 Assessment/Plan: Psychotropic Medications: Unnecessary Medications: Bowel Regimen: - Provider Comments Provider responsibility: Provider responsible to enter orders to implement recommendations Provider Comments to Recommendations by Pharmacy: Agree
[2018-01-22] MEDS: oxyCODONE 5 MG Tablet PO (12:11)
--- NOTE | 2018-01-22 13:54 | CASEMGMT ---
Insurance Clinical information sent. Pending continued stay approval at this time. Auth#[id number] NAVEEN Newell, TRAFFIC ENGINEERING DIRECTOR
[2018-01-22 16:00] VITALS: BP 148/82; PULSE 90; RESP 16; TEMP 36.8; O2SAT 97
[2018-01-22] MEDS: Atorvastatin Calcium 20 MG Tablet PO (20:58)
[2018-01-23] MEDS: oxyCODONE 5 MG Tablet PO ×3 (04:40→21:20)
[2018-01-23] MEDS: Meloxicam 7.5 MG Tablet PO ×2 (04:41→17:28)
[2018-01-23] MEDS: Sertraline 50 MG Tablet PO (04:41)
[2018-01-23] MEDS: Pantoprazole Sodium 40 MG Tablet 80 MG PO (04:41)
[2018-01-23] MEDS: amLODIPine 10 MG Tablet PO (04:41)
[2018-01-23] MEDS: Acetaminophen 500 MG Tablet 1000 MG PO ×3 (06:20→21:21)
[2018-01-23] MEDS: Menthol/Lanolin/Calamine/Znox 113 GM Tube 1 APPLIC TOPICAL ×3 (06:23→21:20)
[2018-01-23] MEDS: Aspirin 81 MG TAB.CHEW PO ×2 (08:01→17:28)
[2018-01-23] MEDS: Allopurinol 300 MG Tablet PO (08:01)
[2018-01-23] MEDS: Iron Polysaccharide Complex 150 MG CAPSULE PO (08:01)
[2018-01-23 15:25] VITALS: BP 118/80; PULSE 88; RESP 16; TEMP 36.4; O2SAT 96
[2018-01-23 20:40] VITALS: PULSE 68; RESP 20; O2SAT 95
[2018-01-23] MEDS: Atorvastatin Calcium 20 MG Tablet PO (21:22)
[2018-01-24] MEDS: oxyCODONE 5 MG Tablet PO ×3 (02:40→20:14)
[2018-01-24] MEDS: Menthol/Lanolin/Calamine/Znox 113 GM Tube 1 APPLIC TOPICAL ×2 (06:46→20:14)
[2018-01-24] MEDS: Sertraline 50 MG Tablet PO (06:47)
[2018-01-24] MEDS: Meloxicam 7.5 MG Tablet PO ×2 (06:47→17:02)
[2018-01-24] MEDS: Acetaminophen 500 MG Tablet 1000 MG PO ×3 (06:47→20:15)
[2018-01-24] MEDS: amLODIPine 10 MG Tablet PO (06:47)
[2018-01-24] MEDS: Pantoprazole Sodium 40 MG Tablet 80 MG PO (06:47)
[2018-01-24] MEDS: Aspirin 81 MG TAB.CHEW PO ×2 (08:03→17:02)
[2018-01-24] MEDS: Allopurinol 300 MG Tablet PO (08:03)
[2018-01-24] MEDS: Iron Polysaccharide Complex 150 MG CAPSULE PO (08:03)
--- NOTE | 2018-01-24 09:28 | CASEMGMT ---
Insurance Continued stay denied with last cover day being 01/26/18 and resident to discharge or financial responsibility to begin on 01/27/18. Auth#[id number] NAVEEN Newell, PATIENT ACCOUNTS SPECIALIST
--- NOTE | 2018-01-24 09:29 | CASEMGMT ---
Plan of care meeting held. Resident present as well as resident grandmother. This social services communicating to resident that continued stay has been denied by insurance with last cover day being 01/26/18 and resident to discharge or financial responsibility to begin on 01/27/18. Resident is agreeable to discharge date and plans to discharge to home alone at time of discharge. Resident reporting to already have a walker set up within the home. Physical therapy is recommending for resident to continue with services through outpatient therapy. Resident is agreeable to recommendation and requesting for outpatient physical therapy to be set up through [facility]. Resident family plans to provide transportation home for resident at time of discharge. Support given. Proposed discharge date: 01/27/18 PLAN: Discharge to home alone with outpatient physical therapy. NAVEEN Newell, RESEARCH SCIENTIST
[2018-01-24 15:45] VITALS: BP 134/76; PULSE 77; RESP 18; TEMP 36.3; O2SAT 97
--- NOTE | 2018-01-24 16:20 | CASEMGMT ---
Brief interview for mental status (BIMS) and resident mood interview (PHQ-9) completed on this day. BIMS score 15/15. PHQ-9 score
--- NOTE | 2018-01-24 17:53 | DCINST_ITS ---
You will use the following diet at home:: No restrictions, Regular Your food should be the consistency of: Regular Your liquids should be the consistency of: Regular/Thin Discharge Activity: Return to Normal Activity, May Shower, Use Walker Weight Bearing Status: Weight bearing as tolerated Call your doctor if you observe: Fever of 101 or Higher, Inability to urinate, Inability to have a bowel movement, Shortness of breath, Chest pain, Uncontrolled pain Allergies/Adverse Reactions: Allergies codeine Allergy (Verified 01/06/18 17:12) Other lisinopril Allergy (Verified 01/06/18 17:12) Rash Medications to take at Discharge Sertraline HCl [Zoloft] 50 mg PO DAILY 02/22/14 Atorvastatin Calcium 20 mg PO QHS 07/10/16 Amlodipine [Norvasc] 10 mg PO DAILY 10/16/17 Omeprazole 80 mg PO DAILY 10/16/17 Metformin HCl 500 mg PO BID #60 tablet 11/08/17 Allopurinol [Zyloprim] 300 mg PO DAILYCM 01/02/18 Acetaminophen [Tylenol] 1,000 mg PO Q8H 01/19/18 Meloxicam [Mobic] 7.5 mg PO BID 01/19/18 Aspirin [Aspirin, Baby] 81 mg PO BIDCM #40 tab.chew 01/24/18 Iron Polysaccharide Complex [Ferrex 150] 150 mg PO DAILYCM #30 capsule 01/24/18 Menthol/Lanolin/Calamine/Znox [Calmoseptine Ointment] 1 applic TOPICAL TID tube 01/24/18 Oxycodone [Oxyir] 5 - 10 mg PO Q4H PRN PRN 7 Days #30 tab 01/24/18 Polyethylene Glycol 3350 [Miralax] 17 gm PO DAILY #30 packet 01/24/18 Senna/Docusate Sodium [Senokot-S] 2 tablet PO BID #60 tablet 01/24/18 The following prescriptions were given: Oxycodone [Oxyir] 5 - 10 mg PO Q4H PRN PRN 7 Days #30 tab PRN Reason: Mod-Severe Pain (-11/22) Iron Polysaccharide Complex [Ferrex 150] 150 mg PO DAILYCM #30 capsule Polyethylene Glycol 3350 [Miralax] 17 gm PO DAILY #30 packet Aspirin [Aspirin, Baby] 81 mg PO BIDCM #40 tab.chew Senna/Docusate Sodium [Senokot-S] 2 tablet PO BID #60 tablet Primary Care Physician: Ezra Duggan MD [Primary Care Provider] - Please follow up with your Primary Care Physician in: 1 week. Test Results: Test results from this visit will be discussed in further detail at your follow- up appointment, if applicable. Please Follow Up With: Charles MUIR When: 01/29/18 Proposed Discharge Date: 01/27/18
--- NOTE | 2018-01-24 17:53 | PCM.DC.SUM ---
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 Hx of deep venous thrombosis (Chronic) S/P placement and removal IVC filter Diabetes (Chronic) Osteoarthritis of left knee (Chronic) DVT (deep venous thrombosis) (Chronic) HTN (hypertension) (Chronic) Decubitus ulcer of left buttock, stage 1 (Chronic) Hospital Course and Treatment Imaging Results: 01/24/18 13:47 Diet: Cardiac: Calorie-Controlled Is pt able to select menu?: Yes How many daily calories?: 1800 calorie Consultations 01/19/18 16:19 Consult: Onc/Wound/dubbing machine operator Routine Comment: Reason for Consult:: pressure injury to coccyx Operations: None Procedures: None Summary of Care Provided: The patient is a 37 year old Male with below past medical history hospitalized for left total knee replacement 01/16/[address] Napier, admitted to TCU with debility, here for rehabilitation, strengthening, prior to discharge home with significant other. Discharge home alone with outpatient physical therapy. - Physical Exam Vital Signs Temp Pulse Resp BP Pulse Ox 97.4 F L 77 18 134/76 H 97 01/24/18 15:45 01/24/18 15:45 01/24/18 15:45 01/24/18 15:45 01/24/18 15:45 Oxygen Delivery Method Room Air Weight: 86.778 kg Body Mass Index (BMI) 36.4 Finger Stick Blood Glucose 202 Intake and Output for Last 24 Hours 01/22/18 01/23/18 01/24/18 23:59 23:59 23:59 Intake Total 960 / 960 1080 / 1080 840 / 840 Output Total 1300 / 1300 1150 / 1150 575 / 575 Balance -340 / -340 -70 / -70 265 / 265 Discharge Diet: No Restrictions Discharge Activity: Return to Normal Activity, May Shower, Use Walker Weight Bearing Status: Weight bearing as tolerated Call your doctor if you observe: Fever of 101 or Higher, Inability to urinate, Inability to have a bowel movement, Shortness of breath, Chest pain, Uncontrolled pain Home Medications: Medications to take at Discharge Sertraline HCl [Zoloft] 50 mg PO DAILY 02/22/14 Atorvastatin Calcium 20 mg PO QHS 07/10/16 Amlodipine [Norvasc] 10 mg PO DAILY 10/16/17 Omeprazole 80 mg PO DAILY 10/16/17 Metformin HCl 500 mg PO BID #60 tablet 11/08/17 Allopurinol [Zyloprim] 300 mg PO DAILYCM 01/02/18 Acetaminophen [Tylenol] 1,000 mg PO Q8H 01/19/18 Meloxicam [Mobic] 7.5 mg PO BID 01/19/18 Aspirin [Aspirin, Baby] 81 mg PO BIDCM #40 tab.chew 01/24/18 Iron Polysaccharide Complex [Ferrex 150] 150 mg PO DAILYCM #30 capsule 01/24/18 Menthol/Lanolin/Calamine/Znox [Calmoseptine Ointment] 1 applic TOPICAL TID tube 01/24/18 Oxycodone [Oxyir] 5 - 10 mg PO Q4H PRN PRN 7 Days #30 tab 01/24/18 Polyethylene Glycol 3350 [Miralax] 17 gm PO DAILY #30 packet 01/24/18 Senna/Docusate Sodium [Senokot-S] 2 tablet PO BID #60 tablet 01/24/18 Following Prescrptions Were Given to Patient: Oxycodone [Oxyir] 5 - 10 mg PO Q4H PRN PRN 7 Days #30 tab PRN Reason: Mod-Severe Pain (4-10/10) Iron Polysaccharide Complex [Ferrex 150] 150 mg PO DAILYCM #30 capsule Polyethylene Glycol 3350 [Miralax] 17 gm PO DAILY #30 packet Aspirin [Aspirin, Baby] 81 mg PO BIDCM #40 tab.chew Senna/Docusate Sodium [Senokot-S] 2 tablet PO BID #60 tablet Primary Care Physician: Ezra Duggan MD [Primary Care Provider] - Please follow up with your Primary Care Physician in: 1 week. Please Follow Up With: Charles MUIR When: 01/29/18 Disposition: Home Minutes spent on discharge:: 30 Patient Condition:: Good Medical Necessity - Tobacco Use Smoking Status: Never smoker Tobacco Use: Non-smoker Meaningful Use Info Meaningful Use Diagnoses (Choose all that apply): None applicable
[2018-01-24] MEDS: Atorvastatin Calcium 20 MG Tablet PO (20:16)
[2018-01-24 21:49] VITALS: PULSE 77; RESP 20; O2SAT 96
[2018-01-25] MEDS: oxyCODONE 5 MG Tablet PO ×2 (01:05→06:01)
[2018-01-25] MEDS: Pantoprazole Sodium 40 MG Tablet 80 MG PO (05:59)
[2018-01-25] MEDS: Acetaminophen 500 MG Tablet 1000 MG PO ×3 (05:59→20:21)
[2018-01-25] MEDS: Menthol/Lanolin/Calamine/Znox 113 GM Tube 1 APPLIC TOPICAL ×3 (06:00→20:18)
[2018-01-25] MEDS: Meloxicam 7.5 MG Tablet PO ×2 (06:00→17:03)
[2018-01-25] MEDS: amLODIPine 10 MG Tablet PO (06:00)
[2018-01-25] MEDS: Sertraline 50 MG Tablet PO (06:01)
[2018-01-25] MEDS: Aspirin 81 MG TAB.CHEW PO ×2 (08:31→17:02)
[2018-01-25] MEDS: Iron Polysaccharide Complex 150 MG CAPSULE PO (08:32)
[2018-01-25] MEDS: Allopurinol 300 MG Tablet PO (08:32)
--- NOTE | 2018-01-25 09:30 | CASEMGMT ---
Social Work Order for outpatient physical therapy faxed to [facility]. Resident aware that [facility] will be contacting resident to set up appointment. Proposed discharge date: 01/27/18 PLAN: Discharge to home alone with outpatient physical therapy. NAVEEN Naranjo, CHIP MIXER
[2018-01-25 15:25] VITALS: BP 114/78; PULSE 84; RESP 18; TEMP 36.3; O2SAT 97
[2018-01-25] MEDS: Senna/Docusate Sodium 1 Tablet 2 TABLET PO (17:03)
[2018-01-25] MEDS: Atorvastatin Calcium 20 MG Tablet PO (20:20)
[2018-01-26] MEDS: Acetaminophen 500 MG Tablet 1000 MG PO ×3 (06:01→20:32)
[2018-01-26] MEDS: Pantoprazole Sodium 40 MG Tablet 80 MG PO (06:02)
[2018-01-26] MEDS: amLODIPine 10 MG Tablet PO (06:02)
[2018-01-26] MEDS: Sertraline 50 MG Tablet PO (06:03)
[2018-01-26] MEDS: Menthol/Lanolin/Calamine/Znox 113 GM Tube 1 APPLIC TOPICAL ×3 (06:03→20:31)
[2018-01-26] MEDS: Meloxicam 7.5 MG Tablet PO ×2 (07:32→16:37)
[2018-01-26] MEDS: Allopurinol 300 MG Tablet PO (07:32)
[2018-01-26] MEDS: Aspirin 81 MG TAB.CHEW PO ×2 (07:32→16:37)
[2018-01-26] MEDS: Iron Polysaccharide Complex 150 MG CAPSULE PO (07:33)
[2018-01-26 10:00] VITALS: PULSE 74; RESP 18; O2SAT 98
[2018-01-26 15:19] VITALS: BP 112/80; PULSE 89; RESP 18; TEMP 37
[2018-01-26] MEDS: Atorvastatin Calcium 20 MG Tablet PO (20:32)
[2018-01-27] MEDS: Menthol/Lanolin/Calamine/Znox 113 GM Tube 1 APPLIC TOPICAL (05:30)
[2018-01-27] MEDS: Pantoprazole Sodium 40 MG Tablet 80 MG PO (05:31)
[2018-01-27] MEDS: Sertraline 50 MG Tablet PO (05:31)
[2018-01-27] MEDS: amLODIPine 10 MG Tablet PO (05:31)
[2018-01-27] MEDS: Meloxicam 7.5 MG Tablet PO (05:31)
[2018-01-27] MEDS: Acetaminophen 500 MG Tablet 1000 MG PO (05:32)
[2018-01-27 06:00] VITALS: PULSE 86; RESP 16; O2SAT 97
[2018-01-27 07:14] LABS: Absolute Neutrophil Count 5.8 X10^3/uL (2.0-7.7); Basophil# 0.04 X10^3/uL; Basophil% 0.4 % (0-1); Eosinophil# 0.48 X10^3/uL; Eosinophils% 5.4 % (0-5); Hematocrit 30.1 % (40-54); Hemoglobin 9.6 g/dl (13.0-16.5); Mean Corp Hgb Conc 31.9 g/gl (32-36); Mean Corpuscular Hgb 27.1 pg (27.0-32.0); Mean Platelet Vol. 9.3 fl (6.2-12.0); Monocyte# 0.84 X10^3/uL; Monocyte% 9.4 % (0-10); Neutrophil # 5.84 X10^3/uL (2.7-7.7); Neutrophil % 65.5 % (47-70); Platelet Count 297 K/mm3 (150-450); RBC Distribution Width CV 14.9 % (11.6-14.6); RBC Distribution Width SD 46.2 fl (35.1-43.9); Red Blood Count 3.54 M/mm3 (4.6-6.2); White Blood Count 8.9 K/mm3 (4.4-11.0)
[2018-01-27 07:15] LABS: POSITIVE COUNT NO; POSITIVE DIFFERENTIAL NO; POSITIVE MORPHOLOGY NO
[2018-01-27] MEDS: Aspirin 81 MG TAB.CHEW PO (08:27)
[2018-01-27] MEDS: Iron Polysaccharide Complex 150 MG CAPSULE PO (08:27)
[2018-01-27] MEDS: Allopurinol 300 MG Tablet PO (08:27)
[2018-01-27 09:25] LABS: Anion Gap 9 (5-15); BUN 19 mg/dL (7-18); Calcium,Total 8.9 mg/dL (8.5-10.1); Chloride 104 mmol/L (98-107); Creatinine, Serum 0.95 mg/dL (0.70-1.30); EST Glomerular Filtration Rate 94 mL/min (>60); Est Glom Filt Rate - Afr Amer 113 mL/min (>60); Estimated Creatinine Clearance 77.23 ml/min; Glucose 149 mg/dL (74-106); Potassium 4.6 mmol/L (3.5-5.1); Sodium Level 142 mmol/L (136-145)
[2018-01-27 10:37] VITALS: BP 138/64; PULSE 86; RESP 18; TEMP 36.9; O2SAT 98
--- NOTE | 2018-01-29 16:58 | CASEMGMT ---
Insurance Notified insurance of resident discharge on 01/27/18 to home alone with outpatient physical therapy. Auth#[id number] NAVEEN Naranjo, DRILL PRESS OPERATOR NUMERICAL CONTROL
--- NOTE | 2018-01-30 07:17 | MDS.RN ---
Information for the mds was obtained from review of the clinical record, interview of resident, staff, and direct observation of resident's care.
== END 2018-01-27 10:20 | disposition home or self-care (01) | DRG 561 ==
PROVIDERS: Admitting Provider Family Medicine Geriatric Medicine; Family Provider Family Medicine; PCP Family Medicine; Referring Provider Family Medicine Geriatric Medicine; Visit Provider Family Medicine Geriatric Medicine
DX: Z47.1 Aftercare following joint replacement surgery (principal); I10 Essential (primary) hypertension; Z96.652 Presence of left artificial knee joint; Q89.9 Congenital malformation, unspecified; E78.5 Hyperlipidemia, unspecified; K21.9 Gastro-esophageal reflux disease without esophagitis; F32.9 Major depressive disorder, single episode, unspecified; D50.9 Iron deficiency anemia, unspecified; E11.9 Type 2 diabetes mellitus without complications; Z86.718 Personal history of other venous thrombosis and embolism; M1A.9XX0 Chronic gout, unspecified, without tophus (tophi); E66.9 Obesity, unspecified; Z68.36 Body mass index [BMI] 36.0-36.9, adult; Z71.3 Dietary counseling and surveillance; L89.321 Pressure ulcer of left buttock, stage 1; B35.1 Tinea unguium; L85.3 Xerosis cutis; L60.3 Nail dystrophy
CPT/HCPCS: 36415; 80048; 85025; 97110; 97116; 97162; 97166; 97530; 97535; 97802

== ENCOUNTER → 2019-06-28 15:56 | Outpatient (CLI) | payer MEDICARE, MEDICAID, SELFPAY ==
[2019-06-28 18:35] LABS: D-Dimer Quantitative (DVT/PE) 0.32 FEU/ug/m (0.27-0.49)
== END ==
PROVIDERS: PCP Family Medicine; Referring Provider Family Medicine; Visit Provider Family Medicine
DX: R07.9 Chest pain, unspecified (principal)
CPT/HCPCS: 36415; 85379

== ENCOUNTER 2021-04-16 12:56 | Outpatient (CLI) | payer MEDICARE, MEDICAID, SELFPAY ==
--- NOTE | 2021-04-16 13:06 | CT_ITS ---
STUDY: CT RIGHTLOWER EXTREMITY WITHOUT CONTRAST REASON FOR EXAM: Male, 41 years old. PRE OP/VARUS DEFORMITY RADIATION DOSAGE (If Supplied By Facility): CTDIvol = ( 25.18 ) mGy, DLP = ( 1959.98 ) mGycm TECHNIQUE: Thin section transaxial imaging of the right lower extremity was obtained, with sagittal and coronal reconstructed images. Individualized dose optimization techniques were used for this CT. COMPARISON: None. Hip findings: Moderate right hip joint space narrowing and cortical osteophyte formation on both sides of the articulation. Multiple right hip joint loose bodies are also present. Bulky cortical ossified formation is present at the femoral head neck junction. Bony ankylosis across the right SI joint noted. Normal superior and inferior pubic rami. Normal pubic symphysis. Normal ischial tuberosity. Normal origin of the hamstring tendons. Normal visualized soft tissue structures of the pelvis. Knee findings: Moderate narrowing and peripheral osteophyte formation and medial compartment, mild narrowing and peripheral osteophyte formation in the lateral compartment. Moderate narrowing and cortical osteophyte formation of the patellofemoral compartment. A small joint effusion is present. Normal proximal tibiofibular articulation. The quadriceps and patellar tendons are grossly intact. Normal Hoffa''s fat pad. The soft tissues are unremarkable. Ankle findings: Surgical ankylosis of the ankle mortise with osseous fusion across the tibiotalar articulation and hardware fixation with an intramedullary iraida and interlocking screws extending through the tibiotalar articulation and anterior aspect of the calcaneal body. Moderate to significant degenerative narrowing and osteophytic spurring is seen in the mid foot. Bony ankylosis is also demonstrated at several of the TMT and tarsal articulations. Bony ankylosis is also present across the syndesmosis. No visualized acute fracture. The soft tissue structures are grossly normal. CT/Extremity Lower without Contra IMPRESSION: 1. Degenerative changes of the right hip in the Electronically Signed: Samuel Shepard MD at 15:53 EST ,
== END 2021-04-16 23:59 | disposition home or self-care (01) ==
LOC: CT 12:57
PROVIDERS: PCP Family Medicine; Referring Provider Specialist; Visit Provider Specialist
DX: M21.161 Varus deformity, not elsewhere classified, right knee (principal)
CPT/HCPCS: 73700

== ENCOUNTER 2021-04-28 13:43 | Observation (INO) | payer MEDICARE, MEDICAID, SELFPAY ==
--- NOTE | 2021-04-13 16:06 | HP.PCM_ITS ---
History and Physical History and Physical [facility] Patient Name: Maninder Vanegas : 1980 From: HUNTER SHARP PA-C DATE OF SURGERY: 04/28/2021 SCHEDULED PROCEDURE: right total knee arthroplasty HISTORY OF PRESENT ILLNESS: Preoperative history and physical exam was performed on April 12, 2021. This is a 41-year-old male whose had ongoing pain in his right knee for several years. Patient's pain can reach as high as a 7/10 with activities. His pain is been intermittent and sore. Pain is increased with walking, stairs, and activities of daily living. Pain is located over the medial joint line. Pain does occasionally wake him at night. He has tried conservative measures including rest, elevation, home exercises and oral medications with minimal relief. He has been on ibuprofen with only minimal improvement. Denies previous surgery on the right knee. Patient has used a cane, walker, and wheelchair at times. He has had a previous left total knee arthroplasty done by Dr. Bull Napier in 2018. He is doing well from that procedure. After failing conservative measures and discussing treatment options with Dr. Bull Napier, the patient does wish to proceed with a right total knee arthroplasty. We are obtaining surgical clearance from the primary care physician Dr. Duggan. Patient has medical history pertinent for depression, diabetes, hypertension, history of previous DVT, [place]'s hereditary osteodystrophy, restrictive lung disease, history of ulcers, and anemia. He did have a [place] filter which was removed in January 2010. Currently denies any chest pain, shortness of breath, fevers chills, or recent infections. REVIEW OF SYSTEMS: Review Of Systems: Constitutional: Denies change in appetite, fever and weight change. Cardiovasular: Denies chest pain, heart murmur and irregular heartbeat. Respiratory: Denies cough, pneumonia, shortness of breath, tuberculosis and wheezing. Gastrointestinal: Denies constipation, diarrhea, heartburn, nausea, rectal itching, bloody stools and vomiting. Genitourinary: Denies incontinence. Musculoskeletal: Reports leg swelling, trouble walking and weakness, but denies pain. Skin: Denies Raynaud's, history of shingles and tattoo. Neurological: Denies ambulatory dysfunction, dizziness, numbness/tingling and tremor. Psychiatric: Denies anxiety, insomnia and stress. Hematologic/Lymphatic: Reports anemia, but denies bleeding/bruising tendency and past transfusion. Reviewed and updated. PAST MEDICAL HISTORY: Advance Care Plan: No Advance Directives Effective Date: 11/27/2017 Past Medical History: Medical Problems: Arthritis, Depression, Diabetes, Gout, Hard of Hearing, Deaf, High Blood Pressure, Hypercholesterolemia, History Of Blood Clots/ DVT, [place] heredit jaleel osteodystrophy, Restrictive Lung Disease, History of Ulcers, Anemia Accidents: None Surgical Hx: Marcos Feet, Lumbar, Ears LT TKR - (01/16/2018) SAW @ [facility] Anesthesia Complications: None Assistive Devices: Hearing Aid, Glasses, Cane, Walker Reviewed and updated. SOCIAL HISTORY: Social History: Marital: Single.Occupation: Disabled.Work Status: Disabled.Hand Dominance: Right-handed. Personal Habits: Cigarette Use: Never Smoked Cigarettes.Smokeless Tobacco: Never Used Smokeless Tobacco.E-Cigarette Use: Never Used.Alcohol: Denies use.Drug Use: Denies Use.Enjoy Exercising: Exercises 1-3 x/month. Reviewed and updated. VITALS: Ht: 60 Wt: 171lb Wt k.566 BMI: 33.4 BP: 126/78 Pulse: 89 Resp: 18 T: 97.8 T: 36.6C Pain Level: 3 ALLERGIES: Codeine MEDICATIONS: Allopurinol 300 mg 1po qday, Sertraline HCL 50 mg 1po qday, Amlodipine Besylate 10 mg 1po qday, Omeprazole 40 mg 2po qday, Atorvastatin Calcium 20 mg 1po qday, Iron 325 (65 Fe) MG 1po bid, Metformin HCL 500 mg 1 by mouth twice a day PRE-OP EXAM: General appearance:NORMAL Other: Eyes: Conjunctivae and lids: NORMAL Pupils: ERR Ears, Nose, Mouth, and Throat: NORMAL Other: Inspection of lips, teeth and gums: NORMAL Other: Neck: Examination of neck: no masses noted. Respiratory: Assessment of respiratory effort: NORMAL Other: Auscultation of lungs: clear to auscultation no wheezes, rhonchi or rales. Cardiovascular: Auscultation of heart: regular rate and rhythm, no murmurs, gallops or rubs. PHYSICAL EXAMINATION: Patient does walk with an antalgic gait. Right knee is cool to touch without erythema or signs of infection. There is tenderness to palpation along the medial joint line. Mild varus alignment which is correctable on exam. Range of motion: 0 extension to 100 flexion with the right knee. Sensation intact to light touch. Stable to anterior/posterior drawer and varus/valgus stress test. IMAGING STUDIES: Previous x-rays of the right knee reveal varus alignment, medial joint space narrowing, subchondral sclerosis, osteophyte formation consistent with severe stage IV osteoarthritis with bony erosions of the medial compartment. There is also patella baja with severe patellofemoral arthrosis stage IV. IMPRESSION: 1. Severe right knee osteoarthritis 2. History of DVT 3. [place]'s hereditary osteodystrophy 4. Restrictive lung disease 5. Anemia 6. History of ulcers 7. Diabetes 8. Depression 9. Hard of hearing/deaf 10. Hypertension 11. Hypercholesterolemia PLAN: Dr. Bull Napier did discuss and review with the patient all treatment options including surgical versus nonsurgical options. Patient does wish to proceed with the above-stated procedure. Potential risks, benefits, and complications of the procedure were discussed in detail including but not limited to , infection, nerve and blood vessel damage, persistent pain, numbness, tingling, paresthesias, blood clot, pulmonary embolism, and requirement for possible further surgery. The patient expressed full understanding and has no further questions for the doctor. Patient does agree to proceed with the above-stated procedure and has signed the surgery consent form. We discussed the current risks associated with COVID 19. This does include the risk of exposure while in the hospital. Patient was reassured local hospitals have low infection rates and are taking all necessary precautions to avoid exposure to patients. In addition, we discussed strategies that can be used to help limit exposure including those that limit the patient's time in the hospital. Also using strategies to limit the patient's need for continued inpatient services after being discharged from the hospital. Patient was notified that we will need to comply with any screening or testing the hospital wishes to perform or that surgery may be delayed for any positive results. This dictation was created using voice recognition software. Phonetic and/or grammatical errors may exist. ___ I have re-examined the patient. There are no clinical changes since date of exam. ___ See progress notes for changes. ___ Dictated on admission Date: Time: Signature:
--- NOTE | 2021-04-16 13:04 | EKG12_ITS ---
Test Reason : PRE OP Blood Pressure : / mmHG Vent. Rate : 083 BPM Atrial Rate : 083 BPM P-R Int : 158 ms QRS Dur : 090 ms QT Int : 366 ms P-R-T Axes : 038 -34 047 degrees QTc Int : 430 ms Normal sinus rhythm Left axis deviation Abnormal ECG Confirmed by SHANNAN LUBIN, VON ([id number]), avid editor JOSHUA SCHULER ([id number]) on 04/19/2021 11:03:05 AM Referred By: Bull Napier Confirmed By:VON CAMPBELL MD
[2021-04-16 13:31] LABS: Absolute Lymphocyte Count 2.24 X10^3/uL (0.83-4.51); Basophil# 0.04 X10^3/uL; Basophil% 0.4 % (0-1); Eosinophil# 0.79 X10^3/uL; Eosinophils% 7.1 % (0-5); Hematocrit 38.4 % (40-54); Hemoglobin 12.7 g/dL (13.0-16.5); Lymphocyte # 2.24 X10^3/ul (0.83-4.51); Lymphocyte % 20.3 % (19-41); Mean Corp Hgb Conc 33.1 g/dL (32-36); Mean Corpuscular Hgb 28.7 pg (27.0-32.0); Mean Corpuscular Volume 86.7 fL (80-94); Mean Platelet Vol. 9.6 fl (6.2-12.0); Monocyte# 0.98 X10^3/uL; Monocyte% 8.9 % (0-10); NRBC Flagged by Analyzer 0 % (0-5); Neutrophil # 6.97 X10^3/uL (2.7-7.7); Platelet Count 258 K/mm3 (150-450); RBC Distribution Width CV 13.9 % (11.6-14.6); RBC Distribution Width SD 43.6 fl (35.1-43.9); Red Blood Count 4.43 M/mm3 (4.6-6.2); White Blood Count 11.1 K/mm3 (4.4-11.0)
[2021-04-16 13:39] LABS: Prothrombin Time (Protime)PT. 12.5 SECONDS (11.7-14.9)
[2021-04-16 13:54] LABS: Albumin, Serum 4.1 g/dL (3.2-5.0); Anion Gap 1 (5-15); BUN 8 mg/dL (7-18); BUN/Creat Ratio 7.3 RATIO (10-20); Chloride 107 mmol/L (98-107); Creatinine, Serum 1.09 mg/dL (0.70-1.30); EST Glomerular Filtration Rate 79 mL/min (>60); Est Glom Filt Rate - Afr Amer 95 mL/min (>60); Glucose 113 mg/dL (74-106); Potassium 4.6 mmol/L (3.5-5.1); Sodium Level 139 mmol/L (136-145)
[2021-04-16 14:01] LABS: Hemoglobin A1c 5.7 % (3.8-5.6)
[2021-04-28] VITALS (25 sets, daily range): BP systolic 71–150; BP diastolic 43–95; PULSE 77–110; RESP 14–20; TEMP 36.3–37.5; O2SAT 85–100; BMI 35.3; BMI 35.4
--- NOTE | 2021-04-28 07:01 | OP.PCM_ITS ---
Report of Operation Date of Procedure: 04/28/21 Pre-Operative Diagnosis: Right knee primary osteoarthritis Post-Operative Diagnosis: Right knee primary osteoarthritis Surgery/Procedure Performed:: Right minimally invasive robotic total knee replacement Description of Surgical Findings:: Stable knee with good patella tracking. Patient had severe patella Baha this was discussed preoperatively. Patient understands he can limit his motion. Intraoperative motion was to 115 degrees without impingement on the patella. Surgeon: Bull Napier plant engineering manager: Charles Snyder Type of Anesthesia: Spinal Special Medications: 2 g Ancef, TXA lavage prior to closure, 2 g, 10 mg Decadron, joint cocktail (5 mg Duramorph, 30 mL of 0.5% Ropivicaine, 1000 units of epinephrine, 30 mg of Toradol) Specimen's removed: Bony cuts Estimated Blood Loss (mL): 50 Fluids Replaced: 1000 mL crystalloid Description of Procedure: Implants used: 1. Zee size 4 triathlon cruciate retaining distal femoral press-fit component 2. [place] size 4 press-fit tritanium tibial baseplate 3. Zee X3 9 mm CS polyethylene 4. [place] X3 32 mm asymmetric patella Brief history operative indications: 41-year-old male with history of right knee osteoarthritis with radiographic findings with loss of joint space, osteophyte formation and subchondral sclerosis. Failed conservative measures as mentioned in the H&P. Discussion of total knee arthroplasty as well as risk and benefits were discussed the patient including but not limited to blood loss, DVTs, PEs, neurovascular damage, general risk of anesthesia including loss of life, and stiffness or instability were discussed with patient. Patient demonstrated understanding and was able to sign informed consent. Procedure: On the date of procedure patient's right lower extremity was marked in the preoperative area. The patient was then taken back to the operating room where the patient was placed on the table in the supine position. All bony prominences were identified a well-padded. Anesthesia assumed control of the C-spine and airway and remained controlled throughout the remainder of the procedure. A tourniquet was placed on the right upper thigh and the leg was prepped in a sterile fashion. The surgeon then scrubbed at this time .Upon reentering the room right lower extremity was draped in a standard orthopedic fashion. A timeout was then called and everyone agreed upon the side, the site, the procedure to be performed, patient's identity and antibiotics given. Esmarch bandage was used to exsanguinate the extremity and the tourniquet was placed up to 250 mmHg with the knee in flexion. A midline skin incision was made and sharp dissection was taken down through skin subcutaneous tissue and fat. The standard medial parapatellar incision was made and the patella was subluxed laterally. An Appropriate deep MCL release was done and the fat pad was resected. Our attention was then directed to the patella. The patella was everted and a flat resection was made. The knee was then flexed up in 2 femoral pins were placed inside the incision and 2 tibial pins were placed outside the incision in the medial tibia bicortically. Once this was completed the 2 checkpoints in the femur and tibia were placed. Knee was then flexed up and the bony landmarks were registered. Once this was completed knee was taken through range of motion and manually stressed allowing us to a plan for an appropriate tibial cut. The robotic arm was brought into the field sterilely and checkpoint and saw were registered. Based on the patient's deformity the tibial cut was made in 1 degrees of varus. At this time the tensioner was then placed in the joint and ligament tension was checked at 90 degrees and full extension. Based on the patient's ligamentous tension appropriate adjustments were made to the operative plan and ligament releases were done. Once we were happy with our operative plan with balanced flexion and extension gaps our attention was directed to the femur. The robot was brought into the field sterilely and registered. Posterior condylar cuts, anterior chamfer cuts and anterior cuts were appropriately made for a size 4 femur. When these were completed the saws were switched out in the distal femoral and posterior chamfer cuts were made. Protecting the soft tissue throughout this time. A size 4 tibial base plate was selected. the knee was flexed to 90 degrees and the soft tissues and posterior osteophytes were removed from the joint. 40 cc of the periarticular injection was injected into the posterior medial corner of the joint. The appropriate trials were then placed on the femur and tibia. A trial polyethylene was trialed to ensure proper balancing and stability of the knee. The appropriate tibial internal rotation was then marked with a bovie. Our attention was then directed to the patella. The lug holes were drilled and the patella trial was placed. Patellar tracking was checked and deemed appropriate. Once we were happy lug holes were drilled for the femur and trial components were removed. the tibia was subluxed and pinned into place and the keel was punched and drilled appropriately. Final components were verified and opened, and cement was mixed in a vacuum. [employer] Simplex cement was used. The wound was copiously irrigated with normal saline. When the cement was ready the components were impacted into place starting with the tibia, femur and finally cementing the patella. The trial poly component was placed and the knee was placed in full extension. All excess cement was removed in the process. Once the cement had cured the tracking, alignment and balance were verified and a size 9 mm CS polyethylene component was placed. Once the final components were placed a 3-minute dilute Betadine lavage was per formed followed by an Irrisept lavage was performed and the wound was copiously irrigated with normal saline solution and the periarticular injection was given. The wound was closed in a layer green fashion using #1 vicryl interrupted sutures for the arthrotomy, 2-0 interrupted Vicryl suture for the subcuticular layer and herve for final skin closure. A sterile compressive dressing was then placed. The patient was then awakened from anesthesia, transferred to the [facility] and transferred to the PACU for recovery. Post op plan DVT ppx: Xarelto postoperatively for DVT prophylaxis secondary to previous VTE, thigh high compression stockings Follow up: in office in 2 weeks for wound check PT: to start POD #0 at hospital, outpatient PT should be arranged. My physician tv production assistant was a vital part of this case. He was important in appropriate retraction during the case, and protection of soft tissues during bony cuts. His intimate knowledge of the case and my steps aided in safe and expedient completion of the procedure as well as appropriate position of the leg during the case. He was also vital in assisting with closure under my direct supervision. Due to the complexity of this case robotic arm was used to assist in the surgery to improve accuracy and clinical outcomes. Complications No intraoperative complications Admit VTE Documentation VTE Present on Admission: No VTE Mechan Device Prophylaxis: SCD's and Thigh High JIM Hose VTE Pharm Prophylaxis ordered?: Yes
[2021-04-28] MEDS: Lactated Ringers 1,000 ML 125 ML IV ×2 (08:45→16:35)
[2021-04-28] MEDS: Acetaminophen 500 MG Tablet 1000 MG PO ×2 (09:04→23:05)
[2021-04-28] MEDS: Gabapentin 600 MG Tablet PO (09:04)
[2021-04-28] MEDS: Celecoxib 200 MG Capsule 400 MG PO (09:05)
[2021-04-28] MEDS: Cefazolin 2 GM in 0.9% Normal Saline 100 ML IV (12:17)
[2021-04-28] MEDS: dexAMETHasone 10 MG/ML Vial IV (12:45)
[2021-04-28] MEDS: TXA 1000mg in NS100 100ml (IVPB at Incision) 660 MG IV (13:20)
[2021-04-28] MEDS: TXA 1000mg in NS100 100ml (IVPB at Closure) 660 MG IV (14:17)
[2021-04-28] MEDS: Lactated Ringers 1,000 ML 999 ML IV (15:10)
--- NOTE | 2021-04-28 15:25 | RAD_ITS ---
INDICATION: post op -- AP and Lateral xray of operative knee in PACU EXAMINATION/TECHNIQUE: X-RAY - RIGHT XR Knee 1 or 2 Views 2 VIEWS COMPARISON: Right knee CT from 04/16/2021. FINDINGS/ RAD/Knee 1 or 2 Views IMPRESSION: Intact appearance and appropriate positioning of newly placed right knee total arthroplasty surgical hardware. Expected associated postoperative changes in the soft tissues. No acute fracture or dislocation. Electronically Signed: Cornel Ramirez, at 16:00 EDT ,
[2021-04-28 16:35] LABS: Bedside Glucose 167 mg/dL (74-106)
--- NOTE | 2021-04-28 16:56 | PN.HOSP_ITS ---
Documented by User: Zaira Carmona NP, BLOCKING MACHINE OPERATOR-C 04/28/21 17:05 Subjective Subjective Patient seen and examined in PACU. Still mildly drowsy. Vitals appear stable. He denies current symptoms or complaints. Hospitalist services consulted for medical management. Objective Data Objective Data Vital Signs: Vital Signs Temp Pulse Resp BP Pulse Ox 97.4 F L 80 16 93/59 L 86 04/28/21 15:11 04/28/21 16:45 04/28/21 16:45 04/28/21 16:45 04/28/21 16:45 Oxygen Flow Rate (L/min) 4 Oxygen Delivery Method Nasal Cannula Weight: 180 lb 12.465 oz Body Mass Index (BMI) 35.3 Intake & Output: Intake and Output for Last 24 Hours 04/26/21 04/27/21 04/28/21 23:59 23:59 23:59 Intake Total 2434.5 / 2434.5 Balance 2434.5 / 2434.5 Lab / Micro Data Result Diagrams: 04/16/21 12:55 04/16/21 12:55 Labs: Laboratory Results - last 24 hr 04/28/21 16:29: POC Glucose 167 H Micro: Microbiology 04/16/21 12:55 Swab (Method) Nasal Screen MRSA/MSSA - Final Radiography Diagnostic Testing: Radiology Impression Knee X-Ray 04/28/21 15:25 IMPRESSION: Intact appearance and appropriate positioning of newly placed right knee total arthroplasty surgical hardware. Expected associated postoperative changes in the soft tissues. No acute fracture or dislocation. Electronically Signed: Cornel Ramirez, at 16:00 EDT , Physical Exam Const alert, oriented x3 and no apparent distress Orientation / Consciousness: awake, oriented to person, oriented to place and oriented to time HEENT normocephalic Mouth: dry mucous membranes Eyes PERRL, EOMs intact bilaterally and conjunctivae normal Neck no lymphadenopathy Resp normal respiratory effort and clear to auscultation bilaterally Cardio regular rate, regular rhythm and no murmurs Peripheral Pulses: pulses 2+ throughout GI normal to inspection, nondistended, normoactive bowel sounds, non-tender and n on-distended Extremity normal to inspection Skin no rashes or lesions noted Lesions: no lesions Rashes: no rashes Trauma: no lacerations or abrasions Neuro CN's II-XII intact bilaterally, no focal motor deficits, no sensory deficits noted and deep tendon reflexes 2+ bilaterally Psych mental status grossly normal and affect normal Assessment & Plan Assessment/Plan (1) Osteoarthritis: PLAN: 1. Right knee primary osteoarthritis status post right minimally invasive robotic total knee replacement- Management per orthopedic medicine. PT/OT. As needed pain regimen. 2. Type 2 diabetes mellitus- Accu-Cheks with sliding scale insulin. 3. Hypertension- stable, continue amlodipine. 4. Hyperlipidemia- continue statin. 5. Iron Deficiency anemia/normocytic anemia- Continue iron supplementation. Trend CBC. 6. Gout- on allopurinol. 7. Anxiety/Depression- continue sertraline. 8. GERD- continue famotidine. 9. History of DVT- Prior IVC filter placement. Xarelto postoperatively. DVT prophylaxis- Xarelto. This patient was seen by Zaira Carmona NP-[place] under the supervision of Dr. Mejia. Time spent examining patient, reviewing data and subsequent management of care: 12 Minutes Documented by User: Dr. Jalil Mejia DO 04/28/21 21:34 Objective Data Lab / Micro Data Result Diagrams: 04/16/21 12:55 04/16/21 12:55 Charges/Coding Addendum Addendum: Patient was seen and examined today independently of Zaira Carmona, the hospitalist service was consulted for medical management on this 41-year-old white male who has a history of developmental delay/cognitive impairment. He underwent a right minimally invasive robotic total knee replacement today. Medical problems include hyperlipidemia, GERD, iron deficiency anemia, type 2 diabetes, essential hypertension, and osteoarthritis. In recovery today, patient's blood pressure was low, he had to be given pressor agents and eventually his blood pressure stabilized. Patient was also on oxygen and at the time of this dictation his oxygen requirement is 2 L via nasal cannula-at one time he was on 50% oxygen and recovery today. Patient is alert at the time of my examination and does not appear to be in any distress, he had some nausea with an episode of emesis however. On examination he appeared in no distress, he appeared to have cognitive impairment, he answers simple questions appropriately however. Vital signs as documented. Skin warm and dry and without overt rashes. Neck without JVD, neck was supple, trachea midline, thyroid was normal. Lungs clear bilaterally, normal air movement was noted. Heart exam notable for regular rhythm, normal sounds and absence of murmurs, rubs or gallops. Abdomen unremarkable and without evidence of organomegaly, masses, or abdominal aortic enlargement. Bowel sounds are present, abdomen is not distended. Extremities nonedematous, no cyanosis was noted, no clubbing was noted. Neuro: Cranial nerves II through XII are grossly intact, no focal motor deficits were noted, sensation to light touch and pinprick intact, motor exam 5/5 throughout. Psych: Patient is alert, he shows evidence of cognitive impairment Impression #1 essential hypertension-patient is on Norvasc 10 mg daily, at this time the patient's blood pressure has stabilized, he can resume his blood pressure medications tomorrow #2 hyperlipidemia-patient is on Lipitor currently #3 type 2 diabetes-patient's blood sugars will be monitored, sliding scale insulin will be administered #4 osteoarthritis-postop day 0 right minimally invasive robotic total knee replacement, patient is admitted under orthopedic surgery, he will be seen by PT and OT #5 developmental delay/cognitive impairment-complicates care and recovery- patient is directable, he does not appear agitated #6 hypoxia-probably secondary to narcotic administration for pain postop, patient is currently only on 2 L via nasal cannula, I assume this could be weaned off eventually I have reviewed Zaira Carmona's progress note including her medical assessment and plan of care and endorse it with the above additions. Total clinical time spent by myself addressing the patient's medical issues, reviewing all of the patient's medical data, and collaborating with the patient's care team: 30 minutes Visit Charges Inpatient E&M: 61515 Subs Hosp L3
--- NOTE | 2021-04-28 17:30 | SUR.PHASEI ---
PT NOTED TO BE ITCHING ABD THROUGH GOWN, UPON ASSESSMENT PT HAS OLD ROUND WOUNDS-SCABBED SCATTERED TO ENTIRE ABD, CURRENTLY HAS RED RAISED WELT LIKE RASH TO ABD AND INTO PERIAREA AND TOP OF THIGHS, NO RASH ON CHEST BACK LEGS OR ARMS. WHEN ASKED FATHER STATED HAD BEEN BATTLING BED BUGS AT HIS APARTMENT BUT THOUGHT WAS TAKEN CARE OF. ALSO NOTED BY FATHER THAT HE THOUGHT PT WAS BEING TX FOR STAPH INFECTION. DR MANCINI TO BEDSIDE TO OBSERVE VS AND RASH.
[2021-04-28] MEDS: Ipratropium/Albuterol Sulfate 3 ML AMPUL.NEB INHALATION (17:45)
--- NOTE | 2021-04-28 17:51 | CPS ---
Aersol treatment given in PACU by IESHA.
[2021-04-28] MEDS: Insulin Lispro 100 UNIT/ML INSULN.PEN SC (22:56)
[2021-04-28] MEDS: Atorvastatin Calcium 20 MG Tablet PO (23:03)
[2021-04-28] MEDS: Senna/Docusate Sodium 1 Tablet 2 TABLET PO (23:04)
[2021-04-28] MEDS: Ondansetron 4 MG/2 ML Vial IV (23:13)
[2021-04-28] MEDS: 0.9% Saline Lock 10 ML Syringe IV (23:13)
[2021-04-28 23:31] LABS: Bedside Glucose 185 mg/dL (74-106)
[2021-04-28] MEDS: Cefazolin 1 GM/50 ML BAG IV (23:41)
[2021-04-29] VITALS (9 sets, daily range): BP systolic 116–138; BP diastolic 75–99; PULSE 85–105; RESP 16–18; TEMP 36.6–36.9; O2SAT 95–99
[2021-04-29] MEDS: Lactated Ringers 1,000 ML 125 ML IV (04:12)
[2021-04-29] MEDS: oxyCODONE 5 MG Tablet PO ×2 (04:16→08:17)
[2021-04-29] MEDS: Cefazolin 1 GM/50 ML BAG IV (04:16)
[2021-04-29] MEDS: Rivaroxaban 10 MG Tablet PO (05:26)
[2021-04-29] MEDS: Acetaminophen 500 MG Tablet 1000 MG PO ×3 (05:26→21:13)
[2021-04-29] MEDS: Insulin Lispro 100 UNIT/ML INSULN.PEN SC ×4 (06:45→21:13)
[2021-04-29 06:52] LABS: Hematocrit 29.1 % (40-54); Hemoglobin 9.9 g/dL (13.0-16.5); Mean Corpuscular Hgb 29.6 pg (27.0-32.0); Mean Corpuscular Volume 87.1 fL (80-94); Mean Platelet Vol. 9.2 fl (6.2-12.0); Platelet Count 171 K/mm3 (150-450); RBC Distribution Width CV 14.4 % (11.6-14.6); Red Blood Count 3.34 M/mm3 (4.6-6.2); White Blood Count 11.1 K/mm3 (4.4-11.0)
[2021-04-29 06:56] LABS: Bedside Glucose 152 mg/dL (74-106)
--- NOTE | 2021-04-29 07:01 | PCM.HOSP.N ---
Hospitalist Note Vital signs and labs reviewed. All of which are stable. Patient on oxygen but 99% on 2 L. Likely oxygen can be weaned easily off without issues. Medically stable for discharge. Hospital service signing off. Call with questions.
[2021-04-29 07:10] LABS: Anion Gap 6 (5-15); BUN 19 mg/dL (7-18); Chloride 107 mmol/L (98-107); Creatinine, Serum 1.19 mg/dL (0.70-1.30); EST Glomerular Filtration Rate 71 mL/min (>60); Est Glom Filt Rate - Afr Amer 86 mL/min (>60); Estimated Creatinine Clearance 59.21 ml/min; Glucose 167 mg/dL (74-106); Potassium 4.2 mmol/L (3.5-5.1); Sodium Level 139 mmol/L (136-145)
[2021-04-29] MEDS: Cholecalciferol (VIT D3) 25 MCG TABLET (1,000 UNITS) PO (07:59)
[2021-04-29] MEDS: metFORMIN HCl 500 MG Tablet PO ×2 (07:59→18:07)
[2021-04-29] MEDS: Allopurinol 300 MG Tablet PO (07:59)
[2021-04-29] MEDS: Ensure Surgery 237 ML LIQUID PO ×3 (07:59→18:06)
[2021-04-29] MEDS: amLODIPine 10 MG Tablet PO (08:14)
[2021-04-29] MEDS: Famotidine 20 MG Tablet PO (08:15)
[2021-04-29] MEDS: Pantoprazole Sodium 40 MG Tablet 80 MG PO (08:15)
[2021-04-29] MEDS: Sertraline 50 MG Tablet PO (08:15)
[2021-04-29] MEDS: Senna/Docusate Sodium 1 Tablet 2 TABLET PO ×2 (08:15→21:13)
--- NOTE | 2021-04-29 09:30 | CASEMGMT ---
SW noted that patient wants to go to TCU. SW met with patient. Introduced self
--- NOTE | 2021-04-29 09:30 | CASEMGMT ---
SW reviewed patient's chart and noted that patient wants to go to TCU. SW met with patient and introduced self and role at [facility]. SW let patient know that TCU was full. SW provided patient with a list of SNF providers including quality and resource use data and consistent with the patient?s preferred geographic region, medical needs, and insurance network. SW explained the facilities SW highlighted in pink are the ones that take his insurance. Patient was going to call his grandma to get some help with picking facilities. SW will check back. Marixa Bowman REFINERY OPERATOR ALKYLATION FIORDALIZA
--- NOTE | 2021-04-29 10:00 | CASEMGMT ---
SW checked back with patient and [facility] choices are: [facility], [facility], and [facility]. SW told patient SW will let him know when SW has an answer. Sena munoz/jody city planning teacher will work on referral. Marixa MANCERA
--- NOTE | 2021-04-29 10:28 | CASEMGMT ---
Discharge Protective Signal Installer Helper Faxed over a referral to the [facility]. Will follow up. Sena Bellamy Discharge Protective Signal Installer Helper
--- NOTE | 2021-04-29 10:39 | PN.ORTHO_ITS ---
Subjective Subjective The patient was sitting in bed upon examination. Patient denies any chest pain, shortness of breath, dizziness, lightheadedness, nausea or vomiting, or calf pain. Pain is controlled on medications. No adverse overnight events. Patient states he does have some pain in the right knee but it is controlled on medic ations. Patient lives home alone and has no assistance. After his previous left total knee arthroplasty patient did require transitional care unit. However there are no beds available for transitional care unit at this time. Case management is on board working to place patient. Objective Data Objective Data Vital Signs: Vital Signs Temp Pulse Resp BP Pulse Ox 97.9 F 93 16 138/99 H 95 04/29/21 04:27 04/29/21 04:47 04/29/21 04:27 04/29/21 04:27 04/29/21 07:38 Oxygen Flow Rate (L/min) 2 Oxygen Delivery Method Nasal Cannula Weight: 85 kg Body Mass Index (BMI) 35.4 Intake & Output: Intake and Output for Last 24 Hours 04/27/21 04/28/21 04/29/21 23:59 23:59 23:59 Intake Total 5434.5 / 5434.5 2580 / 2580 Output Total 600 / 600 Balance 5434.5 / 5434.5 1979 / 1979 Lab / Micro Data Result Diagrams: 04/29/21 06:40 04/29/21 06:40 Labs: Laboratory Results - last 24 hr 04/28/21 16:29: POC Glucose 167 H 04/28/21 22:54: POC Glucose 185 H 04/29/21 06:40: WBC 11.1 H, RBC 3.34 L, Hgb 9.9 L, Hct 29.1 L, MCV 87.1, MCH 29.6, MCHC 34.0, RDW Std Deviation 45.0 H, RDW Coeff of Joe 14.4, Plt Count 171, MPV 9.2 04/29/21 06:40: Sodium 139, Potassium 4.2, Chloride 107, Carbon Dioxide 26.0, Anion Gap 6, BUN 19 H, Creatinine 1.19, Estim Creat Clear Calc 59.21, Est GFR (MDRD) Af Amer 86, Est GFR (MDRD) Non-Af 71, BUN/Creatinine Ratio 16.0, Glucose 167 H, Calcium 8.0 L 04/29/21 06:42: POC Glucose 152 H Micro: Microbiology 04/16/21 12:55 Swab (Method) Nasal Screen MRSA/MSSA - Final Radiography Diagnostic Testing: Radiology Impression Knee X-Ray 04/28/21 15:25 IMPRESSION: Intact appearance and appropriate positioning of newly placed right knee total arthroplasty surgical hardware. Expected associated postoperative changes in the soft tissues. No acute fracture or dislocation. Electronically Signed: Cornel Ramirez, at 16:00 EDT , Physical Exam Narrative Vital signs stable and afebrile. JIM hose and SCDs are in place bilaterally Patient is able to plantarflex and dorsiflex actively. Sensation is intact to light touch to saphenous, sural, superficial and deep peroneal, and tibial distribution. All dressings are clean dry and intact. Negative Homans bilaterally, negative signs and symptoms of DVT. Const alert, oriented x3 and no apparent distress Assessment & Plan Assessment/Plan (1) Status post total right knee replacement: PLAN: 1. S/P right total knee arthroplasty POD #1 2. Continue Pain Medications: Tylenol and oxycodone 3. DVT Prophylaxis: Patient will require Xarelto postoperatively for DVT prophylaxis. Patient does have history of previous DVT in the past. 4. PT/OT: Weightbearing as tolerated with walker 5. H & H: 9.9/29.1, asymptomatic. Postoperative anemia secondary to acute blood loss from surgery without any intra operative complications. Patient also has ongoing iron deficiency anemia/normocytic anemia. Takes iron supplem entation. We will continue to monitor. 6. Reactive leukocytosis: Currently 11.1, afebrile. Patient did receive Decadron intraoperatively 7. Continue postoperative medical management per medicine 8. Encouraged Incentive Spirometry 9. Disposition: Patient will require postoperative assisted facility. Case management is currently involved with appropriate placement. Patient lives home alone and has no assistance. Plan will be for discharge once pre-CERT has been obtained. Continue with above orders for pain control. Continue to work with physical therapy. Will repeat CBC tomorrow. I have reviewed the [place] Automated Rx Reporting System (OARRS) report for this patient for refill pattern and other prescriber involvement as part of the appropriate surveillance for the provision of acute and chronic controlled medications. The report was requested and reviewed on the date of this entry and was considered in the prescribing process.
[2021-04-29 11:16] LABS: Bedside Glucose 224 mg/dL (74-106)
--- NOTE | 2021-04-29 12:11 | CASEMGMT ---
Discharge Lipcoat Sprayer Trish from the [facility] called. They can accept the patient. KALPESH Calvin notified. Sena Bellamy Discharge Lipcoat Sprayer
[2021-04-29] MEDS: Ferrous Sulfate 325 MG Tablet PO (12:26)
--- NOTE | 2021-04-29 14:24 | CASEMGMT ---
RN ROSARIO NOTE: Intro role of CM to patient and [employer] form explained re: Observation status for treatment of Rt total knee arthroplasty. Explained hospitalization will be paid per his insurance policy for Outpatient billing and condition will continue to be evaluated for Inpt necessity. Also let pt know that [facility] sends paper in the billing packet with their phone number if questions arise. Discussed Pharmacy section of [employer] form and self administered medication guideline. Pt verbalizes understanding and does not have further questions. Form signed, copy made and placed in chart, and original given to pt. Jovany BUNN RN CM
[2021-04-29 17:06] LABS: Bedside Glucose 217 mg/dL (74-106)
[2021-04-29] MEDS: Atorvastatin Calcium 20 MG Tablet PO (21:13)
[2021-04-29 21:21] LABS: Bedside Glucose 181 mg/dL (74-106)
[2021-04-30 01:55] VITALS: BP 135/89; PULSE 95; RESP 18; TEMP 36.8; O2SAT 96
[2021-04-30 03:00] VITALS: PULSE 98
[2021-04-30 05:35] VITALS: BP 134/90; PULSE 93; RESP 16; TEMP 36.8; O2SAT 97
[2021-04-30] MEDS: Rivaroxaban 10 MG Tablet PO (06:36)
[2021-04-30] MEDS: Acetaminophen 500 MG Tablet 1000 MG PO (06:36)
--- NOTE | 2021-04-30 06:39 | PCM.PN.ORT ---
Subjective Subjective The patient was sitting in bed upon examination. Patient denies any chest pain, shortness of breath, dizziness, lightheadedness, nausea or vomiting, or calf pain. Pain is controlled on medications. No adverse overnight events. Patient does complain of pain with the right knee but it is controlled on medications. Case management has been involved with appropriate placement. of [facility]. [facility]. Objective Data Objective Data Vital Signs: Vital Signs Temp Pulse Resp BP Pulse Ox 98.3 F 93 16 134/90 H 97 04/30/21 05:35 04/30/21 05:35 04/30/21 05:35 04/30/21 05:35 04/30/21 05:35 Oxygen Flow Rate (L/min) 2 Oxygen Delivery Method Room Air Weight: 85 kg Body Mass Index (BMI) 35.4 Intake & Output: Intake and Output for Last 24 Hours 04/28/21 04/29/21 04/30/21 23:59 23:59 23:59 Intake Total 5434.5 / 5434.5 2580 / 3540 960 / 960 Output Total 600 / 1725 2175 / 2175 Balance 5434.5 / 5434.5 1980 / 1815 -1215 / -1215 Lab / Micro Data Result Diagrams: 04/29/21 06:40 04/29/21 06:40 Labs: Laboratory Results - last 24 hr 04/29/21 06:40: WBC 11.1 H, RBC 3.34 L, Hgb 9.9 L, Hct 29.1 L, MCV 87.1, MCH 29.6, MCHC 34.0, RDW Std Deviation 45.0 H, RDW Coeff of Joe 14.4, Plt Count 171, MPV 9.2 04/29/21 06:40: Sodium 139, Potassium 4.2, Chloride 107, Carbon Dioxide 26.0, Anion Gap 6, BUN 19 H, Creatinine 1.19, Estim Creat Clear Calc 59.21, Est GFR (MDRD) Af Amer 86, Est GFR (MDRD) Non-Af 71, BUN/Creatinine Ratio 16.0, Glucose 167 H, Calcium 8.0 L 04/29/21 06:42: POC Glucose 152 H 04/29/21 11:05: POC Glucose 224 H 04/29/21 17:00: POC Glucose 217 H 04/29/21 21:11: POC Glucose 181 H Micro: Microbiology 04/16/21 12:55 Swab (Method) Nasal Screen MRSA/MSSA - Final Physical Exam Narrative Vital signs stable and afebrile. SCDs and JIM hose are in place bilaterally Patient is able to plantarflex and dorsiflex actively. Sensation is intact to light touch to saphenous, sural, superficial and deep peroneal, and tibial distribution. Dressing is clean dry and intact. Negative Homans bilaterally, negative signs and symptoms of DVT. Const alert, oriented x3 and no apparent distress Assessment & Plan Assessment/Plan (1) Status post total right knee replacement: PLAN: 1. S/P right total knee arthroplasty POD #2 2. Continue Pain Medications: Tylenol and oxycodone 3. DVT Prophylaxis: Patient will require Xarelto postoperatively for DVT prophylaxis. Patient does have history of previous DVT in the past. 4. PT/OT: Weightbearing as tolerated with walker 5. H & H: Lab work has been taken this morning, waiting on results. Patient clinically asymptomatic and vitals are stable. Postoperative anemia secondary to acute blood loss from surgery without any intra operative complications. Patient also has ongoing iron deficiency anemia/normocytic anemia. Takes iron supplementation. We will continue to monitor. 6. Reactive leukocytosis: Lab work taken this morning, waiting on results. Patient did receive Decadron intraoperatively 7. Continue postoperative medical management per medicine 8. Encouraged Incentive Spirometry 9. Disposition: Patient has been accepted at the [facility] for continued rehab postoperatively. We will check with case management making sure pre-CERT has been obtained for patient. Patient will continue postoperative plan as described above. Medications will be attached to the chart. Patient will follow-up per postop instructions. I have reviewed the [place] Automated Rx Reporting System (OARRS) report for this patient for refill pattern and other prescriber involvement as part of the appropriate surveillance for the provision of acute and chronic controlled medications. The report was requested and reviewed on the date of this entry and was considered in the prescribing process.
--- NOTE | 2021-04-30 06:44 | DCINST_ITS ---
Discharge Instructions Diet Discharge Diet: No restrictions Activity Discharge Activity: May Not Drive (No driving for 6 weeks postoperatively and while taking narcotic pain medications.) and May Shower (Okay to shower with dressing on. Once dressing removed only soap and water over the incisions.) May shower in (days): 1 (Please turn dressing away from water. Okay to get wet as long as dressing is intact to skin.) Ice area for (Minutes): 20 (Every 1-2 hours while awake[address] Please place barrier between the skin and ice pack.) Weight Bearing Status: Weight bearing as tolerated Keep extremity elevated above heart level: Operative Extremity Dressing / Incision Call your doctor if your incision/area has: Continuous Slow Oozing, Sudden Increased Bleeding, Increased Pain/ Swelling, Increased Redness and Foul Smelling Discharge Call your doctor if you observe: Fever of 101 or Higher, Coldness, Increased Pain, Numbness or Tingling, Change in Color, Shortness of breath, Chest pain, Calf discomfort and Uncontrolled pain Remove Dressing in: 4 days (Okay to remove dressing on May 03, 2021) Additional Dressing/Incision Instructions:: Follow [facility] Post-op Instructions. Once postoperative dressing has been removed only use gentle soap and water over the incision. Do not use any ointments, Neosporin, salves, alcohol pads over the incision for 6 weeks postoperatively. Do not submerge underwater for 6 weeks postoperatively. Continue with JIM hose/elastic stockings for 2 weeks postoperatively. May remove at nighttime but needs to be placed back on the leg during the day. Do NOT use alcohol with narcotic pain medication. Do NOT make important decisions while taking narcotic medication. If you have problems with taking your medication (rash, itching, nausea, etc.) call the office at once. Follow Up Care Test Results: Test results from this visit will be discussed in further detail at your follow-up appointment, if applicable. Discharge Plan Admission Admit Date/Time: 04/28/21 13:43 Attending Provider: Bull Napier Primary Care Provider: Ezra Duggan Consulting Providers: Roni Bravo ; Marva Mujica ; Ameena Penaloza ; Moe Whatley ; Sarmad Mccabe ; Avery Cardozo Discharge Orders/Prescriptions Prescriptions: New acetaminophen 500 mg Tablet 1,000 mg PO Q8 14 Days Qty: 84 RF: 0 oxycodone 5 mg Tablet 5 - 10 mg PO Q4H PRN PRN (Reason: Pain Score 4-10) 5 Days Qty: 42 RF: 0 Xarelto 10 mg Tablet 10 mg PO DAILY@0600 Qty: 12 RF: 0 sennosides-docusate sodium [Stool Softener-Stimulant Laxat] 8.6-50 mg Tablet 2 tab PO BID 2 Days Qty: 8 RF: 0 Continued sertraline 50 MG tablet 50 mg PO DAILY RF: 0 atorvastatin 20 MG tablet 20 mg PO QHS RF: 0 omeprazole 40 MG capsule,delayed release(DR/EC) 80 mg PO DAILY RF: 0 amlodipine 10 MG tablet 10 mg PO DAILY RF: 0 metformin 500 MG tablet 500 mg PO BID Qty: 60 RF: 0 allopurinol 300 MG tablet 300 mg PO DAILYCM RF: 0 ferrous sulfate [iron] 325 mg (65 mg iron) Tablet 325 mg PO DAILY RF: 0 multivitamin Capsule 1 cap PO DAILY RF: 0 cholecalciferol (vitamin D3) [Vitamin D3] 25 mcg (1,000 unit) Capsule 25 mcg PO DAILY RF: 0 turmeric 400 mg Capsule 400 mg PO DAILY RF: 0 Other Ambulatory Orders: CBC-Complete Blood Cnt No Diff (Routine) Timeframe: 1 Week Facility: [facility] - Location: Laboratory Ordered By: Charles MUIR Referrals / Follow Up: Ezra Duggan MD [Primary Care Provider] - Charles Snyder PA-C [PHYSICIAN SCIENTIFIC LABORATORY SUPERVISOR] - 05/13/21 3:30 pm Disposition Disposition (needs filled in before D/C Order can be placed): Assisted Facility
--- NOTE | 2021-04-30 06:44 | PCM.TXEXTCAR ---
Diet 04/29/21 07:24 Diet: Regular - General Is pt able to select menu?: Yes Routine Orders/Code Status Routine Lab Work: CBC (follow up CBC in 1 week) Wound(s) RT KNEE: Wound Type: Surgical Incision (Okay to remove Mepilex dressing on May 03, 2021) Abdomen: Wound Type: Scattered open/scabbed over areas Therapies Weight Bearing: Weight bearing as tolerated (With walker) Physical Therapy: Eval and Treat Occupational Therapy: Eval and Treat Problem/Diagnosis (1) Status post total right knee replacement: Status: Acute Comment: Right total knee arthroplasty on April 28, 2021 Pain management: Take extra strength Tylenol 500 mg 2 tablets 3 times a day and oxycodone 5 mg 1 to 2 tablets every 4 hours for breakthrough pain. DVT prophylaxis: Take Xarelto for 2 weeks postoperatively for DVT prophylaxis secondary to previous history of DVT. At patient's 2-week follow-up we will switch him over to aspirin 81 mg twice a day for an additional 2 weeks. Allergies/Procedures Done in Hospital Allergies codeine Allergy (Verified 04/28/21 08:54) Other lisinopril Allergy (Verified 04/28/21 08:54) Rash Type of Care/Length of Stay Estimated LOS: Convalescent Care Less Than 30 days Type of Care Needed: Skilled Rehab Potential: Good Prognosis: Good Additional Orders/Day of Discharge Day of Discharge: 04/30/21 Discharge Plan Admission Admit Date/Time: 04/28/21 13:43 Attending Provider: Bull Napier Primary Care Provider: Ezra Duggan Consulting Providers: Roni Bravo ; Marva Mujica ; Ameena Penaloza ; Moe Whatley ; Sarmad Mccabe ; Avery Cardozo Discharge Orders/Prescriptions Prescriptions: New acetaminophen 500 mg Tablet 1,000 mg PO Q8 14 Days Qty: 84 RF: 0 oxycodone 5 mg Tablet 5 - 10 mg PO Q4H PRN PRN (Reason: Pain Score 4-10) 5 Days Qty: 42 RF: 0 Xarelto 10 mg Tablet 10 mg PO DAILY@0600 Qty: 12 RF: 0 sennosides-docusate sodium [Stool Softener-Stimulant Laxat] 8.6-50 mg Tablet 2 tab PO BID 2 Days Qty: 8 RF: 0 Continued sertraline 50 MG tablet 50 mg PO DAILY RF: 0 atorvastatin 20 MG tablet 20 mg PO QHS RF: 0 omeprazole 40 MG capsule,delayed release(DR/EC) 80 mg PO DAILY RF: 0 amlodipine 10 MG tablet 10 mg PO DAILY RF: 0 metformin 500 MG tablet 500 mg PO BID Qty: 60 RF: 0 allopurinol 300 MG tablet 300 mg PO DAILYCM RF: 0 ferrous sulfate [iron] 325 mg (65 mg iron) Tablet 325 mg PO DAILY RF: 0 multivitamin Capsule 1 cap PO DAILY RF: 0 cholecalciferol (vitamin D3) [Vitamin D3] 25 mcg (1,000 unit) Capsule 25 mcg PO DAILY RF: 0 turmeric 400 mg Capsule 400 mg PO DAILY RF: 0 Other Ambulatory Orders: CBC-Complete Blood Cnt No Diff (Routine) Timeframe: 1 Week Facility: [facility] - Location: Laboratory Ordered By: Charles MUIR Referrals / Follow Up: Ezra Duggan MD [Primary Care Provider] - Charles Snyder PA-C [PHYSICIAN CRUCIBLE FURNACE TENDER] - 05/13/21 3:30 pm Disposition Disposition (needs filled in before D/C Order can be placed): Group Home Facility
[2021-04-30 06:46] LABS: Bedside Glucose 124 mg/dL (74-106)
[2021-04-30 07:26] VITALS: O2SAT 91
[2021-04-30 08:03] LABS: Hematocrit 28.3 % (40-54); Hemoglobin 8.8 g/dL (13.0-16.5); Mean Corp Hgb Conc 31.1 g/dL (32-36); Mean Corpuscular Hgb 25.2 pg (27.0-32.0); Mean Corpuscular Volume 81.1 fL (80-94); Mean Platelet Vol. 12.3 fl (6.2-12.0); Platelet Count 368 K/mm3 (150-450); RBC Distribution Width CV 14.6 % (11.6-14.6); RBC Distribution Width SD 41.6 fl (35.1-43.9); Red Blood Count 3.49 M/mm3 (4.6-6.2); White Blood Count 14.4 K/mm3 (4.4-11.0)
[2021-04-30 08:15] LABS: Anion Gap 8 (5-15); BUN 21 mg/dL (7-18); BUN/Creat Ratio 17.8 RATIO (10-20); Calcium,Total 7.8 mg/dL (8.5-10.1); Chloride 108 mmol/L (98-107); Creatinine, Serum 1.18 mg/dL (0.70-1.30); EST Glomerular Filtration Rate 72 mL/min (>60); Est Glom Filt Rate - Afr Amer 87 mL/min (>60); Estimated Creatinine Clearance 59.71 ml/min; Glucose 166 mg/dL (74-106); Potassium 4.3 mmol/L (3.5-5.1); Sodium Level 140 mmol/L (136-145)
[2021-04-30] MEDS: Cholecalciferol (VIT D3) 25 MCG TABLET (1,000 UNITS) PO (08:53)
[2021-04-30] MEDS: Allopurinol 300 MG Tablet PO (08:53)
[2021-04-30] MEDS: Famotidine 20 MG Tablet PO (08:53)
[2021-04-30] MEDS: Senna/Docusate Sodium 1 Tablet 2 TABLET PO (08:53)
[2021-04-30] MEDS: metFORMIN HCl 500 MG Tablet PO (08:53)
[2021-04-30] MEDS: amLODIPine 10 MG Tablet PO (08:53)
[2021-04-30] MEDS: Sertraline 50 MG Tablet PO (08:53)
[2021-04-30] MEDS: Meloxicam 7.5 MG Tablet PO (08:54)
[2021-04-30] MEDS: Pantoprazole Sodium 40 MG Tablet 80 MG PO (08:54)
[2021-04-30] MEDS: Ensure Surgery 237 ML LIQUID PO ×2 (08:59→11:16)
[2021-04-30 09:07] VITALS: BP 141/86; PULSE 91; RESP 16; TEMP 36.8; O2SAT 97
[2021-04-30 09:17] LABS: Scan Indicated on CBC? Y/N NO
--- NOTE | 2021-04-30 10:13 | CASEMGMT ---
Discharge Quill Skinner Trish from [facility] called. She obtained Pre-cert. Marixa POSEY has been notified. Sena Bellamy Discharge Quill Skinner
--- NOTE | 2021-04-30 10:28 | PHA.DC.MR ---
Pharmacy Service has performed discharge medication reconciliation for this patient upon transfer to [facility]. Home Medications sertraline 50 mg PO DAILY 02/22/14 [History Last Taken 01/16/18 08:15 50 MG] atorvastatin 20 mg PO QHS 07/10/16 [History Last Taken 10/30/17] amlodipine 10 mg PO DAILY 10/16/17 [History Last Taken 01/16/18 08:15 10 MG] omeprazole 80 mg PO DAILY 10/16/17 [History Last Taken 04/28/21 06:00] metformin 500 mg PO BID #60 tab 11/08/17 [Rx Last Taken Unknown] allopurinol 300 mg PO DAILYCM 01/02/18 [History Last Taken Unknown] cholecalciferol (vitamin D3) [Vitamin D3] 25 mcg PO DAILY 04/14/21 [History Last Taken Unknown] ferrous sulfate [iron] 325 mg PO DAILY 04/14/21 [History Last Taken Unknown] multivitamin 1 cap PO DAILY 04/14/21 [History Last Taken Unknown] turmeric 400 mg PO DAILY 04/14/21 [History Last Taken Unknown] acetaminophen 1,000 mg PO Q8 14 Days #84 tab 04/30/21 [Rx Last Taken Unknown] oxycodone 5 - 10 mg PO Q4H PRN PRN 5 Days #42 tab 04/30/21 [Rx Last Taken Unknown] rivaroxaban [Xarelto] 10 mg PO DAILY@0600 #12 tab 04/30/21 [Rx Last Taken Unknown] sennosides-docusate sodium [Stool Softener-Stimulant Laxat] 2 tab PO BID 2 Days #8 tab 04/30/21 [Rx Last Taken Unknown] The patient's discharge medication list was reviewed for discrepancies and discrepancies were resolved.
--- NOTE | 2021-04-30 10:39 | CASEMGMT ---
[facility] faxed orders to [facility]. [facility] arranged for patient to get picked up at 1330 via [employer]. [facility] completed a PASRR as patient is observation status in the hospital. [facility] faxed orders and machine operator picker time to [facility]. [facility] notified RN and school secretary. [facility] will fax COVID test once resulted. [facility] did call Trish at [facility] and let her know about machine operator picker time. [facility] will notify patient. Plan: d/c to [facility] under skilled level of care on a PASRR as he is observation status in the hospital. [facility] transported patient via [employer]. 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
[2021-04-30 11:16] LABS: Bedside Glucose 179 mg/dL (74-106)
[2021-04-30] MEDS: Insulin Lispro 100 UNIT/ML INSULN.PEN SC (11:16)
[2021-04-30] MEDS: Ferrous Sulfate 325 MG Tablet PO (11:16)
--- NOTE | 2021-04-30 11:25 | CASEMGMT ---
[facility] faxed negative COVID test to Trish at [facility]. RN notified patient of 130 slat pickler. Plan: d/c to [facility] under skilled level of care on a PASRR due to being observation status in the hospital. Marixa MANCERA
--- NOTE | 2021-04-30 11:32 | NURSING ---
This RN called [facility] to give report on pt. Got sent to a voicemail. Left info and call back number.
--- NOTE | 2021-04-30 12:43 | NURSING ---
This RN called and gave report to IESHA Avalos at the [facility].
== END 2021-04-30 07:19 | disposition skilled nursing facility (03) ==
LOC: SDC 13:43 → MS3 13:43 → PCU 20:12
PROVIDERS: Anesthesiology; Physician Assistant Surgical; Admitting Provider Specialist; PCP Family Medicine; Referring Provider Specialist; Visit Provider Specialist
PROC: 0SRC0JZ Replacement of Right Knee Joint with Synthetic Substitute, Open Approach (ICD-10-PCS; CPT 27447; principal; 2021-04-28 10:45)
DX: M17.11 Unilateral primary osteoarthritis, right knee (principal); E11.9 Type 2 diabetes mellitus without complications; M10.9 Gout, unspecified; J98.4 Other disorders of lung; K21.9 Gastro-esophageal reflux disease without esophagitis; I10 Essential (primary) hypertension; Z79.84 Long term (current) use of oral hypoglycemic drugs; H91.90 Unspecified hearing loss, unspecified ear; R41.89 Other symptoms and signs involving cognitive functions and awareness; E78.5 Hyperlipidemia, unspecified; D50.9 Iron deficiency anemia, unspecified; F32.A Depression, unspecified; R09.02 Hypoxemia; Z86.718 Personal history of other venous thrombosis and embolism; Z79.899 Other long term (current) drug therapy; Q78.1 Polyostotic fibrous dysplasia; F17.290 Nicotine dependence, other tobacco product, uncomplicated; F41.9 Anxiety disorder, unspecified; R94.31 Abnormal electrocardiogram [ECG] [EKG]
CPT/HCPCS: 27447; S2900; 01402; 64447; 36415; 73560; 80048; 82040; 82962; 83036; 83735; 85025; 85027; 85610; 85730; 87081; 87426; 93005; 94640; 96361; 96365; 96366; 96375; 97110; 97162; 97166; 97530; 97535; 99218; 99251; C1776; J7120; A4216; G0378; G0463; J2310; J2405

== ENCOUNTER 2022-09-25 16:44 | Emergency (ER) | payer MEDICARE, MEDICAID, SELFPAY ==
[2022-09-25 16:46] VITALS: BP 140/89; PULSE 121; RESP 18; TEMP 36.7; O2SAT 98; BMI 34.1
[2022-09-25] MEDS: Cephalexin 250 MG Capsule 500 MG PO (17:22)
--- NOTE | 2022-09-25 17:22 | EDS_ITS ---
HPI History of Present Illness Chief Complaint: Cellulitis Detail of Chief Complaint: Redness swelling right elbow. No trauma. Began yesterday. Informant: patient Onset/Context/Timing Onset: Today and Yesterday Context: Gradual Onset Timing: Continuous Maximum Severity: Mild Narrative Narrative: 42-year-old male history of gout and diabetes. Prior DVT no longer on blood thinners. Complaint left elbow discomfort. No fever. Feels warm to the touch. Denies any trauma or injury. Prior similar symptoms: Yes Recent Illness/Hospitalization: No PFSH PFSH Medical History [place] hereditary osteodystrophy Anemia Arthritis Back pain Depression Diabetes Dietary restriction DVT (deep venous thrombosis) Gastric reflux [place] filter in place High cholesterol History of edema History of pain when walking History of stress test History of ulceration Hypertension Non-smoker Shortness of breath on exertion Wears glasses Wears hearing aid Home Medications sertraline 50 mg tablet 50 mg PO DAILY depression 02/22/14 [History Last Taken 01/16/18 08:15 50 MG] atorvastatin 20 mg tablet 20 mg PO QHS cholesterol 07/10/16 [History Last Taken 10/30/17] amlodipine 10 mg tablet 10 mg PO DAILY bp 10/16/17 [History Last Taken 01/16/18 08:15 10 MG] omeprazole 40 mg capsule,delayed release 80 mg PO DAILY gerd 10/16/17 [History Last Taken 04/28/21 06:00] metformin 500 mg tablet 500 mg PO BID DIABETES #60 tabs 11/08/17 [Rx Last Taken Unknown] allopurinol 300 mg tablet 300 mg PO DAILYCM GOUT 01/02/18 [History Last Taken Unknown] cholecalciferol (vitamin D3) 25 mcg (1,000 unit) capsule (Vitamin D3) 25 mcg PO DAILY vitamin 04/14/21 [History Last Taken Unknown] ferrous sulfate 325 mg (65 mg iron) tablet (iron) 325 mg PO DAILY supplement 04/14/21 [History Last Taken Unknown] multivitamin 1 cap PO DAILY vitamin 04/14/21 [History Last Taken Unknown] turmeric 400 mg capsule 400 mg PO DAILY supplement 04/14/21 [History Last Taken Unknown] acetaminophen 500 mg tablet 1,000 mg (2 x 500 mg) PO Q8 14 days #84 tabs 03/18/22 [Rx Last Taken Unknown] oxycodone 5 mg tablet 5 - 10 mg (1 - 2 x 5 mg) PO Q4H PRN PRN Pain Score 4-10 5 days #42 tabs 04/30/21 [Rx Last Taken Unknown] rivaroxaban 10 mg tablet (Xarelto) 10 mg PO DAILY@0600 DVT Prophylaxis #12 tabs 04/30/21 [Rx Last Taken Unknown] sennosides 8.6 mg-docusate sodium 50 mg tablet (Stool Softener-Stimulant Laxative) 2 tab PO BID 2 days #8 tabs 04/30/21 [Rx Last Taken Unknown] cephalexin 500 mg capsule 500 mg PO Q6 #40 CAPSULES 09/25/22 [Rx Last Taken Unknown] Allergy/AdvReac Type Severity Reaction Status Date / Time codeine Allergy Other Verified 09/25/22 16:46 lisinopril Allergy Rash Verified 09/25/22 16:46 Surgical History History of ear surgery History of lumbar discectomy Hx of ankle fusion Hx of colonoscopy Hx of total knee arthroplasty Social History Smoking Status: Never smoker ROS ROS ED ROS Narrative Denies recent illness. Review of Systems ROS Unobtainable: Denies due to encephalopathy Constitutional Constitutional ED: Denies chills or fever(s) Eyes Eyes: Denies blurry vision ENT ENT ED: Denies ear pain Cardiovascular Cardiovascular: Denies chest pain or palpitations Respiratory/Chest Respiratory/Chest: Denies cough or dyspnea Gastrointestinal Gastrointestinal: Denies abdominal pain Genitourinary Genitourinary ED: Denies dysuria or hematuria Musculoskeletal Musculoskeletal: Denies arthralgias or back pain Integumentary Denies abscess Neurologic Neurologic: Denies headache(s) Psychiatric Psychiatric: Denies anxiety Endocrine Endocrinology: Denies cold intolerance Hematologic/Lymphatic Hematologic/Lymphatic: Reports none Allergic/Immunologic Allergic/Immunologic ED: Denies mouth swelling or tongue swelling EXAM Physical Exam Narrative Exam Narrative: 42-year-old male no acute distress vital signs stable afebrile. HEENT exam unremarkable. Lungs clear to auscultation. Heart regular rhythm rate about 110 no murmur. Chest wall nontender. Abdomen soft nontender. Moving all 4 extremities. Neurovascular intact. Left elbow is mild swelling and tenderness consistent with cellulitis. There is no obvious bursitis. There is no obvious septic bursitis. He has flexion extension of the elbow. He is unable to completely extend cadets his baseline his elbow does not go to [address] for years. Denies prior surgery or trauma. The elbow itself there is no effusion it is only swollen posteriorly. Is warm to touch appears to be a soft tissue cellulitis. Does not appear to be a septic bursitis. It is not a septic elbow. There is no axillary lymphadenopathy. Left hand is neurovascularly intact. Otherwise exam unremarkable. Const Vital Signs: 09/25/22 16:46 Temperature 98.1 F Temperature Source Temporal Pulse Rate 121 H Respiratory Rate 18 Blood Pressure 140/89 H Blood Pressure Mean 106 Pulse Ox 98 Oxygen Delivery Method Room Air Positive well nourished and well developed; Negative for obese, cachectic or contractures General Appearance ED: well developed and NAD; Negative for cachectic, contractures, cyanotic or diaphoretic Nutritional Appearance: Negative for cachectic or obese HEENT Reports moist mucous membranes; Denies dry mucous membranes Negative for trauma or tenderness Mouth ED: No dry mucous membranes Mouth: No dry mucous membranes Eyes PERRL and EOMs intact bilaterally General Eye ED: Negative for pale conjunctiva or scleral icterus Neck no lymphadenopathy, supple and no JVD General: Negative for tenderness Lymph Lymphatic: Negative for other Chest Wall inspection of chest normal and palpation of chest normal Chest: Negative for other Resp normal respiratory effort and clear to auscultation bilaterally Effort and Inspection: Negative for retractions Auscultation: Negative for rales, rhonchi or wheezes Cardio S1 normal heart sound, S2 normal heart sound and no murmurs; Negative for regular rate or regular rhythm Rate: tachycardic GI normal to inspection, nondistended, normoactive bowel sounds, non-tender, non- distended and no masses Inspection: Negative for abdominal distention Auscultation: normoactive bowel sounds Palpation: soft; Negative for tender or guarding Back/Spine no CVA tenderness General Back: Negative for CVA tenderness Cervical Spine: Negative for cervical spine tenderness Thoracic Spine / Upper Back: Negative for thoracic spinal tenderness Lumbar Spine / Lower Back: Negative for lumbar spinal tenderness Extremity Negative for normal to inspection Extremity Narrative: Posterior left elbow swollen. Mildly tender. Mildly red. No streaks. No active lymphadenopathy. Left hand neurovascular intact. Full flexion. Limited extension that is chronic. He cannot extend 280 degrees. That is not new. No joint effusion. No septic joint. General Extremety ED: Yes edema and tenderness General Extremity: edema Neuro oriented x3 and CN's II-XII intact bilaterally Sensorium / Orientation: alert; Negative for orientation impaired, lethargic or stuporous Motor Exam: strength 5/5 throughout Psych mental status grossly normal Appearance: Negative for other Attitude: No agitated Mood & Affect: Negative for depressed, anxious or tearful Skin No no rashes or lesions noted and no wounds Skin Narrative: Left elbow cellulitis. General Skin Exam: elasticity normal Lesions: No lesion noted Rashes: rashes noted Trauma: Negative for abrasion Wounds: Negative for wounds noted MDM MDM MDM Narrative Medical decision making narrative: 42-year-old diabetic male with left elbow cellulitis. It does not appear to be a septic bursitis. There is nothing to drain or tap. This is not a septic elbow at this time because he has range of motion without discomfort. He has chronic limited range of motion as not new. He has full flexion. Limited extension. Patient be started on Keflex first dose given here. 4 times a day for 10 days. He was instructed if this gets worse to return or follow-up with his doctor to have it further evaluated. He also has a history of gout as possible but is really not having significant pain. History & Record Review Discussion w/independent historian: Patient Additional record(s) reviewed:: Prior inpatient record, Prior outpatient record, Prior ED visit and Prior labs Discharge Plan Triage Chief Complaint: Cellulitis ED Provider: Raul Quiñones Dx/Rx/DC Orders Clinical Impression: Cellulitis of arm, left, Hx of gout, History of diabetes mellitus Instructions: ED Cellulitis Prescriptions: New cephalexin 500 mg capsule 500 mg PO Q6 Qty: 40 0RF No Action sertraline 50 MG tablet 50 mg PO DAILY atorvastatin 20 MG tablet 20 mg PO QHS omeprazole 40 MG capsule,delayed release(DR/EC) 80 mg PO DAILY Patient Comments: amlodipine 10 MG tablet 10 mg PO DAILY metformin 500 MG tablet 500 mg PO BID Qty: 60 0RF Rx Instructions: start 11/05/2017 allopurinol 300 MG tablet 300 mg PO DAILYCM ferrous sulfate [iron] 325 mg (65 mg iron) Tablet 325 mg PO DAILY multivitamin Capsule 1 cap PO DAILY cholecalciferol (vitamin D3) [Vitamin D3] 25 mcg (1,000 unit) Capsule 25 mcg PO DAILY turmeric 400 mg Capsule 400 mg PO DAILY acetaminophen 500 mg Tablet 1,000 mg PO Q8 14 Days Qty: 84 0RF Rx Instructions: Do not take more than 3000 mg Tylenol in a 24-hour period. oxycodone 5 mg Tablet 5 - 10 mg PO Q4H PRN PRN (Reason: Pain Score 4-10) 5 Days Qty: 42 0RF Xarelto 10 mg Tablet 10 mg PO DAILY@0600 Qty: 12 0RF sennosides-docusate sodium [Stool Softener-Stimulant Laxat] 8.6-50 mg Tablet 2 tab PO BID 2 Days Qty: 8 0RF Rx Instructions: Take until first bowel movement, then as needed Primary Care Provider: Ezra Duggan Referrals: Ezra Duggan MD [Primary Care Provider] - 3-5 Days Activity Restrictions/Additional Instructions: This appears to be an infection of the skin of your left elbow called cellulitis. It could be gout also. Keflex 1 pill 4 times a day till gone. That should treat any infection. If this progressively gets worse more swelling your elbow, increasing pain, fever or streaks up your arm and needs to be reevaluated. Follow-up with your doctor ensure its improving. Disposition Disposition: Home, Self Care
== END 2022-09-25 18:22 | disposition home or self-care (01) ==
LOC: ED 17:25
PROVIDERS: Emergency Provider Emergency Medicine; PCP Family Medicine; Visit Provider Emergency Medicine
DX: L03.114 Cellulitis of left upper limb (principal); E11.9 Type 2 diabetes mellitus without complications; E78.00 Pure hypercholesterolemia, unspecified; I10 Essential (primary) hypertension; M10.9 Gout, unspecified; F32.A Depression, unspecified; K21.9 Gastro-esophageal reflux disease without esophagitis; Z79.84 Long term (current) use of oral hypoglycemic drugs; Z79.899 Other long term (current) drug therapy; Z96.659 Presence of unspecified artificial knee joint
CPT/HCPCS: 99283

== ENCOUNTER → 2023-09-26 | Outpatient (CLI) | payer MEDICARE, MEDICAID, SELFPAY | END | disposition home or self-care (01) | PROVIDERS: PCP Family Medicine; Referring Provider Registered Nurse; Visit Provider Registered Nurse | DX: G47.30 Sleep apnea, unspecified (principal) | CPT/HCPCS: 95810 ==

== ENCOUNTER → 2023-11-02 | Outpatient (CLI) | payer MEDICARE, MEDICAID, SELFPAY | END | disposition home or self-care (01) | LOC: SL 13:21 | PROVIDERS: PCP Family Medicine; Visit Provider Registered Nurse | DX: G47.33 Obstructive sleep apnea (adult) (pediatric) (principal) ==